=== PATIENT | female | born 1975 | race Caucasian/White ===

== ENCOUNTER → 2017-04-14 12:21 | Outpatient (CLI) | payer OTHER, SELFPAY ==
--- NOTE | 2017-04-14 12:28 | RAD_ITS ---
STUDY: X-RAY CHEST REASON FOR EXAM: Female, 41 years old. Chest pain TECHNIQUE: Frontal and lateral views COMPARISON: None. FINDINGS: The lungs are clear and expanded. There is no demonstrated pleural abnormality. Normal size heart. Normal mediastinum and paula. Normal visualized pulmonary arteries. Normal visualized aortic arch and descending thoracic aorta. Mild degenerative changes of the thoracic spine. Normal visualized ribs, clavicles, and shoulders. There is no demonstrated abnormality of the visualized soft tissue structures of the upper abdomen. RAD/Chest PA and Lateral IMPRESSION: Normal x-ray examination of the chest. Electronically Signed: Devin Pittman DO at 22:43 EST Tel [phone], Service support ,
== END ==
PROVIDERS: Family Provider Family Medicine; PCP Family Medicine; Visit Provider Family Medicine
DX: R07.81 Pleurodynia (principal)
CPT/HCPCS: 71046

== ENCOUNTER → 2019-12-29 | Outpatient (CLI) | payer BC, SELFPAY | END | disposition home or self-care (01) | PROVIDERS: PCP Family Medicine; Referring Provider Family Medicine; Visit Provider Family Medicine | DX: J06.9 Acute upper respiratory infection, unspecified (principal) | CPT/HCPCS: 87635; U0003 ==

== ENCOUNTER → 2021-02-27 | Outpatient (CLI) | payer BC, SELFPAY | END | disposition home or self-care (01) | PROVIDERS: PCP Family Medicine; Visit Provider Physician Assistant Medical | DX: R53.83 Other fatigue (principal) | CPT/HCPCS: 87635; U0005; U0003 ==

== ENCOUNTER → 2021-09-12 | Outpatient (CLI) | payer BC, SELFPAY ==
[2021-09-12 12:15] LABS: Absolute Lymphocyte Count 1.28 X10^3/uL (0.83-4.51); Absolute Neutrophil Count 3.9 X10^3/uL (2.0-7.7); Basophil# 0.06 X10^3/uL; Eosinophil# 0.06 X10^3/uL; Hematocrit 45.1 % (37-47); Lymphocyte # 1.28 X10^3/ul (0.83-4.51); Lymphocyte % 22.4 % (19-41); Mean Corp Hgb Conc 33.3 g/dL (32-36); Mean Corpuscular Hgb 33.1 pg (27.0-32.0); Mean Corpuscular Volume 99.6 fL (81-99); Mean Platelet Vol. 10.7 fl (6.2-12.0); Monocyte# 0.45 X10^3/uL; Monocyte% 7.9 % (0-10); NRBC Flagged by Analyzer 0 % (0-5); Neutrophil # 3.86 X10^3/uL (2.7-7.7); Neutrophil % 67.5 % (47-70); Platelet Count 244 K/mm3 (150-450); RBC Distribution Width CV 11.6 % (11.6-14.6); RBC Distribution Width SD 42.3 fl (35.1-43.9); Red Blood Count 4.53 M/mm3 (4.2-5.4); White Blood Count 5.7 K/mm3 (4.4-11.0)
[2021-09-12 12:39] LABS: ALB/GLOB Ratio 1.3 RATIO (0.9-2.4); AST(SGOT) 11 U/L (15-37); Alanine Aminotransfer ALT/SGPT 29 U/L (13-56); Albumin, Serum 4.2 g/dL (3.2-5.0); Alkaline Phosphatase 62 U/L (45-117); Anion Gap 4 (5-15); BUN 17 mg/dL (7-18); BUN/Creat Ratio 21.5 RATIO (10-20); Calcium,Total 9.4 mg/dL (8.5-10.1); Chloride 107 mmol/L (98-107); Cholesterol 195 mg/dL (200); Creatinine, Serum 0.79 mg/dL (0.55-1.02); EST Glomerular Filtration Rate 83 mL/min (>60); Est Glom Filt Rate - Afr Amer 100 mL/min (>60); Free T3 2.8 pg/mL (2.18-3.98); Globulin 3.3 g/dL (2.2-4.2); Glucose 91 mg/dL (74-106); High Density Lipoprotein 73 mg/dL; Potassium 4.1 mmol/L (3.5-5.1); Protein, Total 7.5 g/dL (6.4-8.2); Sodium Level 140 mmol/L (136-145); T4 Free Direct 0.86 ng/dL (0.76-1.46); Triglycerides 105 mg/dL; Very Low Density Lipoprotein 21 mg/dL (5-40)
[2021-09-12 12:49] LABS: Vitamin D,25 Hydroxy 53.6 ng/mL
== END | disposition home or self-care (01) ==
LOC: BIMLAB 08:49
PROVIDERS: PCP Internal Medicine; Referring Provider Internal Medicine; Visit Provider Internal Medicine
DX: E55.9 Vitamin D deficiency, unspecified (principal); Z86.39 Personal history of other endocrine, nutritional and metabolic disease; Z13.220 Encounter for screening for lipoid disorders
CPT/HCPCS: 36415; 80053; 80061; 82306; 84439; 84443; 84481; 85025

== ENCOUNTER → 2023-06-08 | Outpatient (CLI) | payer BC, SELFPAY ==
[2023-06-08 09:29] LABS: Absolute Lymphocyte Count 1.33 X10^3/uL (0.83-4.51); Absolute Neutrophil Count 3.8 X10^3/uL (2.0-7.7); Basophil# 0.07 X10^3/uL; Basophil% 1.2 % (0-1); Eosinophil# 0.09 X10^3/uL; Eosinophils% 1.6 % (0-5); Hematocrit 44.2 % (37-47); Hemoglobin 14.5 g/dL (12.0-15.0); Lymphocyte # 1.33 X10^3/ul (0.83-4.51); Lymphocyte % 23.3 % (19-41); Mean Corp Hgb Conc 32.8 g/dL (32-36); Mean Corpuscular Hgb 31.9 pg (27.0-32.0); Mean Corpuscular Volume 97.1 fL (81-99); Mean Platelet Vol. 10.6 fl (6.2-12.0); Monocyte# 0.44 X10^3/uL; Monocyte% 7.7 % (0-10); NRBC Flagged by Analyzer 0 % (0-5); Neutrophil # 3.76 X10^3/uL (2.7-7.7); Neutrophil % 65.8 % (47-70); Platelet Count 240 K/mm3 (150-450); RBC Distribution Width CV 11.8 % (11.6-14.6); RBC Distribution Width SD 42.3 fl (35.1-43.9); Red Blood Count 4.55 M/mm3 (4.2-5.4); White Blood Count 5.7 K/mm3 (4.4-11.0)
[2023-06-08 15:01] LABS: ALB/GLOB Ratio 1.3 RATIO (0.9-2.4); AST(SGOT) 11 U/L (15-37); Alanine Aminotransfer ALT/SGPT 20 U/L (13-56); Albumin, Serum 4.2 g/dL (3.2-5.0); Alkaline Phosphatase 62 U/L (45-117); Anion Gap 6 (5-15); BUN 14 mg/dL (7-18); BUN/Creat Ratio 21.1 RATIO (10-20); Calcium,Total 9.7 mg/dL (8.5-10.1); Chloride 109 mmol/L (98-107); Cholesterol 197 mg/dL (200); Creatinine, Serum 0.66 mg/dL (0.55-1.02); EST Glomerular Filtration Rate 101 mL/min (>60); Est Glom Filt Rate - Afr Amer 122 mL/min (>60); Free T3 2.7 pg/mL (2.18-3.98); Globulin 3.2 g/dL (2.2-4.2); Glucose 91 mg/dL (74-106); High Density Lipoprotein 70 mg/dL; Magnesium 2.1 mg/dL (1.6-2.6); Potassium 4.3 mmol/L (3.5-5.1); Protein, Total 7.4 g/dL (6.4-8.2); Sodium Level 139 mmol/L (136-145); T4 Free Direct 0.82 ng/dL (0.76-1.46); Thyroid Stim Hormone (TSH) 2.54 uIU/mL (0.358-3.74); Triglycerides 87 mg/dL; Very Low Density Lipoprotein 17 mg/dL (5-40)
== END | disposition home or self-care (01) ==
LOC: LAB 08:49
PROVIDERS: PCP Internal Medicine; Referring Provider Internal Medicine; Visit Provider Internal Medicine
DX: Z86.39 Personal history of other endocrine, nutritional and metabolic disease (principal); E55.9 Vitamin D deficiency, unspecified; Z13.220 Encounter for screening for lipoid disorders
CPT/HCPCS: 36415; 80053; 80061; 82306; 83735; 84439; 84443; 84481; 85025

== ENCOUNTER → 2024-05-05 | Outpatient (CLI) | payer BC, SELFPAY ==
[2024-05-05 12:25] LABS: Absolute Lymphocyte Count 1.33 X10^3/uL (0.83-4.51); Absolute Neutrophil Count 3.4 X10^3/uL (2.0-7.7); Basophil# 0.06 X10^3/uL; Basophil% 1.1 % (0-1); Eosinophil# 0.06 X10^3/uL; Eosinophils% 1.1 % (0-5); Hematocrit 43.1 % (37-47); Hemoglobin 14.4 g/dL (12.0-15.0); Lymphocyte # 1.33 X10^3/ul (0.83-4.51); Lymphocyte % 25.3 % (19-41); Mean Corp Hgb Conc 33.4 g/dL (32-36); Mean Corpuscular Hgb 32.5 pg (27.0-32.0); Mean Corpuscular Volume 97.3 fL (81-99); Mean Platelet Vol. 10.5 fl (6.2-12.0); Monocyte# 0.39 X10^3/uL; Monocyte% 7.4 % (0-10); NRBC Flagged by Analyzer 0 % (0-5); Neutrophil # 3.39 X10^3/uL (2.7-7.7); Neutrophil % 64.7 % (47-70); Platelet Count 265 K/mm3 (150-450); RBC Distribution Width CV 11.8 % (11.6-14.6); RBC Distribution Width SD 42.5 fl (35.1-43.9); Red Blood Count 4.43 M/mm3 (4.2-5.4); White Blood Count 5.3 K/mm3 (4.4-11.0)
[2024-05-05 12:47] LABS: Hemoglobin A1c 5.1 % (<=5.6)
[2024-05-05 13:10] LABS: ALB/GLOB Ratio 1.9 RATIO (0.9-2.4); AST(SGOT) 14 U/L (<=31); Alanine Aminotransfer ALT/SGPT 16 U/L (<=34); Albumin, Serum 4.5 g/dL (3.5-5.0); Alkaline Phosphatase 58 U/L (35-104); Anion Gap 11 (5-15); BUN 16 mg/dL (4-19); BUN/Creat Ratio 22.1 RATIO (10-20); Calcium,Total 9.6 mg/dL (7.6-11.0); Carbon Dioxide 22.7 mmol/L (21.0-32.0); Chloride 105 mmol/L (98-108); Creatinine, Serum 0.71 mg/dL (0.70-1.20); EST Glomerular Filtration Rate 104 (>60); Free T3 2.7 pg/mL (2.18-3.98); Globulin 2.5 g/dL (2.2-4.2); Glucose 94 mg/dL (70-99); Potassium 4.2 mmol/L (3.3-5.1); Sodium Level 138 mmol/L (133-145); Total Bilirubin 0.27 mg/dL (0.00-1.30); Vitamin B12 851 pg/mL (180-914); Vitamin D,25 Hydroxy 39.7 ng/mL (30-100)
[2024-05-05 13:29] LABS: Cholesterol 210 mg/dL (<=200); High Density Lipoprotein 64 mg/dL; Low Density Lipoprotein Calc. 120 mg/dL; Triglycerides 127 mg/dL; Very Low Density Lipoprotein 25 mg/dL (5-40); cholesterol:hdl ratio screen 3.27
== END | disposition home or self-care (01) ==
LOC: BIMLAB 08:54
PROVIDERS: PCP Internal Medicine; Referring Provider Internal Medicine; Visit Provider Internal Medicine
DX: Z00.00 Encounter for general adult medical examination without abnormal findings (principal); Z86.39 Personal history of other endocrine, nutritional and metabolic disease; E55.9 Vitamin D deficiency, unspecified; E53.8 Deficiency of other specified B group vitamins; Z13.220 Encounter for screening for lipoid disorders; R73.9 Hyperglycemia, unspecified
CPT/HCPCS: 36415; 80053; 80061; 82306; 82607; 83036; 84439; 84443; 84481; 85025

== ENCOUNTER → 2024-08-14 | Outpatient (CLI) | payer BC, SELFPAY ==
[2024-08-14 16:05] LABS: Absolute Lymphocyte Count 1.35 X10^3/uL (0.83-4.51); Absolute Neutrophil Count 4.2 X10^3/uL (2.0-7.7); Basophil# 0.06 X10^3/uL; Eosinophil# 0.06 X10^3/uL; Hematocrit 42.8 % (37-47); Hemoglobin 14.2 g/dL (12.0-15.0); Lymphocyte # 1.35 X10^3/ul (0.83-4.51); Lymphocyte % 21.8 % (19-41); Mean Corp Hgb Conc 33.2 g/dL (32-36); Mean Corpuscular Hgb 32.1 pg (27.0-32.0); Mean Corpuscular Volume 96.8 fL (81-99); Mean Platelet Vol. 10.6 fl (6.2-12.0); Monocyte# 0.51 X10^3/uL; Monocyte% 8.3 % (0-10); NRBC Flagged by Analyzer 0 % (0-5); Neutrophil # 4.18 X10^3/uL (2.7-7.7); Neutrophil % 67.6 % (47-70); Platelet Count 268 K/mm3 (150-450); RBC Distribution Width CV 11.8 % (11.6-14.6); RBC Distribution Width SD 42.2 fl (35.1-43.9); Red Blood Count 4.42 M/mm3 (4.2-5.4); White Blood Count 6.2 K/mm3 (4.4-11.0)
[2024-08-14 16:25] LABS: Hemoglobin A1c 5.2 % (<=5.6)
--- OUTSIDE RECORDS SUMMARY | 2024-08-14 23:24 | XMS RPT_ITS | CCD ---
Author Organization [facility] Care Team Providers Care Design Tech Name Role Phone Jean-Paul Oneil MD Primary Care Provider Sanchez Prince MD Primary Care Provider Dr. Sanchez Prince Primary Care Provider Dr. Sanchez Prince Attending Provider [phone] Sanchez Prince MD Primary Care Provider SANCHEZ PRINCE Primary Care Unavailable CAROL SEPULVEDA Referring Unavailable Sanchez Prince Primary Care Unavailable Sanchez Prince Attending Unavailable Sanchez Prince Referring Unavailable Sanchez Prince Primary Care Unavailable Sanchez Prince Attending Unavailable Sanchez Prince Attending Unavailable Sanchez Prince Referring Unavailable Sanchez Prince Primary Care Unavailable Sanchez Prince Primary Care Unavailable Sanchez Prince Attending Unavailable Sanchez Prince Primary Care Unavailable Sanchez Prince Attending Unavailable Dr. Sanchez Prince MD Primary Care Provider [phone] Dr. Sanchez Prince MD Attending Provider Dr. Sanchez Prince MD Referring Provider SANCHEZ PRINCE Primary Care Unavailable WADE NOWAK Attending Unavailable SANCHEZ PRINCE Primary Care Unavailable MALOU GASTELUM Attending Unavailable SANCHEZ PRINCE Primary Care Unavailable MALOU GASTELUM Referring Unavailable SANCHEZ PRINCE Primary Care Unavailable CAROL SEPULVEDA Attending Unavailable SANCHEZ PRINCE Primary Care Unavailable NEAL, MALOU Referring Unavailable SANCHEZ PRINCE Primary Care Unavailable MALOU GASTELUM Attending Unavailable SANCHEZ PRINCE Primary Care Unavailable HAURY, MALOU Attending Unavailable SANCHEZ PRINCE Primary Care Unavailable CAROL SEPULVEDA Attending Unavailable CAROL SEPULVEDA Referring Unavailable SANCHEZ PRINCE Primary Care Unavailable SANCHEZ PRINCE Primary Care Unavailable HAURY, MALOU Attending Unavailable ABENA NJ Attending Unavailable SANCHEZ PRINCE Primary Care Unavailable HAURY, MALOU Referring Unavailable TESTJUAN MANUEL, CAROL Referring Unavailable SANCHEZ PRINCE Primary Care Unavailable NASH SHAH Attending Unavailable CAROL SEPULVEDA Referring Unavailable SANCHEZ PRINCE Primary Care Unavailable NASH SHAH Attending Unavailable CAROL SEPULVEDA Referring Unavailable SANCHEZ PRINCE Primary Care Unavailable NARINDER DUNN Attending Unavailable SANCHEZ PRINCE Primary Care Unavailable HAURY, MALOU Referring Unavailable Allergies Allergy Classification Reported Allergen(s) Allergy Type Date of Onset Reaction(s) Facility (4 sources) Environmental [Other] Propensity to adverse reactions 6 [facility] Work Phone: (4 sources) Seasonal [Other] Propensity to adverse reactions 6 [facility] Work Phone: (3 sources) Environmental Allergies: Uncoded; Translations: [Environmental Allergies: Uncoded] Allergy to substance 4 Other [facility] (3 sources) Seasonal Allergies: Uncoded; Translations: [Seasonal Allergies: Uncoded] Allergy to substance 4 Fatigue [facility] Comment on above: Sinus congestion Medications Current Medications Medication Drug Class(es) Dates Sig (Normalized) Sig (Original) allergy shot (2 sources) Start: 03-25-2023 allergy shot Active IM .weekly March 25, 2023 1:00am caffeine 100 mg / ergotamine tartrate 1 mg oral tablet (20 sources) Central Nervous System Stimulant, Ergotamine Derivative, Methylxanthine Start: 04-09-2023 ergotamine-caffei ne (CAFERGOT) 1-100 mg per tablet Take 1 tablet by mouth as directed. Two tablets at onset of attack; then 1 tablet every 30 minutes as needed; maximum: 6 tablets per attack; do not exceed 10 tablets/week 04/09/2023 Active Start: 11-19-2021 End: 02-24-2024 take 2 tablets by mouth every two hours Ergotamine-Caffeine 1-100 mg tablet Active 0 PO .COMPLEX February 24, 2024 3:22pm On Hold: None take 2 tablets at onset of headache; if no relief, may repeat 1 tablet after at least 2 hrs; max = 3 tabs/24 hrs PO Start: 11-19-2021 End: 03-25-2023 take 2 tablets by mouth every two hours Ergotamine-Caffeine Active 0 PO .COMPLEX March 25, 2023 3:24pm take 2 tablets at onset of headache; if no relief, may repeat 1 tablet after at least 2 hrs; max = 3 tabs/24 hrs PO Comment on above: Take 1 tablet by reji th as directed. Two tablets at onset of attack; then 1 tablet every 30 minutes as needed; maximum: 6 tablets per attack; do not exceed 10 tablets/week calcium carbonate 1500 mg oral tablet (2 sources) Start: 11-19-2021 take 1 tablet by mouth once daily Calcium Carbonate 600 mg calcium (1,500 mg) tablet Active 600 mg PO DAILY November 19, 2021 12:00am Calcium Carbonate / vitamin D3 (20 sources) take 1 tablet by mouth twice daily CALCIUM CARBONATE/VITAMIN D3 (CALCIUM + D ORAL) Take 1 tablet by mouth twice daily. Active take 1 tablet by mouth twice marlene ly CALCIUM CARBONATE/VITAMIN D3 (CALCIUM + D ORAL) Take 1 tablet by mouth twice daily. 0 Active Comment on above: Take 1 tablet by reji twice daily. cholecalciferol 0.025 mg oral capsule (2 sources) Vitamin D Start: 11-20-19 take 1 capsule by mouth once daily Cholecalciferol (Vitamin D3) 25 mcg (1,000 unit) capsule Active 25 ug PO DAILY November 19, 2021 12:00am ergocalciferol, vitamin D2, (VITAMIN D2 ORAL) (20 sources) ergocalciferol, vitamin D2, (VITAMIN D2 ORAL) Take by mouth once daily. Active ergocalciferol, vitamin D2, (VITAMIN D2 ORAL) Take by mouth once daily. 0 Active ergocalciferol, vitamin D2, (VITAMIN D2 ORAL) Take by mouth. 0 Active Comment on above: Take by mouth. fexofenadine hydrochloride 60 mg oral tablet (20 sources) Histamine-1 Receptor Antagonist Start: 3 End: take 1 tablet by mouth once daily as needed Fexofenadine (Cristiane Allergy) 60 mg tablet Active 60 mg PO DAILY as needed March 25, 2023 2:12pm Start: 04-10-2021 End: 08-20-2022 take 1 tablet by mouth twice daily Fexofenadine (Cristiane Allergy) 60 mg tablet Discontinued 60 mg PO TWICE A DAY April 10, 2021 1:00am August 20, 2022 2:49pm take 1 tablet by reji th once daily fexofenadine HCl (CRISTIANE ORAL) Take 1 tablet by mouth once daily. Active take 1 tablet by reji th once daily fexofenadine HCl (CRISTIANE ORAL) Take 1 tablet by mouth once daily. 0 Active fexofenadine HCl (CRISTIANE ORAL) Take by mouth. 0 Active Comment on above: Take by mouth. fluconazole 150 mg oral tablet (1 source) Azole Antifungal Start: 10-14-2023 End: 10-14-2023 take 1 tablet by mouth once fluconazole (DIFLUCAN) 150 mg tablet Take 1 tablet by mouth one time only for 1 dose. 1 tablet 0 10/14/2023 10/14/2023 Active Magnesium (20 sources) take 500 mg by mouth once daily MAGNESIUM ORAL Take 500 mg by mouth once daily. Active take 500 mg by mouth once daily MAGNESIUM ORAL Take 500 mg by mouth once daily. 0 Active MAGNESIUM ORAL T shravan by mouth. 0 Active Comment on above: Take by mouth. melatonin 5 mg oral capsule (4 sources) Start: 11-19-2021 End: 08-20-2022 take 1 mg by mouth at bedtime Melatonin 5 mg capsule Active mg PO AT BEDTIME August 20, 2022 2:48pm Start: 11-19-2021 End: 08-20-2022 take 1 mg by mouth at bedtime Melatonin Active MG PO A T BEDTIME August 20, 2022 2:48pm 24 hr metFORMIN hydrochloride 500 mg extended release oral tablet (15 sources) Biguanide Start: 07-21-2024 take 1 tablet by mouth once daily at dinner metFORMIN ER (GLUCOPHAGE XR) 500 mg 24 hr tablet Indications: PCOS (polycystic ovarian syndrome) Take 1 tablet by mouth daily with dinner. 90 tablet 1 07/21/2024 Active Start: 03-10-2025 take 2 tablets by mo uth once daily Metformin 500 mg tablet Active 1000 mg PO daily May 08, 2024 10:43am Start: 01-06-2024 End: 01-31-2024 take 1 tablet by mouth once daily at dinner metFORMIN (GLUCOPHAGE) 1,000 mg tablet Indications: History of PCOS Take 1 tablet by mouth daily with dinner. 90 tablet 2 01/31/2024 Active Start: 11-04-2023 End: 05-08-2024 take 1 tablet by mouth once daily Metformin 500 mg tablet Discontinued 500 mg PO daily December 20, 2023 12:00am May 08, 2024 10:43am SUMAtriptan 50 mg oral tablet (2 sources) Serotonin-1b and Serotonin-1d Receptor Agonist Start: 07-08-2024 SUMAtriptan (IMITREX ) 50 mg tablet as needed. 07/08/2024 Active Start: 04-25-2024 take 1 tablet by [facility] every two hours Sumatriptan Succinate (Imitrex) 50 mg tablet Active 0 PO .COMPLEX April 25, 2024 1:00am take 1 tab at onset of headache; if no relief may repeat 1 tab after at least 2 hrs; max = 4 tabs/24 hr PO Toyviuzl-Knfl-Arfaf-Oreg-Cap ry (1 source) Start: 11-19-2021 Tjtazmqp-Bqqi-Utsth-Oreg-Cap ry Active CAP PO November 19, 2021 12:00am MLOPPCJC-OXHS-RTTGG-OREG-CAP RY ORAL (2 sources) Start: 11-19-2021 YVTZNOXD-INBX-VWNVF-OREG-CAP RY ORAL Take by mouth. 11/19/2021 Active Vitamin B Complex (20 sources) Start: 11-19-2021 take 1 tablet by mouth once daily Vitamin B Complex Active 1 TABLET PO DAILY November 19, 2021 12:00am take 1 tablet by mouth once jacob y vitamin B complex (B COMPLEX ORAL) Take 1 tablet by mouth once daily. Active take 1 tablet by mouth once jacob y vitamin B complex (B COMPLEX ORAL) Take 1 tablet by mouth once daily. 0 Active vitamin B comple x (B COMPLEX ORAL) Take by mouth. 0 Active Comment on above: Take by mouth. Vitamin B Complex tablet (1 source) Start: 11-19-2021 Vitamin B Comp ramakrishna tablet Active 1 {tbl} PO DAILY November 19, 2021 12:00am Completed/Discontinued Medications Medication Drug Class(es) Dates Sig (Normalized) Sig (Original) amino acids-rice yuqvjgh-cf-ba (K-PAX IMMUNE BOOSTER) 24 gram-240 kcal/65 gram powd (17 sources) End: 10-14-2023 amino acids-rice fqwqmqx-uf-mh (K-PAX IMMUNE BOOSTER) 24 gram-240 kcal/65 gram powd Take by mouth. 0 10/14/2023 Discontinued amino acids-rice bvodkfh-mz-kg (K-PAX IMMUNE BOOSTER) 24 gram-240 kcal/65 gram powd Take by mouth. 0 Active Comment on above: Take by mouth. ascorbic acid 1000 mg oral capsule (20 sources) Vitamin C Start: 11-19-2021 End: 08-20-2022 take 1 g by mouth every six hours Ascorbic Acid (Vitamin C) 1,000 mg capsule Discontinued 1 g PO EVERY 6 HOURS November 19, 2021 12:00am August 20, 2022 2:47pm Start: 11-19-2021 End: 08-20-2022 take 1 g by mouth every six hours Ascorbic Acid (Vitamin C) Discontinued 1 GM PO EVERY 6 HOURS November 19, 2021 12:00am August 20, 2022 2:47pm End: 10-14-2023 ascorbic acid (VITAMIN C ORA L) Take by mouth. 0 10/14/2023 Discontinued ascorbic acid (V ITAMIN C ORAL) Take by mouth. 0 Active Comment on above: Take by mouth. betamethasone 0.5 mg/ml / clotrimazole 10 mg/ml topical cream (3 sources) Azole Antifungal, Corticosteroid Start: 12-19-19 End: 04-27-19 23 clotrimazole-betamet hasone (LOTRISONE) cream Indications: Vaginal irritation Apply 1 application to affected area twice daily. 15 g 2 12/18/2020 04/27/2022 Discontinued (Other) Comment on above: Apply 1 application to affected area twice daily. budesonide 0.032 mg/actuat metered dose nasal spray (6 sources) Corticosteroid End: 04-09-19 take 1 spray(s) nasal route once daily budesonide (RHINOCORT AQ) 32 mcg/actuation nasal spray Use 1 [place] in each nostril once daily. 0 04/09/2023 Discontinued Comment on above: Use 1 [place] in each nostril once daily. Calcium (20 sources) Phosphate Binder, Calcium End: 10-14-19 CALCIUM ORAL Take by mouth. 0 10/14/2023 Discontinued CALCIUM ORAL Wiliam e by mouth. 0 Active Comment on above: Take by mouth. calcium chloride 0.0014 meq/ml / potassium chloride 0.004 meq/ml / sodium chloride 0.103 meq/ml / sodium lactate 0.028 meq/ml injectable solution (1 source) Start: End: lactated ringers iv infusion diphenhydrAMINE (1 source) Histamine-1 Receptor Antagonist Start: End: diphenhydrAMINE 12.5-50 mg injection (BENADRYL) 1 ml fentaNYL 0.05 mg/ml injection (1 source) Opioid Agonist Start: End: fentaNYL 50 mcg/mL 25-100 mcg injection (SUBLIMAZE) levothyroxine sodium 0.05 mg oral tablet (3 sources) l-Thyroxine Start: End: take 1 tablet by mouth once daily Levothyroxine 50 MCG tablet Discontinued 50 ug PO DAILY January 22, 2014 1:00am April 10, 2021 2:19pm miconazole nitrate 20 mg/ml vaginal cream (4 sources) Azole Antifungal Start: End: miconazole (MONISTAT 7) 2 % vaginal cream Use 1 Applicator vaginally daily at bedtime. 45 g 10/14/2023 11/04/2023 Discontinued 5 ml midazolam 1 mg/ml injection (1 source) Benzodiazepine Start: End: midazolam (PF) 1-5 mg injection (VERSED) multivit/iron/FA/K/her b no.244 (ALIVE WOMEN'S ENERGY ORAL) (20 sources) End: multivit/iron/FA/K/her b no.244 (ALIVE WOMEN'S ENERGY ORAL) Take by mouth. 0 10/14/2023 Discontinued multivit/iron/FA /K/herb no.244 (ALIVE WOMEN'S ENERGY ORAL) Take by mouth. 0 Active Comment on above: Take by mouth. polyethylene glycol 3350 [id number] mg / potassium chloride 2970 mg / sodium bicarbonate 6740 mg / sodium chloride 5860 mg / sodium sulfate 97017 mg powder for oral solution (2 sources) Osmotic Laxative Start: 06-29-2023 End: 06-29-2023 peg 3350-Electrolytes (GOLYTELY) 236-22.74-6.74 -5.86 gram suspension Take 4,000 mL by mouth one time only for 1 dose. 1 Each 0 06/29/2023 06/29/2023 Start: 04-09-2023 End: 04-09-2023 peg 3350-electrolytes (GAVIL YTE-C) 240-22.72-6.72 -5.84 gram solution Indications: Special screening for malignant neoplasms, colon Take 4,000 mL by mouth one time only for 1 dose. 4000 mL 0 04/09/2023 04/09/2023 Active Comment on above: Take 4,000 mL by reji th one time only for 1 dose. quercetin 500 mg oral capsule (4 sources) Start: 03-25-2023 End: 06-14-2023 take 1 capsule by mouth once daily Quercetin 500 mg capsule Discontinued 500 mg PO DAILY March 25, 2023 1:00am June 14, 2023 10:05am QUERCETIN ORAL T shravan by mouth. Active triamcinolone acetonide 0.001 mg/mg topical ointment (20 sources) Corticosteroid Start: 04-27-2022 End: 04-09-2023 triamcinolone acetonide (KENALOG) 0.1 % ointment Apply to affected area twice daily. For 7-10 days 15 g 1 04/27/2022 04/09/2023 Discontinued Start: 04-10-2021 Triamcinolone Acetonide (Nasacort) 55 mcg aerosol,spray Active 1 NMA INTRANASAL DAILY April 10, 2021 1:00am administer into each nostril Start: 04-10-2021 take 1 spray(s) nasa l route once daily Triamcinolone Acetonide (Nasacort) 55 mcg aerosol,spray Active 1 SPRAY INTRANASAL DAILY April 10, 2021 1:00am administer into each nostril triamcinolone ac etonide (NASACORT NASAL) Use in the nose once daily. Active triamcinolone ac etonide (NASACORT NASAL) Use in the nose once daily. 0 Active triamcinolone ac etonide (NASACORT NASAL) Use in the nose. 0 Active Comment on above: Apply to affected ar ea twice daily. For 7-10 days Use in the nose. DZRJLQI-OGZF-PJLXE-OR EG-CAPRYL ORAL (17 sources) Start: 11-19-2021 End: 10-14-2023 NJNMJXR-EXEM-RVYWA-OREG-CA PRYL ORAL Take by mouth. 0 11/19/2021 10/14/2023 Discontinued Start: 11-19-2021 APSKQSL-ZYKE-Y TTUD-JRGW-NCZANO ORAL Take by mouth. 0 11/19/2021 Active Comment on above: Take by mouth. Zofavcbh-Gduc-Mbibx-Oreg -Capry 100 mg-150 mg- 50 mg-150 mg capsule (1 source) Start: 11-19-2021 End: 05-08-2024 Rctzwqks-Fcjr-Vkfkz-Oreg-Cap ry 100 mg-150 mg- 50 mg-150 mg capsule Discontinued NMA PO November 19, 2021 12:00am May 08, 2024 10:42am Problems Active Problems Problem Classification Problem Date Documented Da te Episodic/Chronic Acquired foot deformities (7 sources) Hallux valgus; Translations: [Hallux valgus (acquired), right foot] Onset: 09-03-2023 07-09-2023 Chronic Administrative/social admission (10 sources) Patient encounter status; Translations: [Persons encountering health services in other specified circumstances] Episodic Anxiety disorders (3 sources) State of emotional shock and stress, unspecified; Translations: [Emotional stress ] Onset: 05-09-2024 06-14-2023 Chronic Genitourinary symptoms and ill-defined conditions (4 sources) Female stress incontinence; Translations: [Stress incontinence (female) (male)] Chronic Genitourinary symptoms and ill-defined conditions (1 source) Blood in urine; Translations: [Hematuria, unspecified] 10-14-2023 Episodic Headache; including migraine (3 sources) Bilateral headache; Translations: [Bilateral headache] 11-19-2021 Episodic Hemorrhoids (1 source) Unspecified hemorrhoids; Translations: [Hemorrhoids, unspecified hemorrhoid type] Onset: 07-21-2024 Episodic Immunizations and screening for infectious disease (1 source) Vaccination needed; Translations: [Encounter for immunization] 04-13-2024 Episodic Inflammatory diseases of female pelvic organs (1 source) Acute vaginitis; Translations: [Acute vaginitis] 10-14-2023 Episodic Menstrual disorders (2 sources) Irregular periods; Translations: [Irregular menstruation, unspecified] Onset: 11-04-2023 11-04-2023 Chronic Nutritional deficiencies (7 sources) Vitamin D deficiency; Translations: [Vitamin D deficiency, unspecified] Onset: 05-09-2024 04-10-2021 Chronic Other circulatory disease (1 source) Abnormal peripheral pulse; Translations: [Other specified symptoms and signs involving the circulatory and respiratory systems] 07-30-2023 Episodic Other circulatory disease (1 source) Tender lymph node; Translations: [Other specified symptoms and signs involving the circulatory and respiratory systems] 12-20-2023 Episodic Other congenital anomalies (2 sources) Porokeratosis; Translations: [Other specified congenital malformations of skin] 07-09-2023 Chronic Other connective tissue disease (1 source) Pain in right foot; Translations: [Right foot pain] Onset: 09-15-2023 Episodic Other endocrine disorders (2 sources) Polycystic ovary syndrome; Translations: [Polycystic ovarian syndrome] 11-04-2023 Chronic Other endocrine disorders (1 source) Polycystic ovarian syndrome; Translations: [PCOS (polycystic ovarian syndrome)] Onset: 11-04-2023 Chronic Other female genital disorders (1 source) Vulval irritation; Translations: [Other specified noninflammatory disorders of vulva and perineum] Episodic Other female genital disorders (1 source) Pruritus of vagina; Translations: [Other specified noninflammatory disorders of vagina] Episodic Other female genital disorders (2 sources) Vaginal irritation; Translations: [Other specified noninflammatory disorders of vagina] 04-29-2023 Episodic Other female genital disorders (1 source) Vaginal odor; Translations: [Other specified noninflammatory disorders of vagina] 04-29-2023 Episodic Other female genital disorders (2 sources) History of gynecological disorder; Translations: [Personal history of other diseases of the female genital tract] 01-06-2024 Episodic Other female genital disorders (3 sources) Other specified noninflammatory disorders of vagina; Translations: [Vaginal itching] Onset: 11-04-2023 Episodic Other gastrointestinal disorders (1 source) Constipation, unspecified; Translations: [Constipation, unspecified constipation type] Onset: 07-21-2024 Episodic Other non-traumatic joint disorders (2 sources) Hip joint finding; Translations: [Pain in left hip] 03-25-2023 Episodic Other non-traumatic joint disorders (2 sources) Pain in left hip; Translations: [Pain in joint, pelvic region and thigh] 03-25-2023 Episodic Other nutritional; endocrine; and metabolic disorders (4 sources) H/O: hypothyroidism; Translations: [Personal history of other endocrine, nutritional and metabolic disease] 04-10-2021 Episodic Other nutritional; endocrine; and metabolic disorders (2 sources) Personal history of other endocrine, nutritional and metabolic disease; Translations: [Personal history of other endocrine, metabolic, and immunity disorders] Onset: 05-09-2024 05-06-2023 Episodic Other screening for suspected conditions (not mental disorders or infectious disease) (2 sources) Inconclusive mammography finding; Translations: [Inconclusive mammogram] Episodic Other upper respiratory disease (3 sources) Seasonal allergy; Translations: [Other seasonal allergic rhinitis] 04-10-2021 Chronic Other upper respiratory disease (3 sources) Allergic disposition; Translations: [Other allergic rhinitis] 04-10-2021 Chronic Unclassified (2 sources) Patient encounter status 04-13-2024 Viral infection (5 sources) Viral disease; Translations: [Viral infection, unspecified] 02-27-2021 Episodic Past or Other Problems Problem Classification Problem Date Documented Da te Episodic/Chronic Acquired foot deformities (9 sources) Bunion; Translations: [Bunion of unspecified foot] Onset: 03-16-2024 07-08-2023 Episodic Allergic reactions (20 sources) Radiation-induced dermatosis; Translations: [Other skin changes due to chronic exposure to nonionizing radiation] Onset: 07-23-2006 Resolved: 03-20-2011 03-20-2011 Episodic Hemorrhage during ; abruptio placenta; placenta previa (20 sources) Low lying placenta; Translations: [Low lying placenta NOS or without hemorrhage, unspecified trimester] Onset: 08-10-2013 Resolved: 03-05-2014 02-24-2021 Episodic Malaise and fatigue (2 sources) Lack of energy; Translations: [Other fatigue] Onset: 11-04-2023 11-04-2023 Episodic Mood disorders (2 sources) Disturbance in mood; Translations: [Emotional lability] Onset: 11-04-2023 11-04-2023 Episodic Mycoses (20 sources) Pityriasis versicolor; Translations: [Pityriasis versicolor] Onset: 07-23-2006 Resolved: 03-20-2011 03-20-2011 Episodic Nonmalignant breast conditions (5 sources) Breast finding ; Translations: [Dense breast tissue] Onset: 03-14-2024 04-09-2023 Episodic Other and unspecified benign neoplasm (20 sources) Benign neoplasm of skin of trunk; Translations: [Other benign neoplasm of skin of trunk] Onset: 07-23-2006 Resolved: 03-20-2011 03-20-2011 Episodic Other and unspecified benign neoplasm (20 sources) Benign neoplasm of skin of face; Translations: [Other benign neoplasm of skin of unspecified part of face] Onset: 07-23-2006 Resolved: 03-20-2011 03-20-2011 Episodic Other and unspecified benign neoplasm (20 sources) Benign tumor of head and neck; Translations: [Other benign neoplasm of skin of scalp and neck] Onset: 07-23-2006 Resolved: 03-20-2011 03-20-2011 Episodic Other circulatory disease (1 source) Other specified symptoms and signs involving the circulatory and respiratory systems; Translations: [Diminished pulses in lower extremity] Onset: 09-03-2023 Episodic Other complications of ; puerperium affecting management of mother (20 sources) Advanced maternal age ; Translations: [Advanced maternal age (AMA) in ] Onset: 08-10-2013 Resolved: 03-05-2014 02-24-2021 Episodic Other complications of (20 sources) Multigravida of advanced maternal age; Translations: [Supervision of elderly multigravida, unspecified trimester] Onset: 03-20-2011 Resolved: 07-12-2012 07-12-2012 Episodic Other complications of (20 sources) RhD negative; Translations: [Other specified related conditions, unspecified trimester] Onset: 08-10-2013 Resolved: 03-05-2014 02-24-2021 Episodic Other connective tissue disease (9 sources) Pain in right foot; Translations: [Pain in right foot] Onset: 03-16-2024 09-15-2023 Episodic Other and delivery including normal (20 sources) Normal in primigravida; Translations: [Encounter for supervision of normal first , unspecified trimester] Onset: 03-20-2011 Resolved: 03-05-2014 07-12-2012 Episodic Other skin disorders (20 sources) Acne; Translations: [Other acne] Onset: 03-16-2005 Resolved: 03-20-2011 03-20-2011 Episodic Other skin disorders (20 sources) Sebaceous cyst of skin; Translations: [Sebaceous cyst] Onset: 07-23-2006 Resolved: 03-20-2011 03-20-2011 Episodic Other skin disorders (20 sources) Scar conditions and fibrosis of skin; Translations: [Scar conditions and fibrosis of skin] Onset: 07-23-2006 Resolved: 03-20-2011 03-20-2011 Episodic Other skin disorders (20 sources) Disorder of skin pigmentation; Translations: [Disorder of pigmentation, unspecified] Onset: 07-23-2006 Resolved: 03-20-2011 03-20-2011 Episodic Screening and history of mental health and substance abuse codes (20 sources) H/O: depression; Translations: [Personal history of other mental and behavioral disorders] Onset: 08-10-2013 Resolved: 03-05-2014 02-24-2021 Episodic Thyroid disorders (20 sources) Disorder of thyroid gland; Translations: [Disorder of thyroid, unspecified] Onset: 08-11-2013 Resolved: 03-05-2014 02-24-2021 Episodic Results Test Name Value Interpretation Reference Range Facil anyi Ortega 08-03-2024 NASIR Telephone (DIONYGY) ---- B[place] ([id number]) 1975 F Date Time Provider Department 08/03/24 MALOU GASTELUM During your visit today, we recorded the following information about you: Madison Mejia RN 08/03/2024 9:11 AM Signed Patient calling in stating that she decided to stop Metformin 2 weeks ago due to constipation and not losing any weight. Has feelings of hunger almost immediately after eating like she is not satisfied x 2 nights. Denies any other symptoms including but not limited to feelings of excessive thirst, frequent urination, dizziness or blurry vision. Wonders if this is from discontinuing medication, hormone issues that would warrant bloodwork ordered, since she still needs to do Vitamin D that was ordered previously ordered 07/21/2024. Had HgbA1C, estrogen, FSH drawn 11/22. Please advise. Patient seen by Malou for PCOS 11/04/2023. Patient f KJ and EH and patient wishes to look at this Malou Gastelum APRN.OFFICE RENTAL CLERK 08/03/2024 9:29 AM Signed Ok to discontinue Metformin if she wants. Feelings of hunger likely not related to discontinuing - feelings of hunger likely related to not enough protein. Hormone panels not indicated. Would recommend follow up with functional medicine for further management. Malou Gastelum APRN.Shana Ward LPN 08/03/2024 10:14 AM Signed Patient notified Allergies As of Date: 08/03/2024 (No Known Allergies) Date Reviewed: 07/21/2024 Reviewed by: Malou Gastelum APRN.OFFICE RENTAL CLERK - Fully Assessed Reason for Visit: Lab Orders [7790] Prescriptions as of 08/03/2024 - SUMAtriptan (IMITREX) 50 mg tablet as needed. - metFORMIN ER (GLUCOPHAGE XR) 500 mg 24 hr tablet Take 1 tablet by mouth daily with dinner. - CIQPDROX-AXWX-EEZIJ -OREG-CAPRY ORAL Take by mouth. - QUERCETIN ORAL Take by mouth. - ergocalciferol, vitamin D2, (VITAMIN D2 ORAL) Take by mouth once daily. - triamcinolone acetonide (NASACORT NASAL) Use in the nose once daily. - vitamin B complex (B COMPLEX ORAL) Take 1 tablet by mouth once daily. - MAGNESIUM ORAL Take 500 mg by mouth once daily. - fexofenadine HCl (CRISTIANE ORAL) Take 1 tablet by mouth once daily. - CALCIUM CARBONATE/VITAMIN D3 (CALCIUM + D ORAL) Take 1 tablet by mouth twice daily. Problem List As Of Date 08/03/2024 Noted Resolved Other acne [L70.8] 03/16/2005 03/20/2011 TINEA//PITYRIASIS VERSICOLOR [B36.0] 07/23/2006 03/20/2011 Sebaceous cyst [L72.3] 07/23/2006 03/20/2011 NEVUS///BENIGN JIAN SKIN TRUNK [D23.5] 07/23/2006 03/20/2011 Benign neoplasm of skin of other and unspecifie*07/24/19 07 03/20/2011 Benign neoplasm of scalp and skin of neck [D23.*07/23/2006 03/20/2011 Other chronic dermatitis due to solar radiation* 7 03/20/2011 Scar condition and fibrosis of skin [L90.5] 07/23/2006 03/20/2011 SOLAR LENGINES////DYSCHRO GRACIA OTHER [L81.9] 07/23/2006 03/20/2011 Supervision of normal first [Z34.00] 03/20/2011 07/12/2012 ADVANCED MATERNAL AGE:MULTIPARA [659.63] [O09.5*03/20/2011 07/12/2012 Advanced maternal age (AMA) in [IMO00*08/10/2013 03/05/2014 with care elsewhere [Z34.90] 08/10/2013 03/05/2014 History of depression [Z86.59] 08/10/2013 03/05/2014 Rh negative status during [O26.899, Z*08/10/2013 03/05/2014 Low-lying placenta [O44.40] 08/10/2013 03/05/2014 Thyroid disorder [E07.9] 08/11/2013 03/05/2014 Right foot pain [M79.671] 03/16/2024 Hallux limitus, acquired, right [M20.5X1] 03/16/2024 Encounter Status:Closed by SHANA RIOS on 08/03/24 [facility] BACTERIAL VAGINOSIS NAATon 0 - Lactobacillus crispatus+gasseri+jense brendan + Gardnerella vaginalis + Atopobium vaginae rRNA CHINA+probe Ql (Vag fld) Not detected Normal [facility] Comment on above: Order Comment: Speci men Type: SWABOrdering Facility: [facility] Address: [address] [place] [address] Performed By: #### C VTV, BVAMP ####[facility] LABCLIA [id number] [place] [address] [place] ANA/TRICHOMONAS NAATon 0 07-21-2024 C. glabrata RNA CHINA+probe Ql (Vag fld) Not detected Normal [facility] Comment on above: Order Comment: Speci men Type: SWABOrdering Facility: [facility] Address: [address] [place] [address] Performed By: #### C VTV, BVAMP ####[facility] LABCLIA [id number] [address] [place] Ana sp DNA CHINA+probe Ql (Vag fld) Not detected Normal Not detected [facility] Comment on above: Order Comment: Speci men Type: SWABOrdering Facility: [facility] Address: [address] [place] [address] Result Comment: The Ana species group target includes C. albicans, C. tropicalis, C. parapsilosis, and C. dubliniensis. Performed By: #### C VTV, BVAMP ####[facility] LABCLIA [id number] [address] [place] T. vaginalis DNA CHINA+probe Ql (Unsp spec) Not detected Normal Not detected [facility] Comment on above: Order Comment: Speci men Type: SWABOrdering Facility: [facility] Address: [address] [place] [address] Performed By: #### C VTV, BVAMP ####[facility] LABCLIA [id number] [place] [address] [place] CNOVon 07-21-2024 CNOV Office Visit (OBGYWM) ---- BIANCA SPRING ([id number]) 1975 F Date Time Provider Department 07/21/24 2:30 PM MALOU GASTELUM During your visit today, we recorded the following information about you: Blood pressure Weight Last Period 118/76 66.2 kg 07/02/24 Malou Gastelum APRN.OFFICE RENTAL CLERK 07/21/2024 3:47 PM Signed Nursing Program Coordinator offered: Patient declines. Bianca Spring is a 49 year old female who presents for pruritus, rectal pain, and vaginal discharge for 5 days. HPI: Quynh noted pruritus and rectal pain for 5 days. Symptoms have improved. Wondering if she has a hemorrhoid. UTD on colonoscopy. Does struggle with constipation related to Metformin use. Taking 1000 mg daily. Wondering if she should continue Metformin. Has PCOS. Reports weight gain. Reports that stress levels have been elevated and diet has not been great. Wondering what else she can do to lose weight. Reports weight gain to midsection specifically. Would like her labs ordered by PCP in April to be reviewed. She has brought her women's health probiotic in for review. OB History Gravida3 Para2 Term2 Preterm0 AB1 Living2 SAB1 IAB0 Ectopic0 Multiple0 Live Births2 Manager Environmental Affairs History LMP: 07/02/2024 (Exact Date), Having periods Age at Menarche: Age at First : Age at Menopause: Manager Environmental Affairs History Comments: Sexual Activity: Yes; Male Contraception: Condom PAST MEDICAL HISTORY Diagnosis Date Allergic rhinitis, cause unspecified Allergic rhinitis COVID-19 11/28/2020 History of depression situational Infertility, female Migraine, unspecified, with intractable migraine, so stated, without mention of status migrainosus Migraine Mononucleosis 03/01/1996 Other acne Rh negative status during (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 PAST SURGICAL HISTORY Procedure Laterality Date COLONOSCOPY SCREENING 2023 EYE SURGERY HX TONSILLECTOMY PRIMARY/SECONDARY AGE 11/> FAMILY HISTORY Problem Relation Age of Onset Heart Mother Hypertension Maternal Grandmother Osteoporosis Maternal Grandmother Cancer Paternal Grandmother Lung and Bone Heart Paternal Grandfather Hypertension Paternal Grandfather Cancer Sister Lung (Non-smoker) Social History Tobacco Use Smoking status: Never Smokeless tobacco: Never Vaping Use Vaping status: Never Used Substance Use Topics Alcohol use: Not Currently Drug use: Never Current Outpatient Medications Medication Sig SUMAtriptan (IMITREX) 50 mg tablet as needed. SACZNZED-GJMK-OFAVW -OREG-CAPRY ORAL Take by mouth. QUERCETIN ORAL Take by mouth. ergocalciferol, vitamin D2, (VITAMIN D2 ORAL) Take by mouth once daily. triamcinolone acetonide (NASACORT NASAL) Use in the nose once daily. vitamin B complex (B COMPLEX ORAL) Take 1 tablet by mouth once daily. MAGNESIUM ORAL Take 500 mg by mouth once daily. fexofenadine HCl (CRISTIANE ORAL) Take 1 tablet by mouth once daily. CALCIUM CARBONATE/VITAMIN D3 (CALCIUM + D ORAL) Take 1 tablet by mouth twice daily. metFORMIN ER (GLUCOPHAGE XR) 500 mg 24 hr tablet Take 1 tablet by mouth daily with dinner. No current facility-administer ed medications for this visit. Allergies As of Date: 07/21/2024 (No Known Allergies) Fully Assessed 07/21/2024 REVIEW OF SYSTEMS Expanded ROS: NECK CUTTER: Negative for abnormal vaginal bleeding + itching Allergies and current medication updated:Yes SENSITIVE EXAM: The sensitive examination was discussed with the Patient or Patient's Authorized Snake Charmer. As applicable, any other physician, advance practice provider, medical student, or other health professional student that will be observing or involved in the sensitive examination for educational or training purposes was discussed with the Patient or Authorized Snake Charmer. The Patient or Authorized Snake Charmer has agreed to proceed with the sensitive examination. (Sensitive examination includes inspection and/or palpation of the breasts, pelvis, prostate and anorectal regions). EXAM: BP 118/76 Wt 146 lb (66.2kg) LMP 07/02/2024 GENERAL: pleasant, female in no apparent distress HEENT: Normocephalic, atraumatic, mucus membranes moist, and no lesions CHEST: Normal inspiratory effort PELVIC: external genitalia normal, normal Bartholin's glands, urethra, [place]'s glands, no vulvar lesions, no cervical lesions, good vaginal support, physiologic discharge present, normal appearing perineal body and perianal region + hemorrhoid noted BIMANUAL: uterus normal size, shape and consistency, no adnexal masses, and non-tender NEURO: alert and oriented x3,exam grossly non-focal EXTREMITIES: normal ASSESSMENT AND PLAN: 1. Vaginal itching - ICD9: 698.1, ICD10: N89.8 (primary diagnosis) 2. Vaginal discharge - ICD9: 623.5, ICD10: N89.8 - Itching could be related to hemorr (more content not included)... [facility] MR/BMS.IMBon 05-08-2024 MR/BMS.IMB [facility] [address] [place] [address] OFFICE VISIT Date of Service: 05/08/24 MR#: [id number] Acct: [id number] Name: BIANCA SPRING Rep #: [id number] : 1975 Provider: Dr. 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 Accompanied by: Self Is patient in pain?: No Allergies Environmental Allergies: Uncoded Allergy (Intermediate, Verified 05/08/24 10:37) Other Seasonal Allergies: Uncoded Allergy (Verified 05/08/24 10:37) Fatigue Medications ???Medication ???Instructions ???Recorded ???Confirmed ???Type triamcinolone acetonide 55 mcg 1 spray intranasal DAILY 04/10/21 05/08/24 History nasal spray aerosol (Nasacort) calcium carbonate 600 mg PO DAILY 11/19/21 05/08/24 History cholecalciferol (vitamin D3) 25 25 mcg PO DAILY 11/19/21 05/08/24 History mcg (1,000 unit) capsule vitamin B complex 1 tab PO DAILY 11/19/21 05/08/24 H istory melatonin 5 mg capsule mg PO QHS 08/20/22 05/08/24 Histor y allergy shot IM .weekly 03/25/23 05/08/24 Histo ry fexofenadine 60 mg tablet (Cristiane 60 mg PO DAILY PRN 03/25/2304/29 History Allergy) ergotamine 1 mg-caffeine 100 mg See Rx Instructions PO .COMPLEX 05/08/24 Rx tablet #10 tabs Held on 04/25/24. Instructions: Home Medication placed on hold at Doctor's office sumatriptan succinate 50 mg tablet See Rx Instructions PO .COMPLEX 04/25/24 05/08/24 Rx (Imitrex) #10 tabs metformin 500 mg tablet 1,000 mg PO QDAY 05/08/24 05/08/24 History PFSH Medical History Tender lymph node Seasonal allergies Surgical History History of tonsillectomy Family History Sister Cancer, Onset Age: 36 lung Father Heart disease Social History Smoking Status: Never smoker alcohol intake: never substance use type: does not use HPI HPI Chief Complaint: Annual/Physical Details: BIANCA SPRING, is a 48 F who presents to the office today for annual physical. Patient is a 48-year-old female who has a history of bilateral headache/migraines. Was previously on ergotamine???brunoi ne but it was expensive. She really did not want to use caffeine in the evenings regardless so we at her request change to Imitrex. She used 1 dose since this was prescribed. She took the first dose and then a second dose couple of hours later. That resolved the headache. She was comfortable with staying on Imitrex. Otherwise she is on vitamin D, calcium supplement, melatonin. She is also on metformin 1000 mg p.o. daily through women's health. She has a history of PCOS, and some weight gain. She has not noticed any improvement in terms of her weight. Her BMI is 24.9. Review of systems per chart. She denies chest pain, chest tightness, shortness of breath wheeze cough or congestion. No fever or chills. No nausea or vomiting. Appetite has been good. Bowel movements been regular. No urinary concerns. No focal areas of numbness or tingling or weakness. No neurologic concerns. No endocrinology issues except history of PCOS. Physical exam. Vital signs on chart. PERRLA. Sclera are clear. TMs are unremarkable with normal light reflexes. Canals are unremarkable. Posterior pharynx is unremarkable. Good dentition. No cervical or supraclavicular lymph nodes enlarged or tender. No clear thyromegaly. No thyroid nodules readily palpable. Lungs are without wheeze, rhonchi, rales. No E/A changes are heard. Heart is regular. Not tachycardic. No clear murmur, rub, or gallop is identified. The abdomen is soft. Bowel sounds are present. Nontender nondistended abdomen. No clear palpable masses in the abdomen. No significant leg edema. Cranial nerve examination 2 through 12 are grossly unremarkable nonlateralizing. Deep tendon reflexes are 2/4 and symmetric at the bicep, tricep, Achilles, patella. No ankle clonus. No obvious rashes. No obvious significant skin lesions are identified. ROS Const Constitutional: No body ache, chills, excessive sweating, fatigue, fever(s), frequent falls, headache(s), snoring, weakness or change (more content not included)... Normal [facility] Absolute neutrophil countOrd ered By: Sanchez Prince on 05-05-2024 Neutrophils (Bld) [#/Vol] 3.4 10*3/uL 2.0-7.7 [facility] Anion gap in Serum or Plasma Ordered By: Sanchez Prince on 05-05-2024 Anion gap [Moles/Vol] 11 mmol/L 5-15 [facility] BUN/creatinine ratioOrdered By: Sanchez Prince on 05-05-2024 Urea nitrogen/Creatinine [Mass ratio] 22.1 mg/mg High 10-20 [facility] Basophil percentageOrdered B y: Sanchez Prince on 05-05-2024 Basophils/100 WBC (Bld) 1.1 % High 0-1 [facility] Bilirubin, totalOrdered By: Sanchez Prince on 05-05-2024 Bilirubin [Mass/Vol] 0.27 mg/dL 0.00-1.30 [facility] CBC W/Diff, Automatedon Absolute Lymph 1.33 X10 3/uL Normal 0.83-4.51 [facility] Comment on above: Performed By: #### L 506.1001, L503.0106, L100.0100, L506.0400, L501.9520, L500.4100, L500.4050, L501.21446, L501.9985 ####[facility] [address] [place], [address] Absolute Neut 3.4 X10 3/uL Normal 2.0-7.7 [facility] Comment on above: Performed By: #### L 506.1001, L503.0106, L100.0100, L506.0400, L501.9520, L500.4100, L500.4050, L501.59461, L501.9985 ####[facility] [address] [place], [address] Basophils/100 WBC (Bld) 1.1 % High 0-1 [facility] Comment on above: Performed By: #### L 506.1001, L503.0106, L100.0100, L506.0400, L501.9520, L500.4100, L500.4050, L501.44097, L501.9985 ####[facility] [address] [place], [address] Eosinophils/100 WBC (Bld) 1.1 % Normal 0-5 [facility] Comment on above: Performed By: #### L 506.1001, L503.0106, L100.0100, L506.0400, L501.9520, L500.4100, L500.4050, L501.04282, L501.9985 ####[facility] [address] [place], [address](598) Erythrocyte distribution width (RBC) [Ratio] 11.8 % Normal 11.6-14.6 [facility] Comment on above: Performed By: #### L 506.1001, L503.0106, L100.0100, L506.0400, L501.9520, L500.4100, L500.4050, L501.33861, L501.9985 ####[facility] [address] [facility] [place], [address](000) Hematocrit (Bld) [Volume fraction] 43.1 % Normal 37-47 [facility] Comment on above: Performed By: #### L 506.1001, L503.0106, L100.0100, L506.0400, L501.9520, L500.4100, L500.4050, L501.77695, L501.9985 ####[facility] [address] [facility] [place], [address](216) Hemoglobin (Bld) [Mass/Vol] 14.4 g/dL Normal 12.0-15.0 [facility] Comment on above: Performed By: #### L 506.1001, L503.0106, L100.0100, L506.0400, L501.9520, L500.4100, L500.4050, L501.76665, L501.9985 ####[facility] [address] [facility] [place], [address](606 IG% 0.400 Normal 0.0-0.9 [facility] Comment on above: Result Comment: IG% - Immature Granulocytes (promyelocytes, myelocytes and metamyelocytes) > 1% indicates that a LEFT SHIFT is Present. Performed By: #### L 506.1001, L503.0106, L100.0100, L506.0400, L501.9520, L500.4100, L500.4050, L501.70613, L501.9985 ####[facility] [address] [place], [address] Lymphocytes/100 WBC (Bld) 25.3 % Normal 19-41 [facility] Comment on above: Performed By: #### L 506.1001, L503.0106, L100.0100, L506.0400, L501.9520, L500.4100, L500.4050, L501.58536, L501.9985 ####[facility] [address] [place], [address] MCH (RBC) [Entitic mass] 32.5 pg High 27.0-32.0 [facility] Comment on above: Performed By: #### L 506.1001, L503.0106, L100.0100, L506.0400, L501.9520, L500.4100, L500.4050, L501.67807, L501.9985 ####[facility] [address] [place], [address] MCHC (RBC) [Mass/Vol] 33.4 g/dL Normal 32-36 [facility] Comment on above: Performed By: #### L 506.1001, L503.0106, L100.0100, L506.0400, L501.9520, L500.4100, L500.4050, L501.97454, L501.9985 ####[facility] [address] [place], [address] MCV (RBC) [Entitic vol] 97.3 fL Normal 81-99 [facility] Comment on above: Performed By: #### L 506.1001, L503.0106, L100.0100, L506.0400, L501.9520, L500.4100, L500.4050, L501.90800, L501.9985 ####[facility] [address] [place], [address] Monocytes/100 WBC (Bld) 7.4 % Normal 0-10 [facility] Comment on above: Performed By: #### L 506.1001, L503.0106, L100.0100, L506.0400, L501.9520, L500.4100, L500.4050, L501.78663, L501.9985 ####[facility] [address] [place], [address] Neutrophils/100 WBC (Bld) 64.7 % Normal 47-70 [facility] Comment on above: Performed By: #### L 506.1001, L503.0106, L100.0100, L506.0400, L501.9520, L500.4100, L500.4050, L501.20354, L501.9985 ####[facility] [address] [place], [address] Nucleated RBC (Bld) [#/Vol] 0 10*3/uL Normal 0-5 [facility] Comment on above: Performed By: #### L 506.1001, L503.0106, L100.0100, L506.0400, L501.9520, L500.4100, L500.4050, L501.81144, L501.9985 ####[facility] [address] [place], [address] Platelet mean volume (Bld) [Entitic vol] 10.5 fL Normal 6.2-12.0 [facility] Comment on above: Performed By: #### L 506.1001, L503.0106, L100.0100, L506.0400, L501.9520, L500.4100, L500.4050, L501.05158, L501.9985 ####[facility] [address] [place], [address] Platelets (Bld) [#/Vol] 265 10*3/uL Normal 150-450 [facility] Comment on above: Performed By: #### L 506.1001, L503.0106, L100.0100, L506.0400, L501.9520, L500.4100, L500.4050, L501.34737, L501.9985 ####[facility] [address] [place], [address] RBC (Bld) [#/Vol] 4.43 10*6/uL Normal 4.2-5.4 [facility] Comment on above: Performed By: #### L 506.1001, L503.0106, L100.0100, L506.0400, L501.9520, L500.4100, L500.4050, L501.21879, L501.9985 ####[facility] [address] [place], [address] RDW SD 42.5 fl Normal 35.1-43.9 [facility] Comment on above: Performed By: #### L 506.1001, L503.0106, L100.0100, L506.0400, L501.9520, L500.4100, L500.4050, L501.40584, L501.9985 ####[facility] [address] [place], [address] WBC (Bld) [#/Vol] 5.3 10*3/uL Normal 4.4-11.0 [facility] Comment on above: Performed By: #### L 506.1001, L503.0106, L100.0100, L506.0400, L501.9520, L500.4100, L500.4050, L501.02141, L501.9985 ####[facility] [address] [place], [place], [address] Calculated very low density lipoprotein (VLDL) cholesterol measurementOrdered By: Sanchez Prince on 05-05-2024 VLDL Cholesterol 25 mg/dL 5-40 [facility] Carbon dioxide, total [Moles /volume] in Central venous bloodOrdered By: Sanchez Prince on 05-05-2024 CO2 [Moles/Vol] 22.7 mmol/L 21.0-32.0 [facility] Chloride assayOrdered By: Maday Prince on 05-05-2024 Chloride [Moles/Vol] 105 mmol/L 98-108 [facility] Comprehensive Metabolic Prof ilon 05-05-2024 Albumin [Mass/Vol] 4.5 g/dL Normal 3.5-5.0 [facility] Comment on above: Performed By: #### L 506.1001, L503.0106, L100.0100, L506.0400, L501.9520, L500.4100, L500.4050, L501.75261, L501.9985 ####[facility] [address] [place], [place], [id number] Albumin/Globulin [Mass ratio] 1.9 {ratio} Normal 0.9-2.4 [facility] Comment on above: Performed By: #### L 506.1001, L503.0106, L100.0100, L506.0400, L501.9520, L500.4100, L500.4050, L501.40222, L501.9985 ####[facility] [address] [place], [address] ALK PHOS 58 U/L Normal 35-104 [facility] Comment on above: Performed By: #### L 506.1001, L503.0106, L100.0100, L506.0400, L501.9520, L500.4100, L500.4050, L501.56527, L501.9985 ####[facility] [address] [place], [address] ALT [Catalytic activity/Vol] 16 U/L Normal <=34 [facility] Comment on above: Performed By: #### L 506.1001, L503.0106, L100.0100, L506.0400, L501.9520, L500.4100, L500.4050, L501.51785, L501.9985 ####[facility] [address] [place], [address] AST [Catalytic activity/Vol] 14 U/L Normal <=31 [facility] Comment on above: Performed By: #### L 506.1001, L503.0106, L100.0100, L506.0400, L501.9520, L500.4100, L500.4050, L501.23742, L501.9985 ####[facility] [address] [place], [place], [phone](186) Bilirubin [Mass/Vol] 0.27 mg/dL Normal 0.00-1.30 [facility] Comment on above: Performed By: #### L 506.1001, L503.0106, L100.0100, L506.0400, L501.9520, L500.4100, L500.4050, L501.64352, L501.9985 ####[facility] [address] [place], [place], [phone](945) BUN/CRE 22.1 RATIO High 10-20 [facility] Comment on above: Performed By: #### L 506.1001, L503.0106, L100.0100, L506.0400, L501.9520, L500.4100, L500.4050, L501.67437, L501.9985 ####[facility] [address] [place], [place], [phone](119) Calcium [Mass/Vol] 9.6 mg/dL Normal 7.6-11.0 [facility] Comment on above: Performed By: #### L 506.1001, L503.0106, L100.0100, L506.0400, L501.9520, L500.4100, L500.4050, L501.62588, L501.9985 ####[facility] [address] [place], [address] Chloride [Moles/Vol] 105 mmol/L Normal 98-108 [facility] Comment on above: Performed By: #### L 506.1001, L503.0106, L100.0100, L506.0400, L501.9520, L500.4100, L500.4050, L501.84352, L501.9985 ####[facility] [address] [place], [address] CO2 [Moles/Vol] 22.7 mmol/L Normal 21.0-32.0 [facility] Comment on above: Performed By: #### L 506.1001, L503.0106, L100.0100, L506.0400, L501.9520, L500.4100, L500.4050, L501.77077, L501.9985 ####[facility] [address] [place], [address] Creatinine [Mass/Vol] 0.71 mg/dL Normal 0.70-1.20 [facility] Comment on above: Performed By: #### L 506.1001, L503.0106, L100.0100, L506.0400, L501.9520, L500.4100, L500.4050, L501.27496, L501.9985 ####[facility] [address] [place], [address] GAP 11 Normal 5-15 [facility] Comment on above: Performed By: #### L 506.1001, L503.0106, L100.0100, L506.0400, L501.9520, L500.4100, L500.4050, L501.44599, L501.9985 ####[facility] [address] [place], [address] GFR/1.73 sq M.predicted among non-blacks MDRD (S/P/Bld) [Vol rate/Area] 104 mL/min/{1.73_m2} Normal >60 [facility] Comment on above: Result Comment: mL/m in/1.73m2 CKD-EPI Creatinine Equation (2020) Performed By: #### L 506.1001, L503.0106, L100.0100, L506.0400, L501.9520, L500.4100, L500.4050, L501.24908, L501.9985 ####[facility] [address] [place], [place], [phone]) Globulin (S) [Mass/Vol] 2.5 g/dL Normal 2.2-4.2 [facility] Comment on above: Performed By: #### L 506.1001, L503.0106, L100.0100, L506.0400, L501.9520, L500.4100, L500.4050, L501.47443, L501.9985 ####[facility] [address] [place], [place], [phone](055) Glucose [Mass/Vol] 94 mg/dL Normal 70-99 [facility] Comment on above: Performed By: #### L 506.1001, L503.0106, L100.0100, L506.0400, L501.9520, L500.4100, L500.4050, L501.84707, L501.9985 ####[facility] [address] [place], [address] Potassium [Moles/Vol] 4.2 mmol/L Normal 3.3-5.1 [facility] Comment on above: Performed By: #### L 506.1001, L503.0106, L100.0100, L506.0400, L501.9520, L500.4100, L500.4050, L501.33606, L501.9985 ####[facility] [address] [place], [address] Sodium [Moles/Vol] 138 mmol/L Normal 133-145 [facility] Comment on above: Performed By: #### L 506.1001, L503.0106, L100.0100, L506.0400, L501.9520, L500.4100, L500.4050, L501.53214, L501.9985 ####[facility] [address] [place], [place], [phone]) T PROT 7.0 g/dL Normal 5.9-8.4 [facility] Comment on above: Performed By: #### L 506.1001, L503.0106, L100.0100, L506.0400, L501.9520, L500.4100, L500.4050, L501.24418, L501.9985 ####[facility] [address] [place], [address] Urea nitrogen [Mass/Vol] 16 mg/dL Normal 4-19 [facility] Comment on above: Performed By: #### L 506.1001, L503.0106, L100.0100, L506.0400, L501.9520, L500.4100, L500.4050, L501.98199, L501.9985 ####[facility] [address] [place], [place], [phone](854) Eosinophil percentageOrdered By: Sanchez Prince on 05-05-2024 Eosinophils/100 WBC (Bld) 1.1 % 0-5 [facility] Erythrocyte distribution wid th ratioOrdered By: Sanchez Prince on 05-05-2024 Erythrocyte distribution width (RBC) [Ratio] 11.8 % 11.6-14.6 [facility] Erythrocyte distribution wid th standard deviationOrdered By: Sanchez Prince on 05-05-2024 Erythrocyte distribution width (RBC) [Entitic vol] 42.5 fL 35.1-43.9 [facility] Free T3on 05-05-2024 Free T3 [Mass/Vol] 2.7 pg/mL Normal 2.18-3.98 [facility] Comment on above: Performed By: #### L 506.1001, L503.0106, L100.0100, L506.0400, L501.9520, L500.4100, L500.4050, L501.11975, L501.9985 ####[facility] [address] [place], [place], [phone] Free I3Bzauusu By: Sanchez june on 05-05-2024 Free Triiodothyronine (T3) pg/dL 2.7 pg/mL 2.18-3.98 [facility] GFR/1.73 sq M.predicted moses g non-blacks MDRD (S/P/Bld) [Vol rate/Area]Ordered By: Sanchez Prince on 05-05-2024 Estimated GFR (MDRD) Non-Af Amer 104 >60 [facility] Comment on above: mL/min/1.73m2 CKD-EP I Creatinine Equation (2020) Hematocrit Auto (Bld) [Volum e fraction]Ordered By: Sanchez Prince on 05-05-2024 Hematocrit (Bld) [Volume fraction] 43.1 % 37-47 [facility] Hemoglobin A1con 05-05-2024 HbA1c (Bld) [Mass fraction] 5.1 % Low <=5.6 [facility] Comment on above: Performed By: #### L 506.1001, L503.0106, L100.0100, L506.0400, L501.9520, L500.4100, L500.4050, L501.60769, L501.9985 ####[facility] [address] [place], [place], [phone] Hemoglobin A1c percentageOrd ered By: Sanchez Prince on 05-05-2024 HbA1c (Bld) [Mass fraction] 5.1 % Low >5.7 [facility] Hemoglobin measurementOrdere d By: Sanchez Prince on 05-05-2024 Hemoglobin (Bld) [Mass/Vol] 14.4 g/dL 12.0-15.0 [facility] Immature granulocytes/100 WB C Auto (Bld)Ordered By: Sanchez Prince on 05-05-2024 Immature granulocytes/100 WBC (Bld) 0.400 % 0.0-0.9 [facility] Comment on above: IG% - Immature Granu locytes (promyelocytes, myelocytes and metamyelocytes) > 1% indicates that a LEFT SHIFT is Present. L503.0106on 05-05-2024 Cobalamin (Vitamin B12) [Mass/Vol] 851 pg/mL Normal 180-914 [facility] Comment on above: Performed By: #### L 506.1001, L503.0106, L100.0100, L506.0400, L501.9520, L500.4100, L500.4050, L501.05242, L501.9985 ####[facility] [address] [place], [place], [phone] L506.1001on 05-05-2024 Vitamin D 25-OH 39.7 ng/mL Normal 30-100 [facility] Comment on above: Result Comment: Izzy min D Status Deficiency: <20 ng/mL (50nmol/L) Insufficiency: 20-30 ng/mL (50-75 nmol/L) Sufficiency: 30-100 ng/mL (75-250 nmol/L) Toxicity: >100 ng/mL (>250 nmol/L) Performed By: #### L 506.1001, L503.0106, L100.0100, L506.0400, L501.9520, L500.4100, L500.4050, L501.20795, L501.9985 ####[facility] [address] [place], [place], [phone] LDL calc ser/plasOrdered By: Sanchez Prince on 05-05-2024 LDL Cholesterol, Calculated 120 mg/dL [facility] Comment on above: Afdfizmhhm=304-160 m g/dL & Higher Wlyr=899 mg/dL or greater Laboratory - Chemistry and C hemistry - challengeOrdered By: Sanchez Prince on 05-05-2024 AST [Catalytic activity/Vol] 14 U/L <32 [facility] Lipid Profileon 05-05-2024 CHOL:HDL 3.27 Normal [facility] Comment on above: Performed By: #### L 506.1001, L503.0106, L100.0100, L506.0400, L501.9520, L500.4100, L500.4050, L501.23197, L501.9985 ####[facility] [address] [place], [place], [phone](061) Cholesterol [Mass/Vol] 210 mg/dL High <=200 [facility] Comment on above: Result Comment: Chol esterol level, Desirable <200 mg/dL Borderline high cholesterol 200-239 mg/dL High cholesterol >=240 mg/dL Recommendations of the NCEP Adult Treatment Panel for the following risk-cutoff thresholds for the [place] population. Performed By: #### L 506.1001, L503.0106, L100.0100, L506.0400, L501.9520, L500.4100, L500.4050, L501.18343, L501.9985 ####[facility] [address] [place], [place], [phone] Cholesterol in HDL [Mass/Vol] 64 mg/dL Normal [facility] Comment on above: Result Comment: Delma onal Cholesterol Education Program (NCEP) guidelines: <40 mg/dL: Low HDL-cholesterol (major risk factor for CHD) >= 60 mg/dL: High HDL-cholesterol (negative risk factor for CHD) HDL-cholesterol is affected by a number of factors, e.g. smoking, exercise, hormones, sex and age. Performed By: #### L 506.1001, L503.0106, L100.0100, L506.0400, L501.9520, L500.4100, L500.4050, L501.34645, L501.9985 ####[facility] [address] [place], [place], [phone](986) Cholesterol in LDL [Mass/Vol] 120 mg/dL Normal [facility] Comment on above: Result Comment: Bord cyubph=255-420 mg/dL Higher Sprq=692 mg/dL or greater Performed By: #### L 506.1001, L503.0106, L100.0100, L506.0400, L501.9520, L500.4100, L500.4050, L501.04972, L501.9985 ####[facility] [address] [place], [address](029) Cholesterol in VLDL [Mass/Vol] 25 mg/dL Normal 5-40 [facility] Comment on above: Performed By: #### L 506.1001, L503.0106, L100.0100, L506.0400, L501.9520, L500.4100, L500.4050, L501.39439, L501.9985 ####[facility] [address] [place], [place], [phone](915) Triglyceride [Mass/Vol] 127 mg/dL Normal [facility] Comment on above: Result Comment: The drugs N-Acetylcysteine and Metamizole may falsely depress this assay. Normal range: <150 mg/dL Borderline High: 150-199 mg/dL High: 200-499 mg/dL Very High: >500 mg/dL Performed By: #### L 506.1001, L503.0106, L100.0100, L506.0400, L501.9520, L500.4100, L500.4050, L501.86070, L501.9985 ####[facility] [address] [place], [address](857) Lymphocytes Auto (Unsp spec) [#/Vol]Ordered By: Sanchez Prince on 05-05-2024 Lymphocytes (Bld) [#/Vol] 1.33 10*3/uL 0.83-4.51 [facility] Lymphocytes/100 WBC Auto (Un sp spec)Ordered By: Sanchez Prince on 05-05-2024 Lymphocytes/100 WBC (Bld) 25.3 % 19-41 [facility] MCV (mean corpuscular volume ) determinationOrdered By: Sanchez Prince on 05-05-2024 MCV (RBC) [Entitic vol] 97.3 fL 81-99 [facility] Mean corpuscular hemoglobin (MCH) determinationOrdered By: Sanchez Prince on 05-05-2024 MCH (RBC) [Entitic mass] 32.5 pg High 27.0-32.0 [facility] Mean corpuscular hemoglobin concentration (MCHC) determinationOrdered By: Sanchez Prince on 05-05-2024 MCHC (RBC) [Mass/Vol] 33.4 g/dL 32-36 [facility] Mean platelet volume determi nationOrdered By: Sanchez Prince on 05-05-2024 Platelet mean volume (Bld) [Entitic vol] 10.5 fL 6.2-12.0 [facility] Monocyte percentageOrdered B y: Sanchez Prince on 05-05-2024 Monocytes/100 WBC (Bld) 7.4 % 0-10 [facility] Neutrophil percentageOrdered By: Sanchez Prince on 05-05-2024 Neutrophils/100 WBC (Bld) 64.7 % 47-70 [facility] Nucleated red blood cell per centageOrdered By: Sanchez Prince on 05-05-2024 Nucleated RBC/100 WBC (Bld) [Ratio] 0 % 0-5 [facility] Platelet countOrdered By: Maday Prince on 05-05-2024 Platelets (Bld) [#/Vol] 265 10*3/uL 150-450 [facility] Potassium (Unsp spec) [Mass/ Vol]Ordered By: Sanchez Prince on 05-05-2024 Potassium [Moles/Vol] 4.2 mmol/L 3.3-5.1 [facility] RBC Auto (Bld) [#/Vol]Ordere d By: Sanchez Prince on 05-05-2024 RBC (Bld) [#/Vol] 4.43 10*6/uL 4.2-5.4 [facility] Screening total cholesterol/ high density lipoprotein (HDL) cholesterol ratioOrdered By: Sanchez Prince on 05-05-2024 Cholesterol.total/Heather sterol in HDL [Mass ratio] 3.27 {ratio} [facility] Serum creatinine measurement (mass/volume)Ordered By: Sanchez Prince on 05-05-2024 Creatinine [Mass/Vol] 0.71 mg/dL 0.70-1.20 [facility] Serum globulin measurementOr dered By: Sanchez Prince on 05-05-2024 Globulin (S) [Mass/Vol] 2.5 g/dL 2.2-4.2 [facility] Serum glucose measurement (m ass/volume)Ordered By: Sanchez Prince on 05-05-2024 Glucose [Mass/Vol] 94 mg/dL 70-99 [facility] Serum or plasma alanine correa otransferase (ALT) measurementOrdered By: Sanchez Prince on 05-05-2024 ALT [Catalytic activity/Vol] 16 U/L <35 [facility] Serum or plasma albumin isabella urement (mass/volume)Ordered By: Sanchez Prince on 05-05-2024 Albumin [Mass/Vol] 4.5 g/dL 3.5-5.0 [facility] Serum or plasma albumin/glob ulin mass ratioOrdered By: Sanchez Prince on 05-05-2024 Albumin/Globulin [Mass ratio] 1.9 {ratio} 0.9-2.4 [facility] Serum or plasma alkaline nya sphatase measurementOrdered By: Sanchez Prince on 05-05-2024 ALP [Catalytic activity/Vol] 58 U/L 35-104 [facility] Serum or plasma calcium isabella urement (mass/volume)Ordered By: Sanchez Prince on 05-05-2024 Calcium [Mass/Vol] 9.6 mg/dL 7.6-11.0 [facility] Serum or plasma cholesterol in HDL measurement (mass/volume)Ordered By: Sanchez Prince on 05-05-2024 Cholesterol in HDL [Mass/Vol] 64 mg/dL >40 [facility] Comment on above: National Cholesterol Education Program (NCEP) guidelines:<40 mg/dL: Low HDL-cholesterol (major risk factor for CHD)>= 60 mg/dL: High HDL-cholesterol (negative risk factor for CHD)HDL-cholesterol is affected by a number of factors, e.g. smoking, exercise, hormones, sex and age. Serum or plasma cholesterol measurement (mass/volume)Ordered By: Sanchez Prince on 05-05-2024 Cholesterol [Mass/Vol] 210 mg/dL High <201 [facility] Comment on above: Cholesterol level, D esirable <200 mg/dLBorderline high cholesterol 200-239 mg/dLHigh cholesterol >=240 mg/dLRecommendations of the NCEP Adult Treatment Panel for the following risk-cutoff thresholds for the [place] population. Serum or plasma urea nitroge n measurement (mass/volume)Ordered By: Sanchez Prince on 05-05-2024 Urea nitrogen [Mass/Vol] 16 mg/dL 4-19 [facility] Sodium levelOrdered By: Leyla Prince on 05-05-2024 Sodium [Moles/Vol] 138 mmol/L 133-145 [facility] T4 Free Directon 05-05-2024 T4 FREE DIRECT 1.00 ng/dL Normal 0.76-1.46 [facility] Comment on above: Performed By: #### L 506.1001, L503.0106, L100.0100, L506.0400, L501.9520, L500.4100, L500.4050, L501.86554, L501.9985 ####[facility] [address] [place], [address] T4 freeOrdered By: Sanchez june on 05-05-2024 Free T4 [Mass/Vol] 1.00 ng/dL 0.76-1.46 [facility] TSH DL <= 0.005 mIU/L QnOrde red By: Sanchez Prince on 05-05-2024 Thyroid Stimulating Hormone (TSH) 2.500 uIU/mL 0.300-4.200 [facility] Thyroid Stim Hormone (TSH)on 05-05-2024 TSH 2.500 uIU/mL Normal 0.300-4.200 [facility] Comment on above: Performed By: #### L 506.1001, L503.0106, L100.0100, L506.0400, L501.9520, L500.4100, L500.4050, L501.36942, L501.9985 ####[facility] [address] [place], [address] Total proteinOrdered By: Holly Prince on 05-05-2024 Protein [Mass/Vol] 7.0 g/dL 5.9-8.4 [facility] Triglycerides measurementOrd ered By: Sanchez Prince on 05-05-2024 Triglyceride [Mass/Vol] 127 mg/dL <199 [facility] Comment on above: The drugs N-Acetylcy steine and Metamizole may falsely depress this assay. Normal range: <150 mg/dLBorderline High: 150-199 mg/dLHigh: 200-499 mg/dLVery High: >500 mg/dL Vitamin B12 ser/plasOrdered By: Sanchez Prince on 05-05-2024 Cobalamin (Vitamin B12) [Mass/Vol] 851 pg/mL 180-914 [facility] Vitamin D, 25-hydroxyOrdered By: Sanchez Prince on 05-05-2024 Vitamin D 25-Hydroxy 39.7 ng/mL 30-100 [facility] Comment on above: Vitamin D StatusDefi ciency: <20 ng/mL (50nmol/L)Insufficiency: 20-30 ng/mL (50-75 nmol/L)Sufficiency: 30-100 ng/mL (75-250 nmol/L)Toxicity: >100 ng/mL (>250 nmol/L) White blood cell (WBC) count Ordered By: Sanchez Prince on 05-05-2024 WBC (Bld) [#/Vol] 5.3 10*3/uL 4.4-11.0 [facility] CNOVon 04-13-2024 CNOV Office Visit (OBGYWM) ---- BIANCA SPRING ([id number]) 1975 F Date Time Provider Department 04/13/24 1:20 PM ABENA [place] OBGYWM During your visit today, we recorded the following information about you: Blood pressure Weight Height Last Period 108 65.8 kg 1.626 m 03/19/24 Abena Nj MD 04/13/2024 2:26 PM Signed QUYNH is a 48 year old who presents for an annual gynecologic exam. She has perimenopause questions. 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 [employer] History Comments: Sexual Activity: Yes; Male Contraception: Condom PAST MEDICAL HISTORY Diagnosis Date Allergic rhinitis, cause unspecified Allergic rhinitis COVID-19 11/28/2020 History of depression situational Infertility, female Migraine, unspecified, with intractable migraine, so stated, without mention of status migrainosus Migraine Mononucleosis 03/01/1996 Other acne Rh negative status during 08/10/2013 Scoliosis mild scoliosis Thyroid disease ON MEDS FROM TOUCH UP 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 PAST SURGICAL HISTORY Procedure Laterality Date COLONOSCOPY SCREENING 2023 EYE SURGERY HX TONSILLECTOMY PRIMARY/SECONDARY AGE 11/> FAMILY HISTORY Problem Relation Age of Onset Heart Mother Hypertension Maternal Grandmother Osteoporosis Maternal Grandmother Cancer Paternal Grandmother Lung and Bone Heart Paternal Grandfather Hypertension Paternal Grandfather Cancer Sister Lung (Non-smoker) SOCIAL HISTORY Social History Tobacco Use Smoking status: Never Smokeless tobacco: Never Vaping Use Vaping status: Never Used Substance Use Topics Alcohol use: Not Currently Drug use: Never REVIEW OF SYSTEMS Abdomen: No abdominal pain, nausea, vomiting, diarrhea, or constipation. No bloating, early satiety, indigestion, or increased flatulence. Bladder: No dysuria, gross hematuria, urinary frequency, urinary urgency. positive MARLINE. Breast: No breast lumps, nipple d/c, overlying skin changes, redness or skin retraction. Allergies and current medication updated:Yes SENSITIVE EXAM: The sensitive examination was discussed with the Patient or Patient's Authorized Snake Charmer. As applicable, any other physician, advance practice provider, medical student, or other health professional student that will be observing or involved in the sensitive examination for educational or training purposes was discussed with the Patient or Authorized Snake Charmer. The Patient or Authorized Snake Charmer has agreed to proceed with the sensitive examination. (Sensitive examination includes inspection and/or palpation of the breasts, pelvis, prostate and anorectal regions). EXAM: BP 108/72 Ht 5' 4 (1.63m) Wt 145 lb (65.8kg) LMP 03/19/2024 BMI 24.88 kg/(m2). GENERAL: pleasant, female in no apparent distress BREAST: soft, non-tender, symmetric, no dominant mass, normal nipple-areolar complex, no lymphadenopathy, and no nipple discharge CHEST: Normal inspiratory effort ABDOMEN: soft, non-tender, and no masses PELVIC: external genitalia normal, normal Bartholin's glands, urethra, [place]'s glands, no vulvar lesions, no cervical lesions, good vaginal support, physiologic discharge present, normal appearing perineal body and perianal region BIMANUAL: uterus normal size, shape and consistency, no adnexal masses, and non-tender RECTOVAGINAL: deferred. NEURO: alert and oriented x3,exam grossly non-focal EXTREMITIES: normal ASSESSMENT/PLAN: 1) Health maintenance: Pap/HPV up to date. Mammogram up to date . Nutrition, exercise and routine health maintenance exams reviewed. Colon cancer screening: up to date with screening 2) Contraception: condoms. Contraceptive options reviewed and information provided. 3) Follow up one year or sooner as needed 4) Perimenopause - all questions answered Abena Nj MD Referring Provider: MALOU GASTELUM [[id number]] Allergies As of Date: 04/13/2024 (No Known Allergies) Date Reviewed: 04/13/2024 Reviewed by: Abena Nj MD - Fully Assessed Reason for Visit: Yearly Exam [187] Primary Visit Diagnosis:Encounter for gynecological examination (general) (routine) without abnormal findings [Z01.419] Other Visit Diagnoses:Encounter for screening mammogram for breast cancer [Z12.31] Need for vaccination [Z23] MARLINE (stress urinary incontinence, female) [N39.3] Order(s):KASANDRA SCREENING W RENZO [[id number]] Order #: [id number] (more content not included)... [facility] CNTHERAPYon 04-05-2024 CNTHERAPY OT/PT/Speech Visit (PTWS) ---- BIANCA SPRING ([id number]) 1975 F Date Time Provider Department 04/05/24 5:30 PM NASH SHAH PTSTACIE Date Time Provider Department Center 04/05/2024 5:30 PM [id number], BRENT PTWS Barbie Barone Reason for Visit: PT Discharge [752] Physical Therapy [503] Primary Visit Diagnosis:Right foot pain [M79.671] Other Visit Diagnosis:Hallux limitus, acquired, right [M20.5X1] Allergies As of Date: 04/05/2024 (No Known Allergies) Date Reviewed: 01/06/2024 Reviewed by: Malou Gastelum APRN.OFFICE RENTAL CLERK - Fully Assessed Prescriptions as of 04/05/2024 - metFORMIN (GLUCOPHAGE) 1,000 mg tablet Take 1 tablet by mouth daily with dinner. - ergocalciferol, vitamin D2, (VITAMIN D2 ORAL) Take by mouth once daily. - triamcinolone acetonide (NASACORT NASAL) Use in the nose once daily. - ergotamine-caffeine (CAFERGOT) 1-100 mg per tablet Take 1 tablet by mouth as directed. Two tablets at onset of attack; then 1 tablet every 30 minutes as needed; maximum: 6 tablets per attack; do not exceed 10 tablets/week - vitamin B complex (B COMPLEX ORAL) Take 1 tablet by mouth once daily. - MAGNESIUM ORAL Take 500 mg by mouth once daily. - fexofenadine HCl (CRISTIANE ORAL) Take 1 tablet by mouth once daily. - CALCIUM CARBONATE/VITAMIN D3 (CALCIUM + D ORAL) Take 1 tablet by mouth twice daily. Letter Text [facility] CNTHERAPYon 03-16-2024 CNTHERAPY OT/PT/Speech Visit (PTWS) ---- BIANCA SPRING ([id number]) 1975 F Date Time Provider Department 03/16/24 11:30 AM NASH SHAH PTSTACIE Date Time Provider Department Center 03/16/2024 11:30 AM [id number], BRENT PTSTACIE Barone Reason for Visit: PT Eval [747] Physical Therapy [503] Primary Visit Diagnosis:Right foot pain [M79.671] Other Visit Diagnosis:Acquired hallux valgus of right foot [M20.11] Allergies As of Date: 03/16/2024 (No Known Allergies) Date Reviewed: 01/06/2024 Reviewed by: Malou Gastelum APRN.OFFICE RENTAL CLERK - Fully Assessed Prescriptions as of 03/16/2024 - metFORMIN (GLUCOPHAGE) 1,000 mg tablet Take 1 tablet by mouth daily with dinner. - ergocalciferol, vitamin D2, (VITAMIN D2 ORAL) Take by mouth once daily. - triamcinolone acetonide (NASACORT NASAL) Use in the nose once daily. - ergotamine-caffeine (CAFERGOT) 1-100 mg per tablet Take 1 tablet by mouth as directed. Two tablets at onset of attack; then 1 tablet every 30 minutes as needed; maximum: 6 tablets per attack; do not exceed 10 tablets/week - vitamin B complex (B COMPLEX ORAL) Take 1 tablet by mouth once daily. - MAGNESIUM ORAL Take 500 mg by mouth once daily. - fexofenadine HCl (CRISTIANE ORAL) Take 1 tablet by mouth once daily. - CALCIUM CARBONATE/VITAMIN D3 (CALCIUM + D ORAL) Take 1 tablet by mouth twice daily. [facility] DBT Breast - bilateral diagn ostic for implanton 03-14-2024 IMPRESSION: There is no mammographic or sonographic evidence of malignancy in either breast. There is no imaging explanation for pain and clinical correlation is suggested. Return to annual screening mammogram is recommended. Annual mammogram will be due in 1 month. BI-RADS Category 1: Negative RISK: Based on the Tyrer-Cuzick (TC) risk assessment model, this patient has a 13.7% lifetime risk of developing breast cancer, meaning they are at average risk for developing breast cancer. However, this is only an estimate based on available history provided on the patient's questionnaire. We encourage all patients to talk with their providers about these results, further recommendations for managing breast health, and appropriate supplemental screening options if the patient has dense breast tissue. Interpreting Radiologist: Jay Barbosa M.D. Electronically signed on: 03/14/2024 Occupational Health Physician: FLACO Transcribe Date/Time: Mar 14 2024 9:16A Dictated by: JAY BARBOSA MD This examination was interpreted and the report reviewed and electronically signed by: JAY BARBOSA MD on Mar 14 2024 10:16AM [facility] DIVISION OF RADIOLOGY * * *Final Report* * * DATE OF EXAM: Mar 14 2024 9:41AM [facility] 0627 - [facility] SYMONE VILLALTA / PROCEDURE REASON: Mass of lower inner quadrant of right breast * * * * Physician Interpretation * * * * RESULT: [facility] [address] [place] [address] #[id number] - [facility] SYMONE VILLALTA #[id number] - [facility] US BREAST LTD RT HISTORY: Patient is 48 years old and is seen for diagnostic evaluation of a palpable abnormality and focal pain in the right breast. Patient states no personal history of breast cancer. Patient states no personal history of other cancers. COMPARISON STUDIES: The present examination has been compared to prior imaging studies dated 10/27/2018 (mammogram), 11/23/2019 (mammogram), 12/12/2020 (mammogram), 03/19/2022 (mammogram) and 04/09/2023 (mammogram). MAMMOGRAM TECHNIQUE: The study was acquired using full field digital technology and interpreted from soft copy. Digital Breast Tomosynthesis (DBT) images were obtained and used to assist in the interpretation of this examination. Computer-aided detection was utilized by the radiologist in the interpretation of this examination. MAMMOGRAM FINDINGS: The breasts are heterogeneously dense, which may obscure small masses. No suspicious masses, calcifications or other abnormalities are seen in either breast. There are no significant interval changes. ULTRASOUND TECHNIQUE: Targeted ultrasound of the indicated area was performed. Garcia scale images were saved. ULTRASOUND FINDINGS: There are no suspicious findings in the imaged area. DIVISION OF RADIOLOGY Provider, [facility] - 03/14/2024 * * *Final Report* * * DATE OF EXAM: Mar 14 2024 9:41AM [facility] 0627 - [facility] DIAG W RENZO PAWAN / PROCEDURE REASON: Mass of lower inner quadrant of right breast * * * * Physician Interpretation * * * * RESULT: [place] [address] #[id number] - [facility] [email or web address] W RENZO PAWAN #[id number] - [facility] US BREAST LTD RT HISTORY: Patient is 48 years old and is seen for diagnostic evaluation of a palpable abnormality and focal pain in the right breast. Patient states no personal history of breast cancer. Patient states no personal history of other cancers. COMPARISON STUDIES: The present examination has been compared to prior imaging studies dated 10/27/2018 (mammogram), 11/23/2019 (mammogram), 12/12/2020 (mammogram), 03/19/2022 (mammogram) and 04/09/2023 (mammogram). MAMMOGRAM TECHNIQUE: The study was acquired using full field digital technology and interpreted from soft copy. Digital Breast Tomosynthesis (DBT) images were obtained and used to assist in the interpretation of this examination. Computer-aided detection was utilized by the radiologist in the interpretation of this examination. MAMMOGRAM FINDINGS: The breasts are heterogeneously dense, which may obscure small masses. No suspicious masses, calcifications or other abnormalities are seen in either breast. There are no significant interval changes. ULTRASOUND TECHNIQUE: Targeted ultrasound of the indicated area was performed. Garcia scale images were saved. ULTRASOUND FINDINGS: There are no suspicious findings in the imaged area. IMPRESSION IMPRESSION: There is no mammographic or sonographic evidence of malignancy in either breast. There is no imaging explanation for pain and clinical correlation is suggested. Return to annual screening mammogram is recommended. Annual mammogram will be due in 1 month. BI-RADS Category 1: Negative RISK: Based on the Tyrer-Cuzick (TC) risk assessment model, this patient has a 13.7% lifetime risk of developing breast cancer, meaning they are at average risk for developing breast cancer. However, this is only an estimate based on available history provided on the patient's questionnaire. We encourage all patients to talk with their providers about these results, further recommendations for managing breast health, and appropriate supplemental screening options if the patient has dense breast tissue. Interpreting Radiologist: Jay Barbosa M.D. Electronically signed on: 03/14/2024 Occupational Health Physician: FL[employer] Date/Time: Mar 14 2024 9:16A Dictated by: JAY BARBOSA MD This examination was interpreted and the report reviewed and electronically signed by: JAY BARBOSA MD on Mar 14 2024 10:16AM EST [facility] DIAG W RENZO BILon 2024 [facility] DIAG W RENZO PAWAN * * *Final Report* * * DATE OF EXAM: Mar 14 2024 9:41AM [facility] 0627 - [facility] DIAG W RENZO PAWAN / PROCEDURE REASON: Mass of lower inner quadrant of right breast * * * * Physician Interpretation * * * * RESULT: [place] [address] [place] [address] #[id number] - [facility] DIAG W RENZO PAWAN #[id number] - [facility] US BREAST LTD RT HISTORY: Patient is 48 years old and is seen for diagnostic evaluation of a palpable abnormality and focal pain in the right breast. Patient states no personal history of breast cancer. Patient states no personal history of other cancers. COMPARISON STUDIES: The present examination has been compared to prior imaging studies dated 10/27/2018 (mammogram), 11/23/2019 (mammogram), 12/12/2020 (mammogram), 03/19/2022 (mammogram) and 04/09/2023 (mammogram). MAMMOGRAM TECHNIQUE: The study was acquired using full field digital technology and interpreted from soft copy. Digital Breast Tomosynthesis (DBT) images were obtained and used to assist in the interpretation of this examination. Computer-aided detection was utilized by the radiologist in the interpretation of this examination. MAMMOGRAM FINDINGS: The breasts are heterogeneously dense, which may obscure small masses. No suspicious masses, calcifications or other abnormalities are seen in either breast. There are no significant interval changes. ULTRASOUND TECHNIQUE: Targeted ultrasound of the indicated area was performed. Garcia scale images were saved. ULTRASOUND FINDINGS: There are no suspicious findings in the imaged area. IMPRESSION: There is no mammographic or sonographic evidence of malignancy in either breast. There is no imaging explanation for pain and clinical correlation is suggested. Return to annual screening mammogram is recommended. Annual mammogram will be due in 1 month. BI-RADS Category 1: Negative RISK: Based on the Tyrer-Cuzick (TC) risk assessment model, this patient has a 13.7% lifetime risk of developing breast cancer, meaning they are at average risk for developing breast cancer. However, this is only an estimate based on available history provided on the patient's questionnaire. We encourage all patients to talk with their providers about these results, further recommendations for managing breast health, and appropriate supplemental screening options if the patient has dense breast tissue. Interpreting Radiologist: Jay Barbosa M.D. Electronically signed on: 03/14/2024 Occupational Health Physician: FLACO [employer] Date/Time: Mar 14 2024 9:16A Dictated by: JAY BARBOSA MD This examination was interpreted and the report reviewed and electronically signed by: JAY BARBOSA MD on Mar 14 2024 10:16AM EST [id number] Normal [facility] US BREAST LTD RTon 03-14 [facility] US BREAST LTD RT * * *Final Report* * * DATE OF EXAM: Mar 14 2024 10:11AM [place] 0594 - [facility] US BREAST LTD RT / PROCEDURE REASON: Mass of lower inner quadrant of right breast * * * * Physician Interpretation * * * * [facility] [address] [place] [address] #[id number] - [facility] SYMONE VILLALTA #[id number] - [facility] US BREAST LTD RT HISTORY: Patient is 48 years old and is seen for diagnostic evaluation of a palpable abnormality and focal pain in the right breast. Patient states no personal history of breast cancer. Patient states no personal history of other cancers. COMPARISON STUDIES: The present examination has been compared to prior imaging studies dated 10/27/2018 (mammogram), 11/23/2019 (mammogram), 12/12/2020 (mammogram), 03/19/2022 (mammogram) and 04/09/2023 (mammogram). MAMMOGRAM TECHNIQUE: The study was acquired using full field digital technology and interpreted from soft copy. Digital Breast Tomosynthesis (DBT) images were obtained and used to assist in the interpretation of this examination. Computer-aided detection was utilized by the radiologist in the interpretation of this examination. MAMMOGRAM FINDINGS: The breasts are heterogeneously dense, which may obscure small masses. No suspicious masses, calcifications or other abnormalities are seen in either breast. There are no significant interval changes. ULTRASOUND TECHNIQUE: Targeted ultrasound of the indicated area was performed. Garcia scale images were saved. ULTRASOUND FINDINGS: There are no suspicious findings in the imaged area. IMPRESSION: There is no mammographic or sonographic evidence of malignancy in either breast. There is no imaging explanation for pain and clinical correlation is suggested. Return to annual screening mammogram is recommended. Annual mammogram will be due in 1 month. BI-RADS Category 1: Negative RISK: Based on the Tyrer-Cuzick (TC) risk assessment model, this patient has a 13.7% lifetime risk of developing breast cancer, meaning they are at average risk for developing breast cancer. However, this is only an estimate based on available history provided on the patient's questionnaire. We encourage all patients to talk with their providers about these results, further recommendations for managing breast health, and appropriate supplemental screening options if the patient has dense breast tissue. Interpreting Radiologist: Jay Barbosa M.D. Electronically signed on: 03/14/2024 Occupational Health Physician: FLACO [employer] Date/Time: Mar 14 2024 10:03A Dictated by : JAY BARBOSA MD This examination was interpreted and the report reviewed and electronically signed by: JAY BARBOSA MD on Mar 14 2024 10:16AM EST [id number] [facility] No Panel InformationOrdered By: [facility] Provider on 03-14-2024 [facility] No Panel Informationon 03-14 Radiology Study observation (narrative) [facility] US Breast - right limitedon 03-14-2024 IMPRESSION: There is no mammographic or sonographic evidence of malignancy in either breast. There is no imaging explanation for pain and clinical correlation is suggested. Return to annual screening mammogram is recommended. Annual mammogram will be due in 1 month. BI-RADS Category 1: Negative RISK: Based on the Tyrer-Cuzick (TC) risk assessment model, this patient has a 13.7% lifetime risk of developing breast cancer, meaning they are at average risk for developing breast cancer. However, this is only an estimate based on available history provided on the patient's questionnaire. We encourage all patients to talk with their providers about these results, further recommendations for managing breast health, and appropriate supplemental screening options if the patient has dense breast tissue. Interpreting Radiologist: Jay Barbosa M.D. Electronically signed on: 03/14/2024 Occupational Health Physician: FL[employer]O [employer] Date/Time: Mar 14 2024 10:03A Dictated by : JAY BARBOSA MD This examination was interpreted and the report reviewed and electronically signed by: JAY BARBOSA MD on Mar 14 2024 10:16AM EST DIVISION OF RADIOLOGY * * *Final Report* * * DATE OF EXAM: Mar 14 2024 10:11AM [facility] 0594 - [facility] [employer] BREAST LTD RT / PROCEDURE REASON: Mass of lower inner quadrant of right breast * * * * Physician Interpretation * * * * [place] [address] #[id number] - [facility] SYMONE MULLER PAWAN #[id number] - [facility] US BREAST LTD RT HISTORY: Patient is 48 years old and is seen for diagnostic evaluation of a palpable abnormality and focal pain in the right breast. Patient states no personal history of breast cancer. Patient states no personal history of other cancers. COMPARISON STUDIES: The present examination has been compared to prior imaging studies dated 10/27/2018 (mammogram), 11/23/2019 (mammogram), 12/12/2020 (mammogram), 03/19/2022 (mammogram) and 04/09/2023 (mammogram). MAMMOGRAM TECHNIQUE: The study was acquired using full field digital technology and interpreted from soft copy. Digital Breast Tomosynthesis (DBT) images were obtained and used to assist in the interpretation of this examination. Computer-aided detection was utilized by the radiologist in the interpretation of this examination. MAMMOGRAM FINDINGS: The breasts are heterogeneously dense, which may obscure small masses. No suspicious masses, calcifications or other abnormalities are seen in either breast. There are no significant interval changes. ULTRASOUND TECHNIQUE: Targeted ultrasound of the indicated area was performed. Garcia scale images were saved. ULTRASOUND FINDINGS: There are no suspicious findings in the imaged area. DIVISION OF RADIOLOGY Provider, [facility] - 03/14/2024 * * *Final Report* * * DATE OF EXAM: Mar 14 2024 10:11AM [facility] 0594 - [facility] [employer] BREAST [employer] RT / PROCEDURE REASON: Mass of lower inner quadrant of right breast * * * * Physician Interpretation * * * * [place] [address] #[id number] - [facility] SY[employer] RENZO PAWAN #[id number] - [facility] [employer] BREAST LTD RT HISTORY: Patient is 48 years old and is seen for diagnostic evaluation of a palpable abnormality and focal pain in the right breast. Patient states no personal history of breast cancer. Patient states no personal history of other cancers. COMPARISON STUDIES: The present examination has been compared to prior imaging studies dated 10/27/2018 (mammogram), 11/23/2019 (mammogram), 12/12/2020 (mammogram), 03/19/2022 (mammogram) and 04/09/2023 (mammogram). MAMMOGRAM TECHNIQUE: The study was acquired using full field digital technology and interpreted from soft copy. Digital Breast Tomosynthesis (DBT) images were obtained and used to assist in the interpretation of this examination. Computer-aided detection was utilized by the radiologist in the interpretation of this examination. MAMMOGRAM FINDINGS: The breasts are heterogeneously dense, which may obscure small masses. No suspicious masses, calcifications or other abnormalities are seen in either breast. There are no significant interval changes. ULTRASOUND TECHNIQUE: Targeted ultrasound of the indicated area was performed. Garcia scale images were saved. ULTRASOUND FINDINGS: There are no suspicious findings in the imaged area. IMPRESSION IMPRESSION: There is no mammographic or sonographic evidence of malignancy in either breast. There is no imaging explanation for pain and clinical correlation is suggested. Return to annual screening mammogram is recommended. Annual mammogram will be due in 1 month. BI-RADS Category 1: Negative RISK: Based on the Tyrer-Cuzick (TC) risk assessment model, this patient has a 13.7% lifetime risk of developing breast cancer, meaning they are at average risk for developing breast cancer. However, this is only an estimate based on available history provided on the patient's questionnaire. We encourage all patients to talk with their providers about these results, further recommendations for managing breast health, and appropriate supplemental screening options if the patient has dense breast tissue. Interpreting Radiologist: Jay Barbosa M.D. Electronically signed on: 03/14/2024 Occupational Health Physician: [employer] Date/Time: Mar 14 2024 10:03A Dictated by : JAY BARBOSA MD This examination was interpreted and the report reviewed and electronically signed by: JAY BARBOSA MD on Mar 14 2024 10:16AM EST [facility] CNOVon 01-06-2024 CNOV Office Visit (OBGYWM) ---- BIANCA SPRING ([id number]) 1975 F Date Time Provider Department 01/06/24 1:30 PM MALOU GASTELUM During your visit today, we recorded the following information about you: Blood pressure Weight Last Period 120/76 65.3 kg 01/05/24 Malou Gastelum, YAYA.OFFICE RENTAL CLERK 01/06/2024 2:46 PM Signed Nursing Program Coordinator offered: Patient declines. Bianca Spring is a 48 year old female who presents for a follow up of Metformin use. HPI: Bianca is here to follow up on Metformin. She has a history of PCOS. Reported last visit some irregularity with her cycles and mood changes before periods. Also noted decreased energy and increased weight to midsection. Reports her periods have been regular the past few cycles. She does get headaches with periods. FSH 8.3, estradiol 82. Due to PCOS and weight concerns of Quynh, Metformin was started. She reports her main side effect is flatulence, but tolerable. She also notes increased energy. She would like to stay on the Metformin. CMP showed 18 BUN, 0.61 creatinine, 110 GFR. Vitamin B12 724. She also notes a lump to right right breast that showed up a couple of nights ago. It was tender at the time, but has improved now. OB History T2 L2 SAB1 IAB0 Ectopic0 Multiple0 Live Births2 Manager Environmental Affairs History LMP: 01/05/2024 (Exact Date), Having periods Age at Menarche: Age at First : Age at Menopause: Manager Environmental Affairs History Comments: Sexual Activity: Yes; Male Contraception: Condom PAST MEDICAL HISTORY Diagnosis Date Allergic rhinitis, cause unspecified Allergic rhinitis COVID-19 11/28/2020 History of depression situational Infertility, female Migraine, unspecified, with intractable migraine, so stated, without mention of status migrainosus Migraine Mononucleosis 03/01/1996 Other acne Rh negative status during 08/10/2013 Scoliosis mild scoliosis Thyroid disease ON MEDS FROM TOUCH UP 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 PAST SURGICAL HISTORY Procedure Laterality Date EYE SURGERY HX TONSILLECTOMY PRIMARY/SECONDARY AGE 11/> FAMILY HISTORY Problem Relation Age of Onset Heart Mother Hypertension Maternal Grandmother Osteoporosis Maternal Grandmother Cancer Paternal Grandmother Lung and Bone Heart Paternal Grandfather Hypertension Paternal Grandfather Cancer Sister Lung (Non-smoker) Social History Tobacco Use Smoking status: Never Smokeless tobacco: Never Vaping Use Vaping status: Never Used Substance Use Topics Alcohol use: Not Currently Drug use: Never Current Outpatient Medications Medication Sig metFORMIN (GLUCOPHAGE) 500 mg tablet Take 1 tablet by mouth daily with dinner. ergocalciferol, vitamin D2, (VITAMIN D2 ORAL) Take by mouth once daily. triamcinolone acetonide (NASACORT NASAL) Use in the nose once daily. ergotamine-caffeine (CAFERGOT) 1-100 mg per tablet Take 1 tablet by mouth as directed. Two tablets at onset of attack; then 1 tablet every 30 minutes as needed; maximum: 6 tablets per attack; do not exceed 10 tablets/week vitamin B complex (B COMPLEX ORAL) Take 1 tablet by mouth once daily. MAGNESIUM ORAL Take 500 mg by mouth once daily. fexofenadine HCl (CRISTIANE ORAL) Take 1 tablet by mouth once daily. CALCIUM CARBONATE/VITAMIN D3 (CALCIUM + D ORAL) Take 1 tablet by mouth twice daily. No current facility-administer ed medications for this visit. Allergies As of Date: 01/06/2024 (No Known Allergies) Fully Assessed 01/06/2024 REVIEW OF SYSTEMS Abdomen: No bloating, early satiety, indigestion. No abdominal pain, nausea, vomiting, diarrhea, or constipation. + flatulence Allergies and current medication updated:Yes SENSITIVE EXAM: The sensitive examination was discussed with the Patient or Patient's Authorized Snake Charmer. As applicable, any other physician, advance practice provider, medical student, or other health professional student that will be observing or involved in the sensitive examination for educational or training purposes was discussed with the Patient or Authorized Snake Charmer. The Patient or Authorized Snake Charmer has agreed to proceed with the sensitive examination. (Sensitive examination includes inspection and/or palpation of the breasts, pelvis, prostate and anorectal regions). EXAM: BP 120/76 Wt 144 lb (65.3kg) LMP 01/05/2024 GENERAL: pleasant, female in no apparent distress HEENT: Normocephalic, atraumatic, mucus membranes moist, and no lesions DERMATOLOGY: Normal, without lesions, non-icteric, and non-hirsute BREAST: soft, non-tender, symmetric, no dominant mass, normal nipple-areolar complex, no lymphadenopathy, and no nipple discharge + fibrocystic change to mid inner quadrant of right breast CHEST: Normal inspiratory effort NEURO: alert and oriented x3,exam grossly non-focal EXTREMITIES: normal ASSESSMENT AND PLAN: 1. Mass of l (more content not included)... [facility] MR/BMS.[facility] 12-20-2023 MR/BMS.IMB [facility] [address] [place] [address] OFFICE VISIT Date of Service: 12/20/23 MR#: [id number] Acct: [id number] Name: BIANCA SPRING Rep #: [id number] : 1975 Provider: Dr. 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: No Accompanied by: Self Is patient in pain?: No Allergies Environmental Allergies: Uncoded Allergy (Intermediate, Verified 12/20/23 09:25) Other Seasonal Allergies: Uncoded Allergy (Verified 12/20/23 09:25) Fatigue Medications ???Medication ???Instructions ???Recorded ???Confirmed ???Type triamcinolone acetonide 55 mcg 1 spray intranasal DAILY 04/10/21 12/20/23 History nasal spray aerosol (Nasacort) calcium carbonate 600 mg PO DAILY 11/19/21 12/20/23 History cholecalciferol (vitamin D3) 25 25 mcg PO DAILY 11/19/21 12/20/23 History mcg (1,000 unit) capsule turmeric 100 mg-monica 150 cap PO 11/19/21 12/20/23 History mg-olive 50 mg-oreg 150 mg-capryl capsule vitamin B complex 1 tab PO DAILY 11/19/21 12/20/23 History melatonin 5 mg capsule mg PO QHS 08/20/22 12/20/23 History allergy shot IM .weekly 03/25/23 12/20/23 History fexofenadine 60 mg tablet (Cristiane 60 mg PO DAILY PRN 03/25/23 12/20/23 History Allergy) ergotamine 1 mg-caffeine 100 mg See Rx Instructions PO .COMPLEX 12/20/23 12/20/23 Rx tablet #10 tabs metformin 500 mg tablet 500 mg PO QDAY 12/20/23 12/20/23 History [facility] Medical History (Updated 12/20/23 @ 11:[address] Sanchez Prince MD) Tender lymph node Seasonal allergies Surgical History History of tonsillectomy Family History Sister Cancer, Onset Age: 36 lung Father Heart disease Social History Smoking Status: Never smoker alcohol intake: never substance use type: does not use HPI HPI Chief Complaint: swollen glands Details: BIANCA SPRING, is a 48 F who presents to the office today for an acute care follow-up visit. She feels as what may be an enlarged gland, left, just in front of the left ear. Also a little slightly tender harder nodule just above where she feels an enlarged gland. Little bit of ear pressure and a sense of possible URI throughout this week. Also noted a tender area, hairline top of the head that occurred yesterday. [place] like someone tugging on her hair in a spot. No rash developed in that area. She has not had fever, chills, nausea or vomiting. Appetite has been good. No upper respiratory symptoms otherwise. She does have 2 smaller children who have some respiratory infection symptoms right now. Otherwise she needs a refill on her ergotamine/caffeine . She notes that medication is effective for the most part but cost has been somewhat of an issue. She has discussed with pharmacist and they suggested perhaps switching to Imitrex versus the ergotamine/caffeine , which would save her a fair amount of money as she is buying all of her medications [id number], due to high deductible. Review of systems per chart. Physical exam. Vital signs on chart. EOMI. PERRLA. Sclera are clear. TMs are unremarkable with normal light reflexes. Canals are unremarkable. Posterior pharynx is unremarkable. Good dentition. There appears to be a slightly enlarged, tender preauricular lymph node, left. There is a small bony protrusion, nonmovable on the left just above and posterior to the TMJ.(similar but smaller in size on the right.) No cervical or supraclavicular lymph nodes enlarged or tender. No clear thyromegaly. No thyroid nodules readily palpable. Lungs are without wheeze, rhonchi, rales. No E/A changes are heard. Heart is regular. Not tachycardic. No clear murmur, rub, or gallop is identified. No rash, in the hairline is obvious. No tender or sensitive areas in the hairline where she had a tugging sensation yesterday. ROS Const Constitutional: Positive for headache(s); No body ache, chills, excessive sweating, fatigue, fever(s), frequent falls, snoring, weakness or change in appetite Eyes Eyes: No blurry vision, change in vision, eye pain or Light sensitivity ENT ENT: Positive for ear pressure and headache(s); No abnormal hearing (more content not included)... [facility]PODIWS[facility] ---- BIANCA SPRING ([id number]) 1975 F Date Time Provider Department 12/02/23 11:30 AM CAROL SEPULVEDA PODIWS During your visit today, we recorded the following information about you: Talia Flowers LPN 12/10/2023 9:42 AM Signed AMB ROOMING INTAKE FLOWSHEET DATA Pain Pain Location: Foot-Right Comments: with activity Patient presents with: Right Foot - Established Patient, Pain, discuss surgery Left Foot - Tumor/Mass, Established Patient, Follow Up TRIP [place] Matthew 12/10/2023 9:42 AM Signed FOLLOW UP PODIATRIC OFFICE VISIT Chief Complaint: This 48 year old who presents for follow up:right foot pain Patient presents to clinic for follow-up right great toe pain Has bunion that causes her pain. Most of her pain is located to the right great toe joint Is here to discuss optoins. Has been offered first mtpj fusoin vs lapidus by me Has seen dr. Nowak who also agrees in first mtpj fusion vs lapidus but could consider decompression osteotomy but would favor more the lapidus or first mtpj fusion PAIN EVALUATION 12/02/2023 1129 Pain Location: Foot-Right Comments: with activity Hemoglobin A1C Date Value Ref Range Status 11/04/2023 4.7 4.3 - 5.6 % Final Comment: [place] Diabetes Association guidelines indicate that patients with HgbA1c in the range 5.7-6.4% are at increased risk for development of diabetes, and intervention by lifestyle modification may be beneficial. HgbA1c greater or equal to 6.5% is considered diagnostic of diabetes. 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 ergocalciferol, vitamin D2, (VITAMIN D2 ORAL) Take by mouth once daily. triamcinolone acetonide (NASACORT NASAL) Use in the nose once daily. ergotamine-caffeine (CAFERGOT) 1-100 mg per tablet Take 1 tablet by mouth as directed. Two tablets at onset of attack; then 1 tablet every 30 minutes as needed; maximum: 6 tablets per attack; do not exceed 10 tablets/week vitamin B complex (B COMPLEX ORAL) Take 1 tablet by mouth once daily. MAGNESIUM ORAL Take 500 mg by mouth once daily. fexofenadine HCl (CRISTIANE ORAL) Take 1 tablet by mouth once daily. CALCIUM CARBONATE/VITAMIN D3 (CALCIUM + D ORAL) Take 1 tablet by mouth twice daily. No current facility-administer ed medications for this visit. ALLERGIES No Known Allergies PAST SURGICAL HISTORY Procedure Laterality Date EYE SURGERY HX TONSILLECTOMY PRIMARY/SECONDARY AGE 11/> Physical Exam: OBJECTIVE: Constitutional: Pt is a well developed 48 year old female who is alert, oriented, cooperative and in no apparent distress. Eyes: Following during examination. No redness or drainage. Respiratory: RR normal and nonlabored. Even breathing. No evidence of distress. Psychology: Patient is engaged during conversation. Normal affect and mood. Does not appear depressed or anxious. NVSI unchanged from previous visit. Dermatological: Nails 1-5 b/l are normal. Webspaces clean and dry 1-4 b/l. Skin appears well hydrated and supple. good color, texture, turgor. No open lesions present. No callosities present. Musculoskeletal/Ort hopaedic: Patient has pain to palpation of right first ray along medial eminence Pain with rom of right 1st mtpj Rom of right 1st mtpj is decreased ASSESSMENT: Hallux valgus of right foot (primary encounter diagnosis) Acquired hallux limitus of right foot Right foot pain PLAN: Discussed bunion of right first ray. I do feel this is an arthritic bunion. Discussed options not limited to lapidus bunionectomy vs first mtpj fusion She does feel pain is less when she wears a firm sole shoe Could consider custom orthotic with johnson extension. If this helps, this may provide some time to proceed with conservative care Patient will benefit from custom ortohtic with johnson extension She has elected to forego surgery in favor of inserts Carol Sepulveda DPM Allergies As of Date: 12/02/2023 (No Known Allergies) Date Reviewed: 12/02/2023 Reviewed by: Talia Flowers LPN - Fully Assessed Reason for Visit: Established Patient [175] Pain [78] discuss surgery [Other] Tumor/Mass [057993] Established Patient [175] Follow Up [171] Primary Visit Diagnosis:Hallux valgus of right foot [M20.11] Other Visit Diagnoses:Acquired hallu (more content not included)... [facility] Office Visit (OBGYWM) ---- BIANCA SPRING ([id number]) 1975 F Date Time Provider Department 11/04/23 1:30 PM MALOU GASTELUM During your visit today, we recorded the following information about you: Pulse Respiration Blood pressure Weight 74/minute 14/minute 120/82 64 kg Last Period 10/19/23 Malou Gastelum APRN.OFFICE RENTAL CLERK 11/04/2023 2:11 PM Signed Nursing Program Coordinator offered: Patient declines. Bianca Spring is a 48 year old female who presents for a follow up visit of vaginal irritation. HPI: Quynh was here on 10/14/23 for vaginitis symptoms. She tested positive for yeast. She was treated with Diflucan and then used Monistat 7 for 7 days. Still has occasional irritation, but overall improved. Also notes some irregularity with her cycles, spotting, and mood changes before her periods. She also notes decreased energy and carrying weight to midsection. She does have PCOS. 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 History Comments: Sexual Activity: Yes; Male Contraception: Condom PAST MEDICAL HISTORY No date: Allergic rhinitis, cause unspecified Comment: Allergic rhinitis 11/28/2020: COVID-19 No date: History of depression Comment: situational No date: Infertility, female No date: Migraine, unspecified, with intractable migraine, so stated, without mention of status migrainosus Comment: Migraine 03/01/1996: Mononucleosis No date: Other acne 08/10/2013: Rh negative status during No date: Scoliosis Comment: mild scoliosis No date: Thyroid disease Comment: ON MEDS FROM TOUCH UP PAINTER PAST SURGICAL HISTORY No date: EYE SURGERY HX No date: TONSILLECTOMY PRIMARY/SECONDARY AGE 11/> FAMILY HISTORY Problem Relation Age of Onset Heart Mother Hypertension Maternal Grandmother Osteoporosis Maternal Grandmother Cancer Paternal Grandmother Lung and Bone Heart Paternal Grandfather Hypertension Paternal Grandfather Cancer Sister Lung (Non-smoker) Social History Tobacco Use Smoking status: Never Smokeless tobacco: Never Vaping Use Vaping status: Never Used Substance Use Topics Alcohol use: Not Currently Drug use: Never Current Outpatient Medications Medication Sig miconazole (MONISTAT 7) 2 % vaginal cream Use 1 Applicator vaginally daily at bedtime. ergocalciferol, vitamin D2, (VITAMIN D2 ORAL) Take by mouth once daily. triamcinolone acetonide (NASACORT NASAL) Use in the nose once daily. ergotamine-caffeine (CAFERGOT) 1-100 mg per tablet Take 1 tablet by mouth as directed. Two tablets at onset of attack; then 1 tablet every 30 minutes as needed; maximum: 6 tablets per attack; do not exceed 10 tablets/week vitamin B complex (B COMPLEX ORAL) Take 1 tablet by mouth once daily. MAGNESIUM ORAL Take 500 mg by mouth once daily. fexofenadine HCl (CRISTIANE ORAL) Take 1 tablet by mouth once daily. CALCIUM CARBONATE/VITAMIN D3 (CALCIUM + D ORAL) Take 1 tablet by mouth twice daily. No current facility-administer ed medications for this visit. Allergies As of Date: 11/04/2023 (No Known Allergies) Fully Assessed 10/22/2023 REVIEW OF SYSTEMS Expanded ROS: NECK CUTTER: Positive for + irregular cycles, mood changes before period Allergies and current medication updated:Yes EXAM: BP 120/82 Pulse 74 Resp 14 Wt 141 lb (64.0kg) SpO2 97% LMP 10/19/2023 GENERAL: pleasant, female in no apparent distress HEENT: Normocephalic, atraumatic, mucus membranes moist, and no lesions CHEST: Normal inspiratory effort PELVIC: external genitalia normal, normal Bartholin's glands, urethra, [place]'s glands, no vulvar lesions, no cervical lesions, good vaginal support, physiologic discharge present, normal appearing perineal body and perianal region NEURO: alert and oriented x3,exam grossly non-focal EXTREMITIES: normal ASSESSMENT/PLAN: 1. PCOS (polycystic ovarian syndrome) - ICD9: 256.4, ICD10: E28.2 (primary diagnosis) - Discussed increased risk of insulin resistance, diabetes, obesity, hyperlipidemia, and hypertension - Could trial Metformin to decrease insulin resistance risk and possibly help with increased weight in midsection, although this could be due to perimenopause - Agreeable to begin Metformin 500 mg with dinner daily x 1 week. If tolerating will increase to 2 tablets with dinner daily. We discussed common side effects of this medication including nausea, changes in bowel habits, abdominal discomfort, and flatulence. Discussed taking it with food and complication of lactic acidosis and signs/symptoms and medication handout given. Further instructed that if she experiences malaise, muscle aches, difficulty breathing, or severe abdominal pain to seek immediate medical attention. - Ch (more content not included)... Normal [facility] metabolic 2000 panelOrdered By: Ratna Saucedo on 11-04-2023 Albumin [Mass/Vol] 4.6 g/dL 3.9 - 4.9 g/dL [facility] ALP [Catalytic activity/Vol] 75 U/L 34 - 123 U/L [facility] ALT [Catalytic activity/Vol] 17 U/L 7 - 38 U/L [facility] Anion gap [Moles/Vol] 10 mmol/L 8 - 15 mmol/L [facility] AST [Catalytic activity/Vol] 15 U/L 13 - 35 U/L [facility] Bilirubin [Mass/Vol] 0.2 mg/dL 0.2 - 1.3 mg/dL [facility] Calcium [Mass/Vol] 10.1 mg/dL 8.5 - 10.2 mg/dL [facility] Chloride [Moles/Vol] 102 mmol/L 98 - 107 mmol/L [facility] CO2 [Moles/Vol] 25 mmol/L 22 - 30 mmol/L [facility] Creatinine [Mass/Vol] 0.61 mg/dL 0.58 - 0.96 mg/dL [facility] GFR/1.73 sq M.predicted among non-blacks MDRD (S/P/Bld) [Vol rate/Area] 110 mL/min/{1.73_m2} - PINF [facility] Comment on above: Estimated Glomerular Filtration Rate (eGFR) is calculated using the 2020 CKD-EPI creatinine equation. This equation utilizes serum creatinine, sex, and age as parameters. The creatinine assay has traceable calibration to isotope dilution-mass spectrometry. Refer to KDIGO guidelines for clinical interpretation. In patients with unstable renal function, e.g. those with acute kidney injury, the eGFR may not accurately reflect actual GFR. Glucose [Mass/Vol] 108 mg/dL High 74 - 99 mg/dL [facility] Comment on above: The [place] Diabete s Association (ADA) provides guidance for cutoff values for fasting glucose and random glucose. The ADA defines fasting as no caloric intake for at least 8 hours. Fasting plasma glucose results between 100 to 125 mg/dL indicate increased risk for diabetes (prediabetes). Fasting plasma glucose results greater than or equal to 126 mg/dL meet the criteria for diagnosis of diabetes. In the absence of unequivocal hyperglycemia, results should be confirmed by repeat testing. In a patient with classic symptoms of hyperglycemia or hyperglycemic crisis, random plasma glucose results greater than or equal to 200 mg/dL meet the criteria for diagnosis of diabetes. Reference: Standards of Medical Care in Diabetes 2016, [place] Diabetes Association. Diabetes Care. 2016.39(Suppl 1). Interpretation and review of laboratory results Abnormal [facility] Potassium [Moles/Vol] 4.4 mmol/L 3.7 - 5.1 mmol /L [facility] Protein [Mass/Vol] 6.8 g/dL 6.3 - 8.0 g/dL [facility] Sodium [Moles/Vol] 137 mmol/L 136 - 144 mmol/L [facility] Urea nitrogen [Mass/Vol] 18 mg/dL 7 - 21 mg/dL [facility] Comprehensive metabolic 2000 panelon 11-04-2023 Albumin [Mass/Vol] 4.6 g/dL Normal 3.9-4.9 [facility] Comment on above: Order Comment: Speci men Type: BLOOD SPECIMEN Ordering Facility: [facility] Address: [address] [place] [address] Performed By: #### 2 243-4, 2131, 04451-4 #### [facility] CLIA [id number] [address] [place] [address] [place] ALP [Catalytic activity/Vol] 75 U/L Normal 34-123 [facility] Comment on above: Order Comment: Speci men Type: BLOOD SPECIMEN Ordering Facility: [facility] Address: [address] [place] [address] Performed By: #### 2 243-4, 9, 12979-6 #### [facility] CLIA [id number] [address] [place], [place] [id number] [place] ALT [Catalytic activity/Vol] 17 U/L Normal 7-38 [facility] Comment on above: Order Comment: Speci men Type: BLOOD SPECIMEN Ordering Facility: [facility] Address: [address] [place] [address] Performed By: #### 2 243-4, 2131-10, 92209-9 #### [facility] CLIA [id number] [address] [place] [address] [place] Anion gap [Moles/Vol] 10 mmol/L Normal 8-15 [facility] Comment on above: Order Comment: Speci men Type: BLOOD SPECIMEN Ordering Facility: [facility] Address: [address] [place] [address] Performed By: #### 2 243-4, 2131-10, 28676-4 #### [facility] CLIA [id number] [address] [place] [address] [place] AST [Catalytic activity/Vol] 15 U/L Normal 13-35 [facility] Comment on above: Order Comment: Speci men Type: BLOOD SPECIMEN Ordering Facility: [facility] Address: [address] [place] [address] Performed By: #### 2 243-4, 2131-10, 99577-0 #### [facility] CLIA [id number] [address] [place] [address] [place] Bilirubin [Mass/Vol] 0.2 mg/dL Normal 0.2-1.3 [facility] Comment on above: Order Comment: Speci men Type: BLOOD SPECIMEN Ordering Facility: [facility] Address: [address] [place] [address] Performed By: #### 2 243-4, 2131-10, 47325-8 #### [facility] CLIA [id number] [address] [place] [address] [place] Calcium [Mass/Vol] 10.1 mg/dL Normal 8.5-10.2 [facility] Comment on above: Order Comment: Speci men Type: BLOOD SPECIMEN Ordering Facility: [facility] Address: [address] [place] [address] Performed By: #### 2 243-4, 9, 62791-5 #### [facility] CLIA [id number] [address] [place] [address] [place] Chloride [Moles/Vol] 102 mmol/L Normal 98-107 [facility] Comment on above: Order Comment: Speci men Type: BLOOD SPECIMEN Ordering Facility: [facility] Address: [address] [place] [address] Performed By: #### 2 243-4, 9, 31465-0 #### [facility] CLIA [id number] [address] [place] [address] [place] CO2 [Moles/Vol] 25 mmol/L Normal 22-30 [facility] Comment on above: Order Comment: Speci men Type: BLOOD SPECIMEN Ordering Facility: [facility] Address: [address] [place] [address] Performed By: #### 2 243-4, 2131-10, 88922-0 #### [facility] CLIA [id number] [address] [place] [address] [place] Creatinine [Mass/Vol] 0.61 mg/dL Normal 0.58-0.96 [facility] Comment on above: Order Comment: Speci men Type: BLOOD SPECIMEN Ordering Facility: [facility] Address: [address] [place] [address] Performed By: #### 2 243-4, 2131-10, 74766-5 #### [facility] CLIA [id number] [address] [place] [address] [place] Creatinine and Glomerular filtration rate.predicted panel (S/P/Bld) 110 mL/min/1.73m??? Normal >=60 [facility] Comment on above: Order Comment: Speci men Type: BLOOD SPECIMEN Ordering Facility: [facility] Address: [address] [place] [address] Result Comment: Brii mated Glomerular Filtration Rate (eGFR) is calculated using the 2020 CKD-EPI creatinine equation. This equation utilizes serum creatinine, sex, and age as parameters. The creatinine assay has traceable calibration to isotope dilution-mass spectrometry. Refer to KDIGO guidelines for clinical interpretation. In patients with unstable renal function, e.g. those with acute kidney injury, the eGFR may not accurately reflect actual GFR. Performed By: #### 2 243-4, 2131-10, 49655-9 #### [facility] CLIA [id number] [address] [place] [address] [place] Glucose [Mass/Vol] 108 mg/dL High 74-99 [facility] Comment on above: Order Comment: Hakeem hampton Type: BLOOD SPECIMEN Ordering Facility: [facility] Address: [address] [place] [address] Result Comment: The [place] Diabetes Association (ADA) provides guidance for cutoff values for fasting glucose and random glucose. The ADA defines fasting as no caloric intake for at least 8 hours. Fasting plasma glucose results between 100 to 125 mg/dL indicate increased risk for diabetes (prediabetes). Fasting plasma glucose results greater than or equal to 126 mg/dL meet the criteria for diagnosis of diabetes. In the absence of unequivocal hyperglycemia, results should be confirmed by repeat testing. In a patient with classic symptoms of hyperglycemia or hyperglycemic crisis, random plasma glucose results greater than or equal to 200 mg/dL meet the criteria for diagnosis of diabetes. Reference: Standards of Medical Care in Diabetes 2016, [place] Diabetes [employer]. Diabetes Care. 2016.39(Suppl 1). Performed By: #### 2 243-4, 2131-10, 05366-9 #### [facility] CLIA [id number] [address] [place] [address] [place] Potassium [Moles/Vol] 4.4 mmol/L Normal 3.7-5.1 [facility] Comment on above: Order Comment: Hakeem hampton Type: BLOOD SPECIMEN Ordering Facility: [facility] Address: [address] [place] [address] Performed By: #### 2 243-4, 2131-10, 28088-4 #### [facility] CLIA [id number] [address] [place] [address] [place] Protein [Mass/Vol] 6.8 g/dL Normal 6.3-8.0 [facility] Comment on above: Order Comment: Speci men Type: BLOOD SPECIMEN Ordering Facility: [facility] Address: [address] [place] [address] Performed By: #### 2 243-4, 2131-10, 26320-9 #### [facility] CLIA [id number] [address] [place] [address] [place] Sodium [Moles/Vol] 137 mmol/L Normal 136-144 [facility] Comment on above: Order Comment: Speci men Type: BLOOD SPECIMEN Ordering Facility: [facility] Address: [address] [place] [address] Performed By: #### 2 243-4, 2131-10, 38900-6 #### [facility] CLIA [id number] [address] [place] [address] [place] Urea nitrogen [Mass/Vol] 18 mg/dL Normal 7-21 [facility] Comment on above: Order Comment: Speci men Type: BLOOD SPECIMEN Ordering Facility: [facility] Address: [address] [place] [address] Performed By: #### 2 243-4, 2131-10, 06223-6 #### [facility] CLIA [id number] [address] [place] [address] [place] Estradiol SerPl-mCncon 11-03 E2 [Mass/Vol] 82 pg/mL [facility] Comment on above: Order Comment: Speci men Type: BLOOD SPECIMEN Ordering Facility: [facility] Address: [address] [place] [address] Result Comment: This test is not suitable for patients receiving treatment with the drug Fulvestrant (Faslodex). The drug causes an interference leading to falsely elevated estradiol results. Menstrual cycle Estradiol reference ranges: Follicular : < 234 pg/mL Ovulation : 41 to 398 pg/mL Luteal : < 342 pg/mL Estradiol reference ranges vary by gestational period: First trimester : 154 to 3243 pg/mL Second trimester : 1561 to 18064 pg/mL Third trimester : 8285 to >02195 pg/mL Post-menopausal Estradiol reference range: < 41 pg/mL Reference: 1. Estradiol - E2 (Estradiol III) [package insert V 3.0 Polish]. [facility], [place], [place], July 2015. Performed By: #### 2 243-4, 9, 73334-6 #### [facility] CLIA [id number] [address] [place] [address] [place] FSH SerPl-aCncon 11-04-2023 Follitropin Qn 8.3 m[IU]/mL Normal See comment [facility] Comment on above: Order Comment: Speci men Type: BLOOD SPECIMEN Ordering Facility: [facility] Address: [address] [place] [address] Result Comment: Refe rence range: Follicular: 3.5-12.5 mIU/mL Ovulation: 4.7-21.5 mIU/mL Luteal: 1.7-7.7 mIU/mL Postmenopausal: 25.8-134.8 mIU/mL Performed By: #### 2 243-4, 2131-10, 44980-9 #### [facility] CLIA [id number] [address] [place] [address] [place] HbA1c (Bld)on 11-04-2023 Average glucose Estimated from glycated hemoglobin (Bld) [Mass/Vol] 88 mg/dL [facility] Comment on above: Order Comment: Speci men Type: BLOOD SPECIMEN Ordering Facility: [facility] Address: [address] [place] [address] Result Comment: eAG: (Estimated average glucose) is a calculated value from HgbA1c and is physician representative of the average blood glucose level in the last 2-3 month period. Performed By: #### 5 5454-3 #### [facility] CLIA [id number] [address] [place] [address] [place] HbA1c (Bld) [Mass fraction] 4.7 % Normal 4.3-5.6 [facility] Comment on above: Order Comment: Hakeem hampton Type: BLOOD SPECIMEN Ordering Facility: [facility] Address: [address] [place] [address] Result Comment: [place] Diabetes Association guidelines indicate that patients with HgbA1c in the range 5.7-6.4% are at increased risk for development of diabetes, and intervention by lifestyle modification may be beneficial. HgbA1c greater or equal to 6.5% is considered diagnostic of diabetes. Performed By: #### 5 5454-3 #### [facility] CLIA [id number] [address] [place] [address] [place] Vit B12 [facility] 11-03- 024 Cobalamin (Vitamin B12) [Mass/Vol] 724 pg/mL Normal 232-1245 [facility] Comment on above: Order Comment: Hakeem hampton Type: BLOOD SPECIMEN Ordering Facility: [facility] Address: [address] [place] [address] Performed By: #### 2 243-4, 2132-9, 14147-1 #### [facility] CLIA [id number] [address] [place] [address] [place] Shannon 11-02-2023 RUYN Telephone (PODIWS) ---- BIANCA SPRING ([id number]) 1975 F Date Time Provider Department 11/02/23 CAROL SEPULVEDA During your visit today, we recorded the following information about you: Placido Tinoco, REUBEN 11/02/2023 2:04 PM Signed Pt sent to Dr. Nowak from Dr. Sepulveda. She is calling now for a status update on Plan of care. She was told they would be consulting each other and someone would get back to her. She was seen on 10/[address] Nowak. Please contact pt with the next step in her care. This Nurse transferred her to schedule a follow up appointment with Dr. Sepulveda.REUBEN Castillo Tayler, RN 11/09/2023 4:51 PM Signed Carol moreno Amelia, LPN; [facility] Podiatry Pool8 hours ago (7:58 AM) I will talk to my colleague and get back to her Carol Sepulveda DPM Allergies As of Date: 11/02/2023 (No Known Allergies) Date Reviewed: 10/22/2023 Reviewed by: Keith Feldman MA - Fully Assessed Reason for Visit: Patient Update [1234] Prescriptions as of 11/15/2023 - metFORMIN (GLUCOPHAGE) 500 mg tablet Take 1 tablet by mouth daily with dinner. - ergocalciferol, vitamin D2, (VITAMIN D2 ORAL) Take by mouth once daily. - triamcinolone acetonide (NASACORT NASAL) Use in the nose once daily. - ergotamine-caffeine (CAFERGOT) 1-100 mg per tablet Take 1 tablet by mouth as directed. Two tablets at onset of attack; then 1 tablet every 30 minutes as needed; maximum: 6 tablets per attack; do not exceed 10 tablets/week - vitamin B complex (B COMPLEX ORAL) Take 1 tablet by mouth once daily. - MAGNESIUM ORAL Take 500 mg by mouth once daily. - fexofenadine HCl (CRISTIANE ORAL) Take 1 tablet by mouth once daily. - CALCIUM CARBONATE/VITAMIN D3 (CALCIUM + D ORAL) Take 1 tablet by mouth twice daily. Problem List As Of Date 11/02/2023 Noted Resolved Other acne [L70.8] 03/16/2005 03/20/2011 TINEA//PITYRIASIS VERSICOLOR [B36.0] 07/23/2006 03/20/2011 Sebaceous cyst [L72.3] 07/23/2006 03/20/2011 NEVUS///BENIGN JIAN SKIN TRUNK [D23.5] 07/23/2006 03/20/2011 Benign neoplasm of skin of other and unspecifie*07/24/19 07 03/20/2011 Benign neoplasm of scalp and skin of neck [D23.*07/23/2006 03/20/2011 Other chronic dermatitis due to solar radiation* 7 03/20/2011 Scar condition and fibrosis of skin [L90.5] 07/23/2006 03/20/2011 SOLAR LENGINES////DYSCHRO GRACIA OTHER [L81.9] 07/23/2006 03/20/2011 Supervision of normal first [Z34.00] 03/20/2011 07/12/2012 ADVANCED MATERNAL AGE:MULTIPARA [659.63] [O09.5*03/20/2011 07/12/2012 Advanced maternal age (AMA) in [IMO00*08/10/2013 03/05/2014 with care elsewhere [Z34.90] 08/10/2013 03/05/2014 History of depression [Z86.59] 08/10/2013 03/05/2014 Rh negative status during [O26.899, Z*08/10/2013 03/05/2014 Low-lying placenta [O44.40] 08/10/2013 03/05/2014 Thyroid disorder [E07.9] 08/11/2013 03/05/2014 Encounter Status:Closed by PLACIDO TINOCO on 11/02/23 [facility] CNOVon 10-22-2023 CNOV Office Visit (PODIIN) ---- BIANCA SPRING ([id number]) 1975 F Date Time Provider Department 10/22/23 1:50 PM WADE NOWAK PODIIN During your visit today, we recorded the following information about you: Wade Nowak, KARMEN 11/19/2023 9:59 AM Signed Initial Podiatric Office Visit: Chief Complaint: This is a 48 year old female who is referred by Dr. Sepulveda for: Surgical Consult Patient is accompanied by: Self HPI: Nature: intermittent Location: Right Foot Duration: 2 year(s) Onset: gradual Course: worsening Aggravating/Allevia ting Factors: walking and pressure/ rest Prior treatment: Dr. Sepulveda now considering surgical options pays close attention to shoes wear good exercise tennis shoes have taken ibuprofen also take tylenol avoids heels pain switches 2-3 spots Right foot: medial bump hallux IPJ and dorsolateral 1st MTP numbness tips last 3 toes lately feel from foot compenstating more toward end of day Mentions that she gets some pain R arch it will crack want to slow the arthritis and bunion goal for exercise walking If do that now it will hurt also hurts w regular activity driving even hurts sometimes pain just laying down considered bunion surg a year ago insurance declined questions about left foot also was at dermatology had cyst on big toe L drained it get pain at IPJ on L also felt probably from arthritis They showed how she can drain it herself when cyst returns bruised nail L 5th Dermatology felt this was mechanical feels from walking toe rotates dark present ~ 2 months PAST MEDICAL HISTORY No date: Allergic rhinitis, cause unspecified Comment: Allergic rhinitis 11/28/2020: COVID-19 No date: History of depression Comment: situational No date: Infertility, female No date: Migraine, unspecified, with intractable migraine, so stated, without mention of status migrainosus Comment: Migraine 03/01/1996: Mononucleosis No date: Other acne 08/10/2013: Rh negative status during No date: Scoliosis Comment: mild scoliosis No date: Thyroid disease Comment: ON MEDS FROM TOUCH UP PAINTER ACTIVE PROBLEM LIST (none) - all problems resolved or deleted Medications: Current Outpatient Medications Medication Sig Dispense Refill miconazole (MONISTAT 7) 2 % vaginal cream Use 1 Applicator vaginally daily at bedtime. 45 g 0 ergocalciferol, vitamin D2, (VITAMIN D2 ORAL) Take by mouth once daily. triamcinolone acetonide (NASACORT NASAL) Use in the nose once daily. ergotamine-caffeine (CAFERGOT) 1-100 mg per tablet Take 1 tablet by mouth as directed. Two tablets at onset of attack; then 1 tablet every 30 minutes as needed; maximum: 6 tablets per attack; do not exceed 10 tablets/week vitamin B complex (B COMPLEX ORAL) Take 1 tablet by mouth once daily. MAGNESIUM ORAL Take 500 mg by mouth once daily. fexofenadine HCl (CRISTIANE ORAL) Take 1 tablet by mouth once daily. CALCIUM CARBONATE/VITAMIN D3 (CALCIUM + D ORAL) Take 1 tablet by mouth twice daily. No current facility-administer ed medications for this visit. ALLERGIES No Known Allergies PAST SURGICAL HISTORY No date: EYE SURGERY HX No date: TONSILLECTOMY PRIMARY/SECONDARY AGE 11/> FAMILY HISTORY Problem Relation Age of Onset Heart Mother Hypertension Maternal Grandmother Osteoporosis Maternal Grandmother Cancer Paternal Grandmother Lung and Bone Heart Paternal Grandfather Hypertension Paternal Grandfather Cancer Sister Lung (Non-smoker) Social History Tobacco Use Smoking status: Never Smokeless tobacco: Never Vaping Use Vaping status: Never Used Substance Use Topics Alcohol use: Not Currently Drug use: Never ROS: GENERAL: NEGATIVE FOR:, Fever, Chills, Night sweats, or Shaking Chills CARDIOVASCULAR: NEGATIVE FOR:, Chest Pain, Raynauds, PVD, DVT, Prolonged Bleeding, Excessive Bruising, or Lower Leg Swelling SKIN: NEGATIVE FOR:, Rashes, Chronic Skin Condition, Psoriasis, Hair Loss of Feet, Legs, or Skin Ulcers RESPIRATORY: NEGATIVE FOR: Shortness of Breath GASTROINTESTINAL: NEGATIVE FOR: Bloody or Black Stools RENAL: NEGATIVE FOR: Kidney Disease / Transplant ENDOCRINE: NEGATIVE FOR: Diabetes MUSCULOSKELETAL: NEGATIVE FOR:, Back Pain, Sciatica, Previous Fracture(s), Amputation(s), Osteoporosis, Rheumatoid Arthritis, or Osteoarthritis / Degenerative Arthritis NEUROLOGICAL: NEGATIVE FOR:, Neuromuscular Disease, POSITIVE FOR:, or Numbness of Feet The remainder of the review of systems is noncontributory Physical Exam: Vitals: LMP 09/28/2023 (Exact Date) Last Wt 10/14/23 : 63 kg (139 lb) 07/02/23 : 65.1 kg (143 lb 8.3 oz) Psych: alert and oriented to time, person, place recent/remote memory: intact mood/affect: normal OBJECTIVE: Vascular: Palpable Dorsalis Pedis and Posterior Tibial Pulses B/L Cap (more content not included)... [facility] BACTERIAL VAGINOSIS NAATon 0 10-14-2023 Lactobacillus crispatus+gasseri+jense brendan + Gardnerella vaginalis + Atopobium vaginae rRNA CHINA+probe Ql (Vag fld) Negative Normal Negative for bacterial vaginosis [facility] Comment on above: Order Comment: Speci men Type: BLOOD SPECIMEN Ordering Facility: [facility] Address: [address] [place] [address] Performed By: #### 2 243-4, 9, 56075-2 #### [facility] CLIA [id number] [address] [place] [address] [place] Bacteria Ur Culton Bacteria identified Cx Nom (U) ORGANISM ID: 1 10,000 -<50,000 CFU/ml Normal urogenital wojciech [facility] Comment on above: Performed By: #### 6 30-4 ####[facility] [id number] [place] [address] [place] C. trachomatis+N. gonorrhoea e DNA CHINA+probe Ql (Unsp spec)on 10-14-2023 C. trachomatis rRNA CHINA+probe Ql (Unsp spec) Negative Normal Negative for Chlamydia trachomatis by amplificaton [facility] Comment on above: Order Comment: Speci men Type: BLOOD SPECIMEN Ordering Facility: [facility] Address: [address] [place] [address] Performed By: #### 2 243-4, 9, 04827-9 #### [facility] CLIA [id number] [address] [place] [address] [place] N. gonorrhoeae rRNA CHINA+probe Ql (Unsp spec) Negative Normal Negative for Neisseria gonorrhoeae by amplification [facility] Comment on above: Order Comment: Speci men Type: BLOOD SPECIMEN Ordering Facility: [facility] Address: [address] [place] [address] Performed By: #### 2 243-4, 9, 97615-3 #### [facility] CLIA [id number] [address] OF [place] ANA/TRICHOMONAS NAATon 0 10-14-2023 C. glabrata RNA CHINA+probe Ql (Vag fld) Negative Normal Negative for Ana glabrata [facility] Comment on above: Order Comment: Speci men Type: SWABOrdering Facility: [facility] Address: [address] [place] [address] Performed By: #### C VTV ####[facility] [id number] [address] OF [place] Ana sp DNA CHINA+probe Ql (Vag fld) Positive Abnormal Negative for Ana species [facility] Comment on above: Order Comment: Speci men Type: SWABOrdering Facility: [facility] Address: [address] [place] [address] Performed By: #### C VTV ####[facility] [id number] [address] OF [place] T. vaginalis DNA CHINA+probe Ql (Unsp spec) Negative Normal Negative for Trichomonas vaginalis by amplification [facility] Comment on above: Order Comment: Speci men Type: SWABOrdering Facility: [facility] Address: [address] [place] [address] Performed By: #### C VTV ####[facility] [id number] [address] OF [place]EL CNOVon 10-14-2023 CNOV Office Visit (MISTYWTammy) ---- BIANCA SPRING ([id number]) 1975 F Date Time Provider Department 10/14/23 10:45 AM MALOU GASTELUM During your visit today, we recorded the following information about you: Pulse Blood pressure Weight Last Period 90/minute 112/70 63 kg 09/28/23 Malou Gastelum APRN.RUY 10/14/2023 11:16 AM Signed Nursing Program Coordinator offered: Patient declines. Bianca Spring is a 48 year old female who presents for a problem visit of vaginitis. HPI: Quynh's vaginitis symptoms started over the weekend and have continued. She tried Aqupahor and Triamcinolone externally with minimal relief. She also noticed a little blood in some urine that she leaked. OB History T2 L2 SAB1 IAB0 Ectopic0 Multiple0 Live Births2 Manager Environmental Affairs History LMP: 06/02/2023 (Exact Date), Having periods Age at Menarche: Age at First : Age at Menopause: Manager Environmental Affairs History Comments: Sexual Activity: Yes; Male Contraception: Condom PAST MEDICAL HISTORY No date: Allergic rhinitis, cause unspecified Comment: Allergic rhinitis 11/28/2020: COVID-19 No date: History of depression Comment: situational No date: Infertility, female No date: Migraine, unspecified, with intractable migraine, so stated, without mention of status migrainosus Comment: Migraine 03/01/1996: Mononucleosis No date: Other acne 08/10/2013: Rh negative status during No date: Scoliosis Comment: mild scoliosis No date: Thyroid disease Comment: ON MEDS FROM TOUCH UP PAINTER PAST SURGICAL HISTORY No date: EYE SURGERY HX No date: TONSILLECTOMY PRIMARY/SECONDARY AGE 11/> FAMILY HISTORY Problem Relation Age of Onset Heart Mother Hypertension Maternal Grandmother Osteoporosis Maternal Grandmother Cancer Paternal Grandmother Lung and Bone Heart Paternal Grandfather Hypertension Paternal Grandfather Cancer Sister Lung (Non-smoker) Social History Tobacco Use Smoking status: Never Smokeless tobacco: Never Vaping Use Vaping Use: Never used Substance Use Topics Alcohol use: No Drug use: No Current Outpatient Medications Medication Sig ergocalciferol, vitamin D2, (VITAMIN D2 ORAL) Take by mouth once daily. triamcinolone acetonide (NASACORT NASAL) Use in the nose once daily. ergotamine-caffeine (CAFERGOT) 1-100 mg per tablet Take 1 tablet by mouth as directed. Two tablets at onset of attack; then 1 tablet every 30 minutes as needed; maximum: 6 tablets per attack; do not exceed 10 tablets/week vitamin B complex (B COMPLEX ORAL) Take 1 tablet by mouth once daily. MAGNESIUM ORAL Take 500 mg by mouth once daily. fexofenadine HCl (CRISTIANE ORAL) Take 1 tablet by mouth once daily. CALCIUM CARBONATE/VITAMIN D3 (CALCIUM + D ORAL) Take 1 tablet by mouth twice daily. fluconazole (DIFLUCAN) 150 mg tablet Take 1 tablet by mouth one time only for 1 dose. miconazole (MONISTAT 7) 2 % vaginal cream Use 1 Applicator vaginally daily at bedtime. No current facility-administer ed medications for this visit. Allergies As of Date: 10/14/2023 (No Known Allergies) Fully Assessed 10/01/2023 REVIEW OF SYSTEMS Bladder: No dysuria, urinary frequency, urinary urgency, or incontinence. + trace blood in urine Expanded ROS: NECK CUTTER: Positive for vaginal irritation Allergies and current medication updated:Yes EXAM: BP 112/70 Pulse 90 Wt 139 lb (63.1kg) SpO2 99% LMP 09/28/2023 GENERAL: pleasant, female in no apparent distress HEENT: Normocephalic, atraumatic, mucus membranes moist, and no lesions CHEST: Normal inspiratory effort PELVIC: + erythema noted to urethra, clitoris, and bilateral labia minor, normal Bartholin's glands, erythematous urethra, [place]'s glands, no vulvar lesions, possible atrophy to cervix and vaginal mucosa, whitening noted, good vaginal support,+ moderate white discharge, normal appearing perineal body and perianal region BIMANUAL: uterus normal size, shape and consistency, no adnexal masses, and non-tender NEURO: alert and oriented x3,exam grossly non-focal EXTREMITIES: normal ASSESSMENT AND PLAN: 1. Acute vaginitis - ICD9: 616.10, ICD10: N76.0 (primary diagnosis) - ANA/TRICHOMONAS NAAT - BACTERIAL VAGINOSIS NAAT - GONORRHEA/CHLAMYDIA NAAT - UROGENITAL UREAPLASMA AND MYCOPLASMA SPECIES BY PCR, FOR GENITAL, RECTAL, URINE SAMPLES - Discussed Bonafide products Clarivee - Suspect yeast, rx for Diflucan sent. Will notify of results. - Discussed possibility of atrophy, recommend follow up in 3 weeks to evaluate 2. Hematuria, unspecified type - ICD9: 599.70, ICD10: R31.9 - URINE CULTURE Malou Gastelum APRN.OFFICE RENTAL CLERK Medical Decision Making: Problems: Low: Acute, uncomplicated illness or injury Data: Unique test(s) ordered: 3+ Risk: Low: Low risk from testing/treatment Moderate: Drug management Medical Decision Making Level: 4 - Moderate Malou Gastelum, (more content not included)... [facility] HIGH RISK HUMAN PAPILLOMA DENIA (HPV), PCR FOR DETECTION AND GENOTYPINGon 10-14-2023 HPV 16 Ag Ql (Unsp spec) Not detected Normal Not detected [facility] Comment on above: Order Comment: Speci men Type: BLOOD SPECIMEN Ordering Facility: [facility] Address: [address] [place] [address] Performed By: #### 2 243-4, 9, 06951-1 #### [facility] CLIA [id number] [address] [place] [address] [place] HPV 18 Ag Ql (Unsp spec) Not detected Normal Not detected [facility] Comment on above: Order Comment: Speci men Type: BLOOD SPECIMEN Ordering Facility: [facility] Address: [address] [place] [address] Performed By: #### 2 243-4, 9, 66345-2 #### [facility] CLIA [id number] [address] [place] [address] [place] HPV 31+33+35+39+45+51+52+56 +58+59+66+68 DNA CHINA+probe Ql (Cvx) Not detected Normal Not detected [facility] Comment on above: Order Comment: Speci men Type: BLOOD SPECIMEN Ordering Facility: [facility] Address: [address] [place] [address] Result Comment: High Risk HPV Other Type includes HPV types 31, 33, 35, 39, 45, 51, 52, 56, 58, 59, 66 and 68. Performed By: #### 2 243-4, 9, 27276-6 #### [facility] CLIA [id number] [address] [place] [address] [place] PAP TESTon 10-14-2023 ADEQUACY Satisfactory for interpretation. [facility] Comment on above: Order Comment: Speci men Type: BLOOD SPECIMEN Ordering Facility: [facility] Address: [address] [place] [address] Performed By: #### 2 243-4, 2131-10, 42092-0 #### [facility] CLIA [id number] [address] [place] [address] [place] CASE REPORT [facility] Comment on above: Order Comment: Speci men Type: BLOOD SPECIMEN Ordering Facility: [facility] Address: [address] [place] [address] Result Comment: Gyne cologic Cytology Report Case: [id number] Authorizing Provider: Malou Gastelum APRN.OFFICE RENTAL CLERK Collected: 10/14/2023 11:21 AM Ordering Location: OB/Gynecology Received: 10/14/2023 11:37 AM First Screen: Nuraa, Patricia, CT, ASCP Specimen: Pap Test, ThinPrep, Cervix Performed By: #### 2 243-4, 2131-10, 93504-8 #### [facility] CLIA [id number] [address] [place] [address] [place] CLINICAL HISTORY, CYTOLOGY, NECK CUTTER Vaginal Irritation [facility] Comment on above: Order Comment: Speci men Type: BLOOD SPECIMEN Ordering Facility: [facility] Address: [address] [place] [address] Performed By: #### 2 243-4, 2131-10, 55692-9 #### [facility] CLIA [id number] [address] [place], [place] [address] [place] FINAL PERFORMING LAB [facility] Comment on above: Order Comment: Speci men Type: BLOOD SPECIMEN Ordering Facility: [facility] Address: [address] [place] [address] Result Comment: Tech nical component, director of research screening performed at [facility], [address] [place] [address] CLIA# [id number] Diagnostic interpretation performed at [facility], [address] [place], [place] [id number] CLIA# [id number] Cost Recovery Technician: Storm Madrigal M.D. Performed By: #### 2 243-4, 2131-10, 80995-9 #### [facility] CLIA [id number] [address] [place], [place] [address] [place] HPV REFLEX Yes HPV [facility] Comment on above: Order Comment: Speci men Type: BLOOD SPECIMEN Ordering Facility: [facility] Address: [address] [place] [address] Performed By: #### 2 243-4, 2131-10, 68662-0 #### [facility] CLIA [id number] [address] [place] [address] [place] INTERPRETATION, CYTOLOGY, NECK CUTTER [facility] Comment on above: Order Comment: Speci men Type: BLOOD SPECIMEN Ordering Facility: [facility] Address: [address] [place] [address] Result Comment: Nega tive for intraepithelial lesion or malignancy. Performed By: #### 2 243-4, 2131-10, 96241-4 #### [facility] CLIA [id number] [address] [place] [address] [place] LMP 09/28/2023 [facility] Comment on above: Order Comment: Speci men Type: BLOOD SPECIMEN Ordering Facility: [facility] Address: [address] [place], [place] [address] Performed By: #### 2 243-4, 2131-10, 50389-4 #### [facility] CLIA [id number] [address] [place], [place] [address] [place] PAP DISCLAIMER COMMENT The Pap Smear is a screening test for cervical cancer. False negative results occur with all screening tests, emphasizing the need for rescreening at recommended intervals, and clinical correlation. [facility] Comment on above: Order Comment: Speci men Type: BLOOD SPECIMEN Ordering Facility: [facility] Address: [address] [place] [address] Performed By: #### 2 243-4, 2131-10, 93673-8 #### [facility] CLIA [id number] [address] [place] [address] [place] PAP CHILD ADOLESCENT PSYCHIATRIST COMMENT This specimen has been analyzed by the ThinPrep Imaging System, an automated imaging and review system, which assists the laboratory in evaluating cells on ThinPrep Pap tests. Following automated imaging, selected salgado from every slide are reviewed by a director of research. [facility] Comment on above: Order Comment: Speci men Type: BLOOD SPECIMEN Ordering Facility: [facility] Address: [address] [place] [address] Performed By: #### 2 243-4, 2131-10, 04644-3 #### [facility] CLIA [id number] [address] [place] [address] [place] UROGENITAL UREAPLASMA AND MY COPLASMA SPECIES BY PCR, FOR GENITAL, RECTAL, URINE SAMPLESon 10-14-2023 M GENITALIUM PCR Not detected [facility] Comment on above: Order Comment: Speci men Type: BLOOD SPECIMEN Ordering Facility: [facility] Address: [address] [place] [address] Result Comment: INTE RPRETIVE INFORMATION: Urogenital Ureaplasma and Mycoplasma Species by PCR A negative result does not rule out the presence of PCR inhibitors in the patient specimen or test-specific nucleic acid in concentrations below the level of detection by this test. This test was developed and its performance characteristics determined by [employer]. It has not been cleared or approved by the [place] Food and Drug Administration. This test was performed in a CLIA certified laboratory and is intended for clinical purposes. Performed By: [employer] [facility] [address] [place] [address] Cost Recovery Technician: Lucio Rosenberg MD, PhD CLIA Number: [id number] Performed By: #### 2 243-4, 2131-10, 41137-0 #### [facility] CLIA [id number] [address] [place] [address] [place] MYCOPLAS HOMINIS PCR Not detected [facility] Comment on above: Order Comment: Speci men Type: BLOOD SPECIMEN Ordering Facility: [facility] Address: [address] [place] [address] Performed By: #### 2 243-4, 2131-10, 22765-8 #### [facility] CLIA [id number] [address] [place] [address] [place] UR PARVUM PCR Not detected [facility] Comment on above: Order Comment: Speci men Type: BLOOD SPECIMEN Ordering Facility: [facility] Address: [address] [place] [address] Performed By: #### 2 243-4, 2131-10, 29018-8 #### [facility] CLIA [id number] [address] [place] [address] [place] UR UREALYTICUM PCR Not detected [facility] Comment on above: Order Comment: Speci men Type: BLOOD SPECIMEN Ordering Facility: [facility] Address: [address] [place] [address] Performed By: #### 2 243-4, 2131-10, 09473-6 #### [facility] CLIA [id number] [address] [place] [address] [place] UR/MYCO SOURCE [facility] Comment on above: Order Comment: Speci men Type: BLOOD SPECIMEN Ordering Facility: [facility] Address: [address] [place] [address] Performed By: #### 2 243-4, 2131-10, 03556-3 #### [facility] CLIA [id number] [address] [place], [place] [id number] [place] CNPEstephania 10-04-2023 CNPN Telephone (PODIWS) ---- BIANCA SPRING ([id number]) 1975 F Date Time Provider Department 10/04/23 CAROL SEPULVEDA During your visit today, we recorded the following information about you: Placido Tinoco, REUBEN 10/04/2023 1:10 PM Signed Patient called in inquiring about Consult to another provider she discussed with Dr. Sepulveda on Sunday 10/01.Placido Tinoco, Talia Seth LPN 10/04/2023 3:25 PM Signed Carol Sepulveda Billie, REUBEN; [facility] Podiatry Pool1 hour ago (1:41 PM) I forwarded note to colleague. Once he sees, his office is likely to contact her KARMEN Millan Amelia, LPN 10/04/2023 3:25 PM Signed Patient states colleague office has contacted her. Talia Flowers LPN Allergies As of Date: 10/04/2023 (No Known Allergies) Date Reviewed: 10/01/2023 Reviewed by: Talia Flowers LPN - Fully Assessed Prescriptions as of 10/04/2023 - ergocalciferol, vitamin D2, (VITAMIN D2 ORAL) Take by mouth. - triamcinolone acetonide (NASACORT NASAL) Use in the nose. - ergotamine-caffeine (CAFERGOT) 1-100 mg per tablet Take 1 tablet by mouth as directed. Two tablets at onset of attack; then 1 tablet every 30 minutes as needed; maximum: 6 tablets per attack; do not exceed 10 tablets/week - FGXETJK-BQDX-OTXKX- OREG-CAPRYL ORAL Take by mouth. - amino acids-rice xrwcleu-ce-vf (K-PAX IMMUNE BOOSTER) 24 gram-240 kcal/65 gram powd Take by mouth. - ascorbic acid (VITAMIN C ORAL) Take by mouth. - vitamin B complex (B COMPLEX ORAL) Take by mouth. - MAGNESIUM ORAL Take by mouth. - fexofenadine HCl (CRISTIANE ORAL) Take by mouth. - CALCIUM ORAL Take by mouth. - multivit/iron/FA/K/ herb no.244 (ALIVE WOMEN'S ENERGY ORAL) Take by mouth. - CALCIUM CARBONATE/VITAMIN D3 (CALCIUM + D ORAL) Take 1 tablet by mouth twice daily. Problem List As Of Date 10/04/2023 Noted Resolved Other acne [L70.8] 03/16/2005 03/20/2011 TINEA//PITYRIASIS VERSICOLOR [B36.0] 07/23/2006 03/20/2011 Sebaceous cyst [L72.3] 07/23/2006 03/20/2011 NEVUS///BENIGN JIAN SKIN TRUNK [D23.5] 07/23/2006 03/20/2011 Benign neoplasm of skin of other and unspecifie*07/24/19 07 03/20/2011 Benign neoplasm of scalp and skin of neck [D23.*07/23/2006 03/20/2011 Other chronic dermatitis due to solar radiation* 7 03/20/2011 Scar condition and fibrosis of skin [L90.5] 07/23/2006 03/20/2011 SOLAR LENGINES////DYSCHRO GRACIA OTHER [L81.9] 07/23/2006 03/20/2011 Supervision of normal first [Z34.00] 03/20/2011 07/12/2012 ADVANCED MATERNAL AGE:MULTIPARA [659.63] [O09.5*03/20/2011 07/12/2012 Advanced maternal age (AMA) in [IMO00*08/10/2013 03/05/2014 with care elsewhere [Z34.90] 08/10/2013 03/05/2014 History of depression [Z86.59] 08/10/2013 03/05/2014 Rh negative status during [O26.899, Z*08/10/2013 03/05/2014 Low-lying placenta [O44.40] 08/10/2013 03/05/2014 Thyroid disorder [E07.9] 08/11/2013 03/05/2014 Encounter Status:Closed by TALIA FLOWERS on 10/04/23 [facility] CNOVon 10-01-2023 CNOV Office Visit (PODIWS) ---- BIANCA SPRING ([id number]) 1975 F Date Time Provider Department 10/01/23 9:45 AM CAROL SEPULVEDA PODIWS During your visit today, we recorded the following information about you: Talia Flowers LPN 10/01/2023 4:16 PM Signed AMB ROOMING INTAKE FLOWSHEET DATA Pain Pain Level: 4 Pain Location: Foot-Right Description: Sharp, Dull, Aching Frequency: Intermittent Patient presents with: Right Foot - Established Patient, Pain, discuss MRI TRIP [place] Matthew 10/01/2023 4:16 PM Signed FOLLOW UP PODIATRIC OFFICE VISIT Chief Complaint: This 48 year old who presents for follow up:bunion deformity of right foot Patient presents to clinic for evaluation of right foot. She has painful bunion of right foot. Most of her pain is located along the right 1st mtpj. Pain is present along the medial eminence but she has found that there is pain with motion of the great toe joint. Prior treatment has included wider shoes and inserts. She is interested in bunion corrective surgery. She has mri to review and discuss. She is interested in surgery. She does care for her two daughters and is responsible for driving them to the bus but has arranged assistance for period of time following any surgery. She is interested in surgery. PAIN EVALUATION 10/01/2023 0955 Pain Level: 4 Pain Location: Foot-Right Description: Sharp;Dull;Aching Frequency: Intermittent No results found for: HBA1C PCP: Sanchez Prince MD PAST MEDICAL HISTORY No date: Allergic rhinitis, cause unspecified Comment: Allergic rhinitis 11/28/2020: COVID-19 No date: History of depression Comment: situational No date: Infertility, female No date: Migraine, unspecified, with intractable migraine, so stated, without mention of status migrainosus Comment: Migraine 03/01/1996: Mononucleosis No date: Other acne 08/10/2013: Rh negative status during No date: Scoliosis Comment: mild scoliosis No date: Thyroid disease Comment: ON MEDS FROM TOUCH UP PAINTER Current Outpatient Medications Medication Sig ergocalciferol, vitamin D2, (VITAMIN D2 ORAL) Take by mouth. triamcinolone acetonide (NASACORT NASAL) Use in the nose. ergotamine-caffeine (CAFERGOT) 1-100 mg per tablet Take 1 tablet by mouth as directed. Two tablets at onset of attack; then 1 tablet every 30 minutes as needed; maximum: 6 tablets per attack; do not exceed 10 tablets/week SFRBAFK-OPPK-CEXTB- OREG-CAPRYL ORAL Take by mouth. amino acids-rice abaxeoq-yi-hy (K-PAX IMMUNE BOOSTER) 24 gram-240 kcal/65 gram powd Take by mouth. ascorbic acid (VITAMIN C ORAL) Take by mouth. vitamin B complex (B COMPLEX ORAL) Take by mouth. MAGNESIUM ORAL Take by mouth. fexofenadine HCl (CRISTIANE ORAL) Take by mouth. CALCIUM ORAL Take by mouth. multivit/iron/FA/K/ herb no.244 (ALIVE WOMEN'S ENERGY ORAL) Take by mouth. CALCIUM CARBONATE/VITAMIN D3 (CALCIUM + D ORAL) Take 1 tablet by mouth twice daily. No current facility-administer ed medications for this visit. ALLERGIES No Known Allergies PAST SURGICAL HISTORY No date: EYE SURGERY HX No date: TONSILLECTOMY PRIMARY/SECONDARY AGE 11/> Physical Exam: OBJECTIVE: Constitutional: Pt is a well developed 48 year old female who is alert, oriented, cooperative and in no apparent distress. Eyes: Following during examination. No redness or drainage. Respiratory: RR normal and nonlabored. Even breathing. No evidence of distress. Psychology: Patient is engaged during conversation. Normal affect and mood. Does not appear depressed or anxious. Vascular: DP and PT pulses are palpable. CFT is brisk. Skin temperature is warm to warm. PVR reviewed and is normal. Non-Invasive Vascular Laboratory [facility] Lower Extremity Arterial Physiology Study Bilateral/Complete Date of service/time: 09/03/2023 3:29:59 PM Name: BIANCA SPRING Date of : 1975 Age: 48 years Gender: F Clinical Indication Decreased pulses and Surgical assessment. TECHNIQUE -------- An arterial physiological examination was performed, including measurement of blood pressures using continuous wave Doppler and recording of plethysmographic with or without Doppler waveforms at the below-mentioned limb segments. FINDINGS -------- RIGHT SIDE AT REST Right Doppler Waveforms Dorsalis pedis: Multiphasic. Post tibial: Multiphasic. Right Pressures Brachial: 121 mmHg Ankle dorsalis pedis: 142 mmHg KITA: 1.17 Ankle posterior tibial: 150 mmHg KITA: 1.24 Digit: 89 mmHg Right PVR Waveforms Ankle: Normal. Digit: Mildly dampened. LEFT SIDE AT REST Left Doppler Waveforms Dorsalis pedis: Multiphasic. Post tibial: Multiphasic. Left Pressures Brachial: 111 mmHg Ankle dorsalis pedis: 147 mmHg KITA: 1.21 (more content not included)... [facility]POD[facility]WS[facility] ---- BIANCA SPRING ([id number]) 1975 F Date Time Provider Department 09/22/23 CAROL SEPULVEDA During your visit today, we recorded the following information about you: Gisela Sauer RN 09/22/2023 3:00 PM Signed Patient called in asking about the results of her MRI that was done 09/15/23. Patient asking if she needs to be seen in the office and how far out bunion surgeries are booking? Patient asking for a call back. REUBEN Awad Amelia, LPN 09/23/2023 8:33 AM Signed Carol Sepulveda [facility] [place]; Carol Sepulveda4 minutes ago (8:28 AM) Attempted to contact patient yesterday. Will try to call her again today Xin Rivera RN 09/29/2023 8:13 AM Signed Talked with patient. States she is having more pain in the great toe joint. Will discuss and review mri this week with patient and discuss options Carol Sepulveda DPM Allergies As of Date: 09/22/2023 (No Known Allergies) Date Reviewed: 09/15/2023 Reviewed by: Bianca Chen - Fully Assessed Reason for Visit: Results [95] Prescriptions as of 09/29/2023 - ergocalciferol, vitamin D2, (VITAMIN D2 ORAL) Take by mouth. - triamcinolone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 X10 3/uL Normal 0.83-4.51 [facility] Comment on above: Performed By: #### L 506.0400, L501.5200, L501.48005, L100.0100, L506.1000, L500.4100, L500.4050, L501.9520 #### [facility] [address] [place], [address] Absolute Neut 3.8 X10 3/uL Normal 2.0-7.7 [facility] Comment on above: Performed By: #### L 506.0400, L501.5200, L501.95640, L100.0100, L506.1000, L500.4100, L500.4050, L501.9520 #### [facility] [address] [place], [address] Basophils/100 WBC (Bld) 1.2 % High 0-1 [facility] Comment on above: Performed By: #### L 506.0400, L501.5200, L501.92310, L100.0100, L506.1000, L500.4100, L500.4050, L501.9520 #### [facility] [address] [place], [address] Eosinophils/100 WBC (Bld) 1.6 % Normal 0-5 [facility] Comment on above: Performed By: #### L 506.0400, L501.5200, L501.18220, L100.0100, L506.1000, L500.4100, L500.4050, L501.9520 #### [facility] [address] [place], [address] Erythrocyte distribution width (RBC) [Ratio] 11.8 % Normal 11.6-14.6 [facility] Comment on above: Performed By: #### L 506.0400, L501.5200, L501.41526, L100.0100, L506.1000, L500.4100, L500.4050, L501.9520 #### [facility] [address] [place], [address] Hematocrit (Bld) [Volume fraction] 44.2 % Normal 37-47 [facility] Comment on above: Performed By: #### L 506.0400, L501.5200, L501.66635, L100.0100, L506.1000, L500.4100, L500.4050, L501.9520 #### [facility] [address] [place], [address] Hemoglobin (Bld) [Mass/Vol] 14.5 g/dL Normal 12.0-15.0 [facility] Comment on above: Performed By: #### L 506.0400, L501.5200, L501.77925, L100.0100, L506.1000, L500.4100, L500.4050, L501.9520 #### [facility] [address] [place], [address] IG% 0.400 Normal 0.0-0.9 [facility] Comment on above: Result Comment: IG% - Immature Granulocytes (promyelocytes, myelocytes and metamyelocytes) > 1% indicates that a LEFT SHIFT is Present. Performed By: #### L 506.0400, L501.5200, L501.75493, L100.0100, L506.1000, L500.4100, L500.4050, L501.9520 #### [facility] [address] [place], [address] Lymphocytes/100 WBC (Bld) 23.3 % Normal 19-41 [facility] Comment on above: Performed By: #### L 506.0400, L501.5200, L501.96688, L100.0100, L506.1000, L500.4100, L500.4050, L501.9520 #### [facility] [address] [place], [address] MCH (RBC) [Entitic mass] 31.9 pg Normal 27.0-32.0 [facility] Comment on above: Performed By: #### L 506.0400, L501.5200, L501.52901, L100.0100, L506.1000, L500.4100, L500.4050, L501.9520 #### [facility] [address] [place], [address] MCHC (RBC) [Mass/Vol] 32.8 g/dL Normal 32-36 [facility] Comment on above: Performed By: #### L 506.0400, L501.5200, L501.17000, L100.0100, L506.1000, L500.4100, L500.4050, L501.9520 #### [facility] [address] [place], [address] MCV (RBC) [Entitic vol] 97.1 fL Normal 81-99 [facility] Comment on above: Performed By: #### L 506.0400, L501.5200, L501.52096, L100.0100, L506.1000, L500.4100, L500.4050, L501.9520 #### [facility] [address] [place], [address] Monocytes/100 WBC (Bld) 7.7 % Normal 0-10 [facility] Comment on above: Performed By: #### L 506.0400, L501.5200, L501.16691, L100.0100, L506.1000, L500.4100, L500.4050, L501.9520 #### [facility] [address] [place], [address] Neutrophils/100 WBC (Bld) 65.8 % Normal 47-70 [facility] Comment on above: Performed By: #### L 506.0400, L501.5200, L501.45363, L100.0100, L506.1000, L500.4100, L500.4050, L501.9520 #### [facility] [address] [place], [address] Nucleated RBC (Bld) [#/Vol] 0 10*3/uL Normal 0-5 [facility] Comment on above: Performed By: #### L 506.0400, L501.5200, L501.00777, L100.0100, L506.1000, L500.4100, L500.4050, L501.9520 #### [facility] [address] [place], [address] Platelet mean volume (Bld) [Entitic vol] 10.6 fL Normal 6.2-12.0 [facility] Comment on above: Performed By: #### L 506.0400, L501.5200, L501.89624, L100.0100, L506.1000, L500.4100, L500.4050, L501.9520 #### [facility] [address] [place], [address] ( Platelets (Bld) [#/Vol] 240 10*3/uL Normal 150-450 [facility] Comment on above: Performed By: #### L 506.0400, L501.5200, L501.15392, L100.0100, L506.1000, L500.4100, L500.4050, L501.9520 #### [facility] [address] [place], [address] (178) RBC (Bld) [#/Vol] 4.55 10*6/uL Normal 4.2-5.4 [facility] Comment on above: Performed By: #### L 506.0400, L501.5200, L501.55537, L100.0100, L506.1000, L500.4100, L500.4050, L501.9520 #### [facility] [address] [place], [address] RDW SD 42.3 fl Normal 35.1-43.9 [facility] Comment on above: Performed By: #### L 506.0400, L501.5200, L501.66537, L100.0100, L506.1000, L500.4100, L500.4050, L501.9520 #### [facility] [address] [place], [address] WBC (Bld) [#/Vol] 5.7 10*3/uL Normal 4.4-11.0 [facility] Comment on above: Performed By: #### L 506.0400, L501.5200, L501.93405, L100.0100, L506.1000, L500.4100, L500.4050, L501.9520 #### [facility] [address] [place], [address] Comprehensive Metabolic Prof ilon 06-08-2023 Albumin [Mass/Vol] 4.2 g/dL Normal 3.2-5.0 [facility] Comment on above: Performed By: #### L 506.0400, L501.5200, L501.84894, L100.0100, L506.1000, L500.4100, L500.4050, L501.9520 #### [facility] [address] [place], [address] Albumin/Globulin [Mass ratio] 1.3 {ratio} Normal 0.9-2.4 [facility] Comment on above: Performed By: #### L 506.0400, L501.5200, L501.92697, L100.0100, L506.1000, L500.4100, L500.4050, L501.9520 #### [facility] [address] [place], [address] ALK P 62 U/L Normal 45-117 [facility] Comment on above: Performed By: #### L 506.0400, L501.5200, L501.19047, L100.0100, L506.1000, L500.4100, L500.4050, L501.9520 #### [facility] [address] [place], [address] ALT [Catalytic activity/Vol] 20 U/L Normal 13-56 [facility] Comment on above: Performed By: #### L 506.0400, L501.5200, L501.62402, L100.0100, L506.1000, L500.4100, L500.4050, L501.9520 #### [facility] [address] [place], [address] AST [Catalytic activity/Vol] 11 U/L Low 15-37 [facility] Comment on above: Performed By: #### L 506.0400, L501.5200, L501.80507, L100.0100, L506.1000, L500.4100, L500.4050, L501.9520 #### [facility] [address] [place], [address] Bilirubin [Mass/Vol] 0.50 mg/dL Normal 0.20-1.00 [facility] Comment on above: Result Comment: For patients on eltrombopag therapy, use of Dimension Kimball TBIL is not recommended. Performed By: #### L 506.0400, L501.5200, L501.67502, L100.0100, L506.1000, L500.4100, L500.4050, L501.9520 #### [facility] [address] [place], [address] BUN/CRE 21.1 RATIO High 10-20 [facility] Comment on above: Performed By: #### L 506.0400, L501.5200, L501.78299, L100.0100, L506.1000, L500.4100, L500.4050, L501.9520 #### [facility] [address] [place], [address] CA,Total 9.7 mg/dL Normal 8.5-10.1 [facility] Comment on above: Performed By: #### L 506.0400, L501.5200, L501.41547, L100.0100, L506.1000, L500.4100, L500.4050, L501.9520 #### [facility] [address] [place], [address] Chloride [Moles/Vol] 109 mmol/L High 98-107 [facility] Comment on above: Performed By: #### L 506.0400, L501.5200, L501.35784, L100.0100, L506.1000, L500.4100, L500.4050, L501.9520 #### [facility] [address] [place], [address] CO2 [Moles/Vol] 24.0 mmol/L Normal 21.0-32.0 [facility] Comment on above: Performed By: #### L 506.0400, L501.5200, L501.58955, L100.0100, L506.1000, L500.4100, L500.4050, L501.9520 #### [facility] [address] [place], [address] Creatinine [Mass/Vol] 0.66 mg/dL Normal 0.55-1.02 [facility] Comment on above: Result Comment: The validity of the calculated GFR GFRAA in patients over 70 years has not been determined. Clinical correlation is essential. Performed By: #### L 506.0400, L501.5200, L501.08199, L100.0100, L506.1000, L500.4100, L500.4050, L501.9520 #### [facility] [address] [place], [address] EST GFR - AA 122 mL/min Normal >60 [facility] Comment on above: Result Comment: Afri can Gambian GFR Calc Performed By: #### L 506.0400, L501.5200, L501.23059, L100.0100, L506.1000, L500.4100, L500.4050, L501.9520 #### [facility] [address] [place], [address] GAP 6 Normal 5-15 [facility] Comment on above: Performed By: #### L 506.0400, L501.5200, L501.16409, L100.0100, L506.1000, L500.4100, L500.4050, L501.9520 #### [facility] [address] [place], [address] GFR/1.73 sq M.predicted among non-blacks MDRD (S/P/Bld) [Vol rate/Area] 101 mL/min/{1.73_m2} Normal >60 [facility] Comment on above: Result Comment: Non- GFR Calc Performed By: #### L 506.0400, L501.5200, L501.54411, L100.0100, L506.1000, L500.4100, L500.4050, L501.9520 #### [facility] [address] [place], [address] Globulin (S) [Mass/Vol] 3.2 g/dL Normal 2.2-4.2 [facility] Comment on above: Performed By: #### L 506.0400, L501.5200, L501.82588, L100.0100, L506.1000, L500.4100, L500.4050, L501.9520 #### [facility] [address] [place], [address] Glucose [Mass/Vol] 91 mg/dL Normal 74-106 [facility] Comment on above: Performed By: #### L 506.0400, L501.5200, L501.66189, L100.0100, L506.1000, L500.4100, L500.4050, L501.9520 #### [facility] [address] [place], [address] Potassium [Moles/Vol] 4.3 mmol/L Normal 3.5-5.1 [facility] Comment on above: Performed By: #### L 506.0400, L501.5200, L501.36103, L100.0100, L506.1000, L500.4100, L500.4050, L501.9520 #### [facility] [address] [place], [address] Sodium [Moles/Vol] 139 mmol/L Normal 136-145 [facility] Comment on above: Performed By: #### L 506.0400, L501.5200, L501.71606, L100.0100, L506.1000, L500.4100, L500.4050, L501.9520 #### [facility] [address] [place], [place], [address] T PROT 7.4 g/dL Normal 6.4-8.2 [facility] Comment on above: Performed By: #### L 506.0400, L501.5200, L501.25178, L100.0100, L506.1000, L500.4100, L500.4050, L501.9520 #### [facility] [address] [place], [address] Urea nitrogen [Mass/Vol] 14 mg/dL Normal 7-18 [facility] Comment on above: Performed By: #### L 506.0400, L501.5200, L501.50530, L100.0100, L506.1000, L500.4100, L500.4050, L501.9520 #### [facility] [address] [place], [address] Determination of erythrocyte mean corpuscular volume (MCV)Ordered By: Sanchez Prince on 06-08-2023 MCV (RBC) [Entitic vol] 97.1 fL 81-99 [facility] Erythrocyte distribution wid th ratioOrdered By: Sanchez Prince on 06-08-2023 Erythrocyte distribution width (RBC) [Ratio] 11.8 % 11.6-14.6 [facility] Erythrocyte distribution wid th standard deviationOrdered By: Sanchez Prince on 06-08-2023 Erythrocyte distribution width (RBC) [Entitic vol] 42.3 fL 35.1-43.9 [facility] Free T3on 06-08-2023 Free T3 [Mass/Vol] 2.7 pg/mL Normal 2.18-3.98 [facility] Comment on above: Performed By: #### L 506.0400, L501.5200, L501.19146, L100.0100, L506.1000, L500.4100, L500.4050, L501.9520 #### [facility] [address] [place], [address] Hematocrit Auto (Bld) [Volum e fraction]Ordered By: Sanchez Prince on 06-08-2023 Hematocrit (Bld) [Volume fraction] 44.2 % 37-47 [facility] Immature granulocytes/100 WB C Auto (Bld)Ordered By: Sanchezsolomon Prince on 06-08-2023 Immature granulocytes/100 WBC (Bld) 0.400 % 0.0-0.9 [facility] Comment on above: IG% - Immature Granu locytes (promyelocytes, myelocytes and metamyelocytes) > 1% indicates that a LEFT SHIFT is Present. Laboratory - Chemistry and C hemistry - challengeOrdered By: Sanchez Prince on 06-08-2023 Albumin/Globulin [Mass ratio] 1.3 {ratio} 0.9-2.4 [facility] ALP [Catalytic activity/Vol] 62 U/L 45-117 [facility] ALT [Catalytic activity/Vol] 20 U/L 13-56 [facility] Cholesterol in HDL [Mass/Vol] 70 mg/dL >40 [facility] Comment on above: The drugs N-Acetylcy steine and Metamizole may falsely depress this assay. Reference Range HDL <40 mg/dL Low HDL Cholesterol HDL >or= 60 mg/dL High HDL Cholesterol Cholesterol in LDL [Mass/Vol] 110 mg/dL 0-130 [facility] CO2 [Moles/Vol] 24.0 mmol/L 21.0-32.0 [facility] Globulin (S) [Mass/Vol] 3.2 g/dL 2.2-4.2 [facility] Magnesium [Mass/Vol] 2.1 mg/dL 1.6-2.6 [facility] Urea nitrogen/Creatinine [Mass ratio] 21.1 mg/mg 10-20 [facility] - Hematology and Cell countsOrdered By: Sanchez Prince on 06-08-2023 MCH (RBC) [Entitic mass] 31.9 pg 27.0-32.0 [facility] MCHC (RBC) [Mass/Vol] 32.8 g/dL 32-36 [facility] Nucleated RBC/100 WBC (Bld) [Ratio] 0 % 0-5 [facility] Platelet mean volume (Bld) [Entitic vol] 10.6 fL 6.2-12.0 [facility] Platelets (Bld) [#/Vol] 240 10*3/uL 150-450 [facility] Lipid Profileon 06-08-2023 Cholesterol [Mass/Vol] 197 mg/dL Normal 200 [facility] Comment on above: Result Comment: <200 mg/dL Desirable 200-240 mg/dL Borderline >240 mg/dL High Risk Performed By: #### L 506.0400, L501.5200, L501.54199, L100.0100, L506.1000, L500.4100, L500.4050, L501.9520 #### [facility] [address] [place], [address] Cholesterol in HDL [Mass/Vol] 70 mg/dL Normal [facility] Comment on above: Result Comment: The drugs N-Acetylcysteine and Metamizole may falsely depress this assay. Reference Range HDL <40 mg/dL Low HDL Cholesterol HDL >or= 60 mg/dL High HDL Cholesterol Performed By: #### L 506.0400, [id number], L501.82467, L100.0100, L506.1000, L500.4100, L500.4050, L501.9520 #### [facility] [address] [place], [address] Cholesterol in LDL [Mass/Vol] 110 mg/dL Normal 0-130 [facility] Comment on above: Performed By: #### L 506.0400, [id number], L501.38576, L100.0100, L506.1000, L500.4100, L500.4050, L501.9520 #### [facility] [address] [place], [address] Cholesterol in VLDL [Mass/Vol] 17 mg/dL Normal 5-40 [facility] Comment on above: Performed By: #### L 506.0400, [id number], L501.86564, L100.0100, L506.1000, L500.4100, L500.4050, L501.9520 #### [facility] [address] [place], [address] Triglyceride [Mass/Vol] 87 mg/dL Normal [facility] Comment on above: Result Comment: The drugs N-Acetylcysteine and Metamizole may falsely depress this assay. Serum Triglycerides Reference Interval Normal <150 mg/dL Borderline high 150 - 199 mg/dL High 200 - 499 mg/dL Very High > or = 500 mg/dL Performed By: #### L 506.0400, [id number], L501.99152, L100.0100, L506.1000, L500.4100, L500.4050, L501.9520 #### [facility] [address] [place], [address] Magnesiumon 06-08-2023 Magnesium [Mass/Vol] 2.1 mg/dL Normal 1.6-2.6 [facility] Comment on above: Performed By: #### L 506.0400, [id number], L501.56943, L100.0100, L506.1000, L500.4100, L500.4050, L501.9520 #### [facility] [address] [place], [address] No Panel InformationOrdered By: Sanchez Prince on 06-08-2023 Estimated GFR (MDRD) Amer 122 mL/min >60 [facility] Comment on above: GFR Calc Estimated GFR (MDRD) Non-Af Amer 101 mL/min >60 [facility] Comment on above: Non- GFR Calc Free Triiodothyronine (T3) pg/dL 2.7 pg/mL 2.18-3.98 [facility] Vitamin D 25-Hydroxy 54.0 ng/mL [facility] Comment on above: Vitamin D 25(OH) Sta tus Range Deficiency <20 ng/mL (50nmol/L) Insufficiency 20 - 30 ng/mL (50 - 75 nmol/L) Sufficiency 30 - 100 ng/mL (75 - 250 nmol/L) Toxicity >100 ng/mL (>250 nmol/L) VLDL Cholesterol 17 mg/dL 5-40 [facility] RBC Auto (Bld) [#/Vol]Ordere d By: Sanchez Prince on 06-08-2023 RBC (Bld) [#/Vol] 4.55 10*6/uL 4.2-5.4 [facility] Serum or plasma calcium isabella urement (mass/volume)Ordered By: Sanchez Prince on 06-08-2023 Calcium [Mass/Vol] 9.7 mg/dL 8.5-10.1 [facility] Serum or plasma creatinine m easurement (mass/volume)Ordered By: Sanchez Prince on 06-08-2023 Creatinine [Mass/Vol] 0.66 mg/dL 0.55-1.02 [facility] Comment on above: The validity of the calculated GFR & GFRAA in patients over 70 years has not been determined. Clinical correlation is essential. Serum or plasma thyroid stim ulating hormone (TSH) measurement (units/volume)Ordered By: Sanchez Prince on 06-08-2023 TSH Qn 2.54 uIU/mL 0.358-3.74 [facility] Serum or plasma urea nitroge n measurement (mass/volume)Ordered By: Sanchez Prince on 06-08-2023 Urea nitrogen [Mass/Vol] 14 mg/dL 7-18 [facility] T4 Free Directon 06-08-2023 T4 FREE DIRECT 0.82 ng/dL Normal 0.76-1.46 [facility] Comment on above: Performed By: #### L 506.0400, [id number], L501.84969, L100.0100, L506.1000, L500.4100, L500.4050, L501.9520 ####[facility] [address] [place], [place], [id number] Thin prep Papanicolaou smear with manual screeningOrdered By: Sanchez Prince on 06-08-2023 Thin prep Papanicolaou smear with manual screening 4.2 g/dL 3.2-5.0 [facility] Thin prep Papanicolaou smear with manual screening 11 U/L 15-37 [facility] Thin prep Papanicolaou smear with manual screening 6 5-15 [facility] Thin prep Papanicolaou smear with manual screening 0.82 ng/dL 0.76-1.46 [facility] Thyroid Stim Hormone (TSH)on 06-08-2023 TSH 2.54 uIU/mL Normal 0.358-3.74 [facility] Comment on above: Performed By: #### L 506.0400, [id number], L501.38438, L100.0100, L506.1000, L500.4100, L500.4050, L501.9520 #### [facility] [address] [place], [place], [address] Vitamin D,25 Hydroxyon 06-07 Vitamin D 25-OH 54.0 ng/mL Normal [facility] Comment on above: Result Comment: Izzy min D 25(OH) Status Range Deficiency <20 ng/mL (50nmol/L) Insufficiency 20 - 30 ng/mL (50 - 75 nmol/L) Sufficiency 30 - 100 ng/mL (75 - 250 nmol/L) Toxicity >100 ng/mL (>250 nmol/L) Performed By: #### L 506.0400, [id number], L501.27212, L100.0100, L506.1000, L500.4100, L500.4050, L501.9520 #### [facility] [address] [place], [address] KASANDRA SCREENING W Elly 03-19 [facility] Absolute lymphocyte counton 09-12-2021 Lymphocytes Auto (Unsp spec) [#/Vol] 1.28 10*3/uL 0.83-4.51 [facility] Work Phone: Basophil percentageon 2021 Basophils/100 WBC (Bld) 1.0 % 0-1 [facility] Work Phone: Bilirubin [Mass/Vol] 0.70 mg/dL 0.20-1.00 [facility] Work Phone: Comment on above: For patients on eltr ombopag therapy, use of Dimension Kimball TBIL is not recommended. Chloride [Moles/Vol] 107 mmol/L 98-107 [facility] Work Phone: Cholesterol [Mass/Vol] 195 mg/dL <200 [facility] Work Phone: Comment on above: <200 mg/dL Desirable 200-240 mg/dL Borderline >240 mg/dL High Risk Eosinophils/100 WBC (Bld) 1.0 % 0-5 [facility] Work Phone: Glucose [Mass/Vol] 91 mg/dL 74-106 [facility] Work Phone: Neutrophils (Bld) [#/Vol] 3.9 10*3/uL 2.0-7.7 [facility] Work Phone: Neutrophils/100 WBC (Bld) 67.5 % 47-70 [facility] Work Phone: Potassium [Moles/Vol] 4.1 mmol/L 3.5-5.1 [facility] Work Phone: [phone] Protein [Mass/Vol] 7.5 g/dL 6.4-8.2 [facility] Work Phone: Sodium [Moles/Vol] 140 mmol/L 136-145 [facility] Work Phone: [phone] Triglyceride [Mass/Vol] 105 mg/dL <199 [facility] Work Phone: Comment on above: The drugs N-Acetylcy steine and Metamizole may falsely depress this assay.Serum Triglycerides Reference Interval Normal <150 mg/dL Borderline high 150 - 199 mg/dL High 200 - 499 mg/dL Very High > or = 500 mg/dL WBC (Bld) [#/Vol] 5.7 10*3/uL 4.4-11.0 [facility] Work Phone: Blood erythrocytes count (nu mber/volume)on 09-12-2021 RBC (Bld) [#/Vol] 4.53 10*6/uL 4.2-5.4 [facility] Work Phone: [phone] Blood hemoglobin measurement (mass/volume)on 09-12-2021 Hemoglobin (Bld) [Mass/Vol] 15.0 g/dL 12.0-15.0 [facility] Work Phone: Blood lymphocytes/100 leukoc yteson 09-12-2021 Lymphocytes/100 WBC (Bld) 22.4 % 19-41 [facility] Work Phone: [phone] Blood monocytes/100 leukocyt eson 09-12-2021 Monocytes/100 WBC (Bld) 7.9 % 0-10 [facility] Work Phone: [phone] Blood platelet mean volumeon 09-12-2021 Platelet mean volume (Bld) [Entitic vol] 10.7 fL 6.2-12.0 [facility] Work Phone: [phone] Determination of erythrocyte mean corpuscular volume (MCV)on 09-12-2021 MCV (RBC) [Entitic vol] 99.6 fL 81-99 [facility] Work Phone: [phone] Hematocrit Auto (Bld) [Volum e fraction]on 09-12-2021 Hematocrit (Bld) [Volume fraction] 45.1 % 37-47 [facility] Work Phone: Laboratory - Chemistry and C hemistry - challengeon 09-12-2021 ALP [Catalytic activity/Vol] 62 U/L 45-117 [facility] Work Phone: ALT [Catalytic activity/Vol] 29 U/L 13-56 [facility] Work Phone: [phone] CO2 [Moles/Vol] 29.0 mmol/L 21.0-32.0 [facility] Work Phone: [phone] Free T4 [Mass/Vol] 0.86 ng/dL 0.76-1.46 [facility] Work Phone: [phone] Globulin (S) [Mass/Vol] 3.3 g/dL 2.2-4.2 [facility] Work Phone: [phone] Urea nitrogen/Creatinine [Mass ratio] 21.5 mg/mg 10-20 [facility] Work Phone: [phone] Laboratory - Hematology and Cell countson 09-12-2021 Erythrocyte distribution width (RBC) [Entitic vol] 42.3 fL 35.1-43.9 [facility] Work Phone: [phone] Erythrocyte distribution width (RBC) [Ratio] 11.6 % 11.6-14.6 [facility] Work Phone: [phone] Immature granulocytes/100 WBC (Bld) 0.200 % 0.0-0.9 [facility] Work Phone: [phone] Comment on above: IG% - Immature Granu locytes (promyelocytes, myelocytes and metamyelocytes) > 1% indicates that a LEFT SHIFT is Present. MCH (RBC) [Entitic mass] 33.1 pg 27.0-32.0 [facility] Work Phone: Nucleated RBC/100 WBC (Bld) [Ratio] 0 % 0-5 [facility] Work Phone: [phone] MCHC Auto (RBC) [Mass/Vol]on 09-12-2021 MCHC (RBC) [Mass/Vol] 33.3 g/dL 32-36 [facility] Work [facility]: No Panel Informationon 09-12 Estimated GFR (MDRD) Amer 100 mL/min >60 [facility] Work Phone: Comment on above: GFR Calc Estimated GFR (MDRD) Non-Af Amer 83 mL/min >60 [facility] Work Phone: Comment on above: Non- GFR Calc Free Triiodothyronine (T3) pg/dL 2.8 pg/mL 2.18-3.98 [facility] Work Phone: Thyroid Stimulating Hormone (TSH) 3.10 uIU/mL 0.358-3.74 [facility] Work Phone: Vitamin D 25-Hydroxy 53.6 ng/mL [facility] Work Phone: Comment on above: Vitamin D 25(OH) Sta tus Range Deficiency <20 ng/mL (50nmol/L) Insufficiency 20 - 30 ng/mL (50 - 75 nmol/L) Sufficiency 30 - 100 ng/mL (75 - 250 nmol/L) Toxicity >100 ng/mL (>250 nmol/L) Platelets bldon 09-12-2021 Platelets (Bld) [#/Vol] 244 10*3/uL 150-450 [facility] Work Phone: [phone] Serum or plasma albumin isabella urement (mass/volume)on 09-12-2021 Albumin [Mass/Vol] 4.2 g/dL 3.2-5.0 [facility] Work Phone: [phone] Serum or plasma albumin/glob ulin mass ratioon 09-12-2021 Albumin/Globulin [Mass ratio] 1.3 {ratio} 0.9-2.4 [facility] Work Phone: [phone] Serum or plasma calcium isabella urement (mass/volume)on 09-12-2021 Calcium [Mass/Vol] 9.4 mg/dL 8.5-10.1 [facility] Work Phone: [phone] Serum or plasma cholesterol in HDL measurement (mass/volume)on 09-12-2021 Cholesterol in HDL [Mass/Vol] 73 mg/dL >40 [facility] Work Phone: Comment on above: The drugs N-Acetylcy steine and Metamizole may falsely depress this assay. Reference Range HDL <40 mg/dL Low HDL Cholesterol HDL >or= 60 mg/dL High HDL Cholesterol Serum or plasma cholesterol in VLDL measurement (mass/volume)on 09-12-2021 Cholesterol in VLDL [Mass/Vol] 21 mg/dL 5-40 [facility] Work Phone: Serum or plasma creatinine m easurement (mass/volume)on 09-12-2021 Creatinine [Mass/Vol] 0.79 mg/dL 0.55-1.02 [facility] Work Phone: Comment on above: The validity of the calculated GFR & GFRAA in patients over 70 years has not been determined. Clinical correlation is essential. Serum or plasma low density lipoprotein (LDL) cholesterol measurement (mass/volume)on 09-12-2021 Cholesterol in LDL [Mass/Vol] 101 mg/dL 0-130 [facility] Work Phone: Serum or plasma urea nitroge n measurement (mass/volume)on 09-12-2021 Urea nitrogen [Mass/Vol] 17 mg/dL 7-18 [facility] Work Phone: Thin prep Papanicolaou smear with manual screeningon 09-12-2021 Thin prep Papanicolaou smear with manual screening 11 U/L 15-37 [facility] Work Phone: [phone] Thin prep Papanicolaou smear with manual screening 4 5-15 [facility] Work Phone: Vital Signs Date Time Vital Sign Value Performing Clinician Rhondai olga 05-08-2024 10:44-0400 Body height 162.[address] Sanchez Prince MD Work Phone: [facility] 05-08-2024 10:44-0400 Body mass index (BMI) [Ratio] 24.9 kg/m2 Dr. Sanchez Prince MD Work Phone: [facility] 05-08-2024 10:44-0400 Body temperature 97.8 [degF] Dr. Sanchez Prince MD Work Phone: [facility] 05-08-2024 10:44-0400 Body weight 65.[address] Sanchez Prince MD Work Phone: [facility] 05-08-2024 10:44-0400 Diastolic blood pressure 73 mm[Hg] Dr. Sanchez Prince MD Work Phone: [facility] 05-08-2024 10:44-0400 Heart rate 71 /min Dr. Sanchez Prince MD Work Phone: [facility] 05-08-2024 10:44-0400 Respiratory rate 16 /min Dr. Sanchez Prince MD Work Phone: [facility] 05-08-2024 10:44-0400 SaO2% (BldA) [Mass fraction] 98 % Dr. Sanchez Prince MD Work Phone: [facility] 05-08-2024 10:44-0400 Systolic blood pressure 112 mm[Hg] Dr. Sanchez Prince MD Work Phone: [facility] 04-13-2024 13:38-0500 Body height 162.6 cm Abena Nj MD Work Phone: [facility] 04-13-2024 13:38-0500 Body mass index (BMI) [Ratio] 24.89 kg/m2 Abena Nj MD Work Phone: [facility] 04-13-2024 13:38-0500 Body weight 65.77 kg Abena Nj MD Work Phone: [facility] 04-13-2024 13:38-0500 Diastolic blood pressure 72 mm[Hg] Abena Nj MD Work Phone: [facility] 04-13-2024 13:38-0500 Systolic blood pressure 108 mm[Hg] Abena Nj MD Work Phone: [facility] 01-06-2024 13:41-0500 Body mass index (BMI) [Ratio] 24.72 kg/m2 Malou Haury ACCOUNT EXECUTIVE [employer].OFFICE RENTAL CLERK Work Phone: [facility] 01-06-2024 13:41-0500 Body weight 65.32 kg Malou Haury ACCOUNT EXECUTIVE [employer].OFFICE RENTAL CLERK Work Phone: [facility] 01-06-2024 13:41-0500 Diastolic blood pressure 76 mm[Hg] Malou Haury ACCOUNT EXECUTIVE [employer].OFFICE RENTAL CLERK Work Phone: [facility] 01-06-2024 13:41-0500 Systolic blood pressure 120 mm[Hg] Malou Haury ACCOUNT EXECUTIVE [employer].OFFICE RENTAL CLERK Work Phone: [facility] 11-04-2023 13:35-0400 Body mass index (BMI) [Ratio] 24.2 kg/m2 Malou Haury ACCOUNT EXECUTIVE [employer].OFFICE RENTAL CLERK Work Phone: [facility] 11-04-2023 13:35-0400 Body weight 63.96 kg Malou Haury ACCOUNT EXECUTIVE [employer].OFFICE RENTAL CLERK Work Phone: [facility] 11-04-2023 13:35-0400 Diastolic blood pressure 82 mm[Hg] Malou Haury ACCOUNT EXECUTIVE [employer].OFFICE RENTAL CLERK Work Phone: [facility] 11-04-2023 13:35-0400 Heart rate 74 /min Malou Haury ACCOUNT EXECUTIVE [employer].OFFICE RENTAL CLERK Work Phone: [facility] 11-04-2023 13:35-0400 Respiratory rate 14 /min Malou Haury ACCOUNT EXECUTIVE [employer].OFFICE RENTAL CLERK Work Phone: [facility] 11-04-2023 13:35-0400 SaO2% (BldA) [Mass fraction] 97 % Malou Haury ACCOUNT EXECUTIVE [employer].OFFICE RENTAL CLERK Work Phone: [facility] 11-04-2023 13:35-0400 Systolic blood pressure 120 mm[Hg] Malou Haury ACCOUNT EXECUTIVE [employer] ACC[employer].OFFICE RENTAL CLERK Work Phone: [facility] 10-14-2023 10:49-0400 Body mass index (BMI) [Ratio] 23.86 kg/m2 Malou Haury ACCOUNT EXECUTIVE [employer].OFFICE RENTAL CLERK Work Phone: [facility] 10-14-2023 10:49-0400 Body weight 63.05 kg Malou Haury ACCOUNT EXECUTIVE [employer].OFFICE RENTAL CLERK Work Phone: [facility] 10-14-2023 10:49-0400 Diastolic blood pressure 70 mm[Hg] Malou Haury ACCOUNT EXECUTIVE [employer] ACC[employer]S.OFFICE RENTAL CLERK Work Phone: [facility] 10-14-2023 10:49-0400 Heart rate 90 /min Malou Haury ACCOUNT EXECUTIVE [employer] ACC[employer]S.OFFICE RENTAL CLERK Work Phone: [facility] 10-14-2023 10:49-0400 SaO2% (BldA) [Mass fraction] 99 % Malou Haury ACCOUNT EXECUTIVE [employer] ACCOUNTS.OFFICE RENTAL CLERK Work Phone: [facility] 10-14-2023 10:49-0400 Systolic blood pressure 112 mm[Hg] Malou Haury ACCOUNT EXECUTIVE [employer] ACCOUNTS.OFFICE RENTAL CLERK Work Phone: [facility] 07-02-2023 12:37-0400 Diastolic blood pressure 81 mm[Hg] Homa Vergara MD Work Phone: [facility] 07-02-2023 12:37-0400 Respiratory rate 16 /min Homa Vergara MD Work Phone: [facility] 07-02-2023 12:37-0400 Systolic blood pressure 140 mm[Hg] Homa Vergara MD Work Phone: [facility] 07-02-2023 12:00-0400 Heart rate 84 /min Homa Vergara MD Work Phone: [facility] 07-02-2023 12:00-0400 SaO2% (BldA) [Mass fraction] 99 % Homa Vergara MD Work Phone: [facility] 07-02-2023 11:23-0400 Body mass index (BMI) [Ratio] 24.64 kg/m2 Homa Vergara MD Work Phone: [facility] 07-02-2023 11:23-0400 Body temperature 97.7 [degF] Homa Vergara MD Work Phone: [facility] 07-02-2023 11:23-0400 Body weight 65.1 kg Homa Vergara MD Work Phone: [facility] 05-06-2023 10:51-0500 Body height 162.[address] Sanchez Prince Work Phone: [facility] 05-06-2023 10:51-0500 Body mass index (BMI) [Ratio] 24.9 kg/m2 Dr. Sanchez Prince Work Phone: [facility] 05-06-2023 10:51-0500 Body temperature 98.3 [degF] Dr. Sanchez Prince Work Phone: [facility] 05-06-2023 10:51-0500 Body weight 65.[address] Sanchez Prince Work Phone: [facility] 05-06-2023 10:51-0500 Diastolic blood pressure 80 mm[Hg] Dr. Sanchez Prince Work Phone: [facility] 05-06-2023 10:51-0500 Heart rate 83 /min Dr. Sanchez Prince Work Phone: [facility] 05-06-2023 10:51-0500 Respiratory rate 16 /min Dr. Sanchez rPince Work Phone: [facility] 05-06-2023 10:51-0500 SaO2% (BldA) [Mass fraction] 98 % Dr. Sanchez Prince Work Phone: [facility] 05-06-2023 10:51-0500 Systolic blood pressure 135 mm[Hg] Dr. Sanchez Prince Work Phone: [facility] 04-29-2023 09:11-0500 Body weight 65.14 kg Abena Nj MD Work Phone: [facility] 04-29-2023 09:11-0500 Diastolic blood pressure 68 mm[Hg] Abena Nj MD Work Phone: [facility] 04-29-2023 09:11-0500 Systolic blood pressure 108 mm[Hg] Abena Nj MD Work Phone: [facility] 04-09-2023 09:31-0500 Body height 162.6 cm Abena Nj MD Work Phone: [facility] 04-09-2023 09:31-0500 Body weight 64.32 kg Abena Nj MD Work Phone: [facility] 04-09-2023 09:31-0500 Diastolic blood pressure 72 mm[Hg] Abena Nj MD Work Phone: [facility] 04-09-2023 09:31-0500 Systolic blood pressure 110 mm[Hg] Abena Nj MD Work Phone: [facility] 03-25-2023 13:16-0500 Body mass index (BMI) [Ratio] 24.7 kg/m2 Dr. Sanchez Prince Work Phone: [facility] 03-25-2023 13:16-0500 Body temperature 98.4 [degF] Dr. Sanchez Prince Work Phone: [facility] 03-25-2023 13:16-0500 Body weight 65.[address] Sanchez Prince Work Phone: [facility] 03-25-2023 13:16-0500 Diastolic blood pressure 85 mm[Hg] Dr. Sanchez Prince Work Phone: [facility] 03-25-2023 13:16-0500 Heart rate 77 /min Dr. Sanchez Prince Work Phone: [facility] 03-25-2023 13:16-0500 Respiratory rate 14 /min Dr. Sanchez Prince Work Phone: [facility] 03-25-2023 13:16-0500 SaO2% (BldA) [Mass fraction] 97 % Dr. Sanchez Prince Work Phone: [facility] 03-25-2023 13:16-0500 Systolic blood pressure 121 mm[Hg] Dr. Sanchez Prince Work Phone: [facility] 04-27-2022 11:11-0500 Body weight 63.5 kg Abena Nj MD Work Phone: [facility] 04-27-2022 11:11-0500 Diastolic blood pressure 78 mm[Hg] Abena Nj MD Work Phone: [facility] 04-27-2022 11:11-0500 Systolic blood pressure 122 mm[Hg] Abena Nj MD Work Phone: [facility] 03-19-2022 09:50-0500 Body height 163 cm Abena Nj MD Work Phone: [facility] 03-19-2022 09:50-0500 Body weight 64.32 kg Abena Nj MD Work Phone: [facility] 03-19-2022 09:50-0500 Diastolic blood pressure 76 mm[Hg] Abena Nj MD Work Phone: [facility] 03-19-2022 09:50-0500 Systolic blood pressure 112 mm[Hg] Abena Nj MD Work Phone: [facility] Encounters Encounter Date Encounter Type Care Provider Facility Start: 08-03-2024 End: 08-03-2024 Telephone encounter Malou Gastelum SAEED Work Phone: OB/Gynecology Comment on above: Lab Orders Start: 07-21-2024 End: 07-21-2024 ambulatory SANCHEZ PRINCE Facility:[facility] Start: 05-17-2024 Encounter for genera l adult medical examination without abnormal findings Sanchez Prince [facility] Start: 05-08-2024 End: 05-08-[address] Sanchez Prince MD -[facility] Work Phone: Start: 05-08-2024 End: 05-08-[address] Sanchez Prince MD [facility] Start: 05-08-2024 End: 05-08-2024 ambulatory Sanchez Prince Facility:[facility] Start: 05-05-2024 End: 05-05-[address] Sanchez Prince MD Work Phone: [facility] Work Phone: Start: 05-05-2024 End: 05-05-[address] Sanchez Prince MD -Laboratory, [place] Start: 05-05-2024 End: 05-05-2024 ambulatory Sanchez Prince Facility:[facility] Start: 04-13-2024 End: 04-13-2024 ambulatory ABENA [place] Facility:[facility] Start: 04-13-2024 End: 04-13-2024 Patient encounter procedure Abena Nj MD Work Phone: OB/Gynecology Comment on above: Encounter for gyneco logical examination (general) (routine) without abnormal findings (Primary Dx); Encounter for screening mammogram for breast cancer; Need for vaccination; MARLINE (stress urinary incontinence, female) Start: 04-13-2024 End: 04-13-2024 Patient encounter status Abena Nj MD Work Phone: [facility] Start: 04-05-2024 End: 04-05-2024 ambulatory [facility] Work Phone: [facility] Comment on above: Right foot pain (Karla ramona Dx); Hallux limitus, acquired, right Start: 03-16-2024 End: 03-16-2024 ambulatory [facility] Work Phone: [facility] Comment on above: Right foot pain (Karla ramona Dx); Acquired hallux valgus of right foot Start: 03-14-2024 End: 03-14-2024 ambulatory SANCHEZ PRINCE Facility:[facility] Start: 03-14-2024 End: 03-14-2024 Subsequent hospital visit by physician Diagnostic Mammo Replaced By [facility] Comment on above: Mass of lower inner quadrant of right breast [N63.14] Start: 01-31-2024 End: 01-31-2024 Refill Malou Gastelum APRN.OFFICE RENTAL CLERK Work Phone: OB/Gynecology Comment on above: Refill Request Start: 01-25-2024 ambulatory CAROL Feliciano ty:[facility] Start: 01-06-2024 End: 01-06-2024 [facility] Facility:[facility] Start: 01-06-2024 End: 01-06-2024 Patient encounter procedure Malou Gastelum APRN.OFFICE RENTAL CLERK Work Phone: OB/Gynecology Comment on above: Mass of lower inner quadrant of right breast (Primary Dx); History of PCOS Start: 12-20-2023 End: 12-20-2023 [facility] Facility:[facility] Start: 12-02-2023 End: 12-02-2023 [facility] Facility:[facility] Start: 12-02-2023 End: 12-02-2023 Patient encounter procedure Carol Sepulveda Work Phone: Podiatry Comment on above: Hallux valgus of rig ht foot (Primary Dx); Acquired hallux limitus of right foot; Right foot pain Start: 11-08-2023 End: 11-08-2023 Orders Only Malou Gastelum APRN.OFFICE RENTAL CLERK Work Phone: OB/Gynecology Comment on above: PCOS (polycystic ova idris syndrome) (Primary Dx) Start: 11-04-2023 End: 11-04-2023 [facility] Facility:[facility] Start: 11-04-2023 End: 11-04-2023 Patient encounter procedure Malou Gastelum APRN.OFFICE RENTAL CLERK Work Phone: OB/Gynecology Comment on above: PCOS (polycystic ova idris syndrome) (Primary Dx); Irregular menses; Mood changes; Vaginal irritation; Decreased energy Start: 11-02-2023 End: 11-02-2023 Telephone encounter Carol Sepulveda Work Phone: Podiatry Comment on above: Patient Update Start: 10-22-2023 End: 10-22-2023 ambulatory [facility] Facility:[facility] Start: 10-22-2023 End: 10-22-2023 Patient encounter procedure Wade Nowak DPM Work Phone: Podiatry Comment on above: Hallux valgus of rig ht foot (Primary Dx); Acquired hallux limitus of right foot; Right foot pain Start: 10-14-2023 End: 10-14-2023 ambulatory SANCHEZ PRINCE Facility:[facility] Start: 10-14-2023 End: 10-14-2023 Patient encounter procedure Malou Gastelum SAEED Work Phone: OB/Gynecology Comment on above: Acute vaginitis (Karla ramona Dx); Hematuria, unspecified type; Screening for cervical cancer; Special screening examination for human papillomavirus (HPV) Start: 10-04-2023 Telephone encounter Carol Machado Work Phone: Podiatry Start: 10-01-2023 End: 10-01-2023 ambulatory SANCHEZ Tammy JENNYFER Facility:[facility] Start: 10-01-2023 End: 10-01-2023 Patient encounter procedure Carol Sepulveda Work Phone: Podiatry Comment on above: Hallux valgus of rig ht foot (Primary Dx); Acquired hallux limitus of right foot Start: 09-22-2023 Telephone encounter Carol Machado Work Phone: Podiatry Comment on above: Results Start: 09-15-2023 ambulatory SANCHEZ Tammy PRINCE [facility] Start: 09-15-2023 End: 09-15-2023 Subsequent hospital visit by physician [facility] (1.5t[facility] Comment on above: Right foot pain [M79 .671] Start: 09-03-2023 End: 09-03-2023 ambulatory CAROL SEPULVEDA Facility:[facility] Start: 08-24-2023 Telephone encounter Carol Machado Work Phone: Podiatry Comment on above: Results Start: 08-06-2023 Telephone encounter Carol Machado Work Phone: Podiatry Comment on above: Patient Question (Chelsi gan questions) Start: 07-30-2023 End: 07-30-2023 Patient encounter procedure Carol Sepulveda Work Phone: Podiatry Comment on above: Hallux valgus of rig ht foot (Primary Dx); Porokeratosis; Plantar wart; Diminished pulses in lower extremity Start: 07-08-2023 End: 07-08-2023 Patient encounter procedure Carol Derick Work Phone: Podiatry Comment on above: Hallux valgus of rig ht foot (Primary Dx); Porokeratosis; Plantar wart Start: 07-08-2023 End: 07-08-2023 Subsequent hospital visit by physician [facility] Work Phone: Radiology Comment on above: Bunion [M21.619] Start: 07-02-2023 End: 07-02-2023 Subsequent hospital visit by physician Homa Vergara MD Work Phone: Ambulatory Surgery Comment on above: Special screening fo r malignant neoplasms, colon [Z12.11] Start: 06-29-2023 Orders Only Hoam pierre MD Work Phone: General Surgery Start: 06-14-2023 End: 06-14-2023 ambulatory Sanchez Prince Facility:[facility] Start: 06-08-2023 End: 06-08-[address] Sanchez Prince Work Phone: [facility] Work Phone: Start: 06-08-2023 End: 06-08-[address] Sanchez Prince Work Phone: [facility] Work Phone: Start: 06-08-2023 End: 06-08-2023 ambulatory Sanchez Prince Facility:[facility] Start: 05-06-[address] Ronnell Prince Work Phone: [facility] Start: 05-06-2023 End: 05-06-2023 Encounter for general adult medical examination without abnormal findings Dr. Sanchez Prince Work Phone: [facility] Start: 05-06-2023 End: 05-06-[address] Sanchez Prince Work Phone: [facility] Work Phone: Start: 04-29-2023 End: 04-29-2023 Patient encounter procedure Abena Nj MD Work Phone: OB/Gynecology Comment on above: Vaginal irritation ( Primary Dx); Vaginal odor Start: 04-12-2023 Documentation procedure Mammog meaghan [facility]inator [facility] Start: 04-12-2023 Letter encounter Mammography Coordinator [facility] Department Start: 04-09-2023 End: 04-09-2023 Patient encounter procedure Abena Nj MD Work Phone: OB/Gynecology Comment on above: Encounter for gyneco logical examination (general) (routine) without abnormal findings (Primary Dx); Encounter for screening mammogram for breast cancer; Dense breast tissue; MARLINE (stress urinary incontinence, female); Special screening for malignant neoplasms, colon Start: 04-09-2023 End: 04-09-2023 Patient encounter status Abena Nj MD Work Phone: [facility] Start: 04-09-2023 End: 04-09-2023 Subsequent hospital visit by physician Screen Mammo Replaced By [facility] M[facility]ogram Comment on above: Dense breasts [R92.3 0] Start: 03-25-2023 End: 03-25-[address] Sancehz Prince Work Phone: [facility] Work Phone: Start: 08-20-[address] Ronnell Prince Work Phone: [facility] Start: 04-27-2022 End: 04-27-2022 Patient encounter procedure Abena Nj MD Work Phone: OB/Gynecology Comment on above: Vulvar irritation (P rimary Dx); Vaginal itching Start: 03-19-2022 Documentation procedure Mammog meaghan Coordinator [facility] Start: 03-19-2022 Letter encounter Mammography Coordinator [facility] Department Start: 03-19-2022 End: 03-19-2022 Patient encounter procedure Abena Nj MD Work Phone: OB/Gynecology Comment on above: Encounter for gyneco logical examination without abnormal finding (Primary Dx); Dense breasts; Encounter for screening mammogram for malignant neoplasm of breast; MARLINE (stress urinary incontinence, female) Start: 03-19-2022 End: 03-19-2022 Patient encounter status Abena Nj MD Work Phone: OB/Gynecology Start: 03-19-2022 End: 03-19-2022 Subsequent hospital visit by physician Screen Mammo Replaced By [facility] Mammogram Start: 09-12-2021 End: 09-12-2021 Patient encounter procedure [facility] Procedures Date Procedure Procedure Detail Performing Clinician Start: 03-14-2024 Us breast uni real time with image limited Malou Gastelum APRN.OFFICE RENTAL CLERK Work Phone: Start: 03-14-2024 Digital breast tomosynthesis bilateral Malou Gatselum APRN.OFFICE RENTAL CLERK Work Phone: Start: 07-02-2023 Colonoscopy flx dx w/collj spec when pfrmd Abena Nj MD Work Phone: Start: 07-02-2023 Colonoscopy Homa Vergara MD Work Phone: Start: 03-19-2022 KASANDRA SCREENING W RENZO Samaniego MD Work Phone: Start: 03-19-2022 Mammography Mammography Coordinator Start: 12-12-2020 Mammography Abena Nj MD Work Phone: History of tonsillectomy History of tonsi llectomy Plan of Treatment Date Care Activity Detail Author Start: 07-01-2033 Screening for malign ant neoplasm of colon [facility] Start: 10-13-2028 Screening for malign ant neoplasm of cervix Cervical Cancer Screening [facility] Start: 11-03-2026 Diabetes Screening Diabetes Screenin g [facility] Start: 12-12-2025 HPV TESTING HPV TESTING [facility] Start: 12-12-2025 PAP TESTING PAP TESTING [facility] Start: 12-12-2025 Screening for malign ant neoplasm of cervix [facility] Start: 04-17-2025 End: 04-17-2025 Patient encounter procedure Mammogram Comment on above: Encounter for gyneco logical examination (general) (routine) without abnormal findings [Z01.419]; Encounter for screening mammogram for breast cancer [Z12.31] Annual Start: 03-14-2025 Screening for malign ant neoplasm of breast Mammogram Screening [facility] Start: 10-30-2024 Influenza vaccination Influenz a Vaccine (Season Ended) [facility] Start: 07-01-2024 Screening for malign ant neoplasm of colon [facility] Start: 2024 Pneumococcal Vaccine : 50+ (1 of 1 - PCV) Pneumococcal Vaccine: 50+ (1 of 1 - PCV) [facility] Start: 2024 Shingrix Vaccine (1 of 2) Shingrix Vaccine (1 of 2) [facility] Start: 04-17-2024 End: 04-17-2024 ambulatory 04/17/2024 11:15 AM EST OT/PT/Speech Visit [facility] [address] [place] [address] Nash Shah PT [address] [place] [address] Hallux valgus of right foot [M20.11] [facility] Comment on above: Hallux valgus of rig ht foot [M20.11] Start: 04-14-2024 End: 04-14-2024 Patient encounter procedure Mammogram Comment on above: Encounter for screen ing mammogram for breast cancer [Z12.31]; Dense breast tissue [R92.30] Annual- Mamm w/ renzo Start: 04-13-2024 End: 04-13-2024 Patient encounter procedure 04/13/2024 1:20 PM EST Office Visit OB/Gynecology [address] [place] [address] Abena Nj MD [address] [place] [address] Annual OB/Gynecology Comment on above: Annual Start: 04-09-2024 Screening for malign ant neoplasm of breast Mammogram Screening [facility] Start: 03-16-2024 End: 03-16-2024 ambulatory 03/16/2024 11:30 AM EST OT/PT/Speech Visit [facility] [address] [place] [address] Nash Shah, PT [address] [place] [address] Hallux valgus of right foot [M20.11] [facility] Comment on above: Hallux valgus of rig ht foot [M20.11] Start: 03-14-2024 End: 03-14-2024 Patient encounter procedure Mammogram Comment on above: Encounter for gyneco logical examination (general) (routine) without abnormal fin... Start: 02-07-2024 End: 05-08-2024 Cobalamin (Vitamin B12) [Mass/volume] in Serum or Plasma VITAMIN B12 Lab Routine PCOS (polycystic ovarian syndrome) Expected: 02/07/2024, Expires: 05/08/2024 [facility] Work Phone: Comment on above: Expected: 02/07/2024 , Expires: 05/08/2024 Start: 01-24-2024 End: 01-24-2024 ambulatory 01/24/2024 11:15 AM EST OT/PT/Speech Visit [facility] [address] [place] [address] Nash Shah, PT [address] [place] [address] Hallux valgus of right foot [M20.11]; Acquired hallux limitus of right foot [M20.5X1]; Right foot pain [M79.671] [facility] Comment on above: Hallux valgus of rig ht foot [M20.11]; Acquired hallux limitus of right foot [M20.5X1]; Right foot pain [M79.671] Start: 01-06-2024 End: 01-06-2024 Patient encounter procedure 01/06/2024 1:30 PM EST Office Visit OB/Gynecology [address] [place] [address] Malou Gastelum APRN.OFFICE RENTAL CLERK [address] [place] [address] f/up meds OB/Gynecology Comment on above: f/up meds Start: 12-02-2023 End: 12-02-2023 Patient encounter procedure 12/02/2023 11:30 AM EDT Office Visit Podiatry [address] [place] [id number] Carol Sepulveda [address] [place] [address] discuss surgery Podiatry Comment on above: discuss surgery Start: 11-08-2023 Urine microalbumin profile [facility] Start: 11-04-2023 End: 02-03-2024 Cobalamin (Vitamin B12) [Mass/volume] in Serum or Plasma [facility] Work Phone: Comment on above: Expected: 11/04/2023 , Expires: 02/03/2024 Start: 11-04-2023 End: 02-03-2024 Estradiol (E2) [Mass/volume] in Serum or Plasma [facility] Comment on above: Expected: 11/04/2023 , Expires: 02/03/2024 Start: 11-04-2023 End: 02-03-2024 Follitropin [Units/volume] in Serum or Plasma [facility] Comment on above: Expected: 11/04/2023 , Expires: 02/03/2024 Start: 11-04-2023 End: 02-03-2024 Hemoglobin A1c in Blood [facility] Comment on above: Expected: 11/04/2023 , Expires: 02/03/2024 Start: 11-04-2023 End: 11-04-2023 Patient encounter procedure 11/04/2023 1:30 PM EDT Office Visit OB/Gynecology [address] [place], [place] [id number] Malou Gastelum APRN.OFFICE RENTAL CLERK [address] [place] [place] [address] Follow-up OB/Gynecology Comment on above: Follow-up Start: 10-31-2023 Covid-19 Vaccine ( season) Covid-19 Vaccine ( season) [facility] Start: 10-31-2023 Covid-19 Vaccine ( season) Covid-19 Vaccine ( season) [facility] Start: 10-31-2023 Influenza vaccination [facility] Start: 10-18-2023 End: 10-18-2023 Patient encounter procedure Podiatry Comment on above: 2nd opinion/surgical consult Surgical Consult: Estrella llux valgus of right foot Start: 10-01-2023 End: 10-01-2023 Patient encounter procedure 10/01/2023 9:45 AM EDT Office Visit Podiatry [address] [place], [place] [id number] Carol Sepulveda [address] [place] [phone] DIscuss MRI results right foot Podiatry Comment on above: DIscuss MRI results right foot Start: 09-15-2023 End: 09-15-2023 Patient encounter procedure 09/15/2023 10:30 AM EDT Appointment [facility] [address] [place] [address] [id number] MRI FOOT/TOES WO IVCON RIGHT [facility] Comment on above: MRI FOOT/TOES WO IVC ON RIGHT Start: 09-03-2023 End: 09-03-2023 Patient encounter procedure 09/03/2023 3:30 PM EDT Office Visit Vasculary Surgery [address] [place] [address] Hallux valgus of right foot [M20.11]; Diminished pulses in lower extremity [R09.89] [facility] Comment on above: Hallux valgus of rig ht foot [M20.11]; Diminished pulses in lower extremity [R09.89] Start: 08-20-2023 End: 08-20-2023 Patient encounter procedure 08/20/2023 12:30 PM EDT Office Visit [facility]cul[facility] [address] [place] [address] Hallux valgus of right foot [M20.11]; Diminished pulses in lower extremity [R09.89] [facility] Comment on above: Hallux valgus of rig ht foot [M20.11]; Diminished pulses in lower extremity [R09.89] Start: 07-30-2023 End: 07-30-2023 Patient encounter procedure 07/30/2023 10:15 AM EDT Office Visit Podiatry [address] [place] [address] Carol Sepulveda [address] [place] [address] 2 week follow up Podiatry Comment on above: 2 week follow up Start: 07-08-2023 End: 07-08-2023 Patient encounter procedure Radiology Comment on above: bunion right foot xr Bunion removed right foot Start: 07-02-2023 End: 07-02-2023 Patient encounter procedure 07/02/2023 12:30 PM EDT Appointment Ambulatory Surgery [address] [place] [address] Homa Vergara MD [address] [place] [phone] Special screening for malignant neoplasms, colon [Z12.11] Ambulatory Surgery Comment on above: Special screening fo r malignant neoplasms, colon [Z12.11] Start: 03-19-2023 Mammography [facility] Start: 03-19-2023 Screening for malign ant neoplasm of breast Mammogram Screening [facility] Start: 03-01-2023 Behavioral Health Screening Behavioral Health Screening [facility] Start: 03-01-2023 Depression Assessment Depression Ass essment [facility] Start: 10-30-2022 Covid-19 Vaccine ( season) Covid-19 Vaccine ( season) [facility] Start: 10-30-2022 Influenza vaccination Influenza Vacc ine (#1) [facility] Start: 03-01-2022 DEPRESSION ASSESSMENT DEPRESSION ASS ESSMENT [facility] Start: 12-12-2021 Mammography MAMMOGRAM [facility] Start: 05-26-2019 COLOGUARD (FIT-DNA) COLOGUARD (FIT-D NA) [facility] Start: 05-26-2019 Colonoscopy COLONOSCOPY [facility] Start: 05-26-2019 COLORECTAL CANCER SCREENING COLORECTAL CANCER SCREENING [facility] Start: 05-26-[address] COLONOGRAPHY [facility] Start: 05-26-2019 DIABETES SCREEN [facility]CRE[facility] Start: 05-26-2019 Diabetes Screening Diabetes Screenin g [facility] Start: 05-26-2019 FECAL OCCULT BLOOD FECAL OCCULT BLOO D [facility] Start: 05-26-2019 Lipid 1996 panel - Serum or Plasma Lipid Screening [facility] Start: 05-26-2019 Lipid panel Lipid Screening [facility] Start: 05-26-2019 LIPID SCREEN LIPID SCREEN [facility] Start: 05-26-2019 Screening for malign ant neoplasm of colon [facility] Start: 05-26-2019 SIGMOIDOSCOPY SIGMOIDOSCOPY [facility] Start: 1993 Hepatitis B Vaccine (1 of 3 - 19+ 3-dose series) Hepatitis B Vaccine (1 of 3 - 19+ 3-dose series) [facility] Start: 1992 Anxiety Screening Anxiety Screening [facility] Start: 1992 Depression Screening Depression Scre ening [facility] Start: 1992 HEPATITIS C SCREENING HEPATITIS C [facility] Start: 1992 Hepatitis C screening Hepatitis C [facility] Start: 1992 HIV SCREENING HIV SCREENING [facility] Start: 1992 HIV screening HIV Screening [facility] Start: 1974 COVID-19 VACCINE (#1) COVID-19 VACCI NE (#1) [facility] Start: 1974 HEPATITIS B (1 of 3 - 3-dose series) HEPATITIS B (1 of 3 - 3-dose series) [facility] Start: 1974 Hepatitis B Vaccine (1 of 3 - 3-dose series) Hepatitis B Vaccine (1 of 3 - 3-dose series) [facility] Bacteria identified in Urine by Culture URINE CULTURE Microbiology Routine Hematuria, unspecified type 10/14/2023 11:21 AM EDT [facility] BACTERIAL VAGINOSIS AMPLIFICATION BACTERIAL VAGINOSIS AMPLIFICATION Lab Routine Vulvar irritation 04/27/2022 11:49 AM [facility] Work Phone: BACTERIAL VAGINOSIS NAAT BACTERIAL VAGINOSIS NAAT Lab Routine Vaginal irritation 04/29/2023 9:38 AM [facility] Work Phone: BACTERIAL VAGINOSIS NAAT BACTERIAL VAGINOSIS NAAT Lab Routine Acute vaginitis 10/14/2023 11:21 AM EDT [facility] ANA / TRICHOMONA S AMPLIFICATION ANA / TRICHOMONAS AMPLIFICATION Microbiology Routine Vulvar irritation 04/27/2022 11:49 AM [facility] Work Phone: ANA/TRICHOMONAS NAAT ANA/TRICHOMONAS NAAT Lab Routine Vaginal irritation 04/29/2023 9:38 AM [facility] Work Phone: ANA/TRICHOMONAS NAAT ANA/TRICHOMONAS NAAT Lab Routine Acute vaginitis 10/14/2023 11:21 AM [facility] Work Phone: Chlamydia trachomatis+Neisseria gonorrhoeae DNA [Presence] in Unspecified specimen by CHINA with probe detection GONORRHEA/CHLAMYDIA NAAT Lab Routine Acute vaginitis 10/14/2023 11:21 AM [facility] End: 05-08-2024 DBT Breast - bilateral screening KASANDRA SCREENING W RENZO Radiology Routine Encounter for screening mammogram for breast cancer Dense breast tissue 1 Occurrences starting 04/09/2023 until 05/08/2024 [facility] Work Phone: Comment on above: 1 Occurrences starti ng 04/09/2023 until 05/08/2024 DBT Breast - bilater al screening KASANDRA SCREENING W RENZO Radiology Routine Dense breasts Encounter for screening mammogram for malignant neoplasm of breast 04/09/2023 9:25 AM [facility] Work Phone: End: 05-13-2025 DBT Breast - bilateral screening KASANDRA SCREENING W RENZO Radiology Routine Encounter for gynecological examination (general) (routine) without abnormal findings Encounter for screening mammogram for breast cancer 1 Occurrences starting 04/13/2024 until 05/13/2025 [facility] Work Phone: Comment on above: 1 Occurrences starti ng 04/13/2024 until 05/13/2025 End: 04-18-2023 KASANDRA SCREENING W RENZO KASANDRA SCREENING W RENZO Radiology Routine Dense breasts Encounter for screening mammogram for malignant neoplasm of breast 1 Occurrences starting 03/19/2022 until 04/18/2023 [facility] Work Phone: Comment on above: 1 Occurrences starti ng 03/19/2022 until 04/18/2023 End: 02-04-2025 MG Breast - bilateral Diagnostic KASANDRA DIAGNOSTIC BILATERAL Radiology Routine Mass of lower inner quadrant of right breast 1 Occurrences starting 01/06/2024 until 02/04/2025 [facility] Work Phone: Comment on above: 1 Occurrences starti ng 01/06/2024 until 02/04/2025 MR Foot - right WO contrast MRI FOOT/TOES WO IVCON RIGHT Radiology Routine Right foot pain 09/15/2023 11:09 AM EDT [facility] Work Phone: PAP TEST PAP TEST Lab Rou john Screening for cervical cancer Special screening examination for human papillomavirus (HPV) 10/14/2023 11:21 AM EDT [facility] End: 04-09-2024 Screening colonoscopy COLONOSCOPY SCREENING Endoscopy Routine Special screening for malignant neoplasms, colon 1 Occurrences starting 04/09/2023 until 04/09/2024 [facility] Work Phone: Comment on above: 1 Occurrences starti ng 04/09/2023 until 04/09/2024 UROGENITAL UREAPLASM A AND MYCOPLASMA SPECIES BY PCR, FOR GENITAL, RECTAL, URINE SAMPLES UROGENITAL UREAPLASMA AND MYCOPLASMA SPECIES BY PCR, FOR GENITAL, RECTAL, URINE SAMPLES Lab Routine Acute vaginitis 10/14/2023 11:21 AM EDT [facility] End: 02-04-2025 US Breast - right limited US BREAST LTD RIGHT Radiology Routine Mass of lower inner quadrant of right breast 1 Occurrences starting 01/06/2024 until 02/04/2025 [facility] Comment on above: 1 Occurrences starti ng 01/06/2024 until 02/04/2025 End: 07-29-2024 US.doppler Extremity arteries - bilateral for physiologic artery study PVR ANK PRESS [facility] Vascular Lab Routine Hallux valgus of right foot Diminished pulses in lower extremity 1 Occurrences starting 07/30/2023 until 07/29/2024 [facility] Work Phone: Comment on above: 1 Occurrences starti ng 07/30/2023 until 07/29/2024 XR Foot - right AP a nd Lateral and oblique XR FOOT GENERAL 3V AP/LAT/OBL RIGHT Radiology Routine Bunion 07/08/2023 11:08 AM EDT [facility] Work Phone: [facility] Immunizations Immunization Date Immunization Notes Care Provider Laz jang 01-01-2022 Seasonal, quadrivale nt, recombinant, injectable influenza vaccine, preservative free Abena Nj MD Work Phone: [facility] 01-01-2022 influenza virus vaccine, unspecified formulation Screen Wstr [facility] 11-16-2019 influenza, injectabl e, quadrivalent, contains preservative Abena Nj MD Work Phone: [facility] 05-09-2019 influenza, injectabl e, quadrivalent, preservative free Abena Nj MD Work Phone: [facility] 01-13-2018 influenza, injectabl e, quadrivalent, preservative free Abena Nj MD Work Phone: [facility] 03-30-2017 influenza, injectabl e, quadrivalent, preservative free Abena Nj MD Work Phone: [facility] 12-08-2013 influenza, seasonal, injectable Abena Nj MD Work Phone: [facility] 11-07-2013 RHO(D) immune globul in- IV or IM Abena Nj MD Work Phone: [facility] Work Phone: 11-07-2013 tetanus toxoid, redu prerna diphtheria toxoid, and acellular pertussis vaccine, adsorbed Abena Nj MD Work Phone: [facility] Work Phone: 02-26-2012 influenza, seasonal, injectable Abena jN MD Work Phone: [facility] 03-20-2011 RHO(D) immune globul in- IV or IM Abena Nj MD Work Phone: [facility] Work Phone: 02-03-2011 influenza virus vaccine, unspecified formulation Abena Nj MD Work Phone: [facility] Payers Date Payer Category Payer Self-pay [id number] 2019 [employer] BLUE CARD PPO OOS [id number] 2019 Unknown [employer] BLUE CARD PPO OOS [id number] 2019-Present [phone] [address] [place] [address] PPO [id number] 2019 Unknown [id number] 2015 Private Health Insurance [id number] Unknown [id number] Unknown [id number] Unknown [id number] Unknown [id number] Unknown [id number] Social History Date Type Detail Facility Start: 04-10-2021 End: 05-06-2023 Tobacco smoking status ORIS Unknown if ever smoked [facility] Start: 1975 Sex Assigned At Female [facility] Start: 03-19-2022 End: 06-14-2023 Tobacco smoking status NHIS Never smoked tobacco [facility] Start: 03-19-2022 Tobacco use and exposure Smokeless tobacco non-user [facility] Start: 03-19-2022 End: 10-01-2023 Alcohol intake Current non-drinker of alcohol (finding) [facility] Start: 1975 Sex Assigned At Not on file [facility] Start: 03-19-2022 End: 04-09-2023 History of Social function [facility] Start: 03-19-2022 End: 04-09-2023 Tobacco use panel [facility] National Score (1-100), lower number is lower risk 34 [facility] Start: 10-14-2023 End: 07-21-2024 Alcohol intake Ex-drinker (finding) [facility] Start: 05-17-2024 Sex Female (finding) [facility] Functional Status Date Assessment Result Facility 04-05-2014 Are you deaf, or do you have serious difficulty hearing No 04/05/2014 1:25 PM Madison Kearns RN No [facility] 04-05-2014 Are you blind, or do you have serious difficulty seeing, even when wearing glasses No 04/05/2014 1:25 PM Madison Kearns RN No [facility] 04-05-2014 Do you have serious difficulty walking or climbing stairs No 04/05/2014 1:25 PM Madison Kearns RN No [facility] 04-05-2014 Do you have difficul ty dressing or bathing No 04/05/2014 1:25 PM Madison Kearns, REUBEN No [facility] 04-05-2014 Because of a physica l, mental, or emotional condition, do you have difficulty doing errands alone such as visiting a physician's office or shopping No 04/05/2014 1:25 PM Madison Kearns RN No [facility] Mental Status Date Assessment Result Facility 04-05-2014 Because of a physica l, mental, or emotional condition, do you have serious difficulty concentrating, remembering, or making decisions No 04/05/2014 1:25 PM Madison Kearns RN No [facility] Clinical Notes 08-11-2013 to 08-03-2024 Telephone Encounter - Shana Rios LPN - 08/03/2024 10:14 AM EDTTelephone Encounter - Shana Rios LPN - 08/03/2024 10:14 AM EDT Note Date & Type Note Facility 08-03-2024 Telephone encounter Note Patient notified [facility] 08-03-2024 Miscellaneous Notes Patient notified Ok to discontinue Metformin if she wants. Feelings of hunger likely not related to discontinuing - feelings of hunger likely related to not enough protein. Hormone panels not indicated. Would recommend follow up with functional medicine for further management. Malou Gastelum APRN.RUY Patient calling in stating that she decided to stop Metformin 2 weeks ago due to constipation and not losing any weight. Has feelings of hunger almost immediately after eating like she is not satisfied x 2 nights. Denies any other symptoms including but not limited to feelings of excessive thirst, frequent urination, dizziness or blurry vision. Wonders if this is from discontinuing medication, hormone issues that would warrant bloodwork ordered, since she still needs to do Vitamin D that was ordered previously ordered 07/21/2024. Had HgbA1C, estrogen, FSH drawn 11/22. Please advise. Patient seen by Malou for PCOS 11/04/2023. Patient f KJ and EH and patient wishes to look at this documented in this encounter [facility] 08-03-2024 Telephone encounter Note Ok to discontinue Metformin if she wants. Feelings of hunger likely not related to discontinuing - feelings of hunger likely related to not enough protein. Hormone panels not indicated. Would recommend follow up with functional medicine for further management. Malou Gastelum APRN.OFFICE RENTAL CLERK [facility] 08-03-2024 Telephone encounter Note Patient calling in stating that she decided to stop Metformin 2 weeks ago due to constipation and not losing any weight. Has feelings of hunger almost immediately after eating like she is not satisfied x 2 nights. Denies any other symptoms including but not limited to feelings of excessive thirst, frequent urination, dizziness or blurry vision. Wonders if this is from discontinuing medication, hormone issues that would warrant bloodwork ordered, since she still needs to do Vitamin D that was ordered previously ordered 07/21/2024. Had HgbA1C, estrogen, FSH drawn 11/22. Please advise. Patient seen by Malou for PCOS 11/04/2023. Patient f KJ and EH and patient wishes to look at this [facility] 07-21-2024 Note HNO ID: [id number] Author: MALOU GASTELUM APRN.OFFICE RENTAL CLERK Service: ? Author Type: Nurse Practitioner Type: Progress Notes Filed: 07/21/2024 15:47 Note Text: Nursing Program Coordinator offered: Patient declines. Bianca Spring is a 49 year old female who presents for pruritus, rectal pain, and vaginal discharge for 5 days. HPI: Quynh noted pruritus and rectal pain for 5 days. Symptoms have improved. Wondering if she has a hemorrhoid. UTD on colonoscopy. Does struggle with constipation related to Metformin use. Taking 1000 mg daily. Wondering if she should continue Metformin. Has PCOS. Reports weight gain. Reports that stress levels have been elevated and diet has not been great. Wondering what else she can do to lose weight. Reports weight gain to midsection specifically. Would like her labs ordered by PCP in April to be reviewed. She has brought her women's health probiotic in for review. OB History Gravida3 Para2 Term2 Preterm0 AB1 Living2 SAB1 IAB0 Ectopic0 Multiple0 Live Births2 Manager Environmental Affairs History LMP: 07/02/2024 (Exact Date), Having periods Age at Menarche: Age at First : Age at Menopause: Manager Environmental Affairs History Comments: Sexual Activity: Yes; Male Contraception: Condom PAST MEDICAL HISTORY Diagnosis Date Allergic rhinitis, cause unspecified Allergic rhinitis COVID-19 11/28/2020 History of depression situational Infertility, female Migraine, unspecified, with intractable migraine, so stated, without mention of status migrainosus Migraine Mononucleosis 03/01/1996 Other acne Rh negative status during (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 PAST SURGICAL HISTORY Procedure Laterality Date COLONOSCOPY SCREENING 2023 EYE SURGERY HX TONSILLECTOMY PRIMARY/SECONDARY AGE 11/> FAMILY HISTORY Problem Relation Age of Onset Heart Mother Hypertension Maternal Grandmother Osteoporosis Maternal Grandmother Cancer Paternal Grandmother Lung and Bone Heart Paternal Grandfather Hypertension Paternal Grandfather Cancer Sister Lung (Non-smoker) Social History Tobacco Use Smoking status: Never Smokeless tobacco: Never Vaping Use Vaping status: Never Used Substance Use Topics Alcohol use: Not Currently Drug use: Never Current Outpatient Medications Medication Sig SUMAtriptan (IMITREX) 50 mg tablet as needed. AIPOGPLS-SUFE-QJVNB-OREG-CAPRY ORAL Take by mouth. QUERCETIN ORAL Take by mouth. ergocalciferol, vitamin D2, (VITAMIN D2 ORAL) Take by mouth once daily. triamcinolone acetonide (NASACORT NASAL) Use in the nose once daily. vitamin B complex (B COMPLEX ORAL) Take 1 tablet by mouth once daily. MAGNESIUM ORAL Take 500 mg by mouth once daily. fexofenadine HCl (CRISTIANE ORAL) Take 1 tablet by mouth once daily. CALCIUM CARBONATE/VITAMIN D3 (CALCIUM + D ORAL) Take 1 tablet by mouth twice daily. metFORMIN ER (GLUCOPHAGE XR) 500 mg 24 hr tablet Take 1 tablet by mouth daily with dinner. No current facility-administered medications for this visit. Allergies As of Date: 07/21/2024 (No Known Allergies) Fully Assessed 07/21/2024 REVIEW OF SYSTEMS Expanded ROS: NECK CUTTER: Negative for abnormal vaginal bleeding + itching Allergies and current medication updated:Yes SENSITIVE EXAM: The sensitive examination was discussed with the Patient or Patient's Authorized Snake Charmer. As applicable, any other physician, advance practice provider, medical student, or other health professional student that will be observing or involved in the sensitive examination for educational or training purposes was discussed with the Patient or Authorized Snake Charmer. The Patient or Authorized Snake Charmer has agreed to proceed with the sensitive examination. (Sensitive examination includes inspection and/or palpation of the breasts, pelvis, prostate and anorectal regions). EXAM: BP 118/76 Wt 146 lb (66.2kg) LMP 07/02/2024 GENERAL: pleasant, female in no apparent distress HEENT: Normocephalic, atraumatic, mucus membranes moist, and no lesions CHEST: Normal inspiratory effort PELVIC: external genitalia normal, normal Bartholin's glands, urethra, [place]'s glands, no vulvar lesions, no cervical lesions, good vaginal support, physiologic discharge present, normal appearing perineal body and perianal region + hemorrhoid noted BIMANUAL: uterus normal size, shape and consistency, no adnexal masses, and non-tender NEURO: alert and oriented x3,exam grossly non-focal EXTREMITIES: normal ASSESSMENT AND PLAN: 1. Vaginal itching - ICD9: 698.1, ICD10: N89.8 (primary diagnosis) 2. Vaginal discharge - ICD9: 623.5, ICD10: N89.8 - Itching could be related to hemorrhoid - Cultures obtained to rule out vaginal infection 3. PCOS (polycystic ovarian syndrome) - ICD9: 256.4, ICD10: E28.2 - Discussed increased risk of insulin resistance - Recommend continuing Metformin. Can decrease to 500 mg to help (more content not included)... [facility] 05[facility]08[facility]24 Evaluation note Diagnosis Onset Date Resolution Emotional stress acute May 082024 10:40am Encounter for wellness examination in adult acute May 08, 2024 10:40am History of hypothyroidism acute May 08, 2024 10:40am Vitamin D deficiency acute 2024 10:40[facility] Work Phone: 1(261) 554-556602-13-2025 NoteHNO ID: [id number] Author: ABENA NJ MD Service: ? Author Type: Physician Type: Progress Notes Filed: 04/13/2024 14:26 Note Text: QUYNH is a 48 year old who presents for an annual gynecologic exam. She has perimenopause questions. Menses: cycles every 25-28 days and 5-7 days of flow Menstrual flow: Moderate Contraception: Condom Contraception frequency: Always HPV vaccine: No HPV:negative Last pap smear: [id number] History of abnormal pap: No Last mammogram: 2024normal OB History Gravida3 Para2 Term2 Preterm0 AB1 Living2 SAB1 IAB0 Ectopic0 Multiple0 Live Births2 Manager Environmental Affairs History LMP: 03/19/2024 (Exact Date), Having periods Age at Menarche: Age at First : Age at Menopause: Manager Environmental Affairs History Comments: Sexual Activity: Yes; Male Contraception: Condom PAST MEDICAL HISTORY Diagnosis Date Allergic rhinitis, cause unspecified Allergic rhinitis COVID-19 11/28/2020 History of depression situational Infertility, female Migraine, unspecified, with intractable migraine, so stated, without mention of status migrainosus Migraine Mononucleosis 03/01/1996 Other acne Rh negative status during 08/10/2013 Scoliosis mild scoliosis Thyroid disease ON MEDS FROM TOUCH UP PAINTER PAST SURGICAL HISTORY Procedure Laterality Date COLONOSCOPY SCREENING 2023 EYE SURGERY HX TONSILLECTOMY PRIMARY/SECONDARY AGE 11/> FAMILY HISTORY Problem Relation Age of Onset Heart Mother Hypertension Maternal Grandmother Osteoporosis Maternal Grandmother Cancer Paternal Grandmother Lung and Bone Heart Paternal Grandfather Hypertension Paternal Grandfather Cancer Sister Lung (Non-smoker) SOCIAL HISTORY Social History Tobacco Use Smoking status: Never Smokeless tobacco: Never Vaping Use Vaping status: Never Used Substance Use Topics Alcohol use: Not Currently Drug use: Never REVIEW OF SYSTEMS Abdomen: No abdominal pain, nausea, vomiting, diarrhea, or constipation. No bloating, early satiety, indigestion, or increased flatulence. Bladder: No dysuria, gross hematuria, urinary frequency, urinary urgency. positive MARLINE. Breast: No breast lumps, nipple d/c, overlying skin changes, redness or skin retraction. Allergies and current medication updated:Yes SENSITIVE EXAM: The sensitive examination was discussed with the Patient or Patient's Authorized Snake Charmer. As applicable, any other physician, advance practice provider, medical student, or other health professional student that will be observing or involved in the sensitive examination for educational or training purposes was discussed with the Patient or Authorized Snake Charmer. The Patient or Authorized Snake Charmer has agreed to proceed with the sensitive examination. (Sensitive examination includes inspection and/or palpation of the breasts, pelvis, prostate and anorectal regions). EXAM: BP 108/72 Ht 5' 4 (1.63m) Wt 145 lb (65.8kg) LMP 03/19/2024 BMI 24.88 kg/(m2). GENERAL: pleasant, female in no apparent distress BREAST: soft, non-tender, symmetric, no dominant mass, normal nipple-areolar complex, no lymphadenopathy, and no nipple discharge CHEST: Normal inspiratory effort ABDOMEN: soft, non-tender, and no masses PELVIC: external genitalia normal, normal Bartholin's glands, urethra, [place]'s glands, no vulvar lesions, no cervical lesions, good vaginal support, physiologic discharge present, normal appearing perineal body and perianal region BIMANUAL: uterus normal size, shape and consistency, no adnexal masses, and non-tender RECTOVAGINAL: deferred. NEURO: alert and oriented x3,exam grossly non-focal EXTREMITIES: normal ASSESSMENT/PLAN: 1) Health maintenance: Pap/HPV up to date. Mammogram up to date . Nutrition, exercise and routine health maintenance exams reviewed. Colon cancer screening: up to date with screening 2) Contraception: condoms. Contraceptive options reviewed and information provided. 3) Follow up one year or sooner as needed 4) Perimenopause - all questions answered Abena Nj [facility]02-13-2025 History of Present illness Narrative* Abena Nj MD - 04/13/2024 1:30 PM EST QUYNH is a 48 year old who presents for an annual gynecologic exam. She has perimenopause questions. Menses: cycles every 25-28 days and 5-7 days of flow Menstrual flow: Moderate Contraception: Condom Contraception frequency: Always HPV vaccine: No HPV:negative Last pap smear: [id number] History of abnormal pap: No Last mammogram: 2024normal OB History Gravida3 Para2 Term2 Preterm0 AB1 Living2 SAB1 IAB0 Ectopic0 Multiple0 Live Births2 Manager Environmental Affairs History LMP: 03/19/2024 (Exact Date), Having periods Age at Menarche: Age at First : Age at Menopause: Manager Environmental Affairs History Comments: Sexual Activity: Yes; Male Contraception: Condom PAST MEDICAL HISTORY Diagnosis Date Allergic rhinitis, cause unspecified Allergic rhinitis COVID-19 11/28/2020 History of depression situational Infertility, female Migraine, unspecified, with intractable migraine, so stated, without mention of status migrainosus Migraine Mononucleosis 03/01/1996 Other acne Rh negative status during 08/10/2013 Scoliosis mild scoliosis Thyroid disease ON MEDS FROM TOUCH UP PAINTER PAST SURGICAL HISTORY Procedure Laterality Date COLONOSCOPY SCREENING 2023 EYE SURGERY HX TONSILLECTOMY PRIMARY/SECONDARY AGE 11/> FAMILY HISTORY Problem Relation Age of Onset Heart Mother Hypertension Maternal Grandmother Osteoporosis Maternal Grandmother Cancer Paternal Grandmother Lung and Bone Heart Paternal Grandfather Hypertension Paternal Grandfather Cancer Sister Lung (Non-smoker) SOCIAL HISTORY Social History Tobacco Use Smoking status: Never Smokeless tobacco: Never Vaping Use Vaping status: Never Used Substance Use Topics Alcohol use: Not Currently Drug use: Never REVIEW OF SYSTEMS Abdomen: No abdominal pain, nausea, vomiting, diarrhea, or constipation. No bloating, early satiety, indigestion, or increased flatulence. Bladder: No dysuria, gross hematuria, urinary frequency, urinary urgency. positive MARLINE. Breast: No breast lumps, nipple d/c, overlying skin changes, redness or skin retraction. Allergies and current medication updated:Yes SENSITIVE EXAM: The sensitive examination was discussed with the Patient or Patient's Authorized Snake Charmer. As applicable, any other physician, advance practice provider, medical student, or other health professional student that will be observing or involved in the sensitive examination for educational or training purposes was discussed with the Patient or Authorized Snake Charmer. The Patient or Authorized Snake Charmer has agreed to proceed with the sensitive examination. (Sensitive examination includes inspection and/or palpation of the breasts, pelvis, prostate and anorectal regions). EXAM: BP 108/72 Ht 5' 4 (1.63m) Wt 145 lb (65.8kg) LMP 03/19/2024 BMI 24.88 kg/(m^2). GENERAL: pleasant, female in no apparent distress BREAST: soft, non-tender, symmetric, no dominant mass, normal nipple-areolar complex, no lymphadenopathy, and no nipple discharge CHEST: Normal inspiratory effort ABDOMEN: soft, non-tender, and no masses PELVIC: external genitalia normal, normal Bartholin's glands, urethra, [place]'s glands, no vulvar lesions, no cervical lesions, good vaginal support, physiologic discharge present, normal appearing perineal body and perianal region BIMANUAL: uterus normal size, shape and consistency, no adnexal masses, and non-tender RECTOVAGINAL: deferred. NEURO: alert and oriented x3,exam grossly non-focal EXTREMITIES: normal ASSESSMENT/PLAN: 1) Health maintenance: Pap/HPV up to date. Mammogram up to date . Nutrition, exercise and routine health maintenance exams reviewed. Colon cancer screening: up to date with screening 2) Contraception: condoms. Contraceptive options reviewed and information provided. 3) Follow up one year or sooner as needed 4) Perimenopause - all questions answered Abena Nj [facility] NoteHNO ID: [id number] Author: NASH SHAH PT Service: ? 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 Equipment Owned: none DME Delivery: Pt was educated on wear schedule and care of custom foot orthotics. Pt was educated on the option of having orthotics refurbished as needed in the future as long as shell is performing it's intended function well. Pt was educated on approximate cost of refurbishing orthotics and an approximate time frame when this might be necessary. Pt was urged to follow the wear schedule and to call with any questions or concerns. 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 Pt was educated on how to remove insoles from shoes and then place orthotics in shoes. The fit of orthotics was assessed with pt standing, with and without shoes. The comfort of orthotics was assessed with pt standing and walking with orthotics in shoes. Pt denied any rubbing or pinching and felt that fit of custom orthotics was correct. Contact information for this therapist was provided to patient. Pt had lots of questions about the intended function of orthotics, reasonable expectations, break-in schedule and footwear in her house. Therapist answered all of her questions to her satisfaction. Custom biomechanical foot orthotics with serial number: #[id number] were issued to patient and proof of receipt form signed by pt and therapist. All specifications for custom foot orthotics can be found in orthotic evaluation visit note. Planned Interventions: Follow up as needed for brace fitting/issues. 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 Equipment Owned: none DME Delivery: Pt was educated on wear schedule and care of custom foot orthotics. Pt was educated on the option of having orthotics refurbished as needed in the future as long as shell is performing it's intended function well. Pt was educated on approximate cost of refurbishing orthotics and an approximate timeframe when this might be necessary. Pt was urged to follow the wear schedule and to call with any questions or concerns. 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 Pt was educated on how toremove insoles from shoes and then place orthotics in shoes. The fit of orthotics was assessed with pt standing, with and without shoes. The comfort of orthotics was assessed with pt standing and walking with orthotics in shoes. Pt denied any rubbing or pinching and felt that fit of custom orthotics was correct. Contact information for this therapist was provided to patient. Pt had lots of questions about the intended function of orthotics, reasonable expectations, break-in schedule and footwear in her house. Therapist answered all of her questions to her satisfaction. Custom biomechanical foot orthotics with serial number: #[id number] were issued to patient and proof of receipt form signed by pt and therapist. All specifications for custom foot orthotics can be foundin orthotic evaluation visit note. Planned Interventions: Follow up as needed for brace fitting/issues. Billing:[facility]: Orthotics Management and Training ([id number]): 1:1 time: 30 minutes (2 units:23-37 mins) Equipment: [id number] x2 pair of custom foot orthotics Total time: 30 minutes Nash Shah PT [facility] NoteHNO ID: [id number] Author: NASH SHAH PT Service: ? Author Type: Physical Therapist Type: Progress Notes Filed: 03/16/2024 14:53 Note Text: Episode Visit Count: 1 Therapist That Will Accept/Oversee The Plan Of Care: Nash Shah PT Start of Care Date: 03/16/24 Onset Date: 03/16/21 Patient Identified by Name and Date of : Yes REHABILITATION AND SPORTS THERAPY PHYSICAL THERAPY EVALUATION PLAN OF CARE: Assessment: Bianca Spring presents with chief complaint of pain in area of R great toe and 1st MTP that interferes with running, walking, jumping . The patient presents with impairments in ADL's, independence in exercise, overall function, symptom management, and tissue tenderness. PROMIS? (Patient-Reported Outcomes Measurement Information System) scores were reviewed and identified as within normal limits. Prognosis for therapy is Excellent due to: current objective clinical presentation, within-session changes, good overall health status, acuteness of condition, good support system/ coping skills. The patient will benefit from skilled therapy services to meet the goals established for this plan of care as noted below. Goals for Episode of Care: established 03/16/24 Pt will be educated on proper wear schedule and care of custom biomechanical foot orthotics Pt will be provided with custom biomechanical B foot orthotics that improve foot and ankle biomechanics as intended with proper fit and function. 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 The above goals and plan of care were discussed and agreed upon by patient/family. SUBJECTIVE: Pt reports intermittent pain in R great toe region of R foot that is aggravated by exercise and increased activity level. She reports that surgery was being considered for her bunions but custom orthotics were recommended as a more conservative option. She has never had custom orthotics. She reports that pain resolved with rest but she really wants to resume exercise. She is not currently having pain because she stopped exercising and has only exercised 1x since stopping. Exercise was previously a consistent trigger. Patient Goals: decrease pain and resume exercise Functional Limitations: running, walking, jumping Prior Level of Function: Independent without limitations Relevant History Recreation / Current Exercise: cardio Intake Information: Prescription present Previous Treatment: None Pain: Pain Pain Level: 5 Pain Location: Foot - Right, Toe - Right Description: Aching, Throbbing Frequency: Intermittent, Standing, Walking Post Treatment Pain Post Treatment Pain Level: No Change PROMIS Scales 03/16/2024 10/22/2023 Higher is Better Phys Func - T Score 46 (within normal limits) 49 (within normal limits) Phys Func - Percentile 34 46 Self-Eff Symptom - T Score 50 (Average) Self-Eff Symptom - Percentile 50 T-scores: mean of general population = 50. 5 points is clinically meaningfully difference Percentiles provide an indication of how the patient's score ranks in relation to the general population. Higher percentile rankings indicate better function/quality of life. 50th percentile is the average of the general population and indicates half of respondents had a worse score. OBJECTIVE MEASURES WITH LEVEL OF FUNCTION: Gait Gait Observation: normal Plantar Callus Pattern: Right:medial aspect of great toe and plantar surface of 2nd met head Left:none Supine: ROM: Ankle Dorsiflexion: Right: AROM:WNL Ankle Dorsiflexion: Left: AROM WNL Calcaneal eversion: Right: WNL Left: WNL Hallux dorsiflexion: Open chain right: >60 left: >60 Alignment: Rest: Medial arch appearance: Right: Average Left:Average Equinus: Right:forefoot Left:forefoot Prone Subtalar Neutral Alignment: Right: Rearfoot:0 degrees Forefoot:7 degrees varus Left: Rearfoot:0 degrees Forefoot:4 degrees varus First Ray Position: Right: pf Left: pf First Ray Mobility: Right: flexibile Left:flexibile WEIGHT BEARING: Alignment: Rest: Medial arch appearance: Right: Low Left Low Calcaneal stance position: Right: everted Left everted Knee position: Right: Straight Left Straight Subtalar Neutral: Medial arch appearance: Right Average Left:Average Calcaneal stance position: Right: everted Left: inverted Forefoot position: Right: flat on ground Left: off ground Knee position: Right: straight Left straight Mo (more content not included)...[facility] History of Present illness Narrative* Nash Shah, PT - 03/16/2024 12:17 PM EST Episode Visit Count: 1 Therapist That Will Accept/Oversee The Plan Of Care: Nash Shah PT Start of Care Date: 03/16/24 Onset Date: 03/16/21 Patient Identified by Name and Date of : Yes REHABILITATION AND SPORTS THERAPY PHYSICAL THERAPY EVALUATION PLAN OF CARE: Assessment: Bianca Spring presents with chief complaint of pain in area of R great toe and 1st MTP that interferes with running, walking, jumping . The patient presents with impairments in ADL's, independence in exercise, overall function, symptom management, and tissue tenderness. PROMIS (Patient-Reported Outcomes Measurement Information System) scores were reviewed and identified as within normal limits. Prognosis for therapy is Excellent due to: current objective clinical presentation, within-session changes, good overall health status, acuteness of condition, good support system/ [place]. The patient will benefit from skilled therapy services to meet the goals established for thi s plan of care as noted below. Goals for Episode of Care: established 03/16/24 Pt will be educated on proper wear schedule and care of custom biomechanical foot orthotics Pt will be provided with custom biomechanical B foot orthotics that improve foot and ankle biomechanics as intended with proper fit and function. 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 The above goals and plan of care were discussed and agreed upon by patient/family. SUBJECTIVE: Pt reports intermittent pain in R great toe region of R foot that is aggravated by exercise and increased activity level. She reports that surgery was being considered for her bunions but custom orthotics were recommended as a more conservative option. She has never had custom orthotics. She reports that pain resolved with rest but she really wants to resume exercise. She is not currently having pain because she stopped exercising and has only exercised 1x since stopping. Exercise was previously a consistent trigger. Patient Goals: decrease pain and resume exercise Functional Limitations: running, walking, jumping Prior Level of Function: Independent without limitations Relevant History Recreation / Current Exercise: cardio Intake Information: Prescription present Previous Treatment: None Pain: Pain Pain Level: 5 Pain Location: Foot - Right, Toe - Right Description: Aching, Throbbing Frequency: Intermittent, Standing, Walking Post Treatment Pain Post Treatment Pain Level: No Change PROMIS Scales 03/16/2024 10/22/2023 Higher is Better Phys Func - T Score 46 (within normal limits) 49 (within normal limits) Phys Func - Percentile 34 46 Self-Eff Symptom - T Score 50 (Average) Self-Eff Symptom - Percentile 50 T-scores: mean of general population = 50. 5 points is clinically meaningfully difference Percentiles provide an indication of how the patient's score ranks in relation to the general population. Higher percentile rankings indicate better function/quality of life. 50th percentile is the average of the general population and indicates half of respondents had a worse score. OBJECTIVE MEASURES WITH LEVEL OF FUNCTION: Gait Gait Observation: normal Plantar Callus Pattern: Right:medial aspect of great toe and plantar surface of 2nd met head Left:none Supine: ROM: Ankle Dorsiflexion: Right: AROM:WNL Ankle Dorsiflexion: Left: AROM WNL Calcaneal eversion: Right: WNL Left: WNL Hallux dorsiflexion: Open chain right: >60 left: >60 Alignment: Rest: Medial arch appearance: Right: Average Left:Average Equinus: Right:forefoot Left:forefoot Prone Subtalar Neutral Alignment: Right: Rearfoot:0 degrees Forefoot:7 degrees varus Left: Rearfoot:0 degrees Forefoot:4 degrees varus First Ray Position: Right: pf Left: pf First Ray Mobility: Right: flexibile Left:flexibile WEIGHT BEARING: Alignment: Rest: Medial arch appearance: Right: Low Left Low Calcaneal stance position: Right: everted Left everted Knee position: Right: Straight Left Straight Subtalar Neutral: Medial arch appearance: Right Average Left:Average Calcaneal stance position: Right: everted Left: inverted Forefoot position: Right: flat on ground Left: off ground Knee position: Right: straight Left straight Mobility: Hallux dorsiflexion Closed chain: Right: none Left >9 Midtarsal Mobility: (navicular drop) Right: norm 6-8mm Left:norm 6-8mm Rearfoot excursion: Right:4-6 norm Left: 4-6 norm FUNCTIONAL EVALUATION: Balance(SL): ability/quality Right: increased pronation and unsteady Left: increased pronation and unsteady Balance Excursion Test: *Right: SL Balance did not change with wedge testing *Left: SL Balance was Improved performance with: 2 degree forefoot 0 degree rearfoot wedges Gait Assessment: Walking: WNL Running: Not tested Orthotic Design Request Shoe size: 8. Weight: 142 pounds. Plate Type: Functional Orthotic (shell): Sport Performance RX / Engineered Nylon: RX-A Shell Rigidity: Semi-Flexible Plate Specifications: Heel Cup Depth Standard - 12mm, Shell Width Standard Posting: No Posting Additions: none Padding: Type: Soft Thickness:1/8 Padding Length:heels to toes Accommodations: Cut Out: Right 2nd met head 1/8 and Johnson's Extension: Right - firm and Left - soft 1/8 bilaterally Top Covers: Material: Leatherette - Smoke Cassidy Length:to toes Classification of foot type: Compensated forefoot varus and Forefoot equinus Education: Education Learning Preferences: Demonstration, Explanation, Performance, Printed Materials Barriers: None Learning/educational needs: Procedure / Surgery, Lifestyle changes, Brace Fit, Body Mechanics, Planof Care Education Provided: Yes, see treatment interventions for education provided Education Provided To: Patient Education Mode/Type: Demonstration, Explanation/Discussion, Literature/Printed Materials, Performance Response to Education/Teach Back: States/Identifies, Requires Review/Additional Education TREATMENT: PT Treatment Interventions: Orthotic Mgmt/Train (Initial) Evaluation Orthotics Management and Training: A thorough and complete biomechanical assessment completed and all results explained to pt in detail. Pt. was educated on the anatomy of affected area, possible source of symptoms and rationale for proposed treatment plan. A variety of different sized wedges were used as trials for posting at both forefoot and rearfoot. Pt ability with single leg stance and single leg squats was tested without wedges and compared to each trial with different size wedges. Once stability was achieved and biomechanics improved, wedge size recorded for future posting prescription. With patient prone, subtalar neutral position digital scans were made of bilateral feet. These scans and and all supporting documentation was prepared for shipment to lab so that custom foot orthotics can be fabricated. Pt was educated on proper fitting shoes to be used with custom foot orthotics. R ecommendations were made on brands of shoes that are well constructed and provide appropriate support. Pt was advised to select neutral shoes to pair with the custom foot orthotics despite patient's foot structure. Pt was also given recommendations on supportive sandals and where these can be purchased. Pt was educated on the process that we will follow once custom orthotics arrive in this department and all of the patient's questions were answered. Skilled Intervention: Clinical knowledge and skills required for custom orthotic fabrication and wearing schedule Patient/Family/Caregiver Education: Precautions, purpose and use of orthosis Wearing schedule explained in detail. Discussed management of any symptoms related to wearing the orthosis Billing * Evaluation Moderate Complexity: 1 Unit Orthotic Mgmt/Train (Initial) Treatment Minutes: 35 Skilled Treatment Time Minutes (timed and untimed codes): 65 Total Session Time (minutes): 85 Session Start Time : 1135 Session Stop Time : 1300 Nash Shah PT [facility] History of Present illness Narrative* Donald Sauer Mammo Tech - 03/14/2024 9:00 AM EST Radiology Service Progress Note PATIENT NAME: Bianca Spring DATE OF SERVICE: March 14, 2024 TIME: 10:06 AM PATIENT IDENTITY VERIFICATION COMPLETED USING TWO (2) IDENTIFIERS: Name and Date of confirmedby patient verbally. FALL SCREENING: Has the patient had 2 falls in the last year or 1 fall with injury or currently using an Ambulatory Assistive Device (Walker, Cane, Wheelchair, Crutches, etc.)? No PATIENT GENDER DATA: Assigned female at . status: : No status:NO. PATIENT RELEVANT IMPLANT DATA REVIEWED: Not Applicable PATIENT PRESENTS WITH AN IMPLANTABLE OR ATTACHED JAILER: No RADIOLOGY DEPARTMENT: Mammography PERIPHERAL IV DATA: Not applicable SIGNED BY: Harlan Paul March 14, 2024 10:06 AM documented in [facility]25 NoteHNO ID: [id number] Author: DONALD SAUER Mammo Tech Service: ? Author Type: Kettle Cook Type: Progress Notes Filed: 03/14/2024 10:07 Note Text: Radiology Service Progress Note PATIENT NAME: Bianca Spring DATE OF SERVICE: March 14, 2024 TIME: 10:06 AM PATIENT IDENTITY VERIFICATION COMPLETED USING TWO (2) IDENTIFIERS: Name and Date of confirmed by patient verbally. FALL SCREENING: Has the patient had 2 falls in the last year or 1 fall with injury or currently using an Ambulatory Assistive Device (Walker, Cane, Wheelchair, Crutches, etc.)? No PATIENT GENDER DATA: Assigned female at . status: : No status: NO. PATIENT RELEVANT IMPLANT DATA REVIEWED: Not Applicable PATIENT PRESENTS WITH AN IMPLANTABLE OR ATTACHED JAILER: No RADIOLOGY DEPARTMENT: Mammography PERIPHERAL IV DATA: Not applicable SIGNED BY: Harlan Paul March 14, 2024 10:06 [facility]12-02-2024 Telephone encounter Note* Telephone Encounter - Farzana Harley RN - 01/31/2024 12:31 PM EST Pt called stating was last seen 01/06/24 & Metformin dose was to be increased and pharmacy has not received Rx. Please fax to [facility] in [place]. Farzana Harley RN [facility]12-02-2024 Miscellaneous Notes* Telephone Encounter - Farzana Harley RN - 01/31/2024 12:31 PM EST Pt called stating was last seen 01/06/24 & Metformin dose was to be increased and pharmacy has not received Rx. Please fax to [facility] in [place]. Farzana Harley RN documented [facility]11-07-[facility]24 Instructions* Patient Instructions* Malou Gastelum APRN.CNP - 01/06/2024 2:43 PM EST Fibrocystic breast change is a common benign condition that can affect premenopausal women, resulting in lumpy breast tissue caused by hormonal fluctuations. This can result in pain that occurs constantly or cyclically with your period. Caffeine (pop, coffee, tea, chocolate) and alcohol use are risk factors that may contribute to fibrocystic breast changes. Ibuprofen or Tylenol can be used to help with the pain. Wear a well fitting supportive bra. Contact your provider with any concern for breast changes and always have a good self breast awareness. documented in [facility]Gre[facility]11-[facility]-2024 NoteHNO ID: [id number] Author: MALOU GASTELUM APRN.CNP Service: ? Author Type: Nurse Practitioner Type: Progress Notes Filed: 01/06/2024 14:46 Note Text: Nursing Program Coordinator offered: Patient declines. Bianca Spring is a 48 year old female who presents for a follow up of Metformin use. HPI: Bianca is here to follow up on Metformin. She has a history of PCOS. Reported last visit some irregularity with her cycles and mood changes before periods. Also noted decreased energy and increased weight to midsection. Reports her periods have been regular the past few cycles. She does get headaches with periods. FSH 8.3, estradiol 82. Due to PCOS and weight concerns of Quynh, Metformin was started. She reports her main side effect is flatulence, but tolerable. She also notes increased energy. She would like to stay on the Metformin. CMP showed 18 BUN, 0.61 creatinine, 110 GFR. Vitamin B12 724. She also notes a lump to right right breast that showed up a couple of nights ago. It was tender at the time, but has improved now. OB History T2 L2 SAB1 IAB0 Ectopic0 Multiple0 Live Births2 Manager Environmental Affairs History LMP: 01/05/2024 (Exact Date), Having periods Age at Menarche: Age at First : Age at Menopause: Manager Environmental Affairs History Comments: Sexual Activity: Yes; Male Contraception: Condom PAST MEDICAL HISTORY Diagnosis Date Allergic rhinitis, cause unspecified Allergic rhinitis COVID-19 11/28/2020 History of depression situational Infertility, female Migraine, unspecified, with intractable migraine, so stated, without mention of status migrainosus Migraine Mononucleosis 03/01/1996 Other acne Rh negative status during 08/10/2013 Scoliosis mild scoliosis Thyroid disease ON MEDS FROM TOUCH UP 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 PAST SURGICAL HISTORY Procedure Laterality Date EYE SURGERY HX TONSILLECTOMY PRIMARY/SECONDARY AGE 11/> FAMILY HISTORY Problem Relation Age of Onset Heart Mother Hypertension Maternal Grandmother Osteoporosis Maternal Grandmother Cancer Paternal Grandmother Lung and Bone Heart Paternal Grandfather Hypertension Paternal Grandfather Cancer Sister Lung (Non-smoker) Social History Tobacco Use Smoking status: Never Smokeless tobacco: Never Vaping Use Vaping status: Never Used Substance Use Topics Alcohol use: Not Currently Drug use: Never Current Outpatient Medications Medication Sig metFORMIN (GLUCOPHAGE) 500 mg tablet Take 1 tablet by mouth daily with dinner. ergocalciferol, vitamin D2, (VITAMIN D2 ORAL) Take by mouth once daily. triamcinolone acetonide (NASACORT NASAL) Use in the nose once daily. ergotamine-caffeine (CAFERGOT) 1-100 mg per tablet Take 1 tablet by mouth as directed. Two tablets at onset of attack; then 1 tablet every 30 minutes as needed; maximum: 6 tablets per attack; do not exceed 10 tablets/week vitamin B complex (B COMPLEX ORAL) Take 1 tablet by mouth once daily. MAGNESIUM ORAL Take 500 mg by mouth once daily. fexofenadine HCl (CRISTIANE ORAL) Take 1 tablet by mouth once daily. CALCIUM CARBONATE/VITAMIN D3 (CALCIUM + D ORAL) Take 1 tablet by mouth twice daily. No current facility-administered medications for this visit. Allergies As of Date: 01/06/2024 (No Known Allergies) Fully Assessed 01/06/2024 REVIEW OF SYSTEMS Abdomen: No bloating, early satiety, indigestion. No abdominal pain, nausea, vomiting, diarrhea, or constipation. + flatulence Allergies and current medication updated:Yes SENSITIVE EXAM: The sensitive examination was discussed with the Patient or Patient's Authorized Snake Charmer. As applicable, any other physician, advance practice provider, medical student, or other health professional student that will be observing or involved in the sensitive examination for educational or training purposes was discussed with the Patient or Authorized Snake Charmer. The Patient or Authorized Snake Charmer has agreed to proceed with the sensitive examination. (Sensitive examination includes inspection and/or palpation of the breasts, pelvis, prostate and anorectal regions). EXAM: BP 120/76 Wt 144 lb (65.3kg) LMP 01/05/2024 GENERAL: pleasant, female in no apparent distress HEENT: Normocephalic, atraumatic, mucus membranes moist, and no lesions DERMATOLOGY: Normal, without lesions, non-icteric, and non-hirsute BREAST: soft, non-tender, symmetric, no dominant mass, normal nipple-areolar complex, no lymphadenopathy, and no nipple discharge + fibrocystic change to mid inner quadrant of right breast CHEST: Normal inspiratory effort NEURO: alert and oriented x3,exam grossly non-focal EXTREMITIES: normal ASSESSMENT AND PLAN: 1. Mass of lower inner quadrant of right breast - ICD9: 611.72, ICD10: N63.14 (primary diagnosis) - Palpates as fibrocystic but will obtain imaging - [facility] - US BREAST LTD RIGHT 2. History of PCOS - ICD9: V13.29, ICD10: Z87.42 (more content not included)... [facility] History of Present illness Narrative* Malou Gasteulm, YAYA.OFFICE RENTAL CLERK - 01/06/2024 1:40 PM EST Nursing Program Coordinator offered: Patient declines. Bianca Spring is a 48 year old female who presents for a follow up of Metformin use. HPI: Bianca is here to follow up on Metformin. She has a history of PCOS. Reported last visit some irregularity with her cycles and mood changes before periods. Also noted decreased energy and increased weight to midsection. Reports her periods have been regular the past few cycles. She does get headaches with periods. FSH 8.3, estradiol 82. Due to PCOS and weight concerns of Quynh, Metformin was started. She reports her main side effect isflatulence, but tolerable. She also notes increased energy. She would like to stay on the Metformin. CMP showed 18 BUN, 0.61 creatinine, 110 GFR. Vitamin B12 724. She also notes a lump to right right breast that showed up a couple of nights ago. It was tender atthe time, but has improved now. OB History T2 L2 SAB1 IAB0 Ectopic0 Multiple0 Live Births2 Manager Environmental Affairs History LMP: 01/05/2024 (Exact Date), Having periods Age at Menarche: Age at First : Age at Menopause: Manager Environmental Affairs History Comments: Sexual Activity: Yes; Male Contraception: Condom PAST MEDICAL HISTORY Diagnosis Date Allergic rhinitis, cause unspecified Allergic rhinitis COVID-19 11/28/2020 History of depression situational Infertility, female Migraine, unspecified, with intractable migraine, so stated, without mention of status migrainosus Migraine Mononucleosis 03/01/1996 Other acne Rh negative status during 08/10/2013 Scoliosis mild scoliosis Thyroid disease ON MEDS FROM TOUCH UP PAINTER PAST SURGICAL HISTORY Procedure Laterality Date EYE SURGERY HX TONSILLECTOMY PRIMARY/SECONDARY AGE 11/> FAMILY HISTORY Problem Relation Age of Onset Heart Mother Hypertension Maternal Grandmother Osteoporosis Maternal Grandmother Cancer Paternal Grandmother Lung and Bone Heart Paternal Grandfather Hypertension Paternal Grandfather Cancer Sister Lung (Non-smoker) Social History Tobacco Use Smoking status: Never Smokeless tobacco: Never Vaping Use Vaping status: Never Used Substance Use Topics Alcohol use: Not Currently Drug use: Never Current Outpatient Medications Medication Sig metFORMIN (GLUCOPHAGE) 500 mg tablet Take 1 tablet by mouth daily with dinner. ergocalciferol, vitamin D2, (VITAMIN D2 ORAL) Take by mouth once daily. triamcinolone acetonide (NASACORT NASAL) Use in the nose once daily. ergotamine-caffeine (CAFERGOT) 1-100 mg per tablet Take 1 tablet by mouth as directed. Two tablets at onset of attack; then 1 tablet every 30 minutes as needed; maximum: 6 tablets per attack; do not exceed 10 tablets/week vitamin B complex (B COMPLEX ORAL) Take 1 tablet by mouth once daily. MAGNESIUM ORAL Take 500 mg by mouth once daily. fexofenadine HCl (CRISTIANE ORAL) Take 1 tablet by mouth once daily. CALCIUM CARBONATE/VITAMIN D3 (CALCIUM + D ORAL) Take 1 tablet by mouth twice daily. No current facility-administered medications for this visit. Allergies As of Date: 01/06/2024 (No Known Allergies) Fully Assessed 01/06/2024 REVIEW OF SYSTEMS Abdomen: No bloating, early satiety, indigestion. No abdominal pain, nausea, vomiting, diarrhea, orconstipation. + flatulence Allergies and current medication updated:Yes SENSITIVE EXAM: The sensitive examination was discussed with the Patient or Patient's Authorized Snake Charmer. As applicable, any other physician, advance practice provider, medical student, or other health professional student that will be observing or involved in the sensitive examination for educational or training purposes was discussed with the Patient or Authorized Snake Charmer. The Patient or Authorized Snake Charmer has agreed to proceed with the sensitive examination. (Sensitive examination includes inspection and/or palpation of the breasts, pelvis, prostate and anorectal regions). EXAM: BP 120/76 Wt 144 lb (65.3kg) LMP 01/05/2024 GENERAL: pleasant, female in no apparent distress HEENT: Normocephalic, atraumatic, mucus membranes moist, and no lesions DERMATOLOGY: Normal, without lesions, non-icteric, and non-hirsute BREAST: soft, non-tender, symmetric, no dominant mass, normal nipple-areolar complex, no lymphadenopathy, and no nipple discharge + fibrocystic change to mid inner quadrant of right breast CHEST: Normal inspiratory effort NEURO: alert and oriented x3,exam grossly non-focal EXTREMITIES: normal ASSESSMENT AND PLAN: 1. Mass of lower inner quadrant of right breast - ICD9: 611.72, ICD10: N63.14 (primary diagnosis) - Palpates as fibrocystic but will obtain imaging - [facility] - US BREAST LTD RIGHT 2. History of PCOS - ICD9: V13.29, ICD10: Z87.42 - Would like to increase Metformin to 1000 mg nightly - Recommend checking Vitamin B12 and kidney function yearly - Cycles have been regular - Discussed hormonal control to control headaches and keep cycles regular - declines RTO for annual. Malou Gastelum APRN.CNP Medical Decision Making: Problems: Low: Stable chronic illness and Acute, uncomplicated illness or injury Data: Unique test(s) ordered: 2 Risk: Low: Low risk from testing/treatment Moderate: Drug management Medical Decision Making Level: 3 - Low [facility] NoteHNO ID: [id number] Author: CAROL SEPULVEDA, ? Service: ? Author Type: Physician Type: Progress Notes Filed: 12/10/2023 09:42 Note Text: FOLLOW UP PODIATRIC OFFICE VISIT Chief Complaint: This 48 year old who presents for follow up:right foot pain Patient presents to clinic for follow-up right great toe pain Has bunion that causes her pain. Most of her pain is located to the right great toe joint Is here to discuss optoins. Has been offered first mtpj fusoin vs lapidus by me Has seen dr. Nowak who also agrees in first mtpj fusion vs lapidus but could consider decompression osteotomy but would favor more the lapidus or first mtpj fusion PAIN EVALUATION 12/02/2023 1129 Pain Location: Foot-Right Comments: with activity Hemoglobin A1C Date Value Ref Range Status 11/04/2023 4.7 4.3 - 5.6 % Final Comment: [place] [employer] guidelines indicate that patients with HgbA1c in the range 5.7-6.4% are at increased risk for development of diabetes, and intervention by lifestyle modification may be beneficial. HgbA1c greater or equal to 6.5% is considered diagnostic of diabetes. PCP: Sanchez Pirnce MD PAST MEDICAL HISTORY Diagnosis Date Allergic rhinitis, cause unspecified Allergic rhinitis COVID-19 11/28/2020 History of depression situational Infertility, female Migraine, unspecified, with intractable migraine, so stated, without mention of status migrainosus Migraine Mononucleosis 03/01/1996 Other acne Rh negative status during 08/10/2013 Scoliosis mild scoliosis Thyroid disease ON MEDS FROM TOUCH UP PAINTER Current Outpatient Medications Medication Sig metFORMIN (GLUCOPHAGE) 500 mg tablet Take 1 tablet by mouth daily with dinner. ergocalciferol, vitamin D2, (VITAMIN D2 ORAL) Take by mouth once daily. triamcinolone acetonide (NASACORT NASAL) Use in the nose once daily. ergotamine-caffeine (CAFERGOT) 1-100 mg per tablet Take 1 tablet by mouth as directed. Two tablets at onset of attack; then 1 tablet every 30 minutes as needed; maximum: 6 tablets per attack; do not exceed 10 tablets/week vitamin B complex (B COMPLEX ORAL) Take 1 tablet by mouth once daily. MAGNESIUM ORAL Take 500 mg by mouth once daily. fexofenadine HCl (CRISTIANE ORAL) Take 1 tablet by mouth once daily. CALCIUM CARBONATE/VITAMIN D3 (CALCIUM + D ORAL) Take 1 tablet by mouth twice daily. No current facility-administered medications for this visit. ALLERGIES No Known Allergies PAST SURGICAL HISTORY Procedure Laterality Date EYE SURGERY HX TONSILLECTOMY PRIMARY/SECONDARY AGE 11/> Physical Exam: OBJECTIVE: Constitutional: Pt is a well developed 48 year old female who is alert, oriented, cooperative and in no apparent distress. Eyes: Following during examination. No redness or drainage. Respiratory: RR normal and nonlabored. Even breathing. No evidence of distress. Psychology: Patient is engaged during conversation. Normal affect and mood. Does not appear depressed or anxious. NVSI unchanged from previous visit. Dermatological: Nails 1-5 b/l are normal. Webspaces clean and dry 1-4 b/l. Skin appears well hydrated and supple. good color, texture, turgor. No open lesions present. No callosities present. Musculoskeletal/Orthopaedic: Patient has pain to palpation of right first ray along medial eminence Pain with rom of right 1st mtpj Rom of right 1st mtpj is decreased ASSESSMENT: Hallux valgus of right foot (primary encounter diagnosis) Acquired hallux limitus of right foot Right foot pain PLAN: Discussed bunion of right first ray. I do feel this is an arthritic bunion. Discussed options not limited to lapidus bunionectomy vs first mtpj fusion She does feel pain is less when she wears a firm sole shoe Could consider custom orthotic with johnson extension. If this helps, this may provide some time to proceed with conservative care Patient will benefit from custom ortohtic with johnson extension She has elected to forego surgery in favor of inserts Carol Sepulveda [facility]10-11-2024 History of Present illness Narrative* Carol Sepulveda - 12/10/2023 9:39 AM EDT FOLLOW UP PODIATRIC OFFICE VISIT Chief Complaint: This 48 year old who presents for follow up:right foot pain Patient presents to clinic for follow-up right great toe pain Has bunion that causes her pain. Most of her pain is located to the right great toe joint Is here to discuss optoins. Has been offered first mtpj fusoin vs lapidus by me Has seen dr. Nowak who also agrees in first mtpj fusion vs lapidus but could consider decompressionosteotomy but would favor more the lapidus or first mtpj fusion PAIN EVALUATION 12/02/2023 1129 Pain Location: Foot-Right Comments: with activity Hemoglobin A1C Date Value Ref Range Status 11/04/2023 4.7 4.3 - 5.6 % Final Comment: [place] [employer] guidelines indicate that patients with HgbA1c in the range 5.7-6.4% are at increased risk for development of diabetes, and intervention by lifestyle modification may be beneficial. HgbA1c greater or equal to 6.5% is considered diagnostic of diabetes. 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 ergocalciferol, vitamin D2, (VITAMIN D2 ORAL) Take by mouth once daily. triamcinolone acetonide (NASACORT NASAL) Use in the nose once daily. ergotamine-caffeine (CAFERGOT) 1-100 mg per tablet Take 1 tablet by mouth as directed. Two tablets at onset of attack; then 1 tablet every 30 minutes as needed; maximum: 6 tablets per attack; do not exceed 10 tablets/week vitamin B complex (B COMPLEX ORAL) Take 1 tablet by mouth once daily. MAGNESIUM ORAL Take 500 mg by mouth once daily. fexofenadine HCl (CRISTIANE ORAL) Take 1 tablet by mouth once daily. CALCIUM CARBONATE/VITAMIN D3 (CALCIUM + D ORAL) Take 1 tablet by mouth twice daily. No current facility-administered medications for this visit. ALLERGIES No Known Allergies PAST SURGICAL HISTORY Procedure Laterality Date EYE SURGERY HX TONSILLECTOMY PRIMARY/SECONDARY AGE 11/> Physical Exam: OBJECTIVE: Constitutional: Pt is a well developed 48 year old female who is alert, oriented, cooperative and in no apparent distress. Eyes: Following during examination. No redness or drainage. Respiratory: RR normal and nonlabored. Even breathing. No evidence of distress. Psychology: Patient is engaged during conversation. Normal affect and mood. Does not appear depressed or anxious. NVSI unchanged from previous visit. Dermatological: Nails 1-5 b/l are normal. Webspaces clean and dry 1-4 b/l. Skin appears well hydrated and supple. good color, texture, turgor. No open lesions present. No callosities present. Musculoskeletal/Orthopaedic: Patient has pain to palpation of right first ray along medial eminence Pain with rom of right 1st mtpj Rom of right 1st mtpj is decreased ASSESSMENT: Hallux valgus of right foot (primary encounter diagnosis) Acquired hallux limitus of right foot Right foot pain PLAN: Discussed bunion of right first ray. I do feel this is an arthritic bunion. Discussed options not limited to lapidus bunionectomy vs first mtpj fusion She does feel pain is less when she wears a firm sole shoe Could consider custom orthotic with johnson extension. If this helps, this may provide some time to proceed with conservative care Patient will benefit from custom ortohtic with johnson extension She has elected to forego surgery in favor of inserts Carol Sepulveda DPM * Talia Flowers LPN - 12/02/2023 11:28 AM EDT AMB ROOMING INTAKE FLOWSHEET DATA Pain Pain Location: Foot-Right Comments: with activity Patient presents with: Right Foot - Established Patient, Pain, discuss surgery Left Foot - Tumor/Mass, Established Patient, Follow Up Talia Flowers LPN [facility] NoteHNO ID: [id number] Author: TALIA FLOWERS LPN Service: ? Author Type: LICENSED NURSE Type: Progress Notes Filed: 12/10/2023 09:42 Note Text: AMB ROOMING INTAKE FLOWSHEET DATA Pain Pain Location: Foot-Right Comments: with activity Patient presents with: Right Foot - Established Patient, Pain, discuss surgery Left Foot - Tumor/Mass, Established Patient, [facility]* Patient Instructions* Malou Gastelum APRN.OFFICE RENTAL CLERK - 11/04/2023 1:55 PM EDT Images from the original note were not included. *Clairvee is the only oral probiotic that has been proven to target the vagina's microbiome, restoring lactobacilli, and thus reducing the recurrence of BV and yeast. Rigorous clinical trials show that Clairvee significantly reduces these annoying recurrences while balancing the vagina's microbiomeand pH. Clairvee should be taken orally each day for 15 days of the month; 15 days off; then resumed for 15 days and so forth. Clairvee begins to balance the microbiome in as little as 15 days with best results at 6 months. Clairvee is professionally recommended, easily ordered by the patient, costs about $35 per month, and directly shipped to the patient's home. Clairvee is a great option for patients who struggle with recurring BV and yeast who have had no other prevention strategies in the past. It is also a great choice for women who have GSM symptoms of odor, itching, and discharge with an intermediate tatianna score, but have not had any other means to eliminate the embarrassing symptoms. METFORMIN Dosing -- Begin Metformin 500 mg with dinner daily x 1 week. If you are experiencing any GI side effects, do not increase dose for 1-4 weeks. If tolerating, you can increase to 2 tablets with dinner daily. Taking the medication with food will help. -- if you experience any GI upset (Nausea, diarrhea, bloating, gas) you can go back to 1 tablet or hold the medication until it resolves. Once you are tolerating the medication you can try increasingit again. -- we can discuss increasing the dose further at your follow up visit. -- Metformin can interfere with the absorption of B12 in your food, please add a B12 1,000-2,400 mcg supplement and I suggest having it checked every 1-2 years Using Metformin for weight loss: Metformin helps to lower blood glucose levels by reducing the amount of glucose produced and released by the liver, and by increasing insulin sensitivity. It has now been proven to prevent or delay diabetes. Metformin and Type 2 Diabetes Prevention Diabetes Spectrum (diabetesjournals.org) Large cohort studies have shown weight loss benefits associated with metformin therapy. Emerging evidence suggests that metformin-associated weight loss is due to modulation of hypothalamic appetite-regulatory centers, alteration in the gut microbiome, and reversal of consequences of aging. Metformin is also being explored in the management of obesity s sequelae such as hepatic steatosis, obstructive sleep apnea and osteoarthritis. Effectiveness of metformin on weight loss in non-diabetic individuals with obesity - PubMed (nih.gov) Is metformin a wonder drug? - [facility] Common side effects of this medication include nausea, changes in bowel habits, abdominal discomfort, and flatulence. Taking the medication with food will help. Side effects also typically get betterwith time. Rarely, a severe side effect called lactic acidosis can occur. If you experience malaise, muscle aches, difficulty breathing, or severe abdominal pain, please seek immediate medical attention. Metformin: Patient drug information Warning Rarely, metformin may cause too much lactic acid in the blood (lactic acidosis). The risk is higherin people who have kidney problems, liver problems, heart failure, use alcohol, or take other drugslike topiramate. The risk is also higher in people who are 65 or older and in people who are havingsurgery, an exam or test with contrast, or other procedures. If lactic acidosis happens, it can lead to other health problems and can be deadly. Kidney tests may be done while taking this drug. Do not take this drug if you have a very bad infection, low oxygen, or a lot of fluid loss (dehydration). Call your doctor right away if you have signs of too much lactic acid in the blood (lactic acidosis) like fast breathing, fast or slow heartbeat, a heartbeat that does not feel normal, very bad upsetstomach or throwing up, feeling very sleepy, shortness of breath, feeling very tired or weak, very bad dizziness, feeling cold, or muscle pain or cramps. What is this drug used for? It is used to lower blood sugar in patients with high blood sugar (diabetes), treatment for PCOS, What do I need to tell my doctor BEFORE I take this drug? If you are allergic to this drug; any part of this drug; or any other drugs, foods, or substances. Tell your doctor about the allergy and what signs you had. If you have any of these health problems: Acidic blood problem, kidney disease, or liver disease. If you have had a recent heart attack or stroke. If you are not able to eat or drink like normal, including before certain procedures or surgery. If you are having an exam or test with contrast or have had one within the past 48 hours, talk withyour doctor. This is not a list of all drugs or health problems that interact with this drug. Tell your doctor and pharmacist about all of your drugs (prescription or OTC, natural products, vitamins) and health problems. You must check to make sure that it is safe for you to take this drug with all of your drugs and health problems. Do not start, stop, or change the dose of any drug withoutchecking with your doctor. What are some things I need to know or do while I take this drug? All products: Tell all of your health care providers that you take this drug. This includes your doctors, nurses,pharmacists, and dentists. Talk with your doctor before you drink alcohol. Do not drive if your blood sugar has been low. There is a greater chance of you having a crash. Check your blood sugar as you have been told by your doctor. Have blood work checked as you have been told by the doctor. Talk with the doctor. It may be harder to control blood sugar during times of stress such as fever, infection, injury, orsurgery. A change in physical activity, exercise, or diet may also affect blood sugar. Follow the diet and workout plan that your doctor told you about. If diarrhea happens or you are throwing up, call your doctor. You will need to drink more fluids tokeep from losing too much fluid. Be careful in hot weather or while being active. Drink lots of fluids to stop fluid loss. Long-term treatment with metformin may lead to low vitamin B-12 levels. If you have ever had low vitamin B-12 levels, talk with your doctor. If you are 65 or older, use this drug with care. You could have more side effects. There is a chance of in people of childbearing age who have not been ovulating. If you want to avoid , use control while taking this drug. Tell your doctor if you are , plan on getting , or are breast- feeding. You will need to talk about the benefits and risks to you and the baby. What are some side effects that I need to call my doctor about right away? WARNING/CAUTION: Even though it may be rare, some people may have very bad and sometimes deadly side effects when taking a drug. Tell your doctor or get medical help right away if you have any of thefollowing signs or symptoms that may be related to a very bad side effect: Signs of an allergic reaction, like rash; hives; itching; red, swollen, blistered, or peeling skin with or without fever; wheezing; tightness in the chest or throat; trouble breathing, swallowing, ortalking; unusual hoarseness; or swelling of the mouth, face, lips, tongue, or throat. It is common to have stomach problems like upset stomach, throwing up, or diarrhea when you start taking this drug. If you have stomach problems later during treatment, call your doctor right away. This may be a sign of an acid health problem in the blood (lactic acidosis). Low blood sugar can happen. The chance may be raised when this drug is used with other drugs for diabetes. Signs may be dizziness, headache, feeling sleepy or weak, shaking, fast heartbeat, confusion, hunger, or sweating. Call your doctor right away if you have any of these signs. Follow what you have been told to do for low blood sugar. This may include taking glucose tablets, liquid glucose, or some fruit juices. What are some other side effects of this drug? All drugs may cause side effects. However, many people have no side effects or only have minor sideeffects. Call your doctor or get medical help if any of these side effects or any other side effects bother you or do not go away: Stomach pain or heartburn. Gas. Diarrhea, upset stomach, or throwing up. Feeling tired or weak. Headache. These are not all of the side effects that may occur. If you have questions about side effects, call your doctor. Call your doctor for medical advice about side effects. You may report side effects to your national health agency. How is this drug best taken? Use this drug as ordered by your doctor. Read all information given to you. Follow all instructionsclosely. All products: Take with meals. Keep taking this drug as you have been told by your doctor or other health care provider, even if you feel well. Polycystic Ovary Syndrome Women with polycystic ovary syndrome (PCOS) have a hormonal imbalance that interferes with normal reproductive processes. PCOS usually starts at puberty and is associated with irregular periods and other hormone related symptoms. The most concerning issues with PCOS are the increase of infertility,the risk of developing type 2 diabetes and cardiovascular disease, and the higher risk of developing endometrial (uterine) cancer at an early age. What are the symptoms of PCOS? Irregular menstrual periods, or no menstrual periods at all Decreased frequency or complete lack of ovulation, resulting in problems with infertility Obesity, often specifically characterized by weight gain in the upper body and abdomen Oily skin and hair and persistent acne into adulthood Abnormal hair growth, in a masculine distribution (facial hair, heavy hair growth on arms, chest, and abdomen) Tendency to develop type 2 diabetes What causes PCOS syndrome? Research is ongoing to uncover a cause for PCOS. There is evidence that shows a link between certain forms of PCOS and family history, suggesting a genetic basis for the condition. How is PCOS diagnosed? Most cases can be diagnosed with a thorough evaluation of your medical history and symptoms, as well as a physical exam. A blood test may be required to measure the levels of various hormones. In some cases, an ultrasound of the ovaries may help with diagnosis. How is PCOS treated? Although PCOS can be treated with medications, treatment is often highly dependent on your goals and your symptoms. If you want to become , you may need the assistance of oral or injected fertility medications. If you do not want to become , you may consider control pills to prevent pregnancyand regulate periods. Other symptoms such as unwanted hair growth, acne, obesity, and diabetes should be managed by specialists in those areas. Specific treatment options should be discussed with your physician. How can PCOS be prevented? There is no known prevention for PCOS. However, through proper nutrition and weight management manywomen with polycystic ovary syndrome can avoid developing diabetes and cardiovascular problems. How can I improve my chances of conceiving if I have PCOS? While specific fertility issues should be addressed with your physician, there are some general healthcare guidelines that may improve your chances of becoming : Folic acid (400 mcg. supplement a day, with a diet rich in folic acid, including leafy green vegetables, dried beans, liver, and citrus fruits) Limit caffeine (Fewer than two caffeinated beverages per day) Eat well (Healthy well-balanced diet) Exercise and maintain a healthy weight (Maintain a normal exercise routine, 20 to 30 minutes per day, 4 to 5 times per week.) This information is provided by your physician and the [facility] Journal of Medicine and the[facility] [email or web address]. This information has not been designed to replace a physician's medical assessment and medical judgment. Copyright 1994- 2012 The [facility]. All rights reserved This information is provided by the [facility] and is not intended to replace the medical advice of your doctor or health care provider. Please consult your health care provider for advice about a specific medical condition. For additional health information, please contact the Center [facility] Consumer [facility] Information at the [facility] or toll-free extension [phone]. If you prefer, you may visit [email or web address] or [email or web address]. This document was last reviewed on: 2009 index#[id number] documented in this encounterGreene [facility]09-[facility]-2024 NoteHNO ID: [id number] Author: MALOU GASTELUM APRN.RUY Service: ? Author Type: Nurse Practitioner Type: Progress Notes Filed: 11/04/2023 14:11 Note Text: Nursing Program Coordinator offered: Patient declines. Bianca Spring is a 48 year old female who presents for a follow up visit of vaginal irritation. HPI: Quynh was here on 10/14/23 for vaginitis symptoms. She tested positive for yeast. She was treated with Diflucan and then used Monistat 7 for 7 days. Still has occasional irritation, but overall improved. Also notes some irregularity with her cycles, spotting, and mood changes before her periods. She also notes decreased energy and carrying weight to midsection. She does have PCOS. 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 History Comments: Sexual Activity: Yes; Male Contraception: Condom PAST MEDICAL HISTORY No date: Allergic rhinitis, cause unspecified Comment: Allergic rhinitis 11/28/2020: COVID-19 No date: History of depression Comment: situational No date: Infertility, female No date: Migraine, unspecified, with intractable migraine, so stated, without mention of status migrainosus Comment: Migraine 03/01/1996: Mononucleosis No date: Other acne 08/10/2013: Rh negative status during No date: Scoliosis Comment: mild scoliosis No date: Thyroid disease Comment: ON MEDS FROM TOUCH UP 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 PAST SURGICAL HISTORY No date: EYE SURGERY HX No date: TONSILLECTOMY PRIMARY/SECONDARY AGE 11/> FAMILY HISTORY Problem Relation Age of Onset Heart Mother Hypertension Maternal Grandmother Osteoporosis Maternal Grandmother Cancer Paternal Grandmother Lung and Bone Heart Paternal Grandfather Hypertension Paternal Grandfather Cancer Sister Lung (Non-smoker) Social History Tobacco Use Smoking status: Never Smokeless tobacco: Never Vaping Use Vaping status: Never Used Substance Use Topics Alcohol use: Not Currently Drug use: Never Current Outpatient Medications Medication Sig miconazole (MONISTAT 7) 2 % vaginal cream Use 1 Applicator vaginally daily at bedtime. ergocalciferol, vitamin D2, (VITAMIN D2 ORAL) Take by mouth once daily. triamcinolone acetonide (NASACORT NASAL) Use in the nose once daily. ergotamine-caffeine (CAFERGOT) 1-100 mg per tablet Take 1 tablet by mouth as directed. Two tablets at onset of attack; then 1 tablet every 30 minutes as needed; maximum: 6 tablets per attack; do not exceed 10 tablets/week vitamin B complex (B COMPLEX ORAL) Take 1 tablet by mouth once daily. MAGNESIUM ORAL Take 500 mg by mouth once daily. fexofenadine HCl (CRISTIANE ORAL) Take 1 tablet by mouth once daily. CALCIUM CARBONATE/VITAMIN D3 (CALCIUM + D ORAL) Take 1 tablet by mouth twice daily. No current facility-administered medications for this visit. Allergies As of Date: 11/04/2023 (No Known Allergies) Fully Assessed 10/22/2023 REVIEW OF SYSTEMS Expanded ROS: NECK CUTTER: Positive for + irregular cycles, mood changes before period Allergies and current medication updated:Yes EXAM: BP 120/82 Pulse 74 Resp 14 Wt 141 lb (64.0kg) SpO2 97% LMP 10/19/2023 GENERAL: pleasant, female in no apparent distress HEENT: Normocephalic, atraumatic, mucus membranes moist, and no lesions CHEST: Normal inspiratory effort PELVIC: external genitalia normal, normal Bartholin's glands, urethra, [place]'s glands, no vulvar lesions, no cervical lesions, good vaginal support, physiologic discharge present, normal appearing perineal body and perianal region NEURO: alert and oriented x3,exam grossly non-focal EXTREMITIES: normal ASSESSMENT/PLAN: 1. PCOS (polycystic ovarian syndrome) - ICD9: 256.4, ICD10: E28.2 (primary diagnosis) - Discussed increased risk of insulin resistance, diabetes, obesity, hyperlipidemia, and hypertension - Could trial Metformin to decrease insulin resistance risk and possibly help with increased weight in midsection, although this could be due to perimenopause - Agreeable to begin Metformin 500 mg with dinner daily x 1 week. If tolerating will increase to 2 tablets with dinner daily. We discussed common side effects of this medication including nausea, changes in bowel habits, abdominal discomfort, and flatulence. Discussed taking it with food and complication of lactic acidosis and signs/symptoms and medication handout given. Further instructed that if she experiences malaise, muscle aches, difficulty breathing, or severe abdominal pain to seek immediate medical attention. - Check CMP and Vitamin B12 2. Irregular menses - ICD9: 626.4, ICD10: N92.6 - Discussed average age of menopause is 52 - Reviewed PCOS and perimenopause can cause changes in cycle - Reviewed limitations of FSH and estradiol test 3. Mood changes - ICD9: 296.90, ICD10: R45.86 (more content not included)... [facility] History of Present illness Narrative* Malou Gastelum APRN.OFFICE RENTAL CLERK - 11/04/2023 1:32 PM EDT Nursing Program Coordinator offered: Patient declines. Bianca Spring is a 48 year old female who presents for a follow up visit of vaginal irritation. HPI: Quynh was here on 10/14/23 for vaginitis symptoms. She tested positive for yeast. She was treated with Diflucan and then used Monistat 7 for 7 days. Still has occasional irritation, but overall improved. Also notes some irregularity with her cycles, spotting, and mood changes before her periods. She also notes decreased energy and carrying weight to midsection. She does have PCOS. 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 History Comments: Sexual Activity: Yes; Male Contraception: Condom PAST MEDICAL HISTORY No date: Allergic rhinitis, cause unspecified Comment: Allergic rhinitis 11/28/2020: COVID-19 No date: History of depression Comment: situational No date: Infertility, female No date: Migraine, unspecified, with intractable migraine, so stated, without mention of status migrainosus Comment: Migraine 03/01/1996: Mononucleosis No date: Other acne 08/10/2013: Rh negative status during No date: Scoliosis Comment: mild scoliosis No date: Thyroid disease Comment: ON MEDS FROM TOUCH UP 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 PAST SURGICAL HISTORY No date: EYE SURGERY HX No date: TONSILLECTOMY PRIMARY/SECONDARY AGE 11/> FAMILY HISTORY Problem Relation Age of Onset Heart Mother Hypertension Maternal Grandmother Osteoporosis Maternal Grandmother Cancer Paternal Grandmother Lung and Bone Heart Paternal Grandfather Hypertension Paternal Grandfather Cancer Sister Lung (Non-smoker) Social History Tobacco Use Smoking status: Never Smokeless tobacco: Never Vaping Use Vaping status: Never Used Substance Use Topics Alcohol use: Not Currently Drug use: Never Current Outpatient Medications Medication Sig miconazole (MONISTAT 7) 2 % vaginal cream Use 1 Applicator vaginally daily at bedtime. ergocalciferol, vitamin D2, (VITAMIN D2 ORAL) Take by mouth once daily. triamcinolone acetonide (NASACORT NASAL) Use in the nose once daily. ergotamine-caffeine (CAFERGOT) 1-100 mg per tablet Take 1 tablet by mouth as directed. Two tablets at onset of attack; then 1 tablet every 30 minutes as needed; maximum: 6 tablets per attack; do not exceed 10 tablets/week vitamin B complex (B COMPLEX ORAL) Take 1 tablet by mouth once daily. MAGNESIUM ORAL Take 500 mg by mouth once daily. fexofenadine HCl (CRISTIANE ORAL) Take 1 tablet by mouth once daily. CALCIUM CARBONATE/VITAMIN D3 (CALCIUM + D ORAL) Take 1 tablet by mouth twice daily. No current facility-administered medications for this visit. Allergies As of Date: 11/04/2023 (No Known Allergies) Fully Assessed 10/22/2023 REVIEW OF SYSTEMS Expanded ROS: NECK CUTTER: Positive for + irregular cycles, mood changes before period Allergies and current medication updated:Yes EXAM: BP 120/82 Pulse 74 Resp 14 Wt 141 lb (64.0kg) SpO2 97% LMP 10/19/2023 GENERAL: pleasant, female in no apparent distress HEENT: Normocephalic, atraumatic, mucus membranes moist, and no lesions CHEST: Normal inspiratory effort PELVIC: external genitalia normal, normal Bartholin's glands, urethra, [place]'s glands, no vulvar lesions, no cervical lesions, good vaginal support, physiologic discharge present, normal appearing perineal body and perianal region NEURO: alert and oriented x3,exam grossly non-focal EXTREMITIES: normal ASSESSMENT/PLAN: 1. PCOS (polycystic ovarian syndrome) - ICD9: 256.4, ICD10: E28.2 (primary diagnosis) - Discussed increased risk of insulin resistance, diabetes, obesity, hyperlipidemia, and hypertension - Could trial Metformin to decrease insulin resistance risk and possibly help with increased weightin midsection, although this could be due to perimenopause - Agreeable to begin Metformin 500 mg with dinner daily x 1 week. If tolerating will increase to 2 tablets with dinner daily. We discussed common side effects of this medication including nausea, changes in bowel habits, abdominal discomfort, and flatulence. Discussed taking it with food and complication of lactic acidosis and signs/symptoms and medication handout given. Further instructed that if she experiences malaise,muscle aches, difficulty breathing, or severe abdominal pain to seek immediate medical attention. - Check CMP and Vitamin B12 2. Irregular menses - ICD9: 626.4, ICD10: N92.6 - Discussed average age of menopause is 52 - Reviewed PCOS and perimenopause can cause changes in cycle - Reviewed limitations of FSH and estradiol test 3. Mood changes - ICD9: 296.90, ICD10: R45.86 - FOLLICLE STIMULATING HORMONE - ESTRADIOL-17B BLD 4. Vaginal irritation - ICD9: 623.9, ICD10: N89.8 - Intermittent, notes more mid cycle - Recommend Ananth women's health probiotic - Reviewed vulvar hygiene and to avoid scented products 5. Decreased energy - ICD9: 780.79, ICD10: R53.83 - FOLLICLE STIMULATING HORMONE - ESTRADIOL-17B BLD RTO in 2 months to review Metformin use. Malou Gastelum APRN.CNP Medical Decision Making: Problems: Moderate: 1+ chronic illnesses with change Data: Unique test(s) ordered: 3+ Risk: Low: Low risk from testing/treatment Moderate: Drug management Medical Decision Making Level: 4 - Moderate [facility] Telephone encounter Note * Telephone Encounter - Placido Tinoco RN - 11/02/2023 1:59 PM EDT Pt sent to Dr. Nowak from Dr. Sepulveda. She is calling now for a status update on Plan of care. Shewas told they would be consulting each other and someone would get back to her. She was seen on 10/[address] Nowak. Please contact pt with the next step in her care. This Nurse transferred her to schedule a follow up appointment with Dr. Sepulveda.Placido Tinoco RN [facility]09-03-[facility]24 Miscellaneous Notes* Telephone Encounter - Placido Tinoco RN - 11/02/2023 1:59 PM EDT Pt sent to Dr. Nowak from Dr. Sepulveda. She is calling now for a status update on Plan of care. Shewas told they would be consulting each other and someone would get back to her. She was seen on 10/[address] Nowak. Please contact pt with the next step in her care. This Nurse transferred her to schedule a follow up appointment with Dr. Sepulveda.Placido Tinoco RN documented [facility] NoteHNO ID: [id number] Author: WADE NOWAK DPM Service: ? Author Type: Physician Type: Progress Notes Filed: 11/19/2023 09:59 Note Text: Initial Podiatric Office Visit: Chief Complaint: This is a 48 year old female who is referred by Dr. Sepulveda for: Surgical Consult Patient is accompanied by: Self HPI: Nature: intermittent Location: Right Foot Duration: 2 year(s) Onset: gradual Course: worsening Aggravating/Alleviating Factors: walking and pressure/ rest Prior treatment: Dr. Sepulveda now considering surgical options pays close attention to shoes wear good exercise tennis shoes have taken ibuprofen also take tylenol avoids heels pain switches 2-3 spots Right foot: medial bump hallux IPJ and dorsolateral 1st MTP numbness tips last 3 toes lately feel from foot compenstating more toward end of day Mentions that she gets some pain R arch it will crack want to slow the arthritis and bunion goal for exercise walking If do that now it will hurt also hurts w regular activity driving even hurts sometimes pain just laying down considered bunion surg a year ago insurance declined questions about left foot also was at dermatology had cyst on big toe L drained it get pain at IPJ on L also felt probably from arthritis They showed how she can drain it herself when cyst returns bruised nail L 5th Dermatology felt this was mechanical feels from walking toe rotates dark present ~ 2 months PAST MEDICAL HISTORY No date: Allergic rhinitis, cause unspecified Comment: Allergic rhinitis 11/28/2020: COVID-19 No date: History of depression Comment: situational No date: Infertility, female No date: Migraine, unspecified, with intractable migraine, so stated, without mention of status migrainosus Comment: Migraine 03/01/1996: Mononucleosis No date: Other acne 08/10/2013: Rh negative status during No date: Scoliosis Comment: mild scoliosis No date: Thyroid disease Comment: ON MEDS FROM TOUCH UP PAINTER ACTIVE PROBLEM LIST (none) - all problems resolved or deleted Medications: Current Outpatient Medications Medication Sig Dispense Refill miconazole (MONISTAT 7) 2 % vaginal cream Use 1 Applicator vaginally daily at bedtime. 45 g 0 ergocalciferol, vitamin D2, (VITAMIN D2 ORAL) Take by mouth once daily. triamcinolone acetonide (NASACORT NASAL) Use in the nose once daily. ergotamine-caffeine (CAFERGOT) 1-100 mg per tablet Take 1 tablet by mouth as directed. Two tablets at onset of attack; then 1 tablet every 30 minutes as needed; maximum: 6 tablets per attack; do not exceed 10 tablets/week vitamin B complex (B COMPLEX ORAL) Take 1 tablet by mouth once daily. MAGNESIUM ORAL Take 500 mg by mouth once daily. fexofenadine HCl (CRISTIANE ORAL) Take 1 tablet by mouth once daily. CALCIUM CARBONATE/VITAMIN D3 (CALCIUM + D ORAL) Take 1 tablet by mouth twice daily. No current facility-administered medications for this visit. ALLERGIES No Known Allergies PAST SURGICAL HISTORY No date: EYE SURGERY HX No date: TONSILLECTOMY PRIMARY/SECONDARY AGE 11/> FAMILY HISTORY Problem Relation Age of Onset Heart Mother Hypertension Maternal Grandmother Osteoporosis Maternal Grandmother Cancer Paternal Grandmother Lung and Bone Heart Paternal Grandfather Hypertension Paternal Grandfather Cancer Sister Lung (Non-smoker) Social History Tobacco Use Smoking status: Never Smokeless tobacco: Never Vaping Use Vaping status: Never Used Substance Use Topics Alcohol use: Not Currently Drug use: Never ROS: GENERAL: NEGATIVE FOR:, Fever, Chills, Night sweats, or Shaking Chills CARDIOVASCULAR: NEGATIVE FOR:, Chest Pain, Raynauds, PVD, DVT, Prolonged Bleeding, Excessive Bruising, or Lower Leg Swelling SKIN: NEGATIVE FOR:, Rashes, Chronic Skin Condition, Psoriasis, Hair Loss of Feet, Legs, or Skin Ulcers RESPIRATORY: NEGATIVE FOR: Shortness of Breath GASTROINTESTINAL: NEGATIVE FOR: Bloody or Black Stools RENAL: NEGATIVE FOR: Kidney Disease / Transplant ENDOCRINE: NEGATIVE FOR: Diabetes MUSCULOSKELETAL: NEGATIVE FOR:, Back Pain, Sciatica, Previous Fracture(s), Amputation(s), Osteoporosis, Rheumatoid Arthritis, or Osteoarthritis / Degenerative Arthritis NEUROLOGICAL: NEGATIVE FOR:, Neuromuscular Disease, POSITIVE FOR:, or Numbness of Feet The remainder of the review of systems is noncontributory Physical Exam: Vitals: LMP 09/28/2023 (Exact Date) Last Wt 10/14/23 : 63 kg (139 lb) 07/02/23 : 65.1 kg (143 lb 8.3 oz) Psych: alert and oriented to time, person, place recent/remote memory: intact mood/affect: normal OBJECTIVE: Vascular: Palpable Dorsalis Pedis and Posterior Tibial Pulses B/L Capillary Fill time < 3 seconds to digits 1-5 b/l Neurological: intact light touch/epicritic sensation B/L intact vibratory sensation intact 5.07 monofilament sensation B/L Dermatological: (more content not included)...[facility] History of Present illness Narrative* Wade Nowak, DPM - 10/22/2023 1:53 PM EDT Initial Podiatric Office Visit: Chief Complaint: This is a 48 year old female who is referred by Dr. Sepulveda for: Surgical Consult Patient is accompanied by: Self HPI: Nature: intermittent Location: Right Foot Duration: 2 year(s) Onset: gradual Course: worsening Aggravating/Alleviating Factors: walking and pressure/ rest Prior treatment: Dr. Sepulveda now considering surgical options pays close attention to shoes wear good exercise tennis shoes have taken ibuprofen also take tylenol avoids heels pain switches 2-3 spots Right foot: medial bump hallux IPJ and dorsolateral 1st MTP numbness tips last 3 toes lately feel from foot compenstating more toward end of day Mentions that she gets some pain R arch it will crack want to slow the arthritis and bunion goal for exercise walking If do that now it will hurt also hurts w regular activity driving even hurts sometimes pain just laying down considered bunion surg a year ago insurance declined questions about left foot also was at dermatology had cyst on big toe L drained it get pain at IPJ on L also felt probably from arthritis They showed how she can drain it herself when cyst returns bruised nail L 5th Dermatology felt this was mechanical feels from walking toe rotates dark present ~ 2 months PAST MEDICAL HISTORY No date: Allergic rhinitis, cause unspecified Comment: Allergic rhinitis 11/28/2020: COVID-19 No date: History of depression Comment: situational No date: Infertility, female No date: Migraine, unspecified, with intractable migraine, so stated, without mention of status migrainosus Comment: Migraine 03/01/1996: Mononucleosis No date: Other acne 08/10/2013: Rh negative status during No date: Scoliosis Comment: mild scoliosis No date: Thyroid disease Comment: ON MEDS FROM TOUCH UP PAINTER ACTIVE PROBLEM LIST (none) - all problems resolved or deleted Medications: Current Outpatient Medications Medication Sig Dispense Refill miconazole (MONISTAT 7) 2 % vaginal cream Use 1 Applicator vaginally daily at bedtime. 45 g 0 ergocalciferol, vitamin D2, (VITAMIN D2 ORAL) Take by mouth once daily. triamcinolone acetonide (NASACORT NASAL) Use in the nose once daily. ergotamine-caffeine (CAFERGOT) 1-100 mg per tablet Take 1 tablet by mouth as directed. Two tablets at onset of attack; then 1 tablet every 30 minutes as needed; maximum: 6 tablets per attack; do not exceed 10 tablets/week vitamin B complex (B COMPLEX ORAL) Take 1 tablet by mouth once daily. MAGNESIUM ORAL Take 500 mg by mouth once daily. fexofenadine HCl (CRISTIANE ORAL) Take 1 tablet by mouth once daily. CALCIUM CARBONATE/VITAMIN D3 (CALCIUM + D ORAL) Take 1 tablet by mouth twice daily. No current facility-administered medications for this visit. ALLERGIES No Known Allergies PAST SURGICAL HISTORY No date: EYE SURGERY HX No date: TONSILLECTOMY PRIMARY/SECONDARY AGE 11/> FAMILY HISTORY Problem Relation Age of Onset Heart Mother Hypertension Maternal Grandmother Osteoporosis Maternal Grandmother Cancer Paternal Grandmother Lung and Bone Heart Paternal Grandfather Hypertension Paternal Grandfather Cancer Sister Lung (Non-smoker) Social History Tobacco Use Smoking status: Never Smokeless tobacco: Never Vaping Use Vaping status: Never Used Substance Use Topics Alcohol use: Not Currently Drug use: Never ROS: GENERAL: NEGATIVE FOR:, Fever, Chills, Night sweats, or Shaking Chills CARDIOVASCULAR: NEGATIVE FOR:, Chest Pain, Raynauds, PVD, DVT, Prolonged Bleeding, Excessive Bruising, or Lower Leg Swelling SKIN: NEGATIVE FOR:, Rashes, Chronic Skin Condition, Psoriasis, Hair Loss of Feet, Legs, or Skin Ulcers RESPIRATORY: NEGATIVE FOR: Shortness of Breath GASTROINTESTINAL: NEGATIVE FOR: Bloody or Black Stools RENAL: NEGATIVE FOR: Kidney Disease / Transplant ENDOCRINE: NEGATIVE FOR: Diabetes MUSCULOSKELETAL: NEGATIVE FOR:, Back Pain, Sciatica, Previous Fracture(s), Amputation(s), Osteoporosis, Rheumatoid Arthritis, or Osteoarthritis / Degenerative Arthritis NEUROLOGICAL: NEGATIVE FOR:, Neuromuscular Disease, POSITIVE FOR:, or Numbness of Feet The remainder of the review of systems is noncontributory Physical Exam: Vitals: LMP 09/28/2023 (Exact Date) Last Wt 10/14/23 : 63 kg (139 lb) 07/02/23 : 65.1 kg (143 lb 8.3 oz) Psych: alert and oriented to time, person, place recent/remote memory: intact mood/affect: normal OBJECTIVE: Vascular: Palpable Dorsalis Pedis and Posterior Tibial Pulses B/L Capillary Fill time < 3 seconds to digits 1-5 b/l Neurological: intact light touch/epicritic sensation B/L intact vibratory sensation intact 5.07 monofilament sensation B/L Dermatological: Skin appears well hydrated and supple, good color, texture, turgor. No open lesions present. Webspaces clean and dry 1-4 b/l. Musculoskeletal/Orthopaedic: +5/5 muscle strength Dorsiflexion, Plantarflexion, Inversion, Eversion B/L Full ROM pedal and ankle joints B/L Except mildly decreased first MTP joint range of motion right foot callus sub 2 prominent medial eminence prominent bony osteophyte dorsolateral 1st MTP joint no IPJ crepitus Radiographs: Plain film right foot radiographs July 08, 2023 Hallux valgus right foot Mild degenerative changes at the first metatarsal phalangeal joint. Adductovarus fourth and fifth toes Synostosis DIPJ fifth toe Intermetatarsal 1-2 angle is increased. Hallux valgus angle of 24 degrees Tibial sesamoid position of 6 Relatively normal lateral view Some subtle separate fragmentation at the proximal sesamoids 1st-2nd metatarsal protrusion distance -2mm MRI right foot September 15, 2023 IMPRESSION: 1. Bunion formation at the medial head of the first metatarsal with minimal edema and spurring. 2. Hallux valgus and mild to moderate osteoarthritis at the first MTP joint. 3. 3 mm presumed ganglion cyst within the soft tissues dorsal to the fourth middle phalanx. 4. Small second MTP joint effusion. PVRs September 03, 2023 Mildly dampened digital waveforms otherwise normal ASSESSMENT: Painful hallux valgus with hallux limitus/arthritis first metatarsophalangeal joint right foot right foot with multiple areas of foot pain -medial bump -hallux IPJ -and dorsolateral 1st MTP callus sub 2 Also some neuropathic symptoms -some pain when laying down -numbness tips lateral 3 toes Plan: Initial Office Visit- with a thorough review of the Patient's Medical History and Podiatric Physical Exam completed. imaging reviewed options discussed conservative and surgical options were discussed she has multiple areas of symptoms all of these wouldn't be addressed surgically she may be able to obtain relief of 1st MTP joint pain specifically with surgical management options discussed pros cons of each approach explained I do have some concern that the [place] decompression osteotomy could potentially result in increased subsecond metatarsal head pressure where she already has callus formation A plantarflexory Chucky procedure could be considered with some additional cheilectomy of the osteophytes The more powerful options would include the Lapidus arthrodesis combined with a cheilectomy or the first MTP joint arthrodesis. If she wanted 1 definitive procedure the first MTP joint arthrodesis would be the best approach. Ifchaka wanted to try to preserve the full function of the first MTP joint as long as possible then theLapidus appears to be the best for her at this time. She still will likely need to complement any procedure with additional mechanical measures of proper foot wear and arch supports/orthotics longer-term. Will defer final decision on procedure selection to patient and Dr. Sepulveda. The duration of this appointment visit was over 30 minutes with over 50% of this time spent in counseling, explanation of diagnosis, planning of further management, and coordination of care. Wade Nowak DPM [facility] Instructions* Patient Instructions* Malou Gastelum APRN.OFFICE RENTAL CLERK - 10/14/2023 11:04 AM EDT Images from the original note were not included. *Revaree is a [employer]AMS recommended, leading selling vaginal insert for the relief of symptoms of vaginal atrophy and the moravian of the vagina's epithelial lining and pH -- hormone free. In [id number] clinical trials, Revaree performed as well as estrogen creams in reducing symptoms of vaginal atrophy (dryness, itching, painful intercourse, and burning). The Revaree insert is convenient and notmessy and should be used 2 to 3 times a week. Revaree is professionally recommended, easily orderedby the patient, costs about $40 per month, and shipped directly to the patient's home. Revaree is aperfect choice for women who need relief and either cannot or do not want to use hormonal therapy for their vaginal atrophy symptoms. *Clairvee is the only oral probiotic that has been proven to target the vagina's microbiome, restoring lactobacilli, and thus reducing the recurrence of BV and yeast. Rigorous clinical trials show that Clairvee significantly reduces these annoying recurrences while balancing the vagina's microbiomeand pH. Clairvee should be taken orally each day for 15 days of the month; 15 days off; then resumed for 15 days and so forth. Clairvee begins to balance the microbiome in as little as 15 days with best results at 6 months. Clairvee is professionally recommended, easily ordered by the patient, costs about $35 per month, and directly shipped to the patient's home. Clairvee is a great option for patients who struggle with recurring BV and yeast who have had no other prevention strategies in the past. It is also a great choice for women who have GSM symptoms of odor, itching, and discharge with an intermediate tatianna score, but have not had any other means to eliminate the embarrassing symptoms. *Relizen is a clinically validated, hormone free, safe, and effective therapy that significantly reduces the intensity and frequency of hot flashes. Relizen works by expressing a mild seratenurgic effect on the hypothalamus. Relizen is professionally recommended, easily ordered by the patient, costs $35 per month, and directly shipped to the patient's home. [facility] is a great choice for women whostruggle with hot flashes and either cannot or do not want to use hormone therapy. documented in this [facility]24 NoteHNO ID: [id number] Author: MALOU GASTELUM APRN.CNP Service: ? Author Type: Nurse Practitioner Type: Progress Notes Filed: 10/14/2023 11:16 Note Text: Nursing Program Coordinator offered: Patient declines. Bianca Spring is a 48 year old female who presents for a problem visit of vaginitis. HPI: Quynh's vaginitis symptoms started over the weekend and have continued. She tried Aqupahor and Triamcinolone externally with minimal relief. She also noticed a little blood in some urine that she leaked. OB History T2 L2 SAB1 IAB0 Ectopic0 Multiple0 Live Births2 Manager Environmental Affairs History LMP: 06/02/2023 (Exact Date), Having periods Age at Menarche: Age at First : Age at Menopause: Manager Environmental Affairs History Comments: Sexual Activity: Yes; Male Contraception: Condom PAST MEDICAL HISTORY No date: Allergic rhinitis, cause unspecified Comment: Allergic rhinitis 11/28/2020: COVID-19 No date: History of depression Comment: situational No date: Infertility, female No date: Migraine, unspecified, with intractable migraine, so stated, without mention of status migrainosus Comment: Migraine 03/01/1996: Mononucleosis No date: Other acne 08/10/2013: Rh negative status during No date: Scoliosis Comment: mild scoliosis No date: Thyroid disease Comment: ON MEDS FROM TOUCH UP PAINTER PAST SURGICAL HISTORY No date: EYE SURGERY HX No date: TONSILLECTOMY PRIMARY/SECONDARY AGE 11/> FAMILY HISTORY Problem Relation Age of Onset Heart Mother Hypertension Maternal Grandmother Osteoporosis Maternal Grandmother Cancer Paternal Grandmother Lung and Bone Heart Paternal Grandfather Hypertension Paternal Grandfather Cancer Sister Lung (Non-smoker) Social History Tobacco Use Smoking status: Never Smokeless tobacco: Never Vaping Use Vaping Use: Never used Substance Use Topics Alcohol use: No Drug use: No Current Outpatient Medications Medication Sig ergocalciferol, vitamin D2, (VITAMIN D2 ORAL) Take by mouth once daily. triamcinolone acetonide (NASACORT NASAL) Use in the nose once daily. ergotamine-caffeine (CAFERGOT) 1-100 mg per tablet Take 1 tablet by mouth as directed. Two tablets at onset of attack; then 1 tablet every 30 minutes as needed; maximum: 6 tablets per attack; do not exceed 10 tablets/week vitamin B complex (B COMPLEX ORAL) Take 1 tablet by mouth once daily. MAGNESIUM ORAL Take 500 mg by mouth once daily. fexofenadine HCl (CRISTIANE ORAL) Take 1 tablet by mouth once daily. CALCIUM CARBONATE/VITAMIN D3 (CALCIUM + D ORAL) Take 1 tablet by mouth twice daily. fluconazole (DIFLUCAN) 150 mg tablet Take 1 tablet by mouth one time only for 1 dose. miconazole (MONISTAT 7) 2 % vaginal cream Use 1 Applicator vaginally daily at bedtime. No current facility-administered medications for this visit. Allergies As of Date: 10/14/2023 (No Known Allergies) Fully Assessed 10/01/2023 REVIEW OF SYSTEMS Bladder: No dysuria, urinary frequency, urinary urgency, or incontinence. + trace blood in urine Expanded ROS: NECK CUTTER: Positive for vaginal irritation Allergies and current medication updated:Yes EXAM: BP 112/70 Pulse 90 Wt 139 lb (63.1kg) SpO2 99% LMP 09/28/2023 GENERAL: pleasant, female in no apparent distress HEENT: Normocephalic, atraumatic, mucus membranes moist, and no lesions CHEST: Normal inspiratory effort PELVIC: + erythema noted to urethra, clitoris, and bilateral labia minor, normal Bartholin's glands, erythematous urethra, [place]'s glands, no vulvar lesions, possible atrophy to cervix and vaginal mucosa, whitening noted, good vaginal support,+ moderate white discharge, normal appearing perineal body and perianal region BIMANUAL: uterus normal size, shape and consistency, no adnexal masses, and non-tender NEURO: alert and oriented x3,exam grossly non-focal EXTREMITIES: normal ASSESSMENT AND PLAN: 1. Acute vaginitis - ICD9: 616.10, ICD10: N76.0 (primary diagnosis) - ANA/TRICHOMONAS NAAT - BACTERIAL VAGINOSIS NAAT - GONORRHEA/CHLAMYDIA NAAT - UROGENITAL UREAPLASMA AND MYCOPLASMA SPECIES BY PCR, FOR GENITAL, RECTAL, URINE SAMPLES - Discussed Bonafide products Clarivee - Suspect yeast, rx for Diflucan sent. Will notify of results. - Discussed possibility of atrophy, recommend follow up in 3 weeks to evaluate 2. Hematuria, unspecified type - ICD9: 599.70, ICD10: R31.9 - URINE CULTURE Malou Gastelum APRN.OFFICE RENTAL CLERK Medical Decision Making: Problems: Low: Acute, uncomplicated illness or injury Data: Unique test(s) ordered: 3+ Risk: Low: Low risk from testing/treatment Moderate: Drug management Medical Decision Making Level: 4 - [facility] of Present illness Narrative* Malou Gastelum APRN.OFFICE RENTAL CLERK - 10/14/2023 10:43 AM EDT Nursing Program Coordinator offered: Patient declines. Bianca Spring is a 48 year old female who presents for a problem visit of vaginitis. HPI: Quynh's vaginitis symptoms started over the weekend and have continued. She tried Aqupahor and Triamcinolone externally with minimal relief. She also noticed a little blood in some urine that sheleaked. OB History T2 L2 SAB1 IAB0 Ectopic0 Multiple0 Live Births2 Manager Environmental Affairs History LMP: 06/02/2023 (Exact Date), Having periods Age at Menarche: Age at First : Age at Menopause: Manager Environmental Affairs History Comments: Sexual Activity: Yes; Male Contraception: Condom PAST MEDICAL HISTORY No date: Allergic rhinitis, cause unspecified Comment: Allergic rhinitis 11/28/2020: COVID-19 No date: History of depression Comment: situational No date: Infertility, female No date: Migraine, unspecified, with intractable migraine, so stated, without mention of status migrainosus Comment: Migraine 03/01/1996: Mononucleosis No date: Other acne 08/10/2013: Rh negative status during No date: Scoliosis Comment: mild scoliosis No date: Thyroid disease Comment: ON MEDS FROM TOUCH UP PAINTER PAST SURGICAL HISTORY No date: EYE SURGERY HX No date: TONSILLECTOMY PRIMARY/SECONDARY AGE 11/> FAMILY HISTORY Problem Relation Age of Onset Heart Mother Hypertension Maternal Grandmother Osteoporosis Maternal Grandmother Cancer Paternal Grandmother Lung and Bone Heart Paternal Grandfather Hypertension Paternal Grandfather Cancer Sister Lung (Non-smoker) Social History Tobacco Use Smoking status: Never Smokeless tobacco: Never Vaping Use Vaping Use: Never used Substance Use Topics Alcohol use: No Drug use: No Current Outpatient Medications Medication Sig ergocalciferol, vitamin D2, (VITAMIN D2 ORAL) Take by mouth once daily. triamcinolone acetonide (NASACORT NASAL) Use in the nose once daily. ergotamine-caffeine (CAFERGOT) 1-100 mg per tablet Take 1 tablet by mouth as directed. Two tablets at onset of attack; then 1 tablet every 30 minutes as needed; maximum: 6 tablets per attack; do not exceed 10 tablets/week vitamin B complex (B COMPLEX ORAL) Take 1 tablet by mouth once daily. MAGNESIUM ORAL Take 500 mg by mouth once daily. fexofenadine HCl (CRISTIANE ORAL) Take 1 tablet by mouth once daily. CALCIUM CARBONATE/VITAMIN D3 (CALCIUM + D ORAL) Take 1 tablet by mouth twice daily. fluconazole (DIFLUCAN) 150 mg tablet Take 1 tablet by mouth one time only for 1 dose. miconazole (MONISTAT 7) 2 % vaginal cream Use 1 Applicator vaginally daily at bedtime. No current facility-administered medications for this visit. Allergies As of Date: 10/14/2023 (No Known Allergies) Fully Assessed 10/01/2023 REVIEW OF SYSTEMS Bladder: No dysuria, urinary frequency, urinary urgency, or incontinence. + trace blood in urine Expanded ROS: NECK CUTTER: Positive for vaginal irritation Allergies and current medication updated:Yes EXAM: BP 112/70 Pulse 90 Wt 139 lb (63.1kg) SpO2 99% LMP 09/28/2023 GENERAL: pleasant, female in no apparent distress HEENT: Normocephalic, atraumatic, mucus membranes moist, and no lesions CHEST: Normal inspiratory effort PELVIC: + erythema noted to urethra, clitoris, and bilateral labia minor, normal Bartholin's glands, erythematous urethra, [place]'s glands, no vulvar lesions, possible atrophy to cervix and vaginal mucosa, whitening noted, good vaginal support,+ moderate white discharge, normal appearing perineal body and perianal region BIMANUAL: uterus normal size, shape and consistency, no adnexal masses, and non-tender NEURO: alert and oriented x3,exam grossly non-focal EXTREMITIES: normal ASSESSMENT AND PLAN: 1. Acute vaginitis - ICD9: 616.10, ICD10: N76.0 (primary diagnosis) - ANA/TRICHOMONAS NAAT - BACTERIAL VAGINOSIS NAAT - GONORRHEA/CHLAMYDIA NAAT - UROGENITAL UREAPLASMA AND MYCOPLASMA SPECIES BY PCR, FOR GENITAL, RECTAL, URINE SAMPLES - Discussed Bonafide products Clarivee - Suspect yeast, rx for Diflucan sent. Will notify of results. - Discussed possibility of atrophy, recommend follow up in 3 weeks to evaluate 2. Hematuria, unspecified type - ICD9: 599.70, ICD10: R31.9 - URINE CULTURE Malou Haury, ACCOUNT EXECUTIVE KEY ACCOUNTS.RUY Medical Decision Making: Problems: Low: Acute, uncomplicated illness or injury Data: Unique test(s) ordered: 3+ Risk: Low: Low risk from testing/treatment Moderate: Drug management Medical Decision Making Level: 4 - Moderate documented in [facility] encounterGre[facility]24 Telephone encounter Note * Telephone Encounter - Talia Flowers LPN - 10/04/2023 3:24 PM EDT Patient states colleague office has contacted her. Talia Flowers LPN [facility]08-05-2024 Miscellaneous Notes* Telephone Encounter - Talia Flowers LPN - 10/04/2023 3:24 PM EDT Patient states colleague office has contacted her. Talia Flowers LPN * Telephone Encounter - Talia Flowers LPN - 10/04/2023 3:23 PM EDT Images from the original note were not included. Carol Sepulveda Billie, RN; [facility] Podiatry Pool1 hour ago (1:41 PM) I forwarded note to colleague. Once he sees, his office is likely to contact her Carol Sepulveda DPM * Telephone Encounter - Placido Tinoco RN - 10/04/2023 1:08 PM EDT Patient called in inquiring about Consult to another provider she discussed with Dr. Sepulveda on Sunday 10/01.Placido Tinoco RN documented [facility]Gre[facility]24 Telephone encounter Note * Telephone Encounter - Talia Flowers LPN - 10/04/2023 3:23 PM EDT Images from the original note were not included. Carol Sepulveda Billie, REUBEN; [facility] Podiatry Pool1 hour ago (1:41 PM) I forwarded note to colleague. Once he sees, his office is likely to contact her Carol Sepulveda DPM [facility]08-05-[facility] Telephone encounter Note* Telephone Encounter - Placido Tinoco RN - 10/04/2023 1:08 PM EDT Patient called in inquiring about Consult to another provider she discussed with Dr. Sepulveda on Sunday 10/01.Placido Tinoco RN [facility]08-02-2024 NoteHNO ID: [id number] Author: CAROL SEPULVEDA, ? Service: ? Author Type: Physician Type: Progress Notes Filed: 10/01/2023 16:16 Note Text: FOLLOW UP PODIATRIC OFFICE VISIT Chief Complaint: This 48 year old who presents for follow up:bunion deformity of right foot Patient presents to clinic for evaluation of right foot. She has painful bunion of right foot. Most of her pain is located along the right 1st mtpj. Pain is present along the medial eminence but she has found that there is pain with motion of the great toe joint. Prior treatment has included wider shoes and inserts. She is interested in bunion corrective surgery. She has mri to review and discuss. She is interested in surgery. She does care for her two daughters and is responsible for driving them to the bus but has arranged assistance for period of time following any surgery. She is interested in surgery. PAIN EVALUATION 10/01/2023 0955 Pain Level: 4 Pain Location: Foot-Right Description: Sharp;Dull;Aching Frequency: Intermittent No results found for: HBA1C PCP: Sanchez Prince MD PAST MEDICAL HISTORY No date: Allergic rhinitis, cause unspecified Comment: Allergic rhinitis 11/28/2020: COVID-19 No date: History of depression Comment: situational No date: Infertility, female No date: Migraine, unspecified, with intractable migraine, so stated, without mention of status migrainosus Comment: Migraine 03/01/1996: Mononucleosis No date: Other acne 08/10/2013: Rh negative status during No date: Scoliosis Comment: mild scoliosis No date: Thyroid disease Comment: ON MEDS FROM TOUCH UP PAINTER Current Outpatient Medications Medication Sig ergocalciferol, vitamin D2, (VITAMIN D2 ORAL) Take by mouth. triamcinolone acetonide (NASACORT NASAL) Use in the nose. ergotamine-caffeine (CAFERGOT) 1-100 mg per tablet Take 1 tablet by mouth as directed. Two tablets at onset of attack; then 1 tablet every 30 minutes as needed; maximum: 6 tablets per attack; do not exceed 10 tablets/week [id number]-OWAS-JAYKB-OREG-CAPRYL ORAL Take by mouth. amino acids-rice stsxsyk-st-az (K-PAX IMMUNE BOOSTER) 24 gram-240 kcal/65 gram powd Take by mouth. ascorbic acid (VITAMIN C ORAL) Take by mouth. vitamin B complex (B COMPLEX ORAL) Take by mouth. MAGNESIUM ORAL Take by mouth. fexofenadine HCl (CRISTIANE ORAL) Take by mouth. CALCIUM ORAL Take by mouth. multivit/iron/FA/K/herb no.244 (ALIVE WOMEN'S ENERGY ORAL) Take by mouth. CALCIUM CARBONATE/VITAMIN D3 (CALCIUM + D ORAL) Take 1 tablet by mouth twice daily. No current facility-administered medications for this visit. ALLERGIES No Known Allergies PAST SURGICAL HISTORY No date: EYE SURGERY HX No date: TONSILLECTOMY PRIMARY/SECONDARY AGE 11/> Physical Exam: OBJECTIVE: Constitutional: Pt is a well developed 48 year old female who is alert, oriented, cooperative and in no apparent distress. Eyes: Following during examination. No redness or drainage. Respiratory: RR normal and nonlabored. Even breathing. No evidence of distress. Psychology: Patient is engaged during conversation. Normal affect and mood. Does not appear depressed or anxious. Vascular: DP and PT pulses are palpable. CFT is brisk. Skin temperature is warm to warm. PVR reviewed and is normal. Non-Invasive Vascular Laboratory [facility] Lower Extremity Arterial Physiology Study Bilateral/Complete Date of service/time: 09/03/2023 3:29:59 PM Name: BIANCA SPRING Date of : 1975 Age: 48 years Gender: F Clinical Indication Decreased pulses and Surgical assessment. TECHNIQUE -------- An arterial physiological examination was performed, including measurement of blood pressures using continuous wave Doppler and recording of plethysmographic with or without Doppler waveforms at the below-mentioned limb segments. FINDINGS -------- RIGHT SIDE AT REST Right Doppler Waveforms Dorsalis pedis: Multiphasic. Post tibial: Multiphasic. Right Pressures Brachial: 121 mmHg Ankle dorsalis pedis: 142 mmHg KITA: 1.17 Ankle posterior tibial: 150 mmHg KITA: 1.24 Digit: 89 mmHg Right PVR Waveforms Ankle: Normal. Digit: Mildly dampened. LEFT SIDE AT REST Left Doppler Waveforms Dorsalis pedis: Multiphasic. Post tibial: Multiphasic. Left Pressures Brachial: 111 mmHg Ankle dorsalis pedis: 147 mmHg KITA: 1.21 Ankle posterior tibial: 148 mmHg KITA: 1.22 Digit: 86 mmHg Left PVR Waveforms Ankle: Normal. Digit: Mildly dampened. IMPRESSION RIGHT SIDE Resting right ankle brachial index: 1.24 Right toe brachial index: 0.74 Normal ankle brachial index at rest in the right leg. Normal toe brachial index at rest in the right leg. LEFT SIDE Resting left ankle brachial index: 1.22 Left toe brachial index: 0.71 Normal ankle brachial index at rest in the lef (more content not included)... [facility] History of Present illness Narrative* Carol Sepulveda - 10/01/2023 2:07 PM EDT FOLLOW UP PODIATRIC OFFICE VISIT Chief Complaint: This 48 year old who presents for follow up:bunion deformity of right foot Patient presents to clinic for evaluation of right foot. She has painful bunion of right foot. Mostof her pain is located along the right 1st mtpj. Pain is present along the medial eminence but she has found that there is pain with motion of the great toe joint. Prior treatment has included wider shoes and inserts. She is interested in bunion corrective surgery. She has mri to review and discuss. She is interested in surgery. She does care for her two daughters and is responsible for driving them to the bus but has arranged assistance for period of time following any surgery. She is interested in surgery. PAIN EVALUATION 10/01/2023 0955 Pain Level: 4 Pain Location: Foot-Right Description: Sharp;Dull;Aching Frequency: Intermittent No results found for: HBA1C PCP: Sanchez Prince MD PAST MEDICAL HISTORY No date: Allergic rhinitis, cause unspecified Comment: Allergic rhinitis 11/28/2020: COVID-19 No date: History of depression Comment: situational No date: Infertility, female No date: Migraine, unspecified, with intractable migraine, so stated, without mention of status migrainosus Comment: Migraine 03/01/1996: Mononucleosis No date: Other acne 08/10/2013: Rh negative status during No date: Scoliosis Comment: mild scoliosis No date: Thyroid disease Comment: ON MEDS FROM TOUCH UP PAINTER Current Outpatient Medications Medication Sig ergocalciferol, vitamin D2, (VITAMIN D2 ORAL) Take by mouth. triamcinolone acetonide (NASACORT NASAL) Use in the nose. ergotamine-caffeine (CAFERGOT) 1-100 mg per tablet Take 1 tablet by mouth as directed. Two tablets at onset of attack; then 1 tablet every 30 minutes as needed; maximum: 6 tablets per attack; do not exceed 10 tablets/week [id number]-OHMY-BRUFC-OREG-CAPRYL ORAL Take by mouth. amino acids-rice gkytxxa-di-fi (K-PAX IMMUNE BOOSTER) 24 gram-240 kcal/65 gram powd Take by mouth. ascorbic acid (VITAMIN C ORAL) Take by mouth. vitamin B complex (B COMPLEX ORAL) Take by mouth. MAGNESIUM ORAL Take by mouth. fexofenadine HCl (CRISTIANE ORAL) Take by mouth. CALCIUM ORAL Take by mouth. multivit/iron/FA/K/herb no.244 (ALIVE WOMEN'S ENERGY ORAL) Take by mouth. CALCIUM CARBONATE/VITAMIN D3 (CALCIUM + D ORAL) Take 1 tablet by mouth twice daily. No current facility-administered medications for this visit. ALLERGIES No Known Allergies PAST SURGICAL HISTORY No date: EYE SURGERY HX No date: TONSILLECTOMY PRIMARY/SECONDARY AGE 11/> Physical Exam: OBJECTIVE: Constitutional: Pt is a well developed 48 year old female who is alert, oriented, cooperative and in no apparent distress. Eyes: Following during examination. No redness or drainage. Respiratory: RR normal and nonlabored. Even breathing. No evidence of distress. Psychology: Patient is engaged during conversation. Normal affect and mood. Does not appear depressed or anxious. Vascular: DP and PT pulses are palpable. CFT is brisk. Skin temperature is warm to warm. PVR reviewed and is normal. Non-Invasive Vascular Laboratory [facility] Lower Extremity Arterial Physiology Study Bilateral/Complete Date of service/time: 09/03/2023 3:29:59 PM Name: BIANCA SPRING Date of : 1975 Age: 48 years Gender: F Clinical Indication Decreased pulses and Surgical assessment. TECHNIQUE -------- An arterial physiological examination was performed, including measurement of blood pressures using continuous wave Doppler and recording of plethysmographic with or without Doppler waveforms at the below-mentioned limb segments. FINDINGS -------- RIGHT SIDE AT REST Right Doppler Waveforms Dorsalis pedis: Multiphasic. Post tibial: Multiphasic. Right Pressures Brachial: 121 mmHg Ankle dorsalis pedis: 142 mmHg KITA: 1.17 Ankle posterior tibial: 150 mmHg KITA: 1.24 Digit: 89 mmHg Right PVR Waveforms Ankle: Normal. Digit: Mildly dampened. LEFT SIDE AT REST Left Doppler Waveforms Dorsalis pedis: Multiphasic. Post tibial: Multiphasic. Left Pressures Brachial: 111 mmHg Ankle dorsalis pedis: 147 mmHg KITA: 1.21 Ankle posterior tibial: 148 mmHg KITA: 1.22 Digit: 86 mmHg Left PVR Waveforms Ankle: Normal. Digit: Mildly dampened. IMPRESSION RIGHT SIDE Resting right ankle brachial index: 1.24 Right toe brachial index: 0.74 Normal ankle brachial index at rest in the right leg. Normal toe brachial index at rest in the right leg. LEFT SIDE Resting left ankle brachial index: 1.22 Left toe brachial index: 0.71 Normal ankle brachial index at rest in the left leg. Normal toe brachial index at rest in the left leg. Technologist: Emily Gurrola RVT, [facility] Ordering physician: CAROL SEPULVEDA Interpreting physician: Petey Brown MD Dermatological: No open lesions noted to right foot. Prior wart of right hallux is essentially resolved. There is evidence of callus sub 2nd metatarsal, right foot Musculoskeletal/Orthopaedic: Patient has pain to palpation of right 1st mtpj, dorsal lateral aspect. There is mild decreased romof right 1st mtpj. Pain present to medial eminence, right foot. Hypermobility is noted at first metatarsal cuneiform joint. Xrays reviewed. IM 1-2 is ~15 degrees. There is lateral deviation of sesamoids. Mild spurring notedalong dorsal first metatarsal phalangeal joint. MRI reivewed: there is evidence of bunion deformity with moderate arthritic changes. Subchondral cartilage thinning, seen on T2 axial image 19. Also seen on sagital T1 image 18 ASSESSMENT: (M20.11) Hallux valgus of right foot (primary encounter diagnosis) (M20.5X1) Acquired hallux limitus of right foot PLAN: Patient is here to discuss bunion. She has tried wider shoes and inserts but continues to have pain. I examined patient today and we discussed clinical presentation and discussed xrays and mri. Clinical exam, she has a bunion deformity with hypermobility of the first ray. Hypermobility is confirmed with the presence of callus formation beneath the 2nd metatarsal. ROM of the right 1st mtpj is decreased and there is pain to the dorsal lateral first mtpj. She doeshave pain to medial eminence but also the first mtpj. Surgical options for her bunion given the hypermobility include lapidus bunionectomy especially given IM 1-2 increase. I do think a lapidus bunionectomy would help to reduce IM 1-2 and help to make the first ray rectus (eliminate the bunion). My greatest concern is the mild to moderate arthritic changes of the first mtpj. My greatest concern is correcting the bunion but if her pain is related to arthritis, she may still be in pain. If she were to elect for lapidus bunionectomy, if she still haspain, she could address the first mtpj by way of fusion at a later time. Alternative options include first mtpj fusion. A first mtpj fusion would eliminate the bunion whilealso addressing the arthritic component. She is not sure about first mtpj fusion. She wonders if she is too young for joint destructive procedure. An alternative option would be to do a decompression osteotomy. A decompression osteotomy could help to eliminate the bunion and possible decompress the joint to help reduce pain in the first mtpj. Itold patient if decompression osteotomy were performed, bunion could return and if this were to occur, fusion of the first mtpj could be performed at a later time. I do think a lapidus would help with her bunion and if she desires this, I am happy to provide thisfor her. I told her that given her wide array of complaints, I would like to set her up with my colleague for an opinion regarding the decompression osteotomy. If she chooses to do this, I told her th at I am in the process of learning this procedure, I may either assist him or he could assist me. Patient satisfied with this plan of care Carol Sepulveda DPM * Talia Flowers LPN - 10/01/2023 9:55 AM EDT AMB ROOMING INTAKE FLOWSHEET DATA Pain Pain Level: 4 Pain Location: Foot-Right Description: Sharp, Dull, Aching Frequency: Intermittent Patient presents with: Right Foot - Established Patient, Pain, discuss MRI Talia Flowers LPN documented in this encounterGre[facility] NoteHNO ID: [id number] Author: TALIA FLOWERS LPN Service: ? Author Type: LICENSED NURSE Type: Progress Notes Filed: 10/01/2023 16:16 Note Text: AMB ROOMING INTAKE FLOWSHEET DATA Pain Pain Level: 4 Pain Location: Foot-Right Description: Sharp, Dull, Aching Frequency: Intermittent Patient presents with: Right Foot - Established Patient, Pain, discuss MRI [facility] Telephone encounter Note* Telephone Encounter - Xin Rivera RN - 09/29/2023 8:12 AM EDT Talked with patient. States she is having more pain in the great toe joint. Will discuss and reviewmri this week with patient and discuss options Carol Sepulveda DPM [facility]07-31-2024 Miscellaneous Notes* Telephone Encounter - Xin Rivera RN - 09/29/2023 8:12 AM EDT Talked with patient. States she is having more pain in the great toe joint. Will discuss and reviewmri this week with patient and discuss options Carol Sepulveda DPM * Telephone Encounter - Talia Flowers LPN - 09/23/2023 8:32 AM EDT Images from the original note were not included. Carol Sepulveda [facility] [place]; Carol Sepulveda4 minutes ago (8:28 AM) Attempted to contact patient yesterday. Will try to call her again today * Telephone Encounter - Gisela Sauer RN - 09/22/2023 2:56 PM EDT Patient called in asking about the results of her MRI that was done 09/15/23. Patient asking if she needs to be seen in the office and how far out bunion surgeries are booking? Patient asking for a call back. Gisela Sauer RN [facility] Telephone encounter Note * Telephone Encounter - Talia Flowers LPN - 09/23/2023 8:32 AM EDT Images from the original note were not included. Carol Sepulveda [facility] Pool; Carol Sepulveda4 minutes ago (8:28 AM) Attempted to contact patient yesterday. Will try to call her again today [facility]07-24-2024 Telephone encounter Note* Telephone Encounter - Gisela Sauer RN - 09/22/2023 2:56 PM EDT Patient called in asking about the results of her MRI that was done 09/15/23. Patient asking if she needs to be seen in the office and how far out bunion surgeries are booking? Patient asking for a call back. Gisela Sauer RN [facility]07-17-2024 Miscellaneous Notes* [facility] - Bianca Chen - 09/15/2023 10:30 AM EDT Radiology Service Progress Note PATIENT NAME: Bianca Spring DATE OF SERVICE: September 15, 2023 TIME: 10:30 AM PATIENT IDENTITY VERIFICATION COMPLETED USING TWO (2) IDENTIFIERS: Name and Date of confirmedby patient verbally. FALL SCREENING: Has the patient had 2 falls in the last year or 1 fall with injury or currently using an Ambulatory Assistive Device (Walker, Cane, Wheelchair, Crutches, etc.)? No PATIENT GENDER DATA: Female. status: : No status: NO. PATIENT RELEVANT IMPLANT DATA REVIEWED: Yes PATIENT PRESENTS WITH AN IMPLANTABLE OR ATTACHED JAILER: No RADIOLOGY DEPARTMENT: MR; Exam(s) Completed: Lower MSK: Forefoot/Midfoot, right PERIPHERAL IV DATA: Not applicable SIGNED BY: Bianca Garcia/[facility] September 15, 2023 10:30 AM documented in this encounterGreene [facility]07-17-2024 Progress note* [facility] - Bianca Chen - 09/15/2023 10:30 AM EDT Radiology Service Progress Note PATIENT NAME: Bianca Spring DATE OF SERVICE: September 15, 2023 TIME: 10:30 AM PATIENT IDENTITY VERIFICATION COMPLETED USING TWO (2) IDENTIFIERS: Name and Date of confirmedby patient verbally. FALL SCREENING: Has the patient had 2 falls in the last year or 1 fall with injury or currently using an Ambulatory Assistive Device (Walker, Cane, Wheelchair, Crutches, etc.)? No PATIENT GENDER DATA: Female. status: : No status: NO. PATIENT RELEVANT IMPLANT DATA REVIEWED: Yes PATIENT PRESENTS WITH AN IMPLANTABLE OR ATTACHED JAILER: No RADIOLOGY DEPARTMENT: MR; Exam(s) Completed: Lower MSK: Forefoot/Midfoot, right PERIPHERAL IV DATA: Not applicable SIGNED BY: Bianca Garcia/[facility] September 15, 2023 10:30 AM [facility]06-25-2024 Telephone encounter Note* Telephone Encounter - Janneth White RN - 08/24/2023 4:14 PM EDT Called patient to let her know MRI was ordered and that she can get it scheduled. No answer. Left message for her to call back. [facility]06-25-2024 Miscellaneous Notes* Telephone Encounter - Janneth White RN - 08/24/2023 4:14 PM EDT Called patient to let her know MRI was ordered and that she can get it scheduled. No answer. Left message for her to call back. * Telephone Encounter - Carol Sepulveda - 08/24/2023 8:01 AM EDT Saw patient when she accompanied her daughter to her office visit. She states she has been monitoring the pain in her bunion and does report that she is experiencing pain in the great toe joint with motion of the hallux. Informed her that it is possible she has arthritic bunion and possible cartilage defect. Pending pvr, we discussed possible lapidus bunioenctomy but if she has cartilage defect in first metatarsal head, this may still be painful following any lapidus bunionectomy. I do feel at this time, getting anMRI of her foot to evaluate for cartilage defect prior to any definitive surgical plan is necessary. Mri of right foot ordered documented in this encounterGre[facility]06-25-2024 Telephone encounter Note * Telephone Encounter - Carol Sepulveda - 08/24/2023 8:01 AM EDT Saw patient when she accompanied her daughter to her office visit. She states she has been monitoring the pain in her bunion and does report that she is experiencing pain in the great toe joint with motion of the hallux. Informed her that it is possible she has arthritic bunion and possible cartilage defect. Pending pvr, we discussed possible lapidus bunioenctomy but if she has cartilage defect in first metatarsal head, this may still be painful following any lapidus bunionectomy. I do feel at this time, getting anMRI of her foot to evaluate for cartilage defect prior to any definitive surgical plan is necessary. Mri of right foot ordered [facility] Work Phone: [phone] Telephone encounter Note* Telephone Encounter - Talia Flowers LPN - 08/16/2023 11:24 AM EDT Patient notified of provider's instructions. Patient verbalizes understanding. Talia Flowers LPN [facility]06-17-2024 Miscellaneous Notes* Telephone Encounter - Talia Flowers LPN - 08/16/2023 11:24 AM EDT Patient notified of provider's instructions. Patient verbalizes understanding. Talia Flowers LPN * Telephone Encounter - Talia Flowers LPN - 08/11/2023 8:29 AM EDT Called patient to give below information. No response. Left Vm. Talia Flowers LPN * Telephone Encounter - Talia Flowers LPN - 08/11/2023 8:15 AM EDT Images from the original note were not included. Carol Sepulveda Laurie, MA; [facility] Pod[facility] Pool15 hours ago (4:15 PM) Please call patient to inform her that I would like to make sure her circulation is adequate. That was ordered and it appears that it is scheduled in first part of August. As long as her circulation tothe toes is adequate, I can arrange surgery Carol Sepulveda DPM * Telephone Encounter - Ania Gayle MA - 08/10/2023 4:06 PM EDT Pt is calling to see if she can schedule surgery and what times would be available. Dr. Sepulveda indicated that he would need an assist and go to [facility]?? Please call her as soon as there are dates to choose from. Ania Gayle MA * Telephone Encounter - Xin Rivera RN - 08/06/2023 4:22 PM EDT Phone call to patient. Patient had questions about process of getting surgery authorized by insurance. Answered questions and patient verbalized understanding. * Telephone Encounter - Rupali Graham - 08/06/2023 3:06 PM EDT Patient called requesting to speak to a nurse, as she has several questions about surgery Please advise documented [facility] encounterGre[facility]06-[facility] Telephone encounter Note * Telephone Encounter - Talia Flowers LPN - 08/11/2023 8:29 AM EDT Called patient to give below information. No response. Left Vm. Talia Flowers LPN [facility]06-12-2024 Telephone encounter Note* Telephone Encounter - Talia Flowers LPN - 08/11/2023 8:15 AM EDT Images from the original note were not included. Carol Sepulveda Laurie, MA; [facility] Pod[facility] Pool15 hours ago (4:15 PM) Please call patient to inform her that I would like to make sure her circulation is adequate. That was ordered and it appears that it is scheduled in first part of August. As long as her circulation tothe toes is adequate, I can arrange surgery Carol Sepulveda DPM [facility]06-11-2024 Telephone encounter Note* Telephone Encounter - Ania Gayle MA - 08/10/2023 4:06 PM EDT Pt is calling to see if she can schedule surgery and what times would be available. Dr. Sepulveda indicated that he would need an assist and go to [facility]?? Please call her as soon as there are dates to choose from. Ania Gayle MA [facility]06-07-2024 Telephone encounter Note* Telephone Encounter - Xin Rivera RN - 08/06/2023 4:22 PM EDT Phone call to patient. Patient had questions about process of getting surgery authorized by insurance. Answered questions and patient verbalized understanding. [facility]06-07-2024 Telephone encounter Note* Telephone Encounter - Rupali Graham - 08/06/2023 3:06 PM EDT Patient called requesting to speak to a nurse, as she has several questions about surgery Please advise [facility] Work Phone: [phone]) 597-260806-02-2024 History of Present illness Narrative* Carol Sepulveda - 08/01/2023 3:42 PM EDT FOLLOW UP PODIATRIC OFFICE VISIT Chief Complaint: This 48 year old who presents for follow up:hallux valgus deformity of right foot Patient presents to clinic for follow-up hallux valgus deformity of right foot. Patient complains of painful bunion of right foot. She states her pain is along the medial eminenceof right foot. She denies any pain with rom of right 1st mtpj. She is here to discuss surgical options. She is here for follow-up wart of right great toe She has callus sub 2nd metatarsal likely second to hypermobility of first metatarsal cun joint. Shereports some pain with ambulation. No other complaints. PAIN EVALUATION 07/30/2023 1039 Pain Level: 4 Pain Location: Toe Description: Sore Duration Amount of Time: 1 Duration Units: Years Frequency: Intermittent Intervention/Comfort measure: Reposition;Relaxation No results found for: HBA1C PCP: Sanchez Prince MD PAST MEDICAL HISTORY Diagnosis Date Allergic rhinitis, cause unspecified Allergic rhinitis COVID-19 11/28/2020 History of depression situational Infertility, female Migraine, unspecified, with intractable migraine, so stated, without mention of status migrainosus Migraine Mononucleosis 03/01/1996 Other acne Rh negative status during 08/10/2013 Scoliosis mild scoliosis Thyroid disease ON MEDS FROM TOUCH UP PAINTER Current Outpatient Medications Medication Sig ergocalciferol, vitamin D2, (VITAMIN D2 ORAL) Take by mouth. triamcinolone acetonide (NASACORT NASAL) Use in the nose. ergotamine-caffeine (CAFERGOT) 1-100 mg per tablet Take 1 tablet by mouth as directed. Two tablets at onset of attack; then 1 tablet every 30 minutes as needed; maximum: 6 tablets per attack; do not exceed 10 tablets/week [id number]-KRSIG-OREG-CAPRYL ORAL Take by mouth. ascorbic acid (VITAMIN C ORAL) Take by mouth. vitamin B complex (B COMPLEX ORAL) Take by mouth. MAGNESIUM ORAL Take by mouth. fexofenadine HCl (CRISTIANE ORAL) Take by mouth. CALCIUM ORAL Take by mouth. multivit/iron/FA/K/herb no.244 (ALIVE WOMEN'S ENERGY ORAL) Take by mouth. CALCIUM CARBONATE/VITAMIN D3 (CALCIUM + D ORAL) Take 1 tablet by mouth twice daily. amino acids-rice bjgyxgm-lz-fx (K-PAX IMMUNE BOOSTER) 24 gram-240 kcal/65 gram powd Take by mouth. No current facility-administered medications for this visit. ALLERGIES No Known Allergies PAST SURGICAL HISTORY Procedure Laterality Date EYE SURGERY HX TONSILLECTOMY PRIMARY/SECONDARY AGE 11/> Physical Exam: OBJECTIVE: Constitutional: Pt is a well developed 48 year old female who is alert, oriented, cooperative and in no apparent distress. Eyes: Following during examination. No redness or drainage. Respiratory: RR normal and nonlabored. Even breathing. No evidence of distress. Psychology: Patient is engaged during conversation. Normal affect and mood. Does not appear depressed or anxious. NVSI unchanged from previous visit. Dermatological: Porokeratosis to plantar aspect of right 2nd metatarsal. 3 mm x 2 mm wart to lateral right hallux. Musculoskeletal/Orthopaedic: Patient has pain to palpation of medial eminence of right 1st metatarsal Patient has moderate bunion deformity of b/l first ray R>L Hypermobile first ray is noted to b/l 1st metatarsal cun joint ROM of b/l 1st mtpj is full without pain. ASSESSMENT: Hallux valgus of right foot (primary encounter diagnosis) Porokeratosis Plantar wart Diminished pulses in lower extremity PLAN: Discussed bunion of right foot. She has pain primarily to the medial eminence especially when wearing narrow shoes. She has tried inserts, wider shoes and padding. Despite conservative efforts, she continues to have pain. Most of her pain is along the medial eminence. She has no pain with rom of the first mtpj. In addition to the painful bunion, other findings related to bunion include callus sub2nd metatarsal indicating hypermobile first ray. Discussed surgical options for her bunion. Due to the hypermobility, presence of sub 2nd metatasralcallus and increased IM 1-2, if she were interested in surgery, I would recommend lapidus bunionectomy with possible sarah. I do feel that a lapidus bunionectomy will help to reduce IM while addressing the hypermobility. We discussed other options for correction including but not limited to first mtpj fusion. Since she has no pain with first mtpj rom, I do feel lapidus with possible sarah would be ideal option. I discussed risks of the procedure not limited to infection, pain, swelling, bleeding, slow wound healing, wound dehiscence, nonunion, malunion, delayed union, painful hardware, recurrent bunion deformity, cardiac arrest, dvt, . I specifically discussed risk of dvt. We discussed lovenox vs aspirin. She has elected to take aspirin twice daily. I discussed post-op care to include period of nwb in splint followed by boot. Being that it is her right foot, no driving for period of time. She understands rationale for procedure. She has consented to proceed with lapidus with possible sarah. Porokeratosis was reduced with 15 blade as courtesy. Wart to right hallux was sharply debrided today with 15 blade and tissue nippers. Tca applied underocclusion. Patient to continue with compuond w as this does appear to be helping Will order vitamin d for pre-op Pvr ordered to assess perfusion to right foot Carol Sepulveda DPM * Talia Flowers LPN - 07/30/2023 10:39 AM EDT AMB ROOMING INTAKE FLOWSHEET DATA Pain Pain Level: 4 Pain Location: Toe Description: Sore Duration Amount of Time: 1 Duration Units: Years Frequency: Intermittent Intervention/Comfort measure: Reposition, Relaxation Patient presents with: Right Foot - Established Patient, Follow Up, Pain, Bunion Talia Flowers LPN documented in this encounterGreene [facility]05-09-2024 History of Present illness Narrative* Carol Sepulveda - 07/08/2023 11:39 AM EDT Initial Podiatric Office Visit: Chief Complaint: This 48 year old female who presents with chief complaint:bunion of right foot HPI Patient presents to clinic for evaluation of right foot Complains of bunion to right foot (right great toe) Has pain that varies in severity. Was going to consider surgery last year but her insurance would not cover the procedure Is here to discuss options. States she has callus to right foot. PAIN EVALUATION 07/08/2023 1129 Pain Level: 4 Pain Location: Foot-Right Description: Aching Duration Units: Years Frequency: Intermittent Intervention/Comfort measure: Relaxation;Reposition;Medication No results found for: HBA1C PCP: Sanchez Prince MD PAST MEDICAL HISTORY Diagnosis Date Allergic rhinitis, cause unspecified Allergic rhinitis COVID-19 11/28/2020 History of depression situational Infertility, female Migraine, unspecified, with intractable migraine, so stated, without mention of status migrainosus Migraine Mononucleosis 03/01/1996 Other acne Rh negative status during 08/10/2013 Scoliosis mild scoliosis Thyroid disease ON MEDS FROM TOUCH UP PAINTER Current Outpatient Medications Medication Sig ergocalciferol, vitamin D2, (VITAMIN D2 ORAL) Take by mouth. triamcinolone acetonide (NASACORT NASAL) Use in the nose. ergotamine-caffeine (CAFERGOT) 1-100 mg per tablet Take 1 tablet by mouth as directed. Two tablets at onset of attack; then 1 tablet every 30 minutes as needed; maximum: 6 tablets per attack; do not exceed 10 tablets/week [id number]-RVLUL-OREG-CAPRYL ORAL Take by mouth. ascorbic acid (VITAMIN C ORAL) Take by mouth. vitamin B complex (B COMPLEX ORAL) Take by mouth. MAGNESIUM ORAL Take by mouth. fexofenadine HCl (CRISTIANE ORAL) Take by mouth. CALCIUM CARBONATE/VITAMIN D3 (CALCIUM + D ORAL) Take 1 tablet by mouth twice daily. amino acids-rice innexaz-nl-fc (K-PAX IMMUNE BOOSTER) 24 gram-240 kcal/65 gram powd Take by mouth. CALCIUM ORAL Take by mouth. (Patient not taking: Reported on 11/14/2020) multivit/iron/FA/K/herb no.244 (ALIVE WOMEN'S ENERGY ORAL) Take by mouth. (Patient not taking: Reported on 11/14/2020) No current facility-administered medications for this visit. ALLERGIES No Known Allergies PAST SURGICAL HISTORY Procedure Laterality Date EYE SURGERY HX TONSILLECTOMY PRIMARY/SECONDARY AGE 11/> FAMILY HISTORY Problem Relation Age of Onset Heart Mother Hypertension Maternal Grandmother Osteoporosis Maternal Grandmother Cancer Paternal Grandmother Lung and Bone Heart Paternal Grandfather Hypertension Paternal Grandfather Cancer Sister Lung (Non-smoker) Social History Tobacco Use Smoking status: Never Smokeless tobacco: Never Vaping Use Vaping Use: Never used Substance Use Topics Alcohol use: No Drug use: No REVIEW OF SYSTEMS GENERAL: Negative for Malaise, significant weight loss, fever RESPIRATORY: Negative for cough, wheezing and shortness of breath CARDIOVASCULAR: Negative for chest pain, leg swelling and palpitations GI: Negative for abdominal discomfort, blood in stools or black stools and change in bowel habits : Negative for dysuria, frequency and incontinence MUSCULOSKELETAL: Negative for joint pain or swelling, back pain, and muscle pain. SKIN: Negative for lesions, rash, and itching. HEMATOLOGY/LYMPHOLOGY Negative for prolonged bleeding, bruising easily, and swollen nodes. ENDOCRINE: Negative for cold or heat intolerance, polyuria, polydipsia and goiter. NEURO: negative Physical Exam: Constitutional: Pt is a well developed 48 year old female who is alert, oriented and cooperative Eyes: Following during examination. No redness or drainage. Respiratory: RR normal and nonlabored. Even breathing. No evidence of distress or shortness of breath. Psychology: Patient is engaged during conversation. Normal affect and mood. Does not appear depressed or anxious during encounter. Vascular: Dorsalis pedis and posterior tibial pulses palpable as b/l Capillary Fill time < 5 seconds to digits 1-5 b/l Skin temperature warm to warm proximal to distal b/l Hair growth present to digits Neurological: intact light touch/epicritic sensation b/l intact protective sensation no significant neurological deficits Dermatological: Nails 1-5 b/l appear normal. Webspaces clean and dry 1-4 b/l. Skin appears well hydrated and supple. good color, texture, turgor. No open lesions present. Porokeratosis is present to right 2nd metatarsal head. Wart present to plantar aspect of right hallux. Musculoskeletal/Orthopaedic: Patient has pain to palpation of medial right 1st metatarsal. Mild pain with rom of right 1st mtpj Foot type is slightly pronated structurally AJ ROM is full with knee extended and flexed 1st MPJ is slightly decreased when loaded and no pain or crepitus are noted with ROM. Hypermobility is present to right 1st metatarsal cun joint MTJ, STJ are full and free of pain and crepitus. +5/5 muscle strength dorsiflexion, plantarflexion, inversion, eversion b/l Radiographs: 3 views right foot ordered July 08, 2023: I have personally reviewed and interpreted these XR myself: increased IM 1-2 with lateral deviation of sesamoids. Mild dorsal spurring of right 1st metatarsal head ASSESSMENT: (M20.11) Hallux valgus of right foot (primary encounter diagnosis) (Q82.8) Porokeratosis (B07.0) Plantar wart PLAN: 1. History and physical examination performed. 2. Discussed bunion of right foot. Patient has hypermobile first ray as evidence by increased callus formation of right 2nd metatarsal head. I discussed options from a conservative stand point not limited to wider shoes, apdding, use of inserts vs surgcial options. Surgical options include lapidus (lapiplasty) vs first mtpj fusion. First mtpj fusion would be an option if she were experiencing pain with first mtpj motion. In absende of first mtpj pain, could consider lapidus. 3. Patient to consider options. Will get back within one month and discuss desires. 4. Porokeratosis of right 2nd metatarsal sharply debrided with 15 blade. Tca applied under occlusion. 5. Plantar wart to right hallux was debrided with separate 15 blade. Tca applied under occlusion. Carol Sepulveda DPM Podiatry [address] [facility] [place] [address] Dept: [phone] Dept * Talia Flowers LPN - 07/08/2023 11:27 AM EDT AMB ROOMING INTAKE FLOWSHEET DATA Pain Pain Level: 4 Pain Location: Foot-Right Description: Aching Duration Units: Years Frequency: Intermittent Intervention/Comfort measure: Relaxation, Reposition, Medication Patient presents with: Right Foot - Bunion, Pain, New Would like to discuss options. Talia Flowers LPN documented in this encounterGreene [facility] Hospital05-09-2024 History of Present illness Narrative* Abbey Krishnamurthy RT(R) - 07/08/2023 10:50 AM EDT Radiology Service Progress Note PATIENT NAME: Bianca Spring DATE OF SERVICE: July 08, 2023 TIME: 11:00 AM PATIENT IDENTITY VERIFICATION COMPLETED USING TWO (2) IDENTIFIERS: Name and Date of confirmedby patient verbally. FALL SCREENING: Has the patient had 2 falls in the last year or 1 fall with injury or currently using an Ambulatory Assistive Device (Walker, Cane, Wheelchair, Crutches, etc.)? No PATIENT GENDER DATA: Female. status: : No status: NO. PATIENT RELEVANT IMPLANT DATA REVIEWED: Yes PATIENT PRESENTS WITH AN IMPLANTABLE OR ATTACHED JAILER: No RADIOLOGY DEPARTMENT: General X-ray: Exam(s) Completed: Lower Extremity X- Ray(s): Foot, Right and Wt. Bearing PERIPHERAL IV DATA: Not applicable SIGNED BY: RT Hipolito(Nicole) July 08, 2023 11:00 AM documented in this encounterGreene [facility]05-03-2024 Note* Discharge Instr - Nursing - Elizabeth Hutchison RN - 07/02/2023 12:11 PM EDT The patient received a copy of Colonoscopy discharge instructions that contain information for how to contact the physician who performed the procedure and when to seek medical care. [facility]05-03-2024 Miscellaneous Notes* Discharge Instr - Nursing - Elizabeth Hutchison, REUBEN - 07/02/2023 12:11 PM EDT The patient received a copy of Colonoscopy discharge instructions that contain information for how to contact the physician who performed the procedure and when to seek medical care. documented in this encounterGreene Memorial Hospital05-03-2024 Nurse Note* Elizabeth Hutchison RN - 07/02/2023 12:07 PM EDT Pt. arrived to phase 2 resting on left side. SR up x 2, call light in reach. Elizabeth Hutchison RN [facility]05-03-2024 Nurse Note* Elizabeth Hutchison RN - 07/02/2023 12:07 PM EDT Pt. arrived to phase 2 resting on left side. SR up x 2, call light in reach. Elizabeth Hutchison RN documented in this encounterGreene Memorial Hospital02-29-2024 Instructions* Patient Instructions* Abena Nj MD - 04/29/2023 9:32 AM EST Minimizing irritation of the vulva (area around the vagina) Wear white cotton underwear. Avoid synthetic fabrics and tight clothing. Sleep wearing shorts or pajama bottoms without underwear. Shower as soon as possible after exercise. Avoid clothing detergents and soaps with perfumes or dyes. Use warm (not hot) water to wash the vulva and if you use soap use a product designed for sensitive skin (like Dove or Cetaphil). Do not douche or use creams/powders in the vulvar area unless instructed by your physician. If you must douche, use only plain warm water. Make sure the vulva is dry before dressing by patting dry with a towel. Avoid vigorous rubbing withthe towel. You may want to use the blow dryer (on the cool setting only!) on the vulva. The most important way to let your body heal is by avoiding scratching. Many patients find it difficult to avoid scratching at night when they are most aware of the itchiness. You can try taking Benadryl just before bedtime. Some women find it helpful to wear cotton gloves to bed to avoid scratching at night. [facility] A&D ointment - barrier documented in this encounter[facility] History of Present illness Narrative* Abena Nj MD - 04/29/2023 9:08 AM EST Bianca Spring is a 47 year old female who presents for problem visit. HPI: Patient presents with infection concerns. Last she noted a vaginal odor and irritation. She tried some old medication (clotrimazole & betamethasone). Patient then had menses. She was feeling better until started to have some vulvar irritation. Patient tried triamcinolone externally with improvement OB History T2 L2 SAB1 IAB0 Ectopic0 Multiple0 Live Births2 Manager Environmental Affairs History LMP: 04/24/2023 (Exact Date), Having periods Age at Menarche: Age at First : Age at Menopause: Manager Environmental Affairs History Comments: Sexual Activity: Yes; Male Contraception: Condom PAST MEDICAL HISTORY Diagnosis Date Allergic rhinitis, cause unspecified Allergic rhinitis COVID-19 11/28/2020 History of depression situational Infertility, female Migraine, unspecified, with intractable migraine, so stated, without mention of status migrainosus Migraine Mononucleosis 03/01/1996 Other acne Rh negative status during 08/10/2013 Scoliosis mild scoliosis Thyroid disease ON MEDS FROM TOUCH UP 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 PAST SURGICAL HISTORY Procedure Laterality Date TONSILLECTOMY PRIMARY/SECONDARY AGE 11/> FAMILY HISTORY Problem Relation Age of Onset Heart Mother Hypertension Maternal Grandmother Osteoporosis Maternal Grandmother Cancer Paternal Grandmother Lung and Bone Heart Paternal Grandfather Hypertension Paternal Grandfather Cancer Sister Lung (Non-smoker) Social History Tobacco Use Smoking status: Never Smokeless tobacco: Never Vaping Use Vaping Use: Never used Substance Use Topics Alcohol use: No Drug use: No Current Outpatient Medications Medication Sig ergocalciferol, vitamin D2, (VITAMIN D2 ORAL) Take by mouth. triamcinolone acetonide (NASACORT NASAL) Use in the nose. ergotamine-caffeine (CAFERGOT) 1-100 mg per tablet Take 1 tablet by mouth as directed. Two tablets at onset of attack; then 1 tablet every 30 minutes as needed; maximum: 6 tablets per attack; do not exceed 10 tablets/week JNOTPOX-EZSI-KFKGV-OREG-CAPRYL ORAL Take by mouth. amino acids-rice ckwjxlf-ac-fq (K-PAX IMMUNE BOOSTER) 24 gram-240 kcal/65 gram powd Take by mouth. ascorbic acid (VITAMIN C ORAL) Take by mouth. vitamin B complex (B COMPLEX ORAL) Take by mouth. MAGNESIUM ORAL Take by mouth. fexofenadine HCl (CRISTIANE ORAL) Take by mouth. CALCIUM CARBONATE/VITAMIN D3 (CALCIUM + D ORAL) Take 1 tablet by mouth twice daily. CALCIUM ORAL Take by mouth. (Patient not taking: Reported on 11/14/2020) multivit/iron/FA/K/herb no.244 (ALIVE WOMEN'S ENERGY ORAL) Take by mouth. (Patient not taking: Reported on 11/14/2020) No current facility-administered medications for this visit. Allergies As of Date: 04/29/2023 (No Known Allergies) Fully Assessed 04/29/2023 Allergies and current medication updated:Yes EXAM: BP 108/68 Wt 143 lb 9.6 oz (65.1kg) LMP 04/24/2023 GENERAL: pleasant, female in no apparent distress PELVIC: external genitalia normal, normal Bartholin's glands, urethra, [place]'s glands, no vulvar lesions, no cervical lesions, good vaginal support, scant discharge present, normal appearing perinealbody and perianal region ASSESSMENT AND PLAN: 47yo female with vaginal irritation & odor Vaginitis swab Advised on perineal hygiene & probiotics Discussed A&D ointment to prevent vulvar irritation during menses Medical Decision Making: Problems: Low: 2+ self-limited or minor problems Data: Unique test(s) ordered: 2 Risk: Low: Low risk from testing/treatment Medical Decision Making Level: 3 - Low Abena Nj MD documented in this encounterGreene [facility]02-12-[facility]24 Miscellaneous Notes* Letter - Coordinator, Mammography - 04/12/2023 12:16 PM EST April 13, 2023 PID: [id number] Bianca Spring [address] [place] [address] Dear Ms. Spring, We are pleased to inform you that the results of your recent breast imaging exam on 04/09/2023 are normal. Your mammogram demonstrates that you have dense breast tissue, which could hide abnormalities. Dense breast tissue, in and of itself, is a relatively common condition. Therefore, this information is not provided to cause undue concern; rather, it is to raise your awareness and promote discussion with your health care provider regarding the presence of dense breast tissue in addition to other riskfactors. Early detection of cancer is very important. We also understand recommendations regarding breast cancer screening are controversial. Please discuss with your primary care provider which strategy is best for you and whether a mammogram is right for you. Your imaging studies and report will be kept [facility] file at [facility] as part of your permanent medical record and are available for your continuing care. Thank you for allowing us to help in meeting your health care needs. Sincerely, Dr. Leblanc Interpreting Radiologist [facility] (Normal over 40) documented in this encounterGreene [facility]02-09-2024 History of Present illness Narrative* Janneth Meyers MA - 04/09/2023 10:27 AM EST TR OPEN ACCESS QUESTIONNAIRE 1. Are you currently having any new or unusual stomach/gastrointestinal issues at this time such asconstipation, diarrhea, abdominal pain, rectal bleeding etc?No 2. Do you have any difficulty swallowing? No 3. Do you have any implanted devices such as a defibrillator, pacemaker, cardiac stents or deep brain stimulator? No 4. Do you take any Blood thinners such as Coumadin, Plavix, Xarelto, Eliquis, Brilinta or any otherblood thinner? No 5. Do you have any new or past cardiac (heart) or pulmonary (lung) issues? No 6. Do you currently use any oxygen? No 7. Have you been hospitalized in the past 6 weeks? No 8. Have you had difficulty with anesthesia previously re: Difficult intubation? No Other difficulty or allergic reaction to anesthesia other than post op N/V? No 9. Are you on dialysis? No 10. Do you have any bleeding disorders such as hemophilia or Factor 5? No 11. Are you an Insulin Dependent Diabetic? No IF ANY OF THE TOP ELEVEN QUESTIONS ARE ANSWERED YES PLEASE SCHEDULE THE PATIENT FOR A CONSULT. N/A 12. Is the patient's BMI 40 or greater? No:Body mass index is 24.34 kg/m .. 13. Do you take any narcotics or anti-Anxiety medications? No 14. Do you use any illegal or recreational drugs including marijuana? No 15. Any alcohol use: No. 16. Have you been diagnosed with chronic liver disease such as hepatitis or cirrhosis? No 17. Do you have a seizure disorder? No 18. Do you have ulcerative colitis or Crohn's disease? No 19. Are you or could you be ? No 20. Any other important health information we should be made aware of prior to your colonoscopy? No To be completed by LIP: Did patient have MAC anesthesia with a previous endoscopy procedure? No Patient appropriate for Open Access Colonoscopy: Yes: appropriate for Open Access Procedure Checklist: Prior to closing the encounter: Complete questionnaire: Yes Confirm Prep order has been Ordered/Pended: Yes. Patient's procedure could be delayed if not given the script for the prep. Please ensure the prep is escripted to pharmacy or printed. Instructions for the prep will print upon filing or pending thissmartset. Please send all open access questionnaires to [facility] Pool #[id number] * Abena Nj MD - 04/09/2023 9:25 AM EST Nursing Program Coordinator offered: Patient declines. GUTIERREZ is a 47 year old who presents for an annual gynecologic exam. Menses: cycles every 28 days and 5-6 days of flow. Contraception: condoms HPV vaccine: No Last Pap: 12/24/2020 normal HPV: 12/16/2020 negative History of abnormal pap: No Last mammogram: today OB History T2 L2 SAB1 IAB0 Ectopic0 Multiple0 Live Births2 Manager Environmental Affairs History LMP: 03/30/2023 (Exact Date), Having periods Age at Menarche: Age at First : Age at Menopause: Manager Environmental Affairs History Comments: Sexual Activity: Yes; Male Contraception: Condom PAST MEDICAL HISTORY Diagnosis Date Allergic rhinitis, cause unspecified Allergic rhinitis COVID-19 11/28/2020 History of depression situational Infertility, female Migraine, unspecified, with intractable migraine, so stated, without mention of status migrainosus Migraine Mononucleosis 03/01/1996 Other acne Rh negative status during 08/10/2013 Scoliosis mild scoliosis Thyroid disease ON MEDS FROM TOUCH UP 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 PAST SURGICAL HISTORY Procedure Laterality Date TONSILLECTOMY PRIMARY/SECONDARY AGE 11/> FAMILY HISTORY Problem Relation Age of Onset Heart Mother Hypertension Maternal Grandmother Osteoporosis Maternal Grandmother Cancer Paternal Grandmother Lung and Bone Heart Paternal Grandfather Hypertension Paternal Grandfather Cancer Sister Lung (Non-smoker) SOCIAL HISTORY Social History Tobacco Use Smoking status: Never Smokeless tobacco: Never Vaping Use Vaping Use: Never used Substance Use Topics Alcohol use: No Drug use: No REVIEW OF SYSTEMS Abdomen: No abdominal pain, nausea, vomiting, diarrhea, or constipation. No bloating, early satiety, indigestion, or increased flatulence. Bladder: No dysuria, gross hematuria, urinary frequency, urinary urgency. positive MARLINE. Breast: No breast lumps, nipple d/c, overlying skin changes, redness or skin retraction. Allergies and current medication updated:Yes EXAM: BP 110/72 Ht 5' 4 (1.63m) Wt 141 lb 12.8 oz (64.3kg) LMP 03/30/2023 BMI 24.33 kg/(m^2). GENERAL: pleasant, female in no apparent distress BREAST: soft, non-tender, symmetric, no dominant mass, normal nipple-areolar complex, no lymphadenopathy, and no nipple discharge CHEST: Normal inspiratory effort ABDOMEN: soft, non-tender, and no masses PELVIC: external genitalia normal, normal Bartholin's glands, urethra, [place]'s glands, no vulvar lesions, no cervical lesions, good vaginal support, physiologic discharge present, normal appearing perineal body and perianal region BIMANUAL: uterus normal size, shape and consistency, no adnexal masses, and non-tender RECTOVAGINAL: deferred. NEURO: alert and oriented x3,exam grossly non-focal EXTREMITIES: normal ASSESSMENT/PLAN: 1) Health maintenance: Pap/HPV up to date. Mammogram today Colonoscopy referral Nutrition, exercise and routine health maintenance exams reviewed. 2) Contraception: condoms. Contraceptive options reviewed and information provided. 3) Follow up one year or sooner as needed 4) MARLINE - consult to pelvic floor PT Abena Nj MD documented in this encounterGreene [facility]02-09-2024 Instructions* Patient Instructions* Janneth Meyers MA - 04/09/2023 10:27 AM EST Images from the original note were not included. Health Information For Patients and the Community How to Prepare for Your Colonoscopy Using Golytely, Nulytely, Trilyte or Colyte Preparations IMPORTANT - Please Read These Instructions at Least 2 Weeks Before Your Colonoscopy [place] Instructions: ?Your bowel must be empty so that your doctor can clearly view your colon. Follow all of the instructions in this handout EXACTLY as they are written. If you do NOT follow the directions for when to start drinking the bowel preparation (see next page), your colonoscopy WILL be cancelled. ?Do NOT eat any solid food the ENTIRE day before your colonoscopy. ?Buy your bowel preparation at least 5 days before your colonoscopy. ?Do NOT mix the solution until the day before your colonoscopy. [employer] on the Day of Your Exam A responsible family member or friend MUST come with you to your colonoscopy and REMAIN in the endoscopy area until you are discharged! You are NOT ALLOWED to drive, take a taxi or bus, or leave the Endoscopy Center ALONE. If you do not have a responsible bulk truck driver (family member or friend) with you to take you home, your exam cannot be done with sedation and will be cancelled. Medications Some of the medicines you take may need to be stopped or adjusted before your colonoscopy. You MUST call the doctor who ordered any of the following medicines at least 2 weeks before your colonoscopy. ?Blood thinners -- such as Coumadin (warfarin), Plavix (clopidogrel), Ticlid (ticlopidine hydrochloride), Agrylin (anagrelide), Xarelto (Rivaroxaban), Pradaxa (Dabigatran), Eliquis (Apixaban), and Effient (Prasugrel). ?Insulin or diabetes pills. Please call the doctor that monitors your glucose levels. Your insulin dosage may need to be adjusted due to the diet restrictions required with this bowel preparation. (Please bring your diabetes medicines with you on the day of your procedure.) If you take aspirin, take it and ALL other medications prescribed by your doctor. On the day of your colonoscopy, take your medications with a sip of water. Revised 04/2016 1 Five (5) Days Before Your Colonoscopy ?Do NOT take medicines that stop diarrhea -- such as Imodium , Kaopectate , or Pepto Bismol . ?Do NOT take fiber supplements -- such as Metamucil , Citrucel , or Perdiem . ?Do NOT take products that contain iron -- such as multi-vitamins -- (the label lists what is in the products). ?Do NOT take vitamin E. Buy the prescription bowel preparation solution at your local pharmacy or drugstore pharmacy. Three (3) Days Before Your Colonoscopy Do NOT eat high-fiber foods -- such as popcorn, beans, seeds (flax, sunflower, quinoa), multigrain bread, nuts, salad/vegetables, or fresh and dried fruit. One (1) Day Before Your Colonoscopy Only drink clear liquids the ENTIRE DAY before your colonoscopy. Do NOT eat any solid foods. Drink at least 8 ounces of clear liquids every hour after waking up. The clear liquids you can drink include: ?water, apple, or white grape juice; broth; coffee or tea (without milk or creamer); clear carbonated beverages such as monica joanie or lemon-sitka soda; Gatorade or other sports drinks (not red); Chavo-Aid or other flavored drinks (not red). You may eat plain jello or other gelatins (not red) or popsicles (not red). Do NOT drink alcohol on the day before or the day of the procedure. 2 Revised 04/2016 When to Mix and Drink Your Bowel Prep Follow the instructions on the label. After mixing, place the solution in the refrigerator for a couple of hours before drinking. You may add the flavor packet that came with the bowel preparation. DO NOT add ice, sugar or any flavorings to the solution. Evening Before Your Colonoscopy ?Start drinking the bowel preparation at 6 PM the evening before your colonoscopy. Drink an 8-oz glass of bowel preparation every 10 minutes. You must finish drinking the solution by 9 PM the night before your scheduled procedure. ?You may continue to drink clear liquids only until midnight. Do NOT eat or drink ANYTHING after midnight the night before your procedure or your procedure may be cancelled. This is for your safety and will reduce the risk of having any food or liquid in your stomach move into your lungs (aspiration) during a procedure. If you take aspirin, take it and ALL other prescribed medicines with a sip of water on the day of your colonoscopy. Contact Information: If you are unable to keep your appointment or have any questions about the instructions, please call the facility where the procedure is being performed. Call between the hours of 8:00 AM and 5:00 PM. If you are calling after 5:00 PM, please call Nurse physician non invasive cardiologist at [phone]. [facility] [address] [address] Index # [id number] Revised 04/2016 3 Colonoscopy Procedure Overview Please Read Prior to the Procedure What is a Colonoscopy A colonoscopy is an outpatient procedure in which the inside of the large intestine (colon and rectum) is examined. A colonoscopy is commonly used to evaluate gastrointestinal symptoms, such as rectal and intestinal bleeding, abdominal pain, or changes in bowel habits. Colonoscopies are also performed in individuals without symptoms to check for colorectal polyps or cancer. A screening colonoscopy is recommended for anyone 50 years of age and older, and for anyone with parents, siblings or children with a history of colorectal cancer or polyps. What Happens Before a Colonoscopy To have a successful colonoscopy, your bowel must be empty so that your physician can clearly view the colon. To do this, it is very important to read and follow all of the instructions given to you at least 2 weeks BEFORE your exam. If your bowel is not empty, your colonoscopy will not be successful and may have to be repeated. If you feel nauseated or vomit while taking the bowel preparation, wait 30 minutes before drinking more fluid and start with small sips of solution. Some activity (such as walking) or a few soda crackers may help decrease the nausea you are feeling. If the nausea persists, please contact nurse gis application developer at [phone]. You may experience skin irritation around the anus due to the passage of liquid stools. To prevent and treat skin irritation, you should: ?Apply Vaseline or Desitin ointment to the skin around the anus before drinking the bowel preparation medications. These products can be purchased at any drugstore. ?Wipe the skin after each bowel movement with disposable wet wipes instead of toilet paper. These are found in the toilet paper area of the store. ?Sit in a bathtub filled with warm water for 10 to 15 minutes after you finish passing a stool; after soaking, blot the skin dry with a soft cloth, apply Vaseline or Desitin ointment to the anal area, and place a cotton ball just outside your anus to absorb leaking fluid. What Happens During a Colonoscopy During a colonoscopy, an experienced physician uses a colonoscope (a long, flexible instrument about 1/2 inch in diameter) to view the lining of the colon. The colonoscope is inserted into the rectumand advanced through the large intestine. If necessary during a colonoscopy, small amounts of tissue can be removed for analysis (a biopsy) and polyps can be identified and entirely removed. In many cases, a colonoscopy allows accurate diagnosis and treatment of colorectal problems without the needfor a major operation. Revised 04/2016 5 ?You are asked to wear a hospital gown and an IV will be started. ?You are given a pain reliever and a sedative intravenously (in your vein). You will feel relaxed and somewhat drowsy. ?You will lie on your left side, with your knees drawn up towards your chest. ?A small amount of air is used to expand the colon so the physician can see the colon akins. ?You may feel mild cramping during the procedure. Cramping can be reduced by taking slow, deep breaths. ?The colonoscope is slowly withdrawn while the lining of your bowel is carefully examined. ?The procedure lasts from 30 minutes to 1 hour. What Happens After a Colonoscopy ?You will stay in a recovery room for observation until you are ready for discharge. ?You may feel some cramping or a sensation of having gas, but this quickly passes. ?If sedation has been given, a responsible family member or friend must drive you home. ?Avoid alcohol, driving, and operating machinery for 24 hours following the procedure. ?Unless otherwise instructed, you may immediately return to your normal diet. We recommend you waituntil the day after your procedure to resume normal activities. ?If polyps were removed or a biopsy was taken, the physician performing your colonoscopy will tell you when it is safe to resume taking your blood thinners. ?If a biopsy was taken or a polyp was removed, you may notice a little amount of rectal bleeding for 1 to 2 days after the procedure. If you have a large amount of rectal bleeding, high or persistentfevers, or severe abdominal pain within the next 2 weeks, please go to your local emergency room and call the physician who performed your exam. 6 Revised 04/2016 Copyright [id number] [facility]. All rights reserved. Revised 04/2016 Miralax/Dulcolax Bowel Prep For this bowel preparation, you will need to purchase the following medications at any pharmacy: Over the counter Miralax (generic name is polyethylene glycol) 8.3 oz or 238 grams Four (4) Dulcolax (generic name is Bisacodyl) tablets 3 days prior to your procedure, you need to be on a low fiber diet (Such as popcorn, beans, seeds, nuts, salad and raw vegetables, corn, fresh and dried fruit and multi-grain bread) YOU MUST BE ON CLEAR LIQUIDS FOR 2 FULL DAYS PRIOR TO YOUR COLONOSCOPY Day one which would be two days before your colonoscopy, you will need to be on clear liquids all day. You may have coffee or tea-black only (no cream), clear broths (beef, chicken or vegetable), apple juice, white grape juice, pop, Gatorade, Powerade, lemonade, Jello, popsicles, Chavo-aid, and water-But nothing red or dark purple in color and no dairy products, tomato or orange juices. Day two which would be the day before your colonoscopy continue clear liquids all day as above. And follow the instructions below: 8:00 AM - Mix the Miralax with 64 oz of Gatorade or another clear liquid of choice and place in refrigerator. Most people say the drink is better cold. 4:00 PM - Take 2 of the Dulcolax tablets with 8 oz of water. 6:00 PM - Start to drink the Miralax mixture. You must finish it by midnight. 8:00 PM - Take the other 2 Dulcolax tablets with 8 oz of water. You may continue to drink clear liquids while you are taking your prep and after you finish it as long as it is before midnight. Drink lots of fluids so you don t become dehydrated. Nothing to drink after midnight the night before the procedure unless you are instructed differently by the physician or nurses. Please remember to take your normal medications the morning of the procedure with a small sip of water especially your blood pressure medications. If you are diabetic, you need to contact your physician about how to take your diabetic medications and/or insulin during the prepping period and the day of your procedure. Any questions please call: Dr. Vergara or Dr. Abraham [phone] Tika Vegas [phone] Dr. Chavez [phone] [facility] nurses [phone] documented in this encounterGreene [facility] Hospital02-09-2024 History of Present illness Narrative* Stephany Madrigal Mammo Tech - 04/09/2023 9:10 AM EST Radiology Service Progress Note PATIENT NAME: Bianca Spring DATE OF SERVICE: April 09, 2023 TIME: 9:08 AM PATIENT IDENTITY VERIFICATION COMPLETED USING TWO (2) IDENTIFIERS: Name and Date of confirmedby patient verbally. FALL SCREENING: Has the patient had 2 falls in the last year or 1 fall with injury or currently using an Ambulatory Assistive Device (Walker, Cane, Wheelchair, Crutches, etc.)? No PATIENT GENDER DATA: Female. status: : No status: NO. PATIENT RELEVANT IMPLANT DATA REVIEWED: Not Applicable PATIENT PRESENTS WITH AN IMPLANTABLE OR ATTACHED JAILER: No RADIOLOGY DEPARTMENT: Mammography PERIPHERAL IV DATA: Not applicable SIGNED BY: Harlan Nassar April 09, 2023 9:08 AM documented in this encounterGreene [facility] Hospital02-27-2023 Instructions* Patient Instructions* Abena Nj MD - 04/27/2022 11:28 AM EST Minimizing irritation of the vulva (area around the vagina) Wear white cotton underwear. Avoid synthetic fabrics and tight clothing. Sleep wearing shorts or pajama bottoms without underwear. Shower as soon as possible after exercise. Avoid clothing detergents and soaps with perfumes or dyes. Use warm (not hot) water to wash the vulva and if you use soap use a product designed for sensitive skin (like Dove or Cetaphil). Do not douche or use creams/powders in the vulvar area unless instructed by your physician. If you must douche, use only plain warm water. Make sure the vulva is dry before dressing by patting dry with a towel. Avoid vigorous rubbing withthe towel. You may want to use the blow dryer (on the cool setting only!) on the vulva. The most important way to let your body heal is by avoiding scratching. Many patients find it difficult to avoid scratching at night when they are most aware of the itchiness. You can try taking Benadryl just before bedtime. Some women find it helpful to wear cotton gloves to bed to avoid scratching at night. [facility] History of Present illness Narrative* Abena Nj MD - 04/27/2022 11:07 AM EST Bianca Spring is a 46 year old female who presents for problem visit. HPI: Patient presents with vulvar itching for 2 weeks. It started as an irritation skin feeling. She tried some old lotrisone that helped. Today her symptoms are mostly resolved but she kept appointment to get things checked & ask questions. OB History T2 L2 SAB1 IAB0 Ectopic0 Multiple0 Live Births2 Manager Environmental Affairs History LMP: 02/27/2022, Having periods Age at Menarche: Age at First : Age at Menopause: Manager Environmental Affairs History Comments: Sexual Activity: Yes; Male Contraception: Condom PAST MEDICAL HISTORY Diagnosis Date Allergic rhinitis, cause unspecified Allergic rhinitis COVID-19 11/28/2020 History of depression situational Infertility, female Migraine, unspecified, with intractable migraine, so stated, without mention of status migrainosus Migraine Mononucleosis 03/01/1996 Other acne Rh negative status during 08/10/2013 Scoliosis mild scoliosis Thyroid disease ON MEDS FROM TOUCH UP 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 PAST SURGICAL HISTORY Procedure Laterality Date TONSILLECTOMY PRIMARY/SECONDARY AGE 11/> FAMILY HISTORY Problem Relation Age of Onset Heart Mother Hypertension Maternal Grandmother Osteoporosis Maternal Grandmother Cancer Paternal Grandmother Lung and Bone Heart Paternal Grandfather Hypertension Paternal Grandfather Cancer Sister Lung (Non-smoker) Social History Tobacco Use Smoking status: Never Smokeless tobacco: Never Vaping Use Vaping Use: Never used Substance Use Topics Alcohol use: No Drug use: No Current Outpatient Medications Medication Sig PRWSLGP-IAMP-QHWAP-OREG-CAPRYL ORAL Take by mouth. amino acids-rice eymvcbd-xj-kg (K-PAX IMMUNE BOOSTER) 24 gram-240 kcal/65 gram powd Take by mouth. ascorbic acid (VITAMIN C ORAL) Take by mouth. vitamin B complex (B COMPLEX ORAL) Take by mouth. MAGNESIUM ORAL Take by mouth. fexofenadine HCl (CRISTIANE ORAL) Take by mouth. budesonide (RHINOCORT AQ) 32 mcg/actuation nasal spray Use 1 [place] in each nostril once daily. CALCIUM CARBONATE/VITAMIN D3 (CALCIUM + D ORAL) Take 1 tablet by mouth twice daily. clotrimazole-betamethasone (LOTRISONE) cream Apply 1 application to affected area twice daily. (Patient not taking: No sig reported) CALCIUM ORAL Take by mouth. (Patient not taking: No sig reported) multivit/iron/FA/K/herb no.244 (ALIVE WOMEN'S ENERGY ORAL) Take by mouth. (Patient not taking: No sig reported) No current facility-administered medications for this visit. Allergies As of Date: 04/27/2022 Allergen Noted Reaction ENVIRONMENTAL [OTHER] 03/19/2005 SEASONAL [OTHER] 03/19/2005 Fully Assessed 04/27/2022 Allergies and current medication updated:Yes EXAM: Wt 140 lb (63.5kg) LMP 02/27/2022 GENERAL: pleasant, female in no apparent distress PELVIC: external genitalia normal, no vulvar lesions, no cervical lesions, good vaginal support, scant discharge present, normal appearing perineal body and perianal region ASSESSMENT AND PLAN: 46yo female with vulvovaginal irritation Advised on perineal hygiene Check vaginitis swab Rx kenalog ointment given & use reviewed Medical Decision Making: Problems: Low: 2+ self-limited or minor problems Data: Unique test(s) ordered: 2 Risk: Moderate: Drug management Medical Decision Making Level: 3 - Low Abena Nj MD documented [facility] Miscellaneous Notes* Letter - Mammography Coordinator - 03/19/2022 3:31 PM EST March 23, 2022 PID: [id number] Bianca Spring [address] [place] [address] Dear Ms. Spring, We are pleased to inform you that the results of your recent breast imaging exam on 03/19/2022 are normal. Your mammogram demonstrates that you have dense breast tissue, which could hide abnormalities. Dense breast tissue, in and of itself, is a relatively common condition. Therefore, this information is not provided to cause undue concern; rather, it is to raise your awareness and promote discussion with your health care provider regarding the presence of dense breast tissue in addition to other riskfactors. Early detection of cancer is very important. We also understand recommendations regarding breast cancer screening are controversial. Please discuss with your primary care provider which strategy is best for you and whether a mammogram is right for you. Your imaging studies and report will be [facility] as part of your permanent medical record and are available for your continuing care. Thank you for allowing us to help in meeting your health care needs. Sincerely, Dr. Griffiths Interpreting Radiologist [facility] (Normal over 40) documented in this encounter[facility]01[facility] History of Present illness Narrative* Abena Nj MD - 03/19/2022 9:28 AM EST Nursing Program Coordinator offered: Patient declines. QUYNH is a 46 year old who presents for an annual gynecologic exam. She has menopause questions. Menses: cycles every 28-30 days and 5--6 days of flow. Contraception: condoms HPV vaccine: No Last Pap: 12/24/2020 normal HPV: 12/16/2020 negative History of abnormal pap: No Last mammogram: today OB History T2 L2 SAB1 IAB0 Ectopic0 Multiple0 Live Births2 Manager Environmental Affairs History LMP: 02/27/2022, Having periods Age at Menarche: Age at First : Age at Menopause: Manager Environmental Affairs History Comments: Sexual Activity: Yes; Male Contraception: Condom PAST MEDICAL HISTORY Diagnosis Date Allergic rhinitis, cause unspecified Allergic rhinitis COVID-19 11/28/2020 History of depression situational Infertility, female Migraine, unspecified, with intractable migraine, so stated, without mention of status migrainosus Migraine Mononucleosis 03/01/1996 Other acne Rh negative status during 08/10/2013 Scoliosis mild scoliosis Thyroid disease ON MEDS FROM TOUCH UP 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 No bloating, early satiety, indigestion, or increased flatulence. Bladder: No dysuria, gross hematuria, urinary frequency, urinary urgency. positive stress incontinence. Breast: No breast lumps, nipple d/c, overlying skin changes, redness or skin retraction. Allergies and current medication updated:Yes EXAM: BP 112/76 Ht 5' 4.173 (1.63m) Wt 141 lb 12.8 oz (64.3kg) LMP 02/27/2022 BMI 24.21 kg/(m^2). GENERAL: pleasant, female in no apparent distress BREAST: soft, non-tender, symmetric, no dominant mass, normal nipple-areolar complex, no lymphadenopathy, and no nipple discharge CHEST: Normal inspiratory effort ABDOMEN: soft, non-tender, and no masses PELVIC: external genitalia normal, normal Bartholin's glands, urethra, [place]'s glands, no vulvar lesions, no cervical lesions, good vaginal support, physiologic discharge present, normal appearing perineal body and perianal region BIMANUAL: uterus normal size, shape and consistency, no adnexal masses, and non-tender RECTOVAGINAL: deferred. NEURO: alert and oriented x3,exam grossly non-focal EXTREMITIES: normal ASSESSMENT/PLAN: 1) Health maintenance: Pap/HPV up to date. Mammogram today Nutrition, exercise and routine health maintenance exams reviewed. Discussed colonoscopy - patient will call to schedule when ready 2) Contraception: condoms but is also considering vasectomy. Contraceptive options reviewed and information provided. 3) MARLINE - consult to pelvic floor PT 4) Follow up one year or sooner as needed Abena Nj MD documented [facility] History of Past illness Narrative* Problem Noted Date Resolved Date Thyroid disorder 08/11/2013 03/05/2014 Overview: 10/18/13 - cont synthroid until delivery - KJ 08/11/13 - patient started on synthroid for low-normal thyroid function by Dr. Maria Alejandra Mak - ROSANGELA Advanced maternal age (AMA) in 014 03/05/2014 Overview: 08/10/2013She is 38 years old.Advanced Maternal age discussed. She is 15w2d. Pt refused literature on Genetic Amniocentesis. [facility] handout on Quad Marker Screen, and Level II Ultrasound and Dr. Hernández's services discussed. Patient states she has previously refused any genetic testing, and remains uninterested in testing. TKRN with care elsewhere 4 03/05/2014 Overview: 08/11/13 - records reviewed - KJ 08/10/2013Patient is transferring her care from Dr. Maria Alejandra Mak at reproductive gynecology in [place]. This is a Letrizol . Patient signed a release of records form to obtain her medical records from Dr. Mak. Patient states she has been on Synthroid prescribed by Dr. Mak. Pt is aware to take thyroid medication and vitamins at different times of day due to their interactions. TKRN History of depression 08/10/2013 03/05/2014 Overview: 08/10/2013Pt has a history of situational depression diagnosed in 2001. She has been off medication since 2002 . She believes she is doing well off medication. Discussed increased risks of depression during and and importance of reporting the development or worsening of symptoms should they occur. Pt denies ever having any suicidal thoughts or tendencies or thoughts of hurting others. TKRN Rh negative status during 08/10/2013 03/05/2014 Overview: 08/10/2013 She is Rh-. She is a RhoGAM candidate. TKRN Low-lying placenta 08/10/2013 03/05/2014 Overview: 10/18/13 - resolved, anterior placenta - KJ 08/11/13 - repeat eval with anatomy u/s - KJ 08/10/[address] Mak sent patient to be evaluated by Dr. Nicky Robin [facility] in [place] for a consultation regarding low-lying placenta. Patient signed a release of records form to obtain her medical records from Dr. Robin. TKRN Supervision of normal first 03/20/2011 07/12/2012 ADVANCED MATERNAL AGE:MULTIPARA [659.63] 012 07/12/2012 TINEA//PITYRIASIS VERSICOLOR 07/23/2006 Sebaceous cyst 07/23/2006 03/20/2011 NEVUS///BENIGN JIAN SKIN TRUNK 07/23/2006 Benign neoplasm of skin of o ther and unspecified parts of face 07/23/2006 03/20/2011 Benign neoplasm of scalp and skin of neck 200603/20/2011 Other chronic dermatitis due to solar radiation 07/23/2006 03/20/2011 Scar condition and fibrosis of skin 07/23/2006 03/20/2011 SOLAR LENGINES////DYSCHROMIA OTHER 07/23/2006 03/20/2011 Other acne 03/16/2005 03/20/2011 documented as of this encounter (statuses as of 03/19/2022) [facility] History of Past illness Narrative* Problem Noted Date Resolved Date Thyroid disorder 08/11/2013 03/05/2014 Overview: 10/18/13 - cont synthroid until delivery - KJ 08/11/13 - patient started on synthroid for low-normal thyroid function by Dr. Maria Alejandra Mak - KJ Advanced maternal age (AMA) in 014 03/05/2014 Overview: 08/10/2013She is 38 years old.Advanced Maternal age discussed. She is 15w2d. Pt refused literature on Genetic Amniocentesis. [facility] handout on Quad Marker Screen, and Level II Ultrasound and Dr. Hernández's services discussed. Patient states she has previously refused any genetic testing, and remains uninterested in testing. TKRN with care elsewhere 4 03/05/2014 Overview: 08/11/13 - records reviewed - 08/10/2013Patient is transferring her care from Dr. Maria Alejandra Mak at reproductive gynecology in [place]. This is a Letrizol . Patient signed a release of records form to obtain her medical records from Dr. Mak. Patient states she has been on Synthroid prescribed by Dr. Mak. Pt is aware to take thyroid medication and vitamins at different times of day due to their interactions. TKRN History of depression 08/10/2013 03/05/2014 Overview: 08/10/2013Pt has a history of situational depression diagnosed in 2001. She has been off medication since 2002 . She believes she is doing well off medication. Discussed increased risks of depression during and and importance of reporting the development or worsening of symptoms should they occur. Pt denies ever having any suicidal thoughts or tendencies or thoughts of hurting others. TKRN Rh negative status during 08/10/2013 03/05/2014 Overview: 08/10/2013 She is Rh-. She is a RhoGAM candidate. TKRN Low-lying placenta 08/10/2013 03/05/2014 Overview: 10/18/13 - resolved, anterior placenta - 08/11/13 - repeat eval with anatomy u/s - 08/10/[address] Mak sent patient to be evaluated by Dr. Nicky Robin [facility] in [place] for a consultation regarding low-lying placenta. Patient signed a release of records form to obtain her medical records from Dr. Robin. TKRN Supervision of normal first 03/20/2011 07/12/2012 ADVANCED MATERNAL AGE:MULTIPARA [659.63] 012 07/12/2012 TINEA//PITYRIASIS VERSICOLOR 07/23/2006 Sebaceous cyst 07/23/2006 03/20/2011 NEVUS///BENIGN JIAN SKIN TRUNK 07/23/2006 Benign neoplasm of skin of o ther and unspecified parts of face 07/23/2006 03/20/2011 Benign neoplasm of scalp and skin of neck 200603/20/2011 Other chronic dermatitis due to solar radiation 07/23/2006 03/20/2011 Scar condition and fibrosis of skin 07/23/2006 03/20/2011 SOLAR LENGINES////DYSCHROMIA OTHER 07/23/2006 03/20/2011 Other acne 03/16/2005 03/20/2011 documented as of this encounter (statuses as of 03/24/2022) [facility] of Past illness Narrative* Problem Noted Date Resolved Date Thyroid disorder 08/11/2013 03/05/2014 Overview: 10/18/13 - cont synthroid until delivery - 08/11/13 - patient started on synthroid for low-normal thyroid function by Dr. Maria Alejandra Mak - Advanced maternal age (AMA) in 014 03/05/2014 Overview: 08/10/2013She is 38 years old.Advanced Maternal age discussed. She is 15w2d. Pt refused literature on Genetic Amniocentesis. [facility] handout on Quad Marker Screen, and Level II Ultrasound and Dr. Hernández's services discussed. Patient states she has previously refused any genetic testing, and remains uninterested in testing. TKRN with care elsewhere 4 03/05/2014 Overview: 08/11/13 - records reviewed - KJ 08/10/2013Patient is transferring her care from Dr. Maria Alejandra Mak at reproductive gynecology in [place]. This is a Letrizol . Patient signed a release of records form to obtain her medical records from Dr. Mak. Patient states she has been on Synthroid prescribed by Dr. Mak. Pt is aware to take thyroid medication and vitamins at different times of day due to their interactions. TKRN History of depression 08/10/2013 03/05/2014 Overview: 08/10/2013Pt has a history of situational depression diagnosed in 2001. She has been off medication since 2002 . She believes she is doing well off medication. Discussed increased risks of depression during and and importance of reporting the development or worsening of symptoms should they occur. Pt denies ever having any suicidal thoughts or tendencies or thoughts of hurting others. TKRN Rh negative status during 08/10/2013 03/05/2014 Overview: 08/10/2013 She is Rh-. She is a RhoGAM candidate. TKRN Low-lying placenta 08/10/2013 03/05/2014 Overview: 10/18/13 - resolved, anterior placenta - KJ 08/11/13 - repeat eval with anatomy u/s - KJ 08/10/[address] Mak sent patient to be evaluated by Dr. Nicky Robin [facility] in [place] for a consultation regarding low-lying placenta. Patient signed a release of records form to obtain her medical records from Dr. Robin. TKRN Supervision of normal first 03/20/2011 07/12/2012 ADVANCED MATERNAL AGE:MULTIPARA [659.63] 012 07/12/2012 TINEA//PITYRIASIS VERSICOLOR 07/23/2006 Sebaceous cyst 07/23/2006 03/20/2011 NEVUS///BENIGN JIAN SKIN TRUNK 07/23/2006 Benign neoplasm of skin of o ther and unspecified parts of face 07/23/2006 03/20/2011 Benign neoplasm of scalp and skin of neck 200603/20/2011 Other chronic dermatitis due to solar radiation 07/23/2006 03/20/2011 Scar condition and fibrosis of skin 07/23/2006 03/20/2011 SOLAR LENGINES////DYSCHROMIA OTHER 07/23/2006 03/20/2011 Other acne 03/16/2005 03/20/2011 documented as of this encounter (statuses as of 04/27/2022) [facility] of Past illness Narrative* Problem Noted Date Diagnosed Date Resolved Date Thyroid disorder 08/11/2013 03/05/2014 Overview: 10/18/13 - cont synthroid until delivery - KJ 08/11/13 - patient started on synthroid for low-normal thyroid function by Dr. Maria Alejandra Mak - ROSANGELA Advanced maternal age (AMA) in 08/10/2013 03/05/2014 Overview: 08/10/2013She is 38 years old.Advanced Maternal age discussed. She is 15w2d. Pt refused literature on Genetic Amniocentesis. [facility] handout on Quad Marker Screen, and Level II Ultrasound and Dr. Hernández's services discussed. Patient states she has previously refused any genetic testing, and remains uninterested in testing. TKRN with care elsewhere 08/10/2013 03/05/2014 Overview: 08/11/13 - records reviewed - KJ 08/10/2013Patient is transferring her care from Dr. Maria Alejandra Mak at reproductive gynecology in [place]. This is a Letrizol . Patient signed a release of records form to obtain her medical records from Dr. Mak. Patient states she has been on Synthroid prescribed by Dr. Mak. Pt is aware to take thyroid medication and vitamins at different times of day due to their interactions. TKRN History of depression 08/10/20132014 Overview: 08/10/2013Pt has a history of situational depression diagnosed in 2001. She has been off medication since 2002 . She believes she is doing well off medication. Discussed increased risks of depression during and and importance of reporting the development or worsening of symptoms should they occur. Pt denies ever having any suicidal thoughts or tendencies or thoughts of hurting others. TKRN Rh negative status during 08/10/2013 03/05/2014 Overview: 08/10/2013 She is Rh-. She is a RhoGAM candidate. TKRN Low-lying placenta 08/10/2013 5 Overview: 10/18/13 - resolved, anterior placenta - 08/11/13 - repeat eval with anatomy u/s - KJ 08/10/[address] Mak sent patient to be evaluated by Dr. Nicky Robin [facility] in [place] for a consultation regarding low-lying placenta. Patient signed a release of records form to obtain her medical records from Dr. Robin. TKRN Supervision of normal first 03/20/2011 07/12/2012 ADVANCED MATERNAL AGE:MULTIPARA [659.63] 03/20/2011 07/12/2012 TINEA//PITYRIASIS VERSICOLOR 07/23/2006 03/20/2011 Sebaceous cyst 07/23/2006 03/20/2011 NEVUS///BENIGN JIAN SKIN TRUNK 07/23/2006 03/20/2011 Benign neoplasm of skin of o ther and unspecified parts of face 07/23/2006 03/20/2011 Benign neoplasm of scalp and skin of neck 07/23/2006 03/20/2011 Other chronic dermatitis due to solar radiation 07/23/2006 03/20/2011 Scar condition and fibrosis of skin 07/23/2006 03/20/2011 SOLAR LENGINES////DYSCHROMIA OTHER 07/23/2006 03/20/2011 Other acne 03/16/2005 03/20/2011 documented as of this encounter (statuses as of 01/03/2023) [facility] of Past illness Narrative* Problem Noted Date Diagnosed Date Resolved Date Thyroid disorder 08/11/2013 03/05/2014 Overview: 10/18/13 - cont synthroid until delivery - KJ 08/11/13 - patient started on synthroid for low-normal thyroid function by Dr. Maria Alejandra Mak - Advanced maternal age (AMA) in 08/10/2013 03/05/2014 Overview: 08/10/2013She is 38 years old.Advanced Maternal age discussed. She is 15w2d. Pt refused literature on Genetic Amniocentesis. [facility] handout on Quad Marker Screen, and Level II Ultrasound and Dr. Hernández's services discussed. Patient states she has previously refused any genetic testing, and remains uninterested in testing. TKRN with care elsewhere 08/10/2013 03/05/2014 Overview: 08/11/13 - records reviewed - KJ 08/10/2013Patient is transferring her care from Dr. Maria Alejandra Mak at reproductive gynecology in [place]. This is a Letrizol . Patient signed a release of records form to obtain her medical records from Dr. Mak. Patient states she has been on Synthroid prescribed by Dr. Mak. Pt is aware to take thyroid medication and vitamins at different times of day due to their interactions. TKRN History of depression 08/10/20132014 Overview: 08/10/2013Pt has a history of situational depression diagnosed in 2001. She has been off medication since 2002 . She believes she is doing well off medication. Discussed increased risks of depression during and and importance of reporting the development or worsening of symptoms should they occur. Pt denies ever having any suicidal thoughts or tendencies or thoughts of hurting others. TKRN Rh negative status during 08/10/2013 03/05/2014 Overview: 08/10/2013 She is Rh-. She is a RhoGAM candidate. TKRN Low-lying placenta 08/10/2013 5 Overview: 10/18/13 - resolved, anterior placenta - KJ 08/11/13 - repeat eval with anatomy u/s - KJ 08/10/[address] Mak sent patient to be evaluated by Dr. Nicky Robin [facility] in [place] for a consultation regarding low-lying placenta. Patient signed a release of records form to obtain her medical records from Dr. Robin. TKRN Supervision of normal first 03/20/2011 07/12/2012 ADVANCED MATERNAL AGE:MULTIPARA [659.63] 03/20/2011 07/12/2012 TINEA//PITYRIASIS VERSICOLOR 07/23/2006 03/20/2011 Sebaceous cyst 07/23/2006 03/20/2011 NEVUS///BENIGN JIAN SKIN TRUNK 07/23/2006 03/20/2011 Benign neoplasm of skin of o ther and unspecified parts of face 07/23/2006 03/20/2011 Benign neoplasm of scalp and skin of neck 07/23/2006 03/20/2011 Other chronic dermatitis due to solar radiation 07/23/2006 03/20/2011 Scar condition and fibrosis of skin 07/23/2006 03/20/2011 SOLAR LENGINES////DYSCHROMIA OTHER 07/23/2006 03/20/2011 Other acne 03/16/2005 03/20/2011 documented as of this encounter (statuses as of 04/09/2023) [facility] of Past illness Narrative* Problem Noted Date Diagnosed Date Resolved Date Thyroid disorder 08/11/2013 03/05/2014 Overview: 10/18/13 - cont synthroid until delivery - 08/11/13 - patient started on synthroid for low-normal thyroid function by Dr. Maria Alejandra Mak - ROSANGELA Advanced maternal age (AMA) in 08/10/2013 03/05/2014 Overview: 08/10/2013She is 38 years old.Advanced Maternal age discussed. She is 15w2d. Pt refused literature on Genetic Amniocentesis. [facility] handout on Quad Marker Screen, and Level II Ultrasound and Dr. Hernández's services discussed. Patient states she has previously refused any genetic testing, and remains uninterested in testing. TKRN with care elsewhere 08/10/2013 03/05/2014 Overview: 08/11/13 - records reviewed - 08/10/2013Patient is transferring her care from Dr. Maria Alejandra Mak at reproductive gynecology in [place]. This is a Letrizol . Patient signed a release of records form to obtain her medical records from Dr. Mak. Patient states she has been on Synthroid prescribed by Dr. Mak. Pt is aware to take thyroid medication and vitamins at different times of day due to their interactions. TKRN History of depression 08/10/20132014 Overview: 08/10/2013Pt has a history of situational depression diagnosed in 2001. She has been off medication since 2002 . She believes she is doing well off medication. Discussed increased risks of depression during and and importance of reporting the development or worsening of symptoms should they occur. Pt denies ever having any suicidal thoughts or tendencies or thoughts of hurting others. TKRN Rh negative status during 08/10/2013 03/05/2014 Overview: 08/10/2013 She is Rh-. She is a RhoGAM candidate. TKRN Low-lying placenta 08/10/2013 5 Overview: 10/18/13 - resolved, anterior placenta - KJ 08/11/13 - repeat eval with anatomy u/s - KJ 08/10/[address] Mak sent patient to be evaluated by Dr. Nicky Robin [facility] in [place] for a consultation regarding low-lying placenta. Patient signed a release of records form to obtain her medical records from Dr. Robin. TKRN Supervision of normal first 03/20/2011 07/12/2012 ADVANCED MATERNAL AGE:MULTIPARA [659.63] 03/20/2011 07/12/2012 TINEA//PITYRIASIS VERSICOLOR 07/23/2006 03/20/2011 Sebaceous cyst 07/23/2006 03/20/2011 NEVUS///BENIGN JIAN SKIN TRUNK 07/23/2006 03/20/2011 Benign neoplasm of skin of o ther and unspecified parts of face 07/23/2006 03/20/2011 Benign neoplasm of scalp and skin of neck 07/23/2006 03/20/2011 Other chronic dermatitis due to solar radiation 07/23/2006 03/20/2011 Scar condition and fibrosis of skin 07/23/2006 03/20/2011 SOLAR LENGINES////DYSCHROMIA OTHER 07/23/2006 03/20/2011 Other acne 03/16/2005 03/20/2011 documented as of this encounter (statuses as of 04/10/2023) [facility] History of Past illness Narrative* Problem Noted Date Diagnosed Date Resolved Date Thyroid disorder 08/11/2013 03/05/2014 Overview: 10/18/13 - cont synthroid until delivery - KJ 08/11/13 - patient started on synthroid for low-normal thyroid function by Dr. Maria Alejandra Mak - KJ Advanced maternal age (AMA) in 08/10/2013 03/05/2014 Overview: 08/10/2013She is 38 years old.Advanced Maternal age discussed. She is 15w2d. Pt refused literature on Genetic Amniocentesis. [facility] handout on Quad Marker Screen, and Level II Ultrasound and Dr. Hernández's services discussed. Patient states she has previously refused any genetic testing, and remains uninterested in testing. TKRN with care elsewhere 08/10/2013 03/05/2014 Overview: 08/11/13 - records reviewed - KJ 08/10/2013Patient is transferring her care from Dr. Maria Alejandra Mak at reproductive gynecology in [place]. This is a Letrizol . Patient signed a release of records form to obtain her medical records from Dr. Mak. Patient states she has been on Synthroid prescribed by Dr. Mak. Pt is aware to take thyroid medication and vitamins at different times of day due to their interactions. TKRN History of depression 08/10/20132014 Overview: 08/10/2013Pt has a history of situational depression diagnosed in 2001. She has been off medication since 2002 . She believes she is doing well off medication. Discussed increased risks of depression during and and importance of reporting the development or worsening of symptoms should they occur. Pt denies ever having any suicidal thoughts or tendencies or thoughts of hurting others. TKRN Rh negative status during 08/10/2013 03/05/2014 Overview: 08/10/2013 She is Rh-. She is a RhoGAM candidate. TKRN Low-lying placenta 08/10/2013 5 Overview: 10/18/13 - resolved, anterior placenta - 08/11/13 - repeat eval with anatomy u/s - KJ 08/10/[address] Mak sent patient to be evaluated by Dr. Nicky Robin [facility] in [place] for a consultation regarding low-lying placenta. Patient signed a release of records form to obtain her medical records from Dr. Robin. TKRN Supervision of normal first 03/20/2011 07/12/2012 ADVANCED MATERNAL AGE:MULTIPARA [659.63] 03/20/2011 07/12/2012 TINEA//PITYRIASIS VERSICOLOR 07/23/2006 03/20/2011 Sebaceous cyst 07/23/2006 03/20/2011 NEVUS///BENIGN JIAN SKIN TRUNK 07/23/2006 03/20/2011 Benign neoplasm of skin of o ther and unspecified parts of face 07/23/2006 03/20/2011 Benign neoplasm of scalp and skin of neck 07/23/2006 03/20/2011 Other chronic dermatitis due to solar radiation 07/23/2006 03/20/2011 Scar condition and fibrosis of skin 07/23/2006 03/20/2011 SOLAR LENGINES////DYSCHROMIA OTHER 07/23/2006 03/20/2011 Other acne 03/16/2005 03/20/2011 documented as of this encounter (statuses as of 04/14/2023) [facility] History of Past illness Narrative* Problem Noted Date Diagnosed Date Resolved Date Thyroid disorder 08/11/2013 03/05/2014 Overview: 10/18/13 - cont synthroid until delivery - KJ 08/11/13 - patient started on synthroid for low-normal thyroid function by Dr. Maria Alejandra Mak - KJ Advanced maternal age (AMA) in 08/10/2013 03/05/2014 Overview: 08/10/2013She is 38 years old.Advanced Maternal age discussed. She is 15w2d. Pt refused literature on Genetic Amniocentesis. [facility] handout on Quad Marker Screen, and Level II Ultrasound and Dr. Hernández's services discussed. Patient states she has previously refused any genetic testing, and remains uninterested in testing. TKRN with care elsewhere 08/10/2013 03/05/2014 Overview: 08/11/13 - records reviewed - KJ 08/10/2013Patient is transferring her care from Dr. Maria Alejandra Mak at reproductive gynecology in [place]. This is a Letrizol . Patient signed a release of records form to obtain her medical records from Dr. Mak. Patient states she has been on Synthroid prescribed by Dr. Mak. Pt is aware to take thyroid medication and vitamins at different times of day due to their interactions. TKRN History of depression 08/10/20132014 Overview: 08/10/2013Pt has a history of situational depression diagnosed in 2001. She has been off medication since 2002 . She believes she is doing well off medication. Discussed increased risks of depression during and and importance of reporting the development or worsening of symptoms should they occur. Pt denies ever having any suicidal thoughts or tendencies or thoughts of hurting others. TKRN Rh negative status during 08/10/2013 03/05/2014 Overview: 08/10/2013 She is Rh-. She is a RhoGAM candidate. TKRN Low-lying placenta 08/10/2013 5 Overview: 10/18/13 - resolved, anterior placenta - KJ 08/11/13 - repeat eval with anatomy u/s - KJ 08/10/[address] Mak sent patient to be evaluated by Dr. Nicky Robin [facility] in [place] for a consultation regarding low-lying placenta. Patient signed a release of records form to obtain her medical records from Dr. Robin. TKRN Supervision of normal first 03/20/2011 07/12/2012 ADVANCED MATERNAL AGE:MULTIPARA [659.63] 03/20/2011 07/12/2012 TINEA//PITYRIASIS VERSICOLOR 07/23/2006 03/20/2011 Sebaceous cyst 07/23/2006 03/20/2011 NEVUS///BENIGN JIAN SKIN TRUNK 07/23/2006 03/20/2011 Benign neoplasm of skin of o ther and unspecified parts of face 07/23/2006 03/20/2011 Benign neoplasm of scalp and skin of neck 07/23/2006 03/20/2011 Other chronic dermatitis due to solar radiation 07/23/2006 03/20/2011 Scar condition and fibrosis of skin 07/23/2006 03/20/2011 SOLAR LENGINES////DYSCHROMIA OTHER 07/23/2006 03/20/2011 Other acne 03/16/2005 03/20/2011 documented as of this encounter (statuses as of 04/29/2023) [facility] noteNo assessment information availableWWadsworth-R[facility]man [facility] Work Phone: evaluation note* Diagnosis Encounter for gynecological examination without abnormal finding- Primary Routine gynecological examination Dense breasts Inconclusive mammogram Encounter for screening mammogram for malignant neoplasm of breast Other screening mammogram MARLINE (stress urinary incontinence, female) Female stress incontinence [facility] this encounter [facility]* Diagnosis Vulvar irritation- Primary Other specified noninflammatory disorder of vulva and perineum Vaginal itching Pruritus of genital organs documented [facility] this encounter [facility]* Diagnosis Encounter for gynecological examination (general) (routine) without abnormal findings- Primary Encounter for screening mammogram for breast cancer Dense breast tissue MARLINE (stress urinary incontinence, female) Female stress incontinence Special screening for malignant neoplasms, colon documented [facility] this encounter [facility]* Diagnosis Dense breasts Inconclusive mammogram Encounter for screening mammogram for malignant neoplasm of breast Other screening mammogram documented [facility] encounter [facility]* Diagnosis Vaginal irritation- Primary Unspecified noninflammatory disorder of vagina Vaginal odor Unspecified symptom associated with female genital organs documented [facility] this encounter [facility]* Diagnosis Onset Date Resolution Status Bilateral headaches acute Discomfort of left hip acute Discomfort of left hip acute Encounter for wellness examination in adult acute History of hypothyroidism ac jennifer Vitamin D deficiency acute [facility] Work Phone: evaluation note* Diagnosis Special screening for malignant neoplasms, colon documented in this encounter [facility]* Diagnosis Bunion documented in this encounter [facility]* Diagnosis Hallux valgus of right foot- Primary Porokeratosis Other specified congenital anomaly of skin Plantar wart documented [facility] this encounter [facility]* Diagnosis Hallux valgus of right foot- Primary Porokeratosis Other specified congenital anomaly of skin Plantar wart Diminished pulses in lower extremity Other symptoms involving cardiovascular system documented in this encounter [facility]* Diagnosis Right foot pain Pain in limb documented [facility] this [facility]* Diagnosis Hallux valgus of right foot- Primary Acquired hallux limitus of right foot documented [facility] this [facility]* Diagnosis Acute vaginitis- Primary Vaginitis and vulvovaginitis, unspecified Hematuria, unspecified type Screening for cervical cancer Screening for malignant neoplasm of the cervix Special screening examination for human papillomavirus (HPV) documented in this encounter [facility]* Diagnosis PCOS (polycystic ovarian syndrome)- Primary Polycystic ovaries Irregular menses Irregular menstrual cycle Mood changes Unspecified episodic mood disorder Vaginal irritation Unspecified noninflammatory disorder of vagina Decreased energy Other malaise and fatigue documented [facility] this encounter [facility]* Diagnosis PCOS (polycystic ovarian syndrome)- Primary Polycystic ovaries documented [facility] this [facility]* Diagnosis Hallux valgus of right foot- Primary Acquired hallux limitus of right foot Right foot pain Pain in limb documented [facility] this [facility]* Diagnosis Hallux valgus of right foot- Primary Acquired hallux limitus of right foot Right foot pain Pain in limb documented [facility] this encounter [facility]* Diagnosis Mass of lower inner quadrant of right breast- Primary History of PCOS Personal history of other genital system and obstetric disorders documented [facility] this encounter [facility]* Diagnosis History of PCOS Personal history of other genital system and obstetric disorders documented [facility] this encounter [facility]* Diagnosis Mass of lower inner quadrant of right breast documented in this encounter [facility]* Diagnosis Right foot pain- Primary Pain in limb Acquired hallux valgus of right foot Hallux valgus (acquired) documented in this encounter [facility]* Diagnosis Right foot pain- Primary Pain in limb Hallux limitus, acquired, right [facility]* Diagnosis Encounter for gynecological examination (general) (routine) without abnormal findings- Primary Encounter for screening mammogram for breast cancer Need for vaccination Need for prophylactic vaccination and inoculation against unspecified single disease MARLINE (stress urinary incontinence, female) Female stress incontinence [facility] Outpatient Procedure (Routine) - Authorized Specialty Diagnoses / Procedures Referred By Mely murcia Referred To Contact [facility] Diagnoses Special screening for malignant neoplasms, colon Procedures COLONOSCOPY SCREENING COLONOSCOPY FLX DX W/COLLJ SPEC WHEN PFRMD Abena Nj MD [address] [place] [address] [facility] [address] [place] [address] Referral ID Status Reason Start Date Expiration Date Visits Requested Visits Authorized [id number] Authorized Auto-Generat ed Referral 04/16/2023 02/29/2024 1 1 * Physical Therapy (Routine) - Pending Review Specialty Diagnoses / Procedures Referred By Mely murcia Referred To Contact [facility] Diagnoses MARLINE (stress urinary incontinence, female) Procedures CONSULT TO PHYSICAL THERAPY PHYSICAL THERAPY EVALUATION HIGH COMPLEX 45 MINS Abena Nj MD [address] [place] [address] [facility] [address] [address] Referral ID Status Reason Start Date Expiration Date Visits Requested Visits Authorized [id number] Pending Review Auto-Generat ed Referral 04/09/2023 04/08/2024 1 1 * Diagnostic Procedure Only (Routine) - Authorized Specialty Diagnoses / Procedures Referred By Mely murcia Referred To Contact [facility] Diagnoses Encounter for screening mammogram for breast cancer Dense breast tissue Procedures KASANDRA SCREENING W RENZO SCREENING DIGITAL BREAST TOMOSYNTHESIS BI SCREENING MAMMOGRAPHY BI 2-VIEW BREAST INC CAD Abena Nj MD [address] [place] [address] [facility] [address] [place] [phone] Referral ID Status Reason Start Date Expiration Date Visits Requested Visits Authorized [id number] Authorized Auto-Generat ed Referral 04/09/2023 05/08/2024 1 1 [facility] for referral (narrative)* Outpatient Procedure (Routine) - Closed Specialty Diagnoses / Procedures Referred By Contac t Referred To Contact [facility] Diagnoses Special screening for malignant neoplasms, colon Procedures COLONOSCOPY SCREENING COLONOSCOPY FLX DX W/COLLJ SPEC WHEN PFRMD Abena Nj MD [address] [place] [address] [facility] [address] [place] [address] Referral ID Status Reason Start Date Expiration Date V isits Requested Visits Authorized [id number] Closed Auto-Generate d Referral 04/16/2023 02/29/2024 1 1 [facility] for referral (narrative)* Diagnostic Procedure Only (Routine) - Authorized Specialty Diagnoses / Procedures Referred By Contac t Referred To Contact [facility] Diagnoses Mass of lower inner quadrant of right breast Procedures US BREAST LTD RIGHT US BREAST UNI REAL TIME WITH IMAGE LIMITED Malou Gastelum APRN.CNP [address] [place] [address] [facility] [address] [place] [address] Referral ID Status Reason Start Date Expiration Date Visits Requested Visits Authorized [id number] Authorized Auto-Generat ed Referral 01/06/2024 02/04/2025 1 1 * Diagnostic Procedure Only (Routine) - Authorized Specialty Diagnoses / Procedures Referred By Contac t Referred To Contact [facility] Diagnoses Mass of lower inner quadrant of right breast Procedures KASANDRA DIAGNOSTIC BILATERAL DIAGNOSTIC MAMMOGRAPHY COMPUTER-AIDED DETCJ BI Malou Gastelum APRN.CNP [address] [place] [address] [facility] [address] [place] [address] Referral ID Status Reason Start Date Expiration Date Visits Requested Visits Authorized [id number] Authorized Auto-Generat ed Referral 01/06/2024 02/04/2025 1 1 [facility] for referral (narrative)* Diagnostic Procedure Only (Routine) - Closed Specialty Diagnoses / Procedures Referred By Contac t Referred To Contact [facility] Diagnoses Mass of lower inner quadrant of right breast Procedures US BREAST LTD RIGHT US BREAST UNI REAL TIME WITH IMAGE LIMITED Malou Gastelum APRN.CNP [address] [place] [address] [facility] [address] [facility] [place] [address] Referral ID Status Reason Start Date Expiration Date V isits Requested Visits Authorized [id number] Closed Auto-Generate d Referral 01/06/2024 02/04/2025 1 1 [facility] for referral (narrative)No reason for referral information availableWWadsworth-Rittman Hospital Work Phone: Reason for visit Narrative* Diagnostic Procedure Only (Routine) - Closed Specialty Diagnoses / Procedures Referred By Contac t Referred To Contact [facility] Diagnoses Dense breasts Encounter for screening mammogram for malignant neoplasm of breast Procedures KASANDRA SCREENING W RENZO SCREENING DIGITAL BREAST TOMOSYNTHESIS BI SCREENING MAMMOGRAPHY BI 2-VIEW BREAST INC Abena Villalpando MD [address] [place] [address] [facility] [address] [place] [phone] Referral ID Status Reason Start Date Expiration Date V isits Requested Visits Authorized [id number] Closed Auto-Generate d Referral 03/19/2022 04/18/2023 1 1 [facility] for visit Narrative* Outpatient Procedure (Routine) - Closed Specialty Diagnoses / Procedures Referred By Contac t Referred To Contact [facility] Diagnoses Special screening for malignant neoplasms, colon Procedures COLONOSCOPY SCREENING COLONOSCOPY FLX DX W/COLLJ SPEC WHEN PFRMD Abena Nj MD [address] [place] [address] [facility] [address] [place] [address] Referral ID Status Reason Start Date Expiration Date V isits Requested Visits Authorized [id number] Closed Auto-Generate d Referral 04/16/2023 02/29/2024 1 1 [facility] for visit Narrative* Diagnostic Procedure Only (Routine) - Closed Specialty Diagnoses / Procedures Referred By Contac t Referred To Contact [facility] Diagnoses Bunion Procedures XR FOOT GENERAL 3V AP/LAT/OBL RIGHT RADEX FOOT COMPLETE MINIMUM 3 VIEWS Carol Sepulveda [address] [place] [address] [place] [address] Referral ID Status Reason Start Date Expiration Date V isits Requested Visits Authorized [id number] Closed Auto-Generate d Referral 07/02/2023 07/31/2024 1 1 [facility] for visit Narrative* Diagnostic Procedure Only (Routine) - Closed Specialty Diagnoses / Procedures Referred By Contac t Referred To Contact [facility] Diagnoses Mass of lower inner quadrant of right breast Procedures KASANDRA DIAGNOSTIC BILATERAL DIAGNOSTIC MAMMOGRAPHY COMPUTER-AIDED DETCJ Malou Swartz APRN.OFFICE RENTAL CLERK [address] [place] [address] [facility] [address] [place] [address] Referral ID Status Reason Start Date Expiration Date V isits Requested Visits Authorized [id number] Closed Auto-Generate d Referral 01/06/2024 02/04/2025 1 1 [facility] Family History Relationship Condition Age at Onset Recorded Date/T misbah sister Malignant neoplasm 36 father Cardiac disease Unknown Reason for Referral Specialty Diagnoses / Procedures Referred By Contac t Referred To Contact [facility] Diagnoses MARLINE (stress urinary incontinence, female) Procedures CONSULT TO PHYSICAL THERAPY PHYSICAL THERAPY EVALUATION HIGH COMPLEX 45 MINS Abena Nj MD [address] [place] [address] [facility] [place] [address] [place] [address] Referral ID Status Reason Start Date Expiration Date Visits Requested Visits Authorized [id number] Pending Review Auto-Generat ed Referral 03/19/2022 03/19/2023 1 1 Specialty Diagnoses / Procedures Referred By Mely t Referred To Contact [facility] Diagnoses Dense breasts Encounter for screening mammogram for malignant neoplasm of breast Procedures KASANDRA SCREENING W RENZO SCREENING DIGITAL BREAST TOMOSYNTHESIS BI SCREENING MAMMOGRAPHY BI 2-VIEW BREAST INC Abena Villalpando MD [address] [place] [address] [facility] [address] [place] [phone] Referral ID Status Reason Start Date Expiration Date Visits Requested Visits Authorized [id number] Pending Review Auto-Generat ed Referral 03/19/2022 04/18/2023 1 1 Specialty Diagnoses / Procedures Referred By Mely t Referred To Contact [facility] Diagnoses Hallux valgus of right foot Procedures CONSULT TO PHYSICAL THERAPY PHYSICAL THERAPY EVALUATION HIGH COMPLEX 45 MINS Carol Sepulveda [address] [place] [address] [facility] [address] [address] Referral ID Status Reason Start Date Expiration Date Visits Requested Visits Authorized [id number] Pending Review Auto-Generat ed Referral 07/30/2023 07/29/2024 1 1 Specialty Diagnoses / Procedures Referred By Mely t Referred To Contact [facility] Diagnoses Hallux valgus of right foot Diminished pulses in lower extremity Procedures PVR ANK PRESS PAWAN VAS LAB NON-INVAS PHYSIOLOGIC STD EXTREMITY ART 2 LEVEL Carol Sepulveda [address] [place] [address] [facility] [address] [address] Referral ID Status Reason Start Date Expiration Date Visits Requested Visits Authorized [id number] Additional Clinical Info Needed Auto-Generat ed Referral 07/30/2023 07/29/2024 1 1 Specialty Diagnoses / Procedures Referred By Mely t Referred To Contact [facility] Diagnoses Hallux valgus of right foot Acquired hallux limitus of right foot Right foot pain Procedures CONSULT TO PHYSICAL THERAPY PHYSICAL THERAPY EVALUATION HIGH COMPLEX 45 MINS Carol Sepulveda [address] [place] [address] [facility] [place] [address] [place] [address] Referral ID Status Reason Start Date Expiration Date Visits Requested Visits Authorized [id number] Pending Review Auto-Generat ed Referral 12/02/2023 12/01/2024 1 1 Chief Complaint and Reason for Visit Chief Complaint left hip pain Annual/Physical E ORDERS Reason for Visit Bilateral headaches Discomfort of left hip Discomfort of left hip Encounter for wellness examination in adult History of hypothyroidism Vitamin D deficiency Chief Complaint Admit Date Annual/Physical May 08, 2024 10: 40am Reason for Visit Admit Date Emotional stress May 08, 2024 10: 40am Encounter for wellness examination in ad ult May 08, 2024 10:40am History of hypothyroidism May 08 10:40am Vitamin D deficiency May 08, 2024 10 :40am Summary Purpose Advance Directives No Advanced Directives Records FoundNo Advanced Directives Records FoundNo Advanced Directives Records Found Additional Source Comments Goals (unrecognized section and content) Goals may be documented in a n alternate sectionGoals may be documented in an alternate sectionGoals may be documented in an alternate section Source Comments (unrecognize d section and content) In the event this informatio n is protected by the Federal Confidentiality of Alcohol and Drug Abuse Patient Records regulations: The Federal rules restrict any use of the information to criminally investigate or prosecute any alcohol or drug abuse patient.[facility] the event this information is protected by the Federal Confidentiality of Alcohol and Drug Abuse Patient Records regulations: The Federal rules restrict any use of the information to criminally investigate or prosecute any alcohol or drug abuse patient.[facility] the event this information is protected by the Federal Confidentiality of Alcohol and Drug Abuse Patient Records regulations: The Federal rules restrict any use of the information to criminally investigate or prosecute any alcohol or drug abuse patient.[facility] HospitalIn the event this information is protected by the Federal Confidentiality of Alcohol and Drug Abuse Patient Records regulations: The Federal rules restrict any use of the information to criminally investigate or prosecute any alcohol or drug abuse patient.[facility] HospitalIn the event this information is protected by the Federal Confidentiality of Alcohol and Drug Abuse Patient Records regulations: The Federal rules restrict any use of the information to criminally investigate or prosecute any alcohol or drug abuse patient.[facility] HospitalIn the event this information is protected by the Federal Confidentiality of Alcohol and Drug Abuse Patient Records regulations: The Federal rules restrict any use of the information to criminally investigate or prosecute any alcohol or drug abuse patient.[facility] HospitalIn the event this information is protected by the Federal Confidentiality of Alcohol and Drug Abuse Patient Records regulations: The Federal rules restrict any use of the information to criminally investigate or prosecute any alcohol or drug abuse patient.[facility] HospitalIn the event this information is protected by the Federal Confidentiality of Alcohol and Drug Abuse Patient Records regulations: The Federal rules restrict any use of the information to criminally investigate or prosecute any alcohol or drug abuse patient.[facility] HospitalIn the event this information is protected by the Federal Confidentiality of Alcohol and Drug Abuse Patient Records regulations: The Federal rules restrict any use of the information to criminally investigate or prosecute any alcohol or drug abuse patient.[facility] HospitalIn the event this information is protected by the Federal Confidentiality of Alcohol and Drug Abuse Patient Records regulations: The Federal rules restrict any use of the information to criminally investigate or prosecute any alcohol or drug abuse patient.[facility] HospitalIn the event this information is protected by the Federal Confidentiality of Alcohol and Drug Abuse Patient Records regulations: The Federal rules restrict any use of the information to criminally investigate or prosecute any alcohol or drug abuse patient.[facility] HospitalIn the event this information is protected by the Federal Confidentiality of Alcohol and Drug Abuse Patient Records regulations: The Federal rules restrict any use of the information to criminally investigate or prosecute any alcohol or drug abuse patient.[facility] HospitalIn the event this information is protected by the Federal Confidentiality of Alcohol and Drug Abuse Patient Records regulations: The Federal rules restrict any use of the information to criminally investigate or prosecute any alcohol or drug abuse patient.[facility] HospitalIn the event this information is protected by the Federal Confidentiality of Alcohol and Drug Abuse Patient Records regulations: The Federal rules restrict any use of the information to criminally investigate or prosecute any alcohol or drug abuse patient.[facility] HospitalIn the event this information is protected by the Federal Confidentiality of Alcohol and Drug Abuse Patient Records regulations: The Federal rules restrict any use of the information to criminally investigate or prosecute any alcohol or drug abuse patient.[facility] HospitalIn the event this information is protected by the Federal Confidentiality of Alcohol and Drug Abuse Patient Records regulations: The Federal rules restrict any use of the information to criminally investigate or prosecute any alcohol or drug abuse patient.[facility] HospitalIn the event this information is protected by the Federal Confidentiality of Alcohol and Drug Abuse Patient Records regulations: The Federal rules restrict any use of the information to criminally investigate or prosecute any alcohol or drug abuse patient.[facility] HospitalIn the event this information is protected by the Federal Confidentiality of Alcohol and Drug Abuse Patient Records regulations: The Federal rules restrict any use of the information to criminally investigate or prosecute any alcohol or drug abuse patient.[facility] HospitalIn the event this information is protected by the Federal Confidentiality of Alcohol and Drug Abuse Patient Records regulations: The Federal rules restrict any use of the information to criminally investigate or prosecute any alcohol or drug abuse patient.[facility] HospitalIn the event this information is protected by the Federal Confidentiality of Alcohol and Drug Abuse Patient Records regulations: The Federal rules restrict any use of the information to criminally investigate or prosecute any alcohol or drug abuse patient.[facility] HospitalIn the event this information is protected by the Federal Confidentiality of Alcohol and Drug Abuse Patient Records regulations: The Federal rules restrict any use of the information to criminally investigate or prosecute any alcohol or drug abuse patient.[facility] HospitalIn the event this information is protected by the Federal Confidentiality of Alcohol and Drug Abuse Patient Records regulations: The Federal rules restrict any use of the information to criminally investigate or prosecute any alcohol or drug abuse patient.[facility] HospitalIn the event this information is protected by the Federal Confidentiality of Alcohol and Drug Abuse Patient Records regulations: The Federal rules restrict any use of the information to criminally investigate or prosecute any alcohol or drug abuse patient.[facility] HospitalIn the event this information is protected by the Federal Confidentiality of Alcohol and Drug Abuse Patient Records regulations: The Federal rules restrict any use of the information to criminally investigate or prosecute any alcohol or drug abuse patient.[facility] HospitalIn the event this information is protected by the Federal Confidentiality of Alcohol and Drug Abuse Patient Records regulations: The Federal rules restrict any use of the information to criminally investigate or prosecute any alcohol or drug abuse patient.[facility] HospitalIn the event this information is protected by the Federal Confidentiality of Alcohol and Drug Abuse Patient Records regulations: The Federal rules restrict any use of the information to criminally investigate or prosecute any alcohol or drug abuse patient.[facility] HospitalIn the event this information is protected by the Federal Confidentiality of Alcohol and Drug Abuse Patient Records regulations: The Federal rules restrict any use of the information to criminally investigate or prosecute any alcohol or drug abuse patient.[facility] HospitalIn the event this information is protected by the Federal Confidentiality of Alcohol and Drug Abuse Patient Records regulations: The Federal rules restrict any use of the information to criminally investigate or prosecute any alcohol or drug abuse patient.[facility] HospitalIn the event this information is protected by the Federal Confidentiality of Alcohol and Drug Abuse Patient Records regulations: The Federal rules restrict any use of the information to criminally investigate or prosecute any alcohol or drug abuse patient.[facility] HospitalIn the event this information is protected by the Federal Confidentiality of Alcohol and Drug Abuse Patient Records regulations: The Federal rules restrict any use of the information to criminally investigate or prosecute any alcohol or drug abuse patient.[facility] HospitalIn the event this information is protected by the Federal Confidentiality of Alcohol and Drug Abuse Patient Records regulations: The Federal rules restrict any use of the information to criminally investigate or prosecute any alcohol or drug abuse patient.[facility] HospitalIn the event this information is protected by the Federal Confidentiality of Alcohol and Drug Abuse Patient Records regulations: The Federal rules restrict any use of the information to criminally investigate or prosecute any alcohol or drug abuse patient.[facility] HospitalIn the event this information is protected by the Federal Confidentiality of Alcohol and Drug Abuse Patient Records regulations: The Federal rules restrict any use of the information to criminally investigate or prosecute any alcohol or drug abuse patient.[facility] Reason for Visit (unrecogniz ed section and content) Reason Onset Date Comments Yearly Exam 03/19/2022 Reason Comments Well Woman Reason Comments Bunion Pain New Reason Comments Established Patient Follow Up Pain Bunion Reason Comments Patient Question Surgery questions Reason Comments Results Specialty Diagnoses / Procedures Referred By Mely t Referred To Contact [facility] Diagnoses Right foot pain Procedures MRI FOOT/TOES WO IVCON RIGHT MRI LOWER EXTREM OTH/THN JT W/O CONTR MATRL Carol Sepulveda [address] [place] [address] [place] [address] Referral ID Status Reason Start Date Expiration Date V isits Requested Visits Authorized [id number] Closed Auto-Generate d Referral 08/30/2023 09/28/2023 1 1 Reason Comments Established Patient Pain discuss MRI Reason Comments Vaginal Problem Vaginal Discharge Reason Comments Patient Update 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 Reason Comments New Surg consult, R foot Reason Comments Established Patient Pain discuss surgery Tumor/Mass Follow Up Reason Comments Follow Up Reason Onset Date Comments Refill Request 01/31/2024 Reason Comments PT Eval Physical Therapy Specialty Diagnoses / Procedures Referred By Mely t Referred To Contact [facility] Diagnoses Hallux valgus of right foot Procedures CONSULT TO PHYSICAL THERAPY PHYSICAL THERAPY EVALUATION HIGH COMPLEX 45 MINS Carol Sepulveda [address] [place] [address] [facility] [address] [place] [address] Referral ID Status Reason Start Date Expiration Date V isits Requested Visits Authorized [id number] Open Auto-Generate d Referral 07/30/2023 07/29/2024 1 1 Reason Comments PT Discharge Physical Therapy Specialty Diagnoses / Procedures [facility] Diagnoses MARLINE (stress urinary incontinence, female) Procedures CONSULT TO PHYSICAL THERAPY PHYSICAL THERAPY EVALUATION HIGH COMPLEX 45 MINS Abena Nj MD [address] [place] [address] [facility] [address] [place] [address] Referral ID Status Reason Start Date Expiration Date Visits Requested Visits Authorized [id number] Authorized Auto-Generat ed Referral 03/01/2024 02/28/2025 59 59 Reason Comments Yearly Exam Reason Comments Lab Orders Care Teams (unrecognized sec tion and content) Design Tech Relationship Specialty Start Date End Date Jean-Paul Oneil MD [address] [place] [address] PCP - General 05/26/02 Design Tech Relationship Specialty Start Date End Date Jean-Paul Oneil MD [address] [facility] [place] [address] PCP - General 05/26/02 Design Tech Relationship Specialty Start Date End Date Jean-Paul Oneil MD [address] [facility] [place] [address] PCP - General 05/26/02 Design Tech Relationship Specialty Start Date End Date Jean-Paul Oneil MD [facility] [address] [place] [address] PCP - General 05/26/02 Design Tech Relationship Specialty Start Date End Date Sanchez Prince MD [address] [place] [address] PCP - General Internal Medicine 04/09/23 Design Tech Relationship Specialty Start Date End Date Sanchez Prince MD [address] [place] [address] PCP - General Internal Medicine 04/09/23 Design Tech Relationship Specialty Start Date End Date Sanchez Prince MD [address] [place] [address] PCP - General Internal Medicine 04/09/23 Design Tech Relationship Specialty Start Date End Date Sanchez Prince MD [address] [place] [address] PCP - General Internal Medicine 04/09/23 Team Status: Active Member Role Status Dates Dr. Jean-Paul Oneil MD Family Provider Active Dr. Sanchez Prince MD Primary Care Provider Active Team Status: Inactive Member Role Status Dates Dr. Sanchez Prince MD Primary Care Provider, Attendi ng Provider Active Team Status: Inactive Member Role Status Dates Dr. Sanchez Prince MD Primary Care Pro vider, Attending Provider, Referring Provider Active Design Tech Relationship Specialty Start Date End Date Sanchez Prince MD [address] [place] [address] PCP - General Internal Medicine 04/09/23 Design Tech Relationship Specialty Start Date End Date Sanchez Prince MD [address] [place] [address] PCP - General Internal Medicine 04/09/23 Design Tech Relationship Specialty Start Date End Date Sanchez Prince MD [address] [place] [address] PCP - General Internal Medicine 04/09/23 Design Tech Relationship Specialty Start Date End Date Sanchez Prince MD [address] [place] [address] PCP - General Internal Medicine 04/09/23 Design Tech Relationship Specialty Start Date End Date Sanchez Prince MD [address] [place] [address] PCP - General Internal Medicine 04/09/23 Design Tech Relationship Specialty Start Date End Date Sanchez Prince MD [address] [place] [address] PCP - General Internal Medicine 04/09/23 Design Tech Relationship Specialty Start Date End Date Sanchez Prince MD [address] [place] [address] PCP - General Internal Medicine 04/09/23 Design Tech Relationship Specialty Start Date End Date Sanchez Prince MD [address] [place] [address] PCP - General Internal Medicine 04/09/23 Design Tech Relationship Specialty Start Date End Date Sanchez Prince MD [address] [place] [address] PCP - General Internal Medicine 04/09/23 Design Tech Relationship Specialty Start Date End Date Sanchez Prince MD [address] [place] [address] PCP - General Internal Medicine 04/09/23 Design Tech Relationship Specialty Start Date End Date Sanchez Prince MD [address] [place] [address] PCP - General Internal Medicine 04/09/23 Design Tech Relationship Specialty Start Date End Date Sanchez Prince MD [address] [place] [address] PCP - General Internal Medicine 04/09/23 Design Tech Relationship Specialty Start Date End Date Sanchez Prince MD [address] [place] [address] PCP - General Internal Medicine 04/09/23 Team Status: Active Member Role Status Dates Dr. Sanchez Prince MD Primary Care Provider Active Team Status: Inactive Member Role Status Dates Dr. Sanchez Prince MD Primary Care Provider Active Start: May 05, 2024 End: May 05, 2024 Dr. Sanchez Prince MD Attending Provider Active Start: May 05, 2024 End: May 05, 2024 Dr. Sanchez Prince MD Referring Provider Active Start: May 05, 2024 End: May 05, 2024 Team Status: Inactive Member Role Status Dates Dr. Sanchez Prince MD Primary Care Provider Active Start: May 08, 2024 End: May 08, 2024 Dr. Sanchez Prince MD Attending Provider Active Start: May 08, 2024 End: May 08, 2024 Design Tech Relationship Specialty Start Date End Date Sanchez Prince MD [address] [place], [place] [address] PCP - General Internal Medicine 04/09/23 INFORMATION SOURCE (unrecogn ized section and content) DATE CREATED AUTHOR 09/19/2023 [facility] DATE CREATED AUTHOR AUTHOR'S ORGANIZ ATION 05/19/2024 [facility] DATE CREATED AUTHOR AUTHOR'S ORGANIZ ATION 08/04/2024 [facility] FOR RECORDS PERTAINING TO PATIENTS WHO ARE OR HAVE BEEN ENROLLED IN A CHEMICAL DEPENDENCY/SUBSTANCEABUSE PROGRAM, SOME INFORMATION MAY BE OMITTED. This clinical summary was aggregated from multiple sources. Caution should be exercised in using it in the provision of clinical care. This summary normalizes information from multiple sources, and as a consequence, information in this document may materially change the coding, format and clinical context of patient data. In addition, data may be omitted in some cases. CLINICAL DECISIONS SHOULD BE BASED ON THE PRIMARY CLINICAL RECORDS. [employer] provides no warranty or guarantee of the accuracy or completeness of information in this document.
[2024-08-15 15:11] LABS: AST(SGOT) 17 U/L (<=31); Alanine Aminotransfer ALT/SGPT 17 U/L (<=34); Albumin, Serum 4.6 g/dL (3.5-5.0); Alkaline Phosphatase 65 U/L (35-104); Anion Gap 11 (5-15); BUN 16 mg/dL (4-19); BUN/Creat Ratio 24.8 RATIO (10-20); Calcium,Total 9.6 mg/dL (7.6-11.0); Chloride 104 mmol/L (98-108); Creatinine, Serum 0.66 mg/dL (0.70-1.20); EST Glomerular Filtration Rate 107 (>60); Globulin 2.3 g/dL (2.2-4.2); Glucose 97 mg/dL (70-99); Potassium 4.5 mmol/L (3.3-5.1); Sodium Level 138 mmol/L (133-145); Total Bilirubin 0.25 mg/dL (0.00-1.30)
== END | disposition home or self-care (01) ==
LOC: BIMLAB 13:45
PROVIDERS: PCP Internal Medicine; Referring Provider Internal Medicine; Visit Provider Internal Medicine
DX: E16.2 Hypoglycemia, unspecified (principal); R73.9 Hyperglycemia, unspecified
CPT/HCPCS: 36415; 80053; 83036; 85025

== ENCOUNTER → 2024-12-20 | Outpatient (CLI) | payer BC, SELFPAY | END | disposition home or self-care (01) | LOC: LABSPEC 15:02 | PROVIDERS: PCP Internal Medicine | DX: J02.9 Acute pharyngitis, unspecified (principal) | CPT/HCPCS: 87070 ==